=== PATIENT | female | born 1945 | race Caucasian/White ===

== ENCOUNTER → 2020-05-02 09:48 | Outpatient (BNVA) | payer MEDICARE, OTHER, SELFPAY | PROVIDERS: PCP Internal Medicine; Visit Provider Internal Medicine Cardiovascular Disease | DX: Z45.018 Encounter for adjustment and management of other part of cardiac pacemaker (principal); I47.1 Supraventricular tachycardia | CPT/HCPCS: 99212 ==

== ENCOUNTER → 2020-05-03 10:26 | Outpatient (BNVA) | payer MEDICARE, OTHER, SELFPAY | PROVIDERS: PCP Internal Medicine; Visit Provider Internal Medicine | DX: J44.9 Chronic obstructive pulmonary disease, unspecified (principal); Z23 Encounter for immunization | CPT/HCPCS: 90471; 90686; 99212 ==

== ENCOUNTER → 2020-10-24 10:17 | Outpatient (REF) | payer MEDICARE, OTHER, SELFPAY ==
--- NOTE | 2020-10-24 10:19 | CA_ITS ---
Transthoracic Echocardiogram Patient (Last, First, Middle): Valery Cano M Gender: Female Date of : 1945 Age: 75 Procedure Date: 10/24/2020 Procedure Type: Transthoracic Echocardiogram Location: OP Height: 167.64 cm Weight: 97.52 kg BSA: 2.06 m2 Heart Rate: bpm BP: 120 / 70 mmHg Installation Tech: FREIDA Mercado MD: Seferino Hampton MD Restaurant Kitchen Manager: Seferino Hampton MD Symptoms: I47.1 - Supraventricular tachycardia Study Quality: Fair ECG Rhythm: Ventriculary paced rhythm Conclusions: - 1. Normal LV systolic function with grade 1 diastolic dysfunction 2. Moderate mitral annular calcification with normal cardiac valvular Doppler 3. Normal RV systolic pressure 4. No pericardial effusion Findings Left Ventricle Normal left ventricular size, thickness, and systolic function. The visually estimated ejection fraction is between 60-65%. There is paradoxical septal motion consistent with a right ventricular pacemaker. Spectral Doppler is indicative of an impaired relaxation filling pattern. E/E prime ratio is <8, consistent with normal filling pressures. Evidence suggests grade I (mild) diastolic dysfunction. Right Ventricle Normal right ventricular cavity size and systolic function. There is a pacemaker wire seen in the right ventricle. Atria The left atrium is likely dilated. There is lipomatous hypertrophy of the interatrial septum. There is no evidence of interatrial shunt. The right atrium is normal in size. A pacemaker wire is identified in the right atrium. Aortic Valve Normal aortic valve structure and function. There is no aortic valve stenosis. There is no aortic valve regurgitation. Mitral Valve There is mild anterior and moderate posterior mitral leaflet thickening. There is moderate mitral annular calcification. There is trace mitral valve regurgitation. There is no mitral valve stenosis. Pulmonic Valve The pulmonic valve is likely normal. Tricuspid Valve Likely normal tricuspid valve structure and function. There is mild tricuspid valve regurgitation. The right ventricular systolic pressure is normal. The right ventricular systolic pressure is 32 mmHg. Normal right atrial pressure. There is no evidence of pulmonary hypertension. Great Vessels All visible segments of the aorta are normal in size. The pulmonary artery was not well visualized. Venous The inferior vena cava is normal in size and collapses greater than 50% with inspiration. Pericardium/Pleural There is no evidence of pericardial effusion. Prior Study Comparison No significant change compared to prior study dated: 06/03/2018. Measurements 2D Linear Measurements IVSd: 0.98 0.6-0.9/0.6-1.0 cm LVIDd: 4.54 3.9-5.3/4.2-5.9 cm LVIDd Index: 2.20 2.4-3.2/2.2-3.1 cm/m2 LVIDs: 2.77 2.0-3.6 cm LVPWd: 0.94 0.7-1.1 cm Ao Root: 3.30 2.1-3.5 cm LA Diam: 3.40 2.7-3.8/3.0-4.0 cm LAIDs Index: 1.65 1.5-2.3 cm/m2 LV Mass: 182.92 67-162/88-224 g LV Mass Index: 88.80 43-95/49-115 g/m2 LVOT Diam: 2.00 3.0+(-)1.3 cm 2D Systolic Function EF 4C: 62.20 >55% EF 2C: 66.50 >55% EF BiP: 65.60 >55% Mitral Valve MV Pk E: 0.54 MV PK A: 0.95 MV Decel Time: 353.00 E/A: 0.60 E'Lateral: 8.70 E'Medial: 5.44 E/E' Med: 9.90 E/E' Lat: 6.20 PHT: 103.00 MVA PHT: 2.14 Decel Bourbon: 1.53 Aortic Valve AoV Pk Porfirio: 1.51 AoV Mn Porfirio: 1.03 AoV VTI: 0.35 AoV Pk Grad: 9.00 Aov Mn Grad: 5.00 MARILYN Cont.VTI: 2.17 LVOT LVOT Pk Porfirio: 1.02 LVOT Mn Porfirio: 0.66 LVOT VTI: 0.24 LVOT Pk Grad: 4.00 LVOT Mn Grad: 2.00 LVOT Diam: 2.00 LVOT Area: 3.14 Diastolic Function MV Pk E: 0.54 MV Pk A: 0.95 E/A: 0.60 E'Medial: 5.44 E/E' Med: 9.90 E' Laterial: 8.70 E/E' Lat: 6.20 Tricuspid Valve TR Pk Porfirio: 2.71 TR Pk Grad: 29.00 RA Press: 3.00 RVSP: 32.00 Great Vessels Aorta Ao Root-2D: 3.30 2.0-3.7 cm Ao Asc: 3.00 2.1-3.4 cm Ao Arch: 2.40 Updated in Other Vendor System with Status of Final Seferino Hampton MD electronically signed on 10/25/2020 4:15:34 PM with status of Final
== END ==
LOC: HO.CARD 10:17
PROVIDERS: Visit Provider Internal Medicine Cardiovascular Disease
DX: I47.1 Supraventricular tachycardia (principal); Z95.0 Presence of cardiac pacemaker
CPT/HCPCS: 93306

== ENCOUNTER → 2020-11-01 10:42 | Outpatient (BNVA) | payer MEDICARE, OTHER, SELFPAY | PROVIDERS: PCP Internal Medicine; Visit Provider Internal Medicine | DX: J44.9 Chronic obstructive pulmonary disease, unspecified (principal) | CPT/HCPCS: 99212 ==

== ENCOUNTER → 2020-11-08 10:00 | Outpatient (BNVA) | payer MEDICARE, OTHER, SELFPAY | PROVIDERS: PCP Internal Medicine; Visit Provider Internal Medicine Cardiovascular Disease | DX: Z45.018 Encounter for adjustment and management of other part of cardiac pacemaker (principal); I50.9 Heart failure, unspecified; I47.1 Supraventricular tachycardia | CPT/HCPCS: 99212 ==

== ENCOUNTER → 2021-05-09 09:46 | Outpatient (BNVA) | payer MEDICARE, OTHER, SELFPAY | PROVIDERS: PCP Internal Medicine; Visit Provider Internal Medicine | DX: J44.9 Chronic obstructive pulmonary disease, unspecified (principal) | CPT/HCPCS: 99212 ==

== ENCOUNTER → 2021-07-18 10:48 | Outpatient (BNVA) | payer MEDICARE, OTHER, SELFPAY | PROVIDERS: PCP Internal Medicine; Referring Provider Internal Medicine; Visit Provider Internal Medicine Cardiovascular Disease | DX: I47.1 Supraventricular tachycardia (principal); Z45.018 Encounter for adjustment and management of other part of cardiac pacemaker | CPT/HCPCS: 99212 ==

== ENCOUNTER 2021-09-01 10:05 | Outpatient (REF) | payer MEDICARE, OTHER, SELFPAY ==
[2021-09-01 11:08] LABS: MANUAL DIFF FLAG NO
[2021-09-01 11:20] LABS: Basophils Percent Auto 0.4 % (0-2); Eosinophils Absolute Auto 0.2 X10*3/uL (0.0-0.4); Eosinophils Percent Auto 3.1 % (0-4); Hematocrit 41.6 % (37.0-47.0); Hemoglobin 13.4 g/dl (12.0-16.0); Imm Gran Abs Auto 0.07 X10*3/uL (0.00-0.03); Lymphocytes Absolute Auto 1.5 X10*3/uL (1.2-4.9); Mean Corpuscular HGB Conc 32.2 g/dl (31.0-35.0); Mean Corpuscular Hemoglobin 27.5 pg (27.0-33.0); Mean Corpuscular Volume 85.4 fL (80.0-98.0); Mean Platelet Volume 11.2 fL (9.4-12.3); Monocytes Absolute Auto 0.7 X10*3/uL (0.1-1.2); Monocytes Percent Auto 9.8 % (2-11); Neutrophils Absolute Auto 4.7 x10*3/uL (2.0-8.3); Neutrophils Percent Auto 64.7 % (45-73); Platelet Count 255 X10*3/uL (160-400); Red Blood Count 4.87 X10*6/uL (4.20-5.50); White Blood Count 7.3 X10*3/uL (4.8-10.8)
[2021-09-01 11:31] LABS: Estimated Average Glucose 154 mg/dL
[2021-09-01 11:42] LABS: Appearance Urine HAZY; Color Urine YELLOW; Glucose Urine UA NEG (NEG); Leukocyte Esterase Urine NEG (NEG); Nitrite Urine NEG (NEG); PH 5.5 (5.0-8.0); Specific Gravity - Urine >= 1.030 (1.005-1.025); Urine Blood NEG (NEG); Urine Ketones NEG (NEG); Urine Protein NEG (NEG-TRACE)
[2021-09-01 11:46] LABS: Alanine Aminotransferase 18 U/L (0-31); Albumin Level 3.8 g/dL (3.5-5.0); Alkaline Phosphatase 82 U/L (39-117); Anion Gap 12 (12-20); Aspartate Amino Transferase 18 U/L (5-31); Bilirubin Total 0.8 mg/dL (0.0-1.0); Blood Urea Nitrogen 16 mg/dL (9-16); Calcium 8.8 mg/dL (8.4-10.2); Carbon Dioxide 27 mmol/L (22-29); Chloride 106 mmol/L (96-108); Cholesterol 166 mg/dL; Estimated Glomerular Filt Rate > 60; Glucose Fasting 152 mg/dL (60-99); HDL Cholesterol 70 mg/dL; LDL Cholesterol Calculated 87 mg/dl; Potassium 4.2 mmol/L (3.3-5.1); Sodium 141 mmol/L (135-145); Total Protein 6.6 g/dL (6.5-8.0); Triglycerides 49 mg/dL
[2021-09-01 12:09] LABS: Free T4 (Free Thyroxine) 1.16 ng/dL (0.71-1.85); Thyroid Stimulating Hormone 0.09 uIU/mL (0.32-4.0)
[2021-09-01 12:13] LABS: Creatinine Urine 141.11 mg/dL; Microalbum/Creatinine Ratio Ur 14.8 ug/mg cr
== END 2021-09-01 10:06 | disposition home or self-care (01) ==
LOC: HO.HMGCLDS 10:05
PROVIDERS: PCP Internal Medicine; Visit Provider Internal Medicine
DX: J44.9 Chronic obstructive pulmonary disease, unspecified (principal); I10 Essential (primary) hypertension; E11.9 Type 2 diabetes mellitus without complications; E03.9 Hypothyroidism, unspecified; E78.00 Pure hypercholesterolemia, unspecified
CPT/HCPCS: 36415; 80053; 80061; 81003; 82043; 83036; 84439; 84443; 85025

== ENCOUNTER → 2021-11-02 09:41 | Outpatient (BNVA) | payer MEDICARE, OTHER, SELFPAY | PROVIDERS: PCP Internal Medicine; Visit Provider Internal Medicine | DX: J44.9 Chronic obstructive pulmonary disease, unspecified (principal); Z79.899 Other long term (current) drug therapy | CPT/HCPCS: 99212 ==

== ENCOUNTER → 2021-12-08 14:47 | Outpatient (BNVA) | payer MEDICARE, OTHER, SELFPAY | PROVIDERS: PCP Internal Medicine; Visit Provider Surgery | DX: L82.0 Inflamed seborrheic keratosis (principal) | CPT/HCPCS: 99202 ==

== ENCOUNTER → 2021-12-13 13:24 | Outpatient (BNVA) | payer MEDICARE, OTHER, SELFPAY | PROVIDERS: PCP Internal Medicine; Visit Provider Surgery | DX: L82.0 Inflamed seborrheic keratosis (principal); I47.1 Supraventricular tachycardia; Z95.0 Presence of cardiac pacemaker | CPT/HCPCS: 11401; 99212 ==

== ENCOUNTER 2022-01-11 10:16 | Outpatient (REF) | payer MEDICARE, OTHER, SELFPAY ==
[2022-01-11 14:04] LABS: Estimated Average Glucose 146 mg/dL; Hemoglobin A1c % 6.7 %
[2022-01-11 14:06] LABS: Anion Gap 14 (12-20); Blood Urea Nitrogen 13 mg/dL (9-16); Calcium 9.1 mg/dL (8.4-10.2); Carbon Dioxide 27 mmol/L (22-29); Chloride 103 mmol/L (96-108); Estimated Glomerular Filt Rate > 60; Glucose Random 171 mg/dL (60-115); Potassium 4.6 mmol/L (3.3-5.1); Sodium 139 mmol/L (135-145)
[2022-01-11 14:22] LABS: Free T4 (Free Thyroxine) 1.24 ng/dL (0.71-1.85); Thyroid Stimulating Hormone 0.07 uIU/mL (0.32-4.0)
[2022-01-11 14:44] LABS: Creatinine Urine 165.43 mg/dL; Microalbum/Creatinine Ratio Ur 22.3 ug/mg cr
== END 2022-01-11 10:17 | disposition home or self-care (01) ==
LOC: HO.10HDL 10:16
PROVIDERS: Visit Provider Internal Medicine
DX: E11.9 Type 2 diabetes mellitus without complications (principal); E03.9 Hypothyroidism, unspecified; I10 Essential (primary) hypertension
CPT/HCPCS: 36415; 80048; 82043; 83036; 84439; 84443

== ENCOUNTER → 2022-01-23 10:40 | Outpatient (BNVA) | payer MEDICARE, OTHER, SELFPAY | PROVIDERS: PCP Internal Medicine; Referring Provider Internal Medicine; Visit Provider Internal Medicine Cardiovascular Disease | DX: Z45.018 Encounter for adjustment and management of other part of cardiac pacemaker (principal); I47.1 Supraventricular tachycardia | CPT/HCPCS: 93005; 93280; 99212 ==

== ENCOUNTER 2022-02-22 09:16 | Outpatient (REF) | payer MEDICARE, OTHER, SELFPAY ==
[2022-02-22 11:54] LABS: Free T4 (Free Thyroxine) 1.18 ng/dL (0.71-1.85); Thyroid Stimulating Hormone 0.12 uIU/mL (0.32-4.0)
== END 2022-02-22 09:17 | disposition home or self-care (01) ==
LOC: HO.HMGCLDS 09:16
PROVIDERS: PCP Internal Medicine; Visit Provider Internal Medicine
DX: E03.9 Hypothyroidism, unspecified (principal)
CPT/HCPCS: 36415; 84439; 84443

== ENCOUNTER 2022-04-18 10:47 | Outpatient (REF) | payer MEDICARE, OTHER, SELFPAY ==
[2022-04-18 13:36] LABS: MANUAL DIFF FLAG NO
[2022-04-18 13:37] LABS: Basophils Absolute Auto 0.1 X10*3/uL (0.0-0.2); Basophils Percent Auto 0.5 % (0-2); Eosinophils Absolute Auto 0.2 X10*3/uL (0.0-0.4); Eosinophils Percent Auto 2.3 % (0-4); Hemoglobin 13.5 g/dl (12.0-16.0); Imm Gran Abs Auto 0.08 X10*3/uL (0.00-0.03); Imm Gran Pct Auto 0.9 % (0.0-0.4); Lymphocytes Absolute Auto 1.9 X10*3/uL (1.2-4.9); Lymphocytes Percent Auto 20.5 % (20-40); Mean Corpuscular HGB Conc 31.4 g/dl (31.0-35.0); Mean Platelet Volume 10.8 fL (9.4-12.3); Monocytes Absolute Auto 0.9 X10*3/uL (0.1-1.2); Monocytes Percent Auto 9.3 % (2-11); Neutrophils Absolute Auto 6.1 x10*3/uL (2.0-8.3); Neutrophils Percent Auto 66.5 % (45-73); Platelet Count 289 X10*3/uL (160-400); Red Cell Distribution Width 13.3 % (11.0-16.0); White Blood Count 9.1 X10*3/uL (4.8-10.8)
[2022-04-18 13:49] LABS: Estimated Average Glucose 148 mg/dL; Hemoglobin A1c % 6.8 %
[2022-04-18 14:12] LABS: Alanine Aminotransferase 17 U/L (0-31); Albumin Level 3.9 g/dL (3.5-5.0); Alkaline Phosphatase 88 U/L (39-117); Anion Gap 16 (12-20); Aspartate Amino Transferase 20 U/L (5-31); Bilirubin Total 0.7 mg/dL (0.0-1.0); Blood Urea Nitrogen 12 mg/dL (9-16); Calcium 9.1 mg/dL (8.4-10.2); Carbon Dioxide 28 mmol/L (22-29); Chloride 99 mmol/L (96-108); Estimated Glomerular Filt Rate > 60; Free T4 (Free Thyroxine) 1.21 ng/dL (0.71-1.85); Glucose Random 134 mg/dL (60-115); Potassium 4.5 mmol/L (3.3-5.1); Sodium 138 mmol/L (135-145); Thyroid Stimulating Hormone 0.06 uIU/mL (0.32-4.0); Total Protein 6.8 g/dL (6.5-8.0)
== END 2022-04-18 10:48 | disposition home or self-care (01) ==
LOC: HO.10HDL 10:47
PROVIDERS: Visit Provider Internal Medicine
DX: E11.9 Type 2 diabetes mellitus without complications (principal); E03.9 Hypothyroidism, unspecified; I10 Essential (primary) hypertension
CPT/HCPCS: 36415; 80053; 83036; 84439; 84443; 85025

== ENCOUNTER → 2022-06-06 11:04 | Outpatient (BNVA) | payer MEDICARE, OTHER, SELFPAY | PROVIDERS: PCP Internal Medicine; Visit Provider Internal Medicine | DX: J44.9 Chronic obstructive pulmonary disease, unspecified (principal); J30.9 Allergic rhinitis, unspecified; R05.9 Cough, unspecified; Z79.899 Other long term (current) drug therapy | CPT/HCPCS: 99212 ==

== ENCOUNTER → 2022-07-24 10:18 | Outpatient (BNVA) | payer MEDICARE, OTHER, SELFPAY | PROVIDERS: PCP Internal Medicine; Referring Provider Internal Medicine; Visit Provider Internal Medicine Cardiovascular Disease | DX: I47.1 Supraventricular tachycardia (principal); I05.9 Rheumatic mitral valve disease, unspecified; Z45.018 Encounter for adjustment and management of other part of cardiac pacemaker | CPT/HCPCS: 93280; 99212 ==

== ENCOUNTER 2022-08-15 10:44 | Outpatient (REF) | payer MEDICARE, OTHER, SELFPAY ==
[2022-08-15 14:00] LABS: Anion Gap 12 (12-20); Blood Urea Nitrogen 14 mg/dL (9-16); Calcium 9.2 mg/dL (8.4-10.2); Carbon Dioxide 29 mmol/L (22-29); Chloride 104 mmol/L (96-108); Estimated Glomerular Filt Rate > 60; Glucose Random 108 mg/dL (60-115); Potassium 4.7 mmol/L (3.3-5.1); Sodium 140 mmol/L (135-145)
[2022-08-15 14:06] LABS: Estimated Average Glucose 151 mg/dL; Hemoglobin A1c % 6.9 %
[2022-08-15 14:20] LABS: Free T4 (Free Thyroxine) 1.11 ng/dL (0.71-1.85); Thyroid Stimulating Hormone 0.08 uIU/mL (0.32-4.0)
[2022-08-15 14:29] LABS: Creatinine Urine 77.43 mg/dL; Microalbum/Creatinine Ratio Ur 12.9 ug/mg cr
== END 2022-08-15 10:45 | disposition home or self-care (01) ==
LOC: HO.10HDL 10:44
PROVIDERS: Visit Provider Internal Medicine
DX: E11.9 Type 2 diabetes mellitus without complications (principal); E03.9 Hypothyroidism, unspecified; I10 Essential (primary) hypertension
CPT/HCPCS: 36415; 80048; 82043; 83036; 84439; 84443

== ENCOUNTER 2022-12-11 10:46 | Outpatient (AMB) | payer MEDICARE, OTHER, SELFPAY ==
--- NOTE | 2022-12-11 10:47 | MHC.OFFVIS ---
Intake Vital Signs 12/11/22 10:48 Height 5 ft 7 in Weight 199 lb 8.293 oz BMI 31.2 BP 122/64 Blood Pressure Location Lt brachial Position Sitting Pulse 92 Pulse Source Pulse Oximeter Pulse Oximetry (%) 95 Oxygen Delivery Method Room Air Intake Visit Reasons: COPD follow-up Intake Note: Pt presents for a f/u and reports everything is going well. Lead Software Engineer Required: No Allergies No Known Allergies [No Known Allergies*] Allergy (Verified 12/11/22 11:31) Medication List - Last Reconciled 12/11/22 by Yadira Downey MD aspirin (Ecotrin Low Strength) 81 mg PO DAILY atorvastatin 10 mg PO BEDTIME diltiazem HCl 240 mg PO DAILY levothyroxine 50 mcg PO DAILY prednisolone acetate 1% 0 drps ophthalmic (eye) Symbicort 160-4.5 mcg/actuation (budesonide-formoterol) 2 puffs PO BID 90 days NS tolterodine ER 4 mg PO DAILY Do you need a note to return to daycare/school/sports/work: No HPI COPD follow-up HPI Details THIS 77 YEARS OLD VERY PLEASANT FEMALE COMES AFTER 6 MONTHS FOR HER ROUTINE FOLLOW-UP FOR COPD. HER BREATHING HAS REMAINED VERY STABLE, AND MOST OF THE TIME SHE IS USING SYMBICORT 2 PUFFS JUST IN THE MORNING. USES 2 PUFFS IN THE EVENING ONLY ON THE DAYS WHEN SHE FEELS SOMEWHAT MORE CONGESTED. SHE HAS MILD INTERMITTENT COUGH, HER WALKING IS SLOW DUE TO PROBLEM WITH THE KNEES, SO SHE HARDLY GETS SHORT OF BREATH EVEN ON WALKING. LUCKILY SHE HAS HAD NO RESPIRATORY INFECTION OR EXACERBATION . [facility] Medical History Allergic rhinitis Cardiac pacemaker in situ Complete heart block COPD (chronic obstructive pulmonary disease) Cough SVT (supraventricular tachycardia) Surgical History History of permanent cardiac pacemaker placement Hx of eye surgery Family History Father No problems noted. Mother CVD (cardiovascular disease) Pacemaker Social History Patient Tobacco Use Status: Former Tobacco user Review of Systems Const All systems reviewed & are unremarkable except as noted in HPI and below Eyes Reports no additional complaints ENT Reports nasal congestion (MILD) and Reports sore throat (MILD FEELING OF THROAT CONGESTION IN THE MORNING HOURS) Card Denies chest pain, Denies irregular heart rhythm and Denies leg edema GI Reports no additional complaints Reports no additional complaints Musc Reports no additional complaints Skin/Breast Reports system reviewed and no additional complaints, except as documented Neuro Reports no additional complaints Psych Reports no additional complaints Physical Exam Vital Signs: Last Vital Signs Pulse 92 12/11/22 10:48 BP 122/64 12/11/22 10:48 Pulse Ox 95 12/11/22 10:48 Oxygen Delivery Method Room Air 12/11/22 10:48 BMI result Body Mass Index 31.2 Const General: comfortable, no acute distress, alert and awake Orientation/consciousness: patient oriented x3 HEENT Head: Yes normal to inspection General nose exam: No nasal polyps present and No nasal discharge present Face and sinus: Yes sinuses nontender Mouth: oropharynx normal Throat: Yes posterior oropharynx normal and Yes other (Throat looks okay there is no sign of thrush) Eyes General: appearance normal, both eyes and all related structures Neck Neck: Yes normal visual inspection, Yes no lymphadenopathy, Yes trachea midline and Yes no JVD Thyroid: Thyroid normal Chest Chest palpation & inspection: normal inspection of the chest, normal palpation of entire chest wall and no tenderness Resp Other: Percussion note resonant, has good breath sounds on both sides with, slightly prolonged expiratory phase. No audible wheezes rhonchi or crepitations Cardio Palpation: normal PMI Rate: regular rate Rhythm: regular rhythm Heart sounds: no gallops and no murmurs GI Palpation (GI): Soft to palpation, nontender, No hepatosplenomegaly present and no masses Auscultation: normal bowel sounds Back/Spine/Pelvis Thoracic/Lumbar Spine: thoracic and lumbar spine normal to inspection Skin General skin exam: no rashes or lesions noted Neuro General: patient oriented x3 and no focal motor deficits Cranial nerves: Yes CN's II-XII intact bilaterally Extrem General: Yes normal to inspection, No no joint enlargement (BOTH KNEES ARE ENLARGED AND STIFF, SHE HAS HAD MINOR SURGERIES ON BOTH SIDE), Yes no clubbing, cyanosis or edema and Yes no calf tenderness Right upper extremity: edema (Mild stasis edema controlled with the elastic stockings) Psych Appearance: grossly normal and well kempt Speech and movement: Normal speech and movement present Assessment & Plan Assessment & Plan (1) Allergic rhinitis: Comment: She has mild allergic rhinitis. Remains fairly well controlled. [place]: FLONASE 2 SPRAY EACH NOSTRIL DAILY. MAY USE LORATADINE 10 MG ONCE A DAY P.R.N. FOR ACUTE ATTACKS OF SNEEZING AND NASAL CONGESTION. Code(s): J30.9 - Allergic rhinitis, unspecified (2) Cough: Comment: The cough is more due to allergic rhinitis and changes in the air quality. Continue to use Flonase 2 spray in each nostril daily. In winter months use the humidifier in the house. Drink plenty of fluids. Code(s): R05.9 - Cough, unspecified (3) COPD (chronic obstructive pulmonary disease): Comment: MILD TO MODERTAE DEGREE OF COPD. VERY STABLE , AND CONTROLLED TX : ADVISED TO USE SYMBICORT 160-4.5 ONLY ONE INH BID, OR 2 PUFFS IN AMs AND INCREASE TO 2 PUFFS B.I.D. IF SYMPTOMS GET ANY WORSE. USE PROAIR 2 PUFFS Q 6 HOURS ONLY P.R.N.( WHICH SHE HARDLY NEEDS ) Code(s): J44.9 - Chronic obstructive pulmonary disease, unspecified Coding Level of Care Code Est Pt Level 3 (94785) Diagnoses Allergic rhinitis J30.9 Cough R05.9 COPD (chronic obstructive pulmonary disease) J44.9
[2022-12-11 10:48] VITALS: BP 122/64; PULSE 92; O2SAT 95; BMI 31.2
== END 2022-12-11 11:05 | disposition home or self-care (01) ==
PROVIDERS: PCP Internal Medicine; Visit Provider Internal Medicine
DX: J30.9 Allergic rhinitis, unspecified (principal); R05.9 Cough, unspecified; J44.9 Chronic obstructive pulmonary disease, unspecified
CPT/HCPCS: 99213

== ENCOUNTER → 2022-12-11 10:46 | Outpatient (BNVA) | payer MEDICARE, OTHER, SELFPAY | PROVIDERS: PCP Internal Medicine; Visit Provider Internal Medicine | DX: J44.9 Chronic obstructive pulmonary disease, unspecified (principal); R05.9 Cough, unspecified; J30.9 Allergic rhinitis, unspecified; I44.2 Atrioventricular block, complete; I47.1 Supraventricular tachycardia; Z87.891 Personal history of nicotine dependence; Z95.0 Presence of cardiac pacemaker | CPT/HCPCS: 99212 ==

== ENCOUNTER → 2023-01-18 09:39 | Outpatient (REF) | payer MEDICARE, OTHER, SELFPAY ==
--- NOTE | 2023-01-18 09:40 | CA_ITS ---
Transthoracic Echocardiogram Patient (Last, First, Middle): Valery Cano M Gender: Female Date of : 1945 Age: 77 Procedure Date: 01/18/2023 Procedure Type: Transthoracic Echocardiogram Location: OP Height: 167.64 cm Weight: 90.72 kg BSA: 2.00 m2 Heart Rate: 43 bpm BP: 140 / 70 mmHg Lighter: MOISE Referring MD: Seferino Hampton MD Symptoms: I05.9 - Rheumatic mitral valve disease, unspecified Study Quality: Adequate ECG Rhythm: Bradycardia Conclusions: - Normal left ventricular size, thickness, systolic function, and wall motion. The visually estimated ejection fraction is between 55-60%. - Normal right ventricular cavity size and systolic function. There is a pacemaker wire seen in the right ventricle. Findings Left Ventricle Normal left ventricular size, thickness, systolic function, and wall motion. The visually estimated ejection fraction is between 55-60%. Abnormal diastolic function is noted. Spectral Doppler is indicative of an impaired relaxation filling pattern. E/E prime ratio is <8, consistent with normal filling pressures. Right Ventricle Normal right ventricular cavity size and systolic function. There is a pacemaker wire seen in the right ventricle. Atria The left atrium is normal in size. The right atrium is normal in size. Aortic Valve There is a normal trileaflet aortic valve. There is mild calcification of the aortic valve. There is no aortic valve stenosis. There is no aortic valve regurgitation. Mitral Valve The mitral valve appears normal. There is no mitral valve regurgitation. There is no mitral valve stenosis. Pulmonic Valve The pulmonic valve is likely normal. Tricuspid Valve Normal tricuspid valve structure. There is no tricuspid valve regurgitation. The right ventricular systolic pressure is 26 mmHg. Normal right atrial pressure. There is no evidence of pulmonary hypertension. Great Vessels There is mild dilatation of the sinuses of Valsalva measuring 3.70 cm and mild dilatation of the ascending aorta measuring 3.30 cm. Venous The inferior vena cava is normal in size and collapses greater than 50% with inspiration. Pericardium/Pleural There is no evidence of pericardial effusion. Prior Study Comparison No significant change compared to prior study dated: 10/24/2020. Measurements 2D Linear Measurements IVSd: 0.84 0.6-0.9/0.6-1.0 cm LVIDd: 5.19 3.9-5.3/4.2-5.9 cm LVIDd Index: 2.60 2.4-3.2/2.2-3.1 cm/m2 LVIDs: 3.25 2.0-3.6 cm LVPWd: 1.01 0.7-1.1 cm LA Diam: 3.60 2.7-3.8/3.0-4.0 cm LAIDs Index: 1.80 1.5-2.3 cm/m2 LV Mass: 218.10 67-162/88-224 g LV Mass Index: 109.05 43-95/49-115 g/m2 LVOT Diam: 2.20 3.0+(-)1.3 cm 2D Systolic Function EF 4C: 59.80 >55% EF 2C: 54.60 >55% EF BiP: 57.50 >55% Mitral Valve MV Pk E: 0.64 MV PK A: 0.86 MV Decel Time: 200.00 E/A: 0.70 E'Lateral: 9.68 E'Medial: 6.42 E/E' Med: 9.90 E/E' Lat: 6.60 PHT: 59.00 MVA PHT: 3.73 Decel Brooks: 3.19 Aortic Valve AoV Pk Porfirio: 1.45 AoV Mn Porfirio: 1.07 AoV VTI: 0.38 AoV Pk Grad: 8.00 Aov Mn Grad: 5.00 MARILYN Cont.VTI: 3.09 LVOT LVOT Pk Porfirio: 1.30 LVOT Mn Porfirio: 0.92 LVOT VTI: 0.31 LVOT Pk Grad: 7.00 LVOT Mn Grad: 4.00 LVOT Diam: 2.20 LVOT Area: 3.80 Diastolic Function MV Pk E: 0.64 MV Pk A: 0.86 E/A: 0.70 E'Medial: 6.42 E/E' Med: 9.90 E' Laterial: 9.68 E/E' Lat: 6.60 Right Ventricle TAPSE (mm): 21.20 TVS' Porfirio: 11.40 Tricuspid Valve TR Pk Porfirio: 2.39 TR Pk Grad: 23.00 RA Press: 3.00 RVSP: 26.00 Great Vessels Aorta Sinus of Valsalva: 3.70 2.0-3.5 cm Ao Asc: 3.30 2.1-3.4 cm Pulmonary Valve PV Pk Porfirio: 0.96 Peak PV Grad: 4.00 Updated in Other Vendor System with Status of Final Heath Goodman MD electronically signed on 01/21/2023 6:53:21 PM with status of Final
== END ==
LOC: HO.CARD 09:39
PROVIDERS: PCP Internal Medicine; Visit Provider Internal Medicine Cardiovascular Disease
DX: I05.9 Rheumatic mitral valve disease, unspecified (principal)
CPT/HCPCS: 93306

== ENCOUNTER → 2023-01-18 09:40 | Outpatient (BNV) | payer MEDICARE, OTHER, SELFPAY | PROVIDERS: PCP Internal Medicine; Visit Provider Internal Medicine Cardiovascular Disease | DX: I35.8 Other nonrheumatic aortic valve disorders (principal) | CPT/HCPCS: 93306 ==

== ENCOUNTER 2023-01-28 09:45 | Outpatient (AMB) | payer MEDICARE, OTHER, SELFPAY ==
--- NOTE | 2023-01-28 09:55 | MHC.OFFVIS ---
Intake Vital Signs 01/28/23 09:58 Height 5 ft 7 in Weight 200 lb 9.93 oz BMI 31.4 BP 120/82 Blood Pressure Location Lt brachial Position Sitting Pulse 74 Intake Visit Reasons: 6 mth s/p echo Intake Note: 6 month follow-up with ekg and medtronic check feeling good Funeral Car Driver Required: No Allergies No Known Allergies [No Known Allergies*] Allergy (Verified 12/11/22 11:31) Medication List - Last Reconciled 01/28/23 by Seferino Hampton MD aspirin (Ecotrin Low Strength) 81 mg PO DAILY atorvastatin 10 mg PO BEDTIME diltiazem HCl 240 mg PO DAILY levothyroxine 50 mcg PO DAILY prednisolone acetate 1% 0 drps ophthalmic (eye) Symbicort 160-4.5 mcg/actuation (budesonide-formoterol) 2 puffs PO BID 90 days NS tolterodine ER 4 mg PO DAILY HPI HPI Comments History of Present Illness Details Valery comes for follow-up. Says about a month ago she felt her heart slow down a lot a pacemaker was not working well. Reviewed the pacer telemetry consistent with nonsustained VT at that time. She did not lose consciousness. Continues to have exertional shortness of breath. Denies any orthopnea, PND, leg edema. Denies any exertional chest pain. Takes all her medications. No prolonged palpitations irregular heartbeat. [facility] Medical History Allergic rhinitis Cough COPD (chronic obstructive pulmonary disease) SVT (supraventricular tachycardia) Complete heart block Cardiac pacemaker in situ Surgical History History of permanent cardiac pacemaker placement Hx of eye surgery Family History Father No problems noted. Mother CVD (cardiovascular disease) Pacemaker Social History Patient Tobacco Use Status: Former Tobacco user Review of Systems Const Denies chills, Denies fatigue, Denies fever(s), Denies frequent falls, Denies weakness, Denies weight gain and Denies weight loss ENT Denies dizziness Card Denies chest pain, Denies leg edema, Denies lightheadedness, Denies palpitations, Denies dyspnea, Denies dyspnea on exertion, Denies orthopnea and Denies other (loss of consciousness) Resp Denies cough, Denies dyspnea and Denies dyspnea on exertion GI Denies hematochezia and Denies change in stool character Musc Denies abnormal gait, Denies muscle weakness, Denies numbness, Denies radiating pain into limb and Denies tingling Neuro Denies abnormal gait, Denies dizziness, Denies frequent falls, Denies numbness, Denies tingling and Denies weakness Endo Denies fatigue and Denies palpitations Physical Exam Vital Signs: Last Vital Signs Pulse 74 01/28/23 09:58 BP 120/82 01/28/23 09:58 BMI result Body Mass Index 31.4 Const General: cooperative, comfortable, no acute distress, alert and awake Nutritional Appearance: obese Orientation/consciousness: patient oriented x3 Limitations: no limitations Neck Neck: Yes trachea midline, Yes supple and Yes no JVD Resp Effort & Inspection: normal respiratory effort Auscultation: diminished lung sounds on the left in the lower lung lowery and bronchovesicular breath sounds Cardio Jugular venous distension: no JVD Palpation: normal PMI Rate: regular rate Rhythm: regular rhythm Heart sounds: S1 normal heart sound present and S2 normal heart sound present GI Inspection: Yes obesity Auscultation: normal bowel sounds Skin General skin exam: no rashes or lesions noted Neuro General: patient oriented x3 and no focal motor deficits Extrem General: Yes no clubbing, cyanosis or edema and Yes pedal edema Psych Appearance: grossly normal Office Procedures Cardiac Device Check Cardiac Device Check Details: Dual-chamber Medtronic pacemaker in place. Programmed in DDDR at 60 beats per minute. One episode of nonsustained VT noted on December 30. Patient ventricularly pacer dependent. Atrial pacing 50% of time. Atrial pacing thresholds adequate and reprogrammed to enhance battery life. Ventricular pacing thresholds are stable. Pacing lead impedance is stable. Battery life is at about 17 months [id number] Cardiac Device Check, pacemaker dual lead Procedure code (CPT) selection complete EKG Details: EKG shows dual AV paced rhythm at 74 beats per minute [id number], Complete Assessment & Plan Assessment & Plan (1) Non-sustained ventricular tachycardia: Code(s): I47.29 - Other ventricular tachycardia Plan: Patient noted to have 1 episode of nonsustained ventricular tachycardia that may correlate with her symptoms of lightheadedness/feeling the heart stopping. Etiology is unclear. Recent echocardiogram shows normal LV systolic function. Would suggest a vasodilating myocardial perfusion imaging to rule out myocardial ischemia. Further treatment based on the findings. May consider switching her to a beta-beth if she continues to have recurrent episodes of nonsustained VT. (2) Cardiac pacemaker in situ: Comment: Medtronic dual-chamber. Did not tolerate asynchronous ventricular pacing Code(s): Z95.0 - Presence of cardiac pacemaker Plan: Cardiac pacemaker in-situ, working well. Reprogrammed for adequate function. Patient pacer dependent ventricle. Will continue monitor remotely every 3 months. Follow up in the clinic in 6 months time. (3) SVT (supraventricular tachycardia): Code(s): I47.1 - Supraventricular tachycardia Plan: Prior history of SVT without any obvious clinical recurrence at this point time. Continue calcium channel beth therapy. Avoidance of stimulants was discussed. Vagal maneuvers were discussed. Will follow up in the clinic in 6 months time, sooner p.r.n.. Thank you for allowing me to partake in the care Orders: Orders CA lexiscan stress w saad Today I47.29 - Other ventricular tachycardia Coding Level of Care Code Est Pt Level 4 (65979) Diagnoses Non-sustained ventricular tachycardia I47.29 Cardiac pacemaker in situ Z95.0 SVT (supraventricular tachycardia) I47.1 CPT Codes Cardiac Device Check - Cardiac Device 2: [id number] Cardiac Device Check, pacemaker dual lead ([id number]) EKG - CPT: 74937-[id number], Complete ([id number])
[2023-01-28 09:58] VITALS: BP 120/82; PULSE 74; BMI 31.4
== END 2023-01-28 10:17 | disposition home or self-care (01) ==
PROVIDERS: PCP Internal Medicine; Referring Provider Internal Medicine; Visit Provider Internal Medicine Cardiovascular Disease
DX: I47.29 Other ventricular tachycardia (principal); Z95.0 Presence of cardiac pacemaker
CPT/HCPCS: 93280; 99214

== ENCOUNTER → 2023-01-28 09:45 | Outpatient (BNVA) | payer MEDICARE, OTHER, SELFPAY | PROVIDERS: PCP Internal Medicine; Referring Provider Internal Medicine; Visit Provider Internal Medicine Cardiovascular Disease | DX: I47.29 Other ventricular tachycardia (principal); I47.1 Supraventricular tachycardia; Z45.018 Encounter for adjustment and management of other part of cardiac pacemaker | CPT/HCPCS: 93005; 93280; 99212 ==

== ENCOUNTER → 2023-02-26 09:09 | Outpatient (REF) | payer MEDICARE, OTHER, SELFPAY ==
--- NOTE | ~2023-02-26 | NM_ITS ---
Lexiscan Myocardial perfusion study Indication: Abnormal EKG, shortness of breath, assess for coronary disease and ischemia Technique: The patient was brought in for a Lexiscan perfusion study on 02/26/2023 and was injected 0.4 mg of Lexiscan intravenously. Within a minute of this injection 30 mCi of sestamibi was given intravenously. Images were obtained using the SPECT gamma camera interlaced with the gating device. Images were obtained in supine position. Resting perfusion study was performed on 02/27/2023. Patient was administered 30 mCi of sestamibi intravenously at rest. Images were then obtained in supine position. Images were processed with the software and compared side to side in short axis, horizontal long axis and vertical long axis views. Total DLP 181mGy-cm. Findings: Raw acquisition reviewed. Arms by the patient's side. The stress perfusion study showed markedly reduced to absent tracer uptake in the distal part of inferior wall. There is some improvement with CT attenuation correction suggestive components of diaphragmatic attenuation artifact. The gated study shows normal LV systolic function with calculated LVEF of 59%. LV cavity is normal in size. The gated study shows normal wall thickening and contraction of segments. Resting study shows markedly diminished tracer uptake in most of the inferior wall, most prominent at the distal part. Gating at rest reveals normal wall motion with ejection fraction at 69%. The findings are consistent with fixed inferior perfusion defect but improving significantly with CT attenuation correction. No clear reversible defects. NM/NM saad perf SPECT rest & str Impression: 1. Myocardial perfusion imaging study shows probably normal myocardial perfusion. Fixed inferior defect but improves significantly with CT attenuation correction and hence could be all diaphragmatic attenuation artifact. Less likely prior inferior infarct. 2. Gated LVEF is 59% during stress and 69% during rest. 3. Transient ischemic dilatation not present. EKG component of the test reported separately.
== END ==
LOC: HO.CARD 09:09
PROVIDERS: Visit Provider Internal Medicine Cardiovascular Disease
DX: I47.29 Other ventricular tachycardia (principal)
CPT/HCPCS: 78452; 93017; A9500; J0280; J2785

== ENCOUNTER → 2023-02-26 09:12 | Outpatient (BNV) | payer MEDICARE, OTHER, SELFPAY | PROVIDERS: Visit Provider Nurse Practitioner | DX: R94.31 Abnormal electrocardiogram [ECG] [EKG] (principal); I47.29 Other ventricular tachycardia | CPT/HCPCS: 78452; 93016; 93018 ==

== ENCOUNTER → 2023-05-14 23:59 | Outpatient (BNV) | payer MEDICARE, OTHER, SELFPAY ==
--- NOTE | 2023-05-21 08:35 | MHC.OFFVIS ---
Intake Intake Visit Reasons: Remote Device Check- Medtronic Allergies No Known Allergies [No Known Allergies*] Allergy (Verified 12/11/22 11:31) PFSH Medical History Allergic rhinitis Cough COPD (chronic obstructive pulmonary disease) SVT (supraventricular tachycardia) Complete heart block Cardiac pacemaker in situ Surgical History History of permanent cardiac pacemaker placement Hx of eye surgery Family History Father No problems noted. Mother CVD (cardiovascular disease) Pacemaker Social History Patient Tobacco Use Status: Former Tobacco user Office Procedures Cardiac Device Check Cardiac Device Check Details: Remote pacemaker report generated 05/14/2023. Pacemaker function is adequate. Battery life is low at 4 months. Will follow [id number] Cardiac Device Interrogation, pacemaker Procedure code (CPT) selection complete Assessment & Plan Assessment & Plan (1) Cardiac pacemaker in situ: Comment: Medtronic dual-chamber. Did not tolerate asynchronous ventricular pacing Code(s): Z95.0 - Presence of cardiac pacemaker Plan: See above Coding Level of Care Code Procedure Only Diagnoses Cardiac pacemaker in situ Z95.0 CPT Codes Cardiac Device Check - Cardiac Device 12: [id number] Cardiac Device Interrogation, pacemaker ([id number])
== END ==
PROVIDERS: Visit Provider Internal Medicine Cardiovascular Disease
DX: I44.2 Atrioventricular block, complete (principal); Z95.0 Presence of cardiac pacemaker
CPT/HCPCS: 93294

== ENCOUNTER 2023-05-28 09:25 | Day surgery (SDC) | payer MEDICARE, OTHER, SELFPAY ==
[2023-05-24 13:37] VITALS: BMI 31.3
--- NOTE | 2023-05-27 10:42 | P.CONAN_ITS ---
Documented by User: Delma Carrera NP 05/27/23 10:46 HPI - Anesthesia Eval Consult details Narrative: 77yo F for Colonoscopy [place] [facility] [place] Last office visit 01/2023. Pacer in situ PMFSH Active Problems Active Problems: All Active Problems (Updated 05/24/23 @ 13:36 by Bernie Kendall RN) Non-sustained ventricular tachycardia (Acute) Inflamed seborrheic keratosis (Acute) Mitral annular calcification (Acute) Allergic rhinitis (Acute) Cough (Acute) SVT (supraventricular tachycardia) (Acute) Cardiac pacemaker in situ (Acute) COPD (chronic obstructive pulmonary disease) (Acute) Past Medical History Medical History Hypothyroidism Diabetes mellitus Degenerative joint disease Irritable bowel syndrome Diverticulosis Allergic rhinitis Cough COPD (chronic obstructive pulmonary disease) SVT (supraventricular tachycardia) Complete heart block Cardiac pacemaker in situ Family History Family History Father No problems noted. Mother CVD (cardiovascular disease) Pacemaker Surgical History Surgical History H/O colonoscopy History of appendectomy History of hysterectomy History of permanent cardiac pacemaker placement Hx of eye surgery Social History Social History Patient Tobacco Use Status: Former Tobacco user Use of substances other than those prescribed or required for medical reasons: No Advance Directives: No Advance Directives Information Provided: Yes Meds Allergies Allergy/AdvReac Type Severity Reaction Status Date / Time No Known Allergies Allergy Verified 12/11/22 11:31 [No Known Allergies*] Home Medications Medication Instructions Recorded Confirmed Last Taken Type atorvastatin 10 mg tablet 10 mg PO BEDTIME 05/02/20 05/24/23 Unknown History levothyroxine 50 mcg tablet 50 mcg PO DAILY 05/02/20 05/24/23 Unknown History tolterodine 4 mg capsule,extended 4 mg PO DAILY 11/08/20 05/24/23 Unknown History release 24 hr prednisolone acetate 1 % eye 1 drp ophthalmic (eye) DAILY 12/11/22 05/24/23 Unknown History drops,suspension Exam Height,Weight and Vital Signs: Height 5 ft 7 in Weight 90.718 kg Narrative Narrative: NM saad perf SPECT rest & str 02/2023 Impression: 1. Myocardial perfusion imaging study shows probably normal myocardial perfusion. Fixed inferior defect but improves significantly with CT attenuation correction and hence could be all diaphragmatic attenuation artifact. Less likely prior inferior infarct. 2. Gated LVEF is 59% during stress and 69% during rest. 3. Transient ischemic dilatation not present. EKG component of the test reported separately. Cardiac Device Check 01/2023 Details: Dual-chamber Medtronic pacemaker in place. Programmed in DDDR at 60 beats per minute. One episode of nonsustained VT noted on December 30. Patient ventricularly pacer dependent. Atrial pacing 50% of time. Atrial pacing thresholds adequate and reprogrammed to enhance battery life. Ventricular pacing thresholds are stable. Pacing lead impedance is stable. Battery life is at about 17 months EKG 01/2023 dual AV paced rhythm at 74 beats per minute Assessment and Plan Assessment Anesthesia Assessment: Chart Reviewed Documented by User: Billy Blue MD 05/28/23 10:24 [facility] Past Medical History Medical History Hypothyroidism Diabetes mellitus Degenerative joint disease Irritable bowel syndrome Diverticulosis Allergic rhinitis Cough COPD (chronic obstructive pulmonary disease) SVT (supraventricular tachycardia) Complete heart block Cardiac pacemaker in situ Family History Family History Father No problems noted. Mother CVD (cardiovascular disease) Pacemaker Family history of problems with anesthesia: No Surgical History Surgical History H/O colonoscopy History of appendectomy History of hysterectomy History of permanent cardiac pacemaker placement Hx of eye surgery History of Problems with Anesthesia: No Social History Social History Patient Tobacco Use Status: Former Tobacco user Use of substances other than those prescribed or required for medical reasons: No Advance Directives: No Advance Directives Information Provided: Yes Meds Allergies Allergy/AdvReac Type Severity Reaction Status Date / Time No Known Allergies Allergy Verified 12/11/22 11:31 [No Known Allergies*] Home Medications Medication Instructions Recorded Confirmed Last Taken Type atorvastatin 10 mg tablet 10 mg PO BEDTIME 05/02/20 05/24/23 Unknown History levothyroxine 50 mcg tablet 50 mcg PO DAILY 05/02/20 05/24/23 Unknown History tolterodine 4 mg capsule,extended 4 mg PO DAILY 11/08/20 05/24/23 Unknown History release 24 hr prednisolone acetate 1 % eye 1 drp ophthalmic (eye) DAILY 12/11/22 05/24/23 Unknown History drops,suspension Exam Airway Mallampati Class: III TM Dist: >3cm Neck ROM: Full Loose/Missing/Broken Teeth: No Heart: [id number] Lungs: cta b/l Assessment and Plan Assessment Anesthesia Assessment: Anesthesia Plan Discussed Final Anesthetic Review Family History of Problems with Anesthesia: No History of Problems with Anesthesia: No NPO: Yes ASA Class: III Final Preanesthetic Review: No Changes in Pt Med Stat, Meds/Allgs Chart Reviewed, Consent Obtained/Reviewed and Anes Risks/Benef Reviewed Patient Risk: Intermediate Procedure Risk: Intermediate Assessment/Block/Sedation in SS: Assess/Block/Sedation-SS Anesthetic Plan Anesthetic Plan: MAC: and Agree w/ Assess. and Plan Disposition: Standard PACU
[2023-05-28 10:02] VITALS: BP 140/87; PULSE 85; RESP 16; TEMP 37.3; O2SAT 97; BMI 30.9
--- NOTE | 2023-05-28 10:08 | MHC.SHP ---
Pre-Procedural Eval Section A Date of Service: 05/28/23 Section B Chief Complaint: Encounter for screening for malignant neoplasm of Details of Present Illness: see H&P no changes Relevant Family History (Specify if Yes): No Relevant Social History: None Present Medications: see Short Stay Collaborative assessment Medical History: No relevant PMH History of Previous Operations: No relevant previous surgery Allergies: Allergies Allergy/AdvReac Type Severity Reaction Status Date / Time No Known Allergies Allergy Verified 12/11/22 11:31 [No Known Allergies*] Review of Systems Sugical H&P ROS: Negative: Constitution, Cardiovascular, Respiratory, Neurological, Psychiatric, Hem-Onc, Allergic/Immunologic, Gastrointestinal, Genitourinary, Musculoskeletal, Integumentary, Endocrine and Eyes/Ears/Nose/Throat Exam Surgical H&P Exam: Normal: HEENT, Normal: Heart, Normal: Lungs, Normal: Extremities, Normal: Abdomen, Normal: Skin and Normal: Neurological Plan Diagnosis/Plan: Unchanged I have reviewed the history and physical and performed a pertinent physical examination on my patient. No changes have occurred unless specified. Time Spent With Patient Time: Total time managing care of this patient today ____ minutes.
[2023-05-28] MEDS: Lactated Ringers 1,000 ML 100 ML IVCONT (10:19)
[2023-05-28 11:01] VITALS: BP 129/55; PULSE 79; RESP 19; TEMP 36.5; O2SAT 100
[2023-05-28 11:16] VITALS: BP 149/58; PULSE 69; RESP 19; TEMP 36.5; O2SAT 98
--- NOTE | 2023-05-28 11:25 | OP_ITS ---
DATE OF SERVICE: 05/28/2023 SURGEON: Pelon rAroyo MD INDICATIONS: Colon cancer screening and family history of colon cancer PREOPERATIVE DIAGNOSIS: POSTOPERATIVE DIAGNOSIS: PROCEDURE PERFORMED: Colonoscopy to the terminal ileum. ESTIMATED BLOOD LOSS: COMPLICATIONS: ANESTHESIA: Monitored anesthesia care. ASSISTANTS: SPECIMENS: DESCRIPTION OF PROCEDURE: A history and physical was performed. The risks and benefits of the procedure were explained to the patient. Informed consent was obtained. The patient was placed in the left lateral decubitus position. A digital rectal exam was performed and was found to be normal. The Olympus pediatric video colonoscope was introduced into the rectum and advanced to the cecum. The cecum was identified by transillumination, palpation, and identification of ileocecal valve. Examination was performed. The scope was removed. She tolerated the procedure well and was taken to the recovery area in stable condition. FINDINGS: The terminal ileum was examined and appeared normal. The visualized colonic mucosa was normal. The quality of the prep was good. No polyps were identified. There was mild sigmoid diverticulosis. Retroflexed examination showed some small internal hemorrhoids. IMPRESSION: Normal colonoscopy. RECOMMENDATION: 1. Follow up as needed. 2. Repeat colonoscopy is recommended in 5 years for family history of colon cancer. This is optional based on her age. MD ADENIKE Benavidez/JOSEPHL / [phone]
== END 2023-05-28 12:19 | disposition home or self-care (01) ==
PROVIDERS: PCP Internal Medicine; Visit Provider Internal Medicine Gastroenterology
PROC: 0DJD8ZZ Inspection of Lower Intestinal Tract, Via Natural or Artificial Opening Endoscopic (ICD-10-PCS; CPT 45378; principal; 2023-05-28 10:50)
DX: Z12.11 Encounter for screening for malignant neoplasm of colon (principal); Z80.0 Family history of malignant neoplasm of digestive organs; K57.30 Diverticulosis of large intestine without perforation or abscess without bleeding; K64.8 Other hemorrhoids; K58.9 Irritable bowel syndrome, unspecified; I47.10 Supraventricular tachycardia, unspecified; Z95.0 Presence of cardiac pacemaker; J44.9 Chronic obstructive pulmonary disease, unspecified; E78.00 Pure hypercholesterolemia, unspecified; E03.9 Hypothyroidism, unspecified; E11.9 Type 2 diabetes mellitus without complications; Z79.82 Long term (current) use of aspirin; Z87.891 Personal history of nicotine dependence
CPT/HCPCS: G0105; J2704

== ENCOUNTER 2023-06-18 11:04 | Outpatient (AMB) | payer MEDICARE, OTHER, SELFPAY ==
[2023-06-18 11:06] VITALS: BP 110/52; PULSE 72; O2SAT 97
--- NOTE | 2023-06-18 11:06 | MHC.OFFVIS ---
Intake Vital Signs 06/18/23 11:06 Height 5 ft 7 in BP 110/52 L Blood Pressure Location Lt brachial Position Sitting Pulse 72 Pulse Source Pulse Oximeter Pulse Oximetry (%) 97 Oxygen Delivery Method Room Air Intake Visit Reasons: COPD follow-up Intake Note: pt is here for follow up and states she is feeling not bad with breathing but the stuffy nose/runny nose is an issue.PT NEEDS ALTERNATIVE FOR SYMBICORT. 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: No Allergies No Known Allergies [No Known Allergies*] Allergy (Verified 06/18/23 11:29) Medication List - Last Reconciled 06/18/23 by Yadira Downey MD aspirin (Ecotrin Low Strength) 81 mg PO DAILY atorvastatin 10 mg PO BEDTIME diltiazem HCl 240 mg PO DAILY levothyroxine 50 mcg PO DAILY prednisolone acetate 1% 1 drp ophthalmic (eye) DAILY Symbicort 160-4.5 mcg/actuation (budesonide-formoterol) 2 puffs PO BID 90 days NS tolterodine ER 4 mg PO DAILY Do you need a note to return to daycare/school/sports/work: No HPI COPD follow-up HPI Details 78 years old very pleasant female is here for follow-up after 6 months. She has remained very stable during the past 6 months, without any infection or acute exacerbation. She does get mild nasal congestion off and on, with mild cough but no wheezing. She is using Symbicort 2 puffs b.i.d. and ProAir only once in a while. Now she would need an alternative agent in place of Symbicort. But she still has 3 months supply. [facility] Medical History Hypothyroidism Diabetes mellitus Degenerative joint disease Irritable bowel syndrome Diverticulosis Allergic rhinitis Cough COPD (chronic obstructive pulmonary disease) SVT (supraventricular tachycardia) Complete heart block Cardiac pacemaker in situ Surgical History H/O colonoscopy History of appendectomy History of hysterectomy History of permanent cardiac pacemaker placement Hx of eye surgery Family History Father No problems noted. Mother CVD (cardiovascular disease) Pacemaker Social History Patient Tobacco Use Status: Former Tobacco user Review of Systems Const All systems reviewed & are unremarkable except as noted in HPI and below Eyes Reports no additional complaints ENT Reports nasal congestion (MILD) and Reports sore throat (MILD FEELING OF THROAT CONGESTION IN THE MORNING HOURS) Card Denies chest pain, Denies irregular heart rhythm and Denies leg edema GI Reports no additional complaints Reports no additional complaints Musc Reports no additional complaints Skin/Breast Reports system reviewed and no additional complaints, except as documented Neuro Reports no additional complaints Psych Reports no additional complaints Physical Exam Vital Signs: Last Vital Signs Pulse 72 06/18/23 11:06 BP 110/52 L 06/18/23 11:06 Pulse Ox 97 06/18/23 11:06 Oxygen Delivery Method Room Air 06/18/23 11:06 Const General: comfortable, no acute distress, alert and awake Orientation/consciousness: patient oriented x3 HEENT Head: Yes normal to inspection General nose exam: No nasal polyps present and No nasal discharge present Face and sinus: Yes sinuses nontender Mouth: oropharynx normal Throat: Yes posterior oropharynx normal and Yes other (Throat looks okay there is no sign of thrush) Eyes General: appearance normal, both eyes and all related structures Neck Neck: Yes normal visual inspection, Yes no lymphadenopathy, Yes trachea midline and Yes no JVD Thyroid: Thyroid normal Chest Chest palpation & inspection: normal inspection of the chest, normal palpation of entire chest wall and no tenderness Resp Other: Percussion note resonant, has good breath sounds on both sides with, slightly prolonged expiratory phase. No audible wheezes rhonchi or crepitations Cardio Palpation: normal PMI Rate: regular rate Rhythm: regular rhythm Heart sounds: no gallops and no murmurs GI Palpation (GI): Soft to palpation, nontender, No hepatosplenomegaly present and no masses Auscultation: normal bowel sounds Back/Spine/Pelvis Thoracic/Lumbar Spine: thoracic and lumbar spine normal to inspection Skin General skin exam: no rashes or lesions noted Neuro General: patient oriented x3 and no focal motor deficits Cranial nerves: Yes CN's II-XII intact bilaterally Extrem General: Yes normal to inspection, No no joint enlargement (BOTH KNEES ARE ENLARGED AND STIFF, SHE HAS HAD MINOR SURGERIES ON BOTH SIDE), Yes no clubbing, cyanosis or edema and Yes no calf tenderness Right upper extremity: edema (Mild stasis edema controlled with the elastic stockings) Psych Appearance: grossly normal and well kempt Speech and movement: Normal speech and movement present Assessment & Plan Assessment & Plan (1) COPD (chronic obstructive pulmonary disease): Comment: MILD TO MODERTAE DEGREE OF COPD. VERY STABLE , AND CONTROLLED TX : ADVISED TO USE SYMBICORT 160-4.5 ONLY ONE INH BID, OR 2 PUFFS IN AMs AND INCREASE TO 2 PUFFS B.I.D. IF SYMPTOMS GET ANY WORSE. USE PROAIR 2 PUFFS Q 6 HOURS ONLY P.R.N.( WHICH SHE HARDLY NEEDS ) Code(s): J44.9 - Chronic obstructive pulmonary disease, unspecified Plan: * When she finishes her current supply of Symbicort, We will change it to Breo 200-25 only 1 inhalation daily. She will let us know when she needs the change (2) Allergic rhinitis: Comment: She has mild allergic rhinitis. Remains fairly well controlled. Code(s): J30.9 - Allergic rhinitis, unspecified Plan: TX: FLONASE 2 SPRAY EACH NOSTRIL DAILY. MAY USE LORATADINE 10 MG ONCE A DAY P.R.N. FOR ACUTE ATTACKS OF SNEEZING AND NASAL CONGESTION. Coding Level of Care Code Est Pt Level 3 (77117) Diagnoses COPD (chronic obstructive pulmonary disease) J44.9 Allergic rhinitis J30.9
== END 2023-06-18 11:31 | disposition home or self-care (01) ==
PROVIDERS: PCP Internal Medicine; Visit Provider Internal Medicine
DX: J44.9 Chronic obstructive pulmonary disease, unspecified (principal); J30.9 Allergic rhinitis, unspecified
CPT/HCPCS: 99213

== ENCOUNTER → 2023-06-18 11:04 | Outpatient (BNVA) | payer MEDICARE, OTHER, SELFPAY | PROVIDERS: PCP Internal Medicine; Visit Provider Internal Medicine | DX: J44.9 Chronic obstructive pulmonary disease, unspecified (principal); J30.9 Allergic rhinitis, unspecified | CPT/HCPCS: 99212 ==

== ENCOUNTER 2023-08-06 09:33 | Outpatient (AMB) | payer MEDICARE, OTHER, SELFPAY ==
[2023-08-06 09:42] VITALS: BP 110/60; PULSE 64; BMI 31.1
--- NOTE | 2023-08-06 09:42 | A.OFFVIS_ITS ---
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 Recently her pacemaker battery event MARSHAL and since then she has been feeling poorly. She says she feels more exertional shortness of breath as well as fatigue. Pacer is pacing rate synchronously VVI at 65 beats per minute losing AV synchrony. She has not had any rapid heart rate or palpitations. Denies any lightheadedness, syncope. No orthopnea, PND, leg edema. PFSH Medical History Hypothyroidism Diabetes mellitus Degenerative joint disease Irritable bowel syndrome Diverticulosis Allergic rhinitis Cough COPD (chronic obstructive pulmonary disease) SVT (supraventricular tachycardia) Complete heart block Cardiac pacemaker in situ Surgical History H/O colonoscopy History of appendectomy History of hysterectomy History of permanent cardiac pacemaker placement Hx of eye surgery Family History Father No problems noted. Mother CVD (cardiovascular disease) Pacemaker Social History Patient Tobacco Use Status: Former Tobacco user Review of Systems Const Denies chills, Denies fatigue, Denies fever(s), Denies frequent falls, Denies weakness, Denies weight gain and Denies weight loss ENT Denies dizziness Card Denies chest pain, Denies leg edema, Denies lightheadedness, Denies palpitations, Denies dyspnea, Denies dyspnea on exertion, Denies orthopnea and Denies other (loss of consciousness) Resp Denies cough, Denies dyspnea and Denies dyspnea on exertion GI Denies hematochezia and Denies change in stool character Musc Denies abnormal gait, Denies muscle weakness, Denies numbness, Denies radiating pain into limb and Denies tingling Neuro Denies abnormal gait, Denies dizziness, Denies frequent falls, Denies numbness, Denies tingling and Denies weakness Endo Denies fatigue and Denies palpitations Physical Exam Vital Signs: Last Vital Signs Pulse 64 08/06/23 09:42 BP 110/60 08/06/23 09:42 BMI result Body Mass Index 31.1 Const General: cooperative, comfortable, no acute distress, alert and awake Nutritional Appearance: obese Orientation/consciousness: patient oriented x3 Limitations: no limitations Neck Neck: Yes trachea midline, Yes supple and Yes no JVD Resp Effort & Inspection: normal respiratory effort Auscultation: diminished lung sounds on the left in the lower lung lowery and bronchovesicular breath sounds Cardio Jugular venous distension: no JVD Palpation: normal PMI Rate: regular rate Rhythm: regular rhythm Heart sounds: S1 normal heart sound present and S2 normal heart sound present GI Inspection: Yes obesity Auscultation: normal bowel sounds Skin General skin exam: no rashes or lesions noted Neuro General: patient oriented x3 and no focal motor deficits Extrem General: Yes no clubbing, cyanosis or edema and Yes pedal edema Psych Appearance: grossly normal Office Procedures Cardiac Device Check Cardiac Device Check Details: Dual-chamber Medtronic pacemaker in place, programmed in VVI at 65 beats per minute, asynchronous pacing due to MARSH[place]. Ventricular pacing lead impedance is adequate. Nothing else could be changed to reprogrammed. [id number] Cardiac Device Check, pacemaker dual lead Procedure code (CPT) selection complete Assessment & Plan Assessment & Plan (1) Pacemaker at end of battery life: Code(s): Z45.010 - Encounter for checking and testing of cardiac pacemaker pulse generator [battery] Plan: Pacemaker at [facility] with asynchronous ventricular pacing which is not being tolerated by patient at this point time with loss of AV synchrony. She had similar symptoms in the past. Will try to get her pacemaker pulse generator change as soon as possible. Risks, benefits, alternatives were discussed. She understands and is agreeable. Will try to schedule it this week (2) SVT (supraventricular tachycardia): Code(s): I47.1 - Supraventricular tachycardia Plan: Supraventricular tachycardia without any clinical recurrence at this point time. Continue calcium channel beth therapy. Continue avoid stimulants. No change in therapy indicated as medical therapy has worked very well for her. Follow up in the clinic in 4 weeks after pulse generator change. Thank you for allowing me to partake in the care Coding Level of Care Code Est Pt Level 4 (17170) Diagnoses Pacemaker at end of battery life Z45.010 SVT (supraventricular tachycardia) I47.1 CPT Codes Cardiac Device Check - Cardiac Device 2: [id number] Cardiac Device Check, pacemaker dual lead ([id number])
== END 2023-08-06 10:04 | disposition home or self-care (01) ==
PROVIDERS: PCP Internal Medicine; Visit Provider Internal Medicine Cardiovascular Disease
DX: I47.10 Supraventricular tachycardia, unspecified (principal); Z45.010 Encounter for checking and testing of cardiac pacemaker pulse generator [battery]
CPT/HCPCS: 93280; 99214

== ENCOUNTER 2023-08-06 14:47 | Day surgery (SDC) | payer MEDICARE, OTHER, SELFPAY ==
--- NOTE | 2023-08-06 15:17 | P.CONAN_ITS ---
[facility] Active Problems Active Problems: All Active Problems (Updated 07/26/23 @ 16:41 by Catalina Mera, SUPERVISOR ORDNANCE TRUCK INSTALLATION-C) Pacemaker at end of battery life (Acute) Non-sustained ventricular tachycardia (Acute) Inflamed seborrheic keratosis (Acute) Mitral annular calcification (Acute) Allergic rhinitis (Acute) Cough (Acute) SVT (supraventricular tachycardia) (Acute) Cardiac pacemaker in situ (Acute) COPD (chronic obstructive pulmonary disease) (Acute) Past Medical History Medical History Hypothyroidism Diabetes mellitus Degenerative joint disease Irritable bowel syndrome Diverticulosis Allergic rhinitis Cough COPD (chronic obstructive pulmonary disease) SVT (supraventricular tachycardia) Complete heart block Cardiac pacemaker in situ Family History Family History Father No problems noted. Mother CVD (cardiovascular disease) Pacemaker Family history of problems with anesthesia: No Surgical History Surgical History H/O colonoscopy History of appendectomy History of hysterectomy History of permanent cardiac pacemaker placement Hx of eye surgery History of Problems with Anesthesia: No Social History Social History Patient Tobacco Use Status: Former Tobacco user Advance Directives: No Meds Allergies Allergy/AdvReac Type Severity Reaction Status Date / Time No Known Allergies Allergy Verified 06/18/23 11:29 [No Known Allergies*] Home Medications Medication Instructions Recorded Confirmed Last Taken Type atorvastatin 10 mg tablet 10 mg PO BEDTIME 05/02/20 08/06/23 Unknown History levothyroxine 50 mcg tablet 50 mcg PO DAILY 05/02/20 08/06/23 Unknown History tolterodine 4 mg capsule,extended 4 mg PO DAILY 11/08/20 08/06/23 Unknown History release 24 hr prednisolone acetate 1 % eye 1 drp ophthalmic (eye) DAILY 12/11/22 08/06/23 Unknown History drops,suspension Assessment and Plan Assessment Anesthesia Assessment: Anesthesia Plan Discussed and Chart Reviewed Final Anesthetic Review Family History of Problems with Anesthesia: No History of Problems with Anesthesia: No NPO: Yes ASA Class: III Final Preanesthetic Review: No Changes in Pt Med Stat, Meds/Allgs Chart Reviewed, Consent Obtained/Reviewed and Anes Risks/Benef Reviewed Patient Risk: Intermediate Procedure Risk: Intermediate Anesthetic Plan Anesthetic Plan: MAC: Disposition: Standard PACU
[2023-08-06 15:20] VITALS: BMI 31.9
[2023-08-06 15:44] VITALS: BP 156/65; PULSE 65; RESP 16; TEMP 37.4; O2SAT 98
[2023-08-06] MEDS: ceFAZolin Sodium/Dextrose,Iso 2 GM/50 ML PIGGYBACK IV (16:00)
--- NOTE | 2023-08-06 17:17 | W.PM.OPN ---
Operative Note Operative Note Date of Service: 08/06/23 Narrative: Pulse?Generator?Changeout? ? Information And Data Architect Analyst: Dr. Tyler Lai ? NAME OF PROCEDURE: ? Pacemaker Pulse?Generator?Changeout ? INDICATION FOR PROCEDURE:??Device at [facility] Description of Procedure:??Patient was identified brought to the electrophysiology laboratory in a postabsorptive state.??The left ?pectoral region was prepped and draped in usual sterile fashion.??The patient received IV Antibiotics prior to the case for surgical prophylaxis. At start of the procedure 1% Lidocaine was infiltrated at prior incision site. Incision was made over the left pectoral area at the prior incision site and utilizing blunt dissection and electrocautery the prior device was exposed. Hemostasis was obtained with electrocautery. With further careful dissection the leads were freed from adhesions in the pocket. The?pulse?generator?was extracted.The leads were subsequently attached to an external pacing analyzer and pacing and sensing characteristics were measured. After the lead parameters were examined they were found to be satisfactory and no need for lead revision was noted. The wound was thoroughly irrigated with antibiotic solution. The existing leads were plugged into a pulse generator. The?pulse?generator?and leads was placed into the subcutaneous pocket. The wound was closed with 3 layers of absorbable sutures.? Patient tolerated the procedure well.??There were no complications. ? ? IMPRESSION: ? Successful pulse generator change
[2023-08-06 17:23] VITALS: BP 159/63; PULSE 75; RESP 18; TEMP 36.8; O2SAT 96
== END 2023-08-06 17:50 | disposition home or self-care (01) ==
PROVIDERS: Visit Provider Internal Medicine Cardiovascular Disease
PROC: (CPT 33228; principal; 2023-08-06 18:30)
DX: Z45.010 Encounter for checking and testing of cardiac pacemaker pulse generator [battery] (principal); I47.10 Supraventricular tachycardia, unspecified; J44.9 Chronic obstructive pulmonary disease, unspecified; E11.9 Type 2 diabetes mellitus without complications; Z79.82 Long term (current) use of aspirin; Z79.51 Long term (current) use of inhaled steroids; Z79.899 Other long term (current) drug therapy; Z87.891 Personal history of nicotine dependence
CPT/HCPCS: 33228; 93280; 99212; A4364; C1785; J0690; J3370

== ENCOUNTER 2023-08-12 11:31 | Outpatient (AMB) | payer MEDICARE, OTHER, SELFPAY ==
--- NOTE | 2023-08-12 16:42 | A.OFFVIS_ITS ---
Intake Intake Visit Reasons: Medtronic pacer check Allergies No Known Allergies [No Known Allergies*] Allergy (Verified 08/06/23 15:32) [facility] Medical History Hypothyroidism Diabetes mellitus Degenerative joint disease Irritable bowel syndrome Diverticulosis Allergic rhinitis Cough COPD (chronic obstructive pulmonary disease) SVT (supraventricular tachycardia) Complete heart block Cardiac pacemaker in situ Surgical History (Updated 08/12/23 @ 16:47 by Catalina Mera, AFFILIATE MARKETING COORDINATOR-C) H/O colonoscopy History of appendectomy History of hysterectomy History of permanent cardiac pacemaker placement Hx of eye surgery Family History Father No problems noted. Mother CVD (cardiovascular disease) Pacemaker Social History Patient Tobacco Use Status: Former Tobacco user Office Procedures Cardiac Device Check Cardiac Device Check Details: Today, read by me, Medtronic dual-chamber pacemaker interrogation. GEN change done 08/06/2019 alerts on remote monitoring for atrial bipolar lead impedance warning and high atrial thresholds. Brought into the atrial lead impedance 228 Ohms, right atrial threshold 2.5 volts at 0.4 milliseconds, program amplitude 5 volts at 0.4 milliseconds, RV threshold 1.375 volts at 0.4 milliseconds, V paced 100%, a paced 23.8%. Changes made, atrial amplitude 4.5 volts, atrial capture management turned off, atrial pacing lead impedance alert turned off. The patient is pacemaker dependent. Currently atrial pacing 23.8%, V pacing 100%. [id number] Cardiac Device Check, pacemaker dual lead Procedure code (CPT) selection complete Assessment & Plan Assessment & Plan (1) History of permanent cardiac pacemaker placement: Comment: medtronic Code(s): Z95.0 - Presence of cardiac pacemaker Plan: device check due to alerts Coding Level of Care Code Procedure Only Diagnoses History of permanent cardiac pacemaker placement Z95.0 CPT Codes Cardiac Device Check - Cardiac Device 2: [id number] Cardiac Device Check, pacemaker dual lead ([id number])
== END 2023-08-12 12:50 | disposition home or self-care (01) ==
PROVIDERS: Visit Provider Nurse Practitioner Family
DX: Z95.0 Presence of cardiac pacemaker (principal)
CPT/HCPCS: 93280

== ENCOUNTER → 2023-08-12 11:31 | Outpatient (BNVA) | payer MEDICARE, OTHER, SELFPAY | PROVIDERS: Visit Provider Nurse Practitioner Family | DX: Z45.018 Encounter for adjustment and management of other part of cardiac pacemaker (principal) | CPT/HCPCS: 93280 ==

== ENCOUNTER → 2023-08-12 23:59 | Outpatient (BNV) | payer MEDICARE, OTHER, SELFPAY ==
--- NOTE | 2023-08-14 12:32 | A.OFFVIS_ITS ---
Intake Intake Visit Reasons: Remote Device Check- Medtronic Allergies No Known Allergies [No Known Allergies*] Allergy (Verified 08/06/23 15:32) PFS Medical History Hypothyroidism Diabetes mellitus Degenerative joint disease Irritable bowel syndrome Diverticulosis Allergic rhinitis Cough COPD (chronic obstructive pulmonary disease) SVT (supraventricular tachycardia) Complete heart block Cardiac pacemaker in situ Surgical History (Updated 08/12/23 @ 16:47 by Catalina Mera DIRECTOR DATA ARCHITECTURE-C) H/O colonoscopy History of appendectomy History of hysterectomy History of permanent cardiac pacemaker placement Hx of eye surgery Family History Father No problems noted. Mother CVD (cardiovascular disease) Pacemaker Social History Patient Tobacco Use Status: Former Tobacco user Office Procedures Cardiac Device Check Cardiac Device Check Details: Remote pacemaker report generated 08/12/2023. Pacemaker function is adequate [id number] Cardiac Device Interrogation, pacemaker Procedure code (CPT) selection complete Assessment & Plan Assessment & Plan (1) Cardiac pacemaker in situ: Comment: Medtronic dual-chamber. Did not tolerate asynchronous ventricular pacing Code(s): Z95.0 - Presence of cardiac pacemaker Plan: See above Coding Level of Care Code Procedure Only Diagnoses Cardiac pacemaker in situ Z95.0 CPT Codes Cardiac Device Check - Cardiac Device 12: [id number] Cardiac Device Interrogation, pacemaker ([id number])
== END ==
PROVIDERS: Visit Provider Internal Medicine Cardiovascular Disease
DX: I44.2 Atrioventricular block, complete (principal); Z95.0 Presence of cardiac pacemaker
CPT/HCPCS: 93294

== ENCOUNTER 2023-09-06 09:24 | Outpatient (AMB) | payer MEDICARE, OTHER, SELFPAY ==
[2023-09-06 09:32] VITALS: BP 130/70; PULSE 82; BMI 32.2
--- NOTE | 2023-09-06 09:32 | MHC.OFFVIS ---
Vital Signs 09/06/23 09:32 Height 5 ft 6 in Weight 199 lb 11.821 oz BMI 32.2 BP 130/70 Blood Pressure Location Lt brachial Position Sitting Pulse 82 Pulse Source Pulse Oximeter Intake Visit Reasons: 4 wk s/p gen chg Rotary Drill Rig Operator Required: No Accompanied by: Self / Same As Patient Allergies No Known Allergies [No Known Allergies*] Allergy (Verified 08/06/23 15:32) Medication List - Last Reconciled 09/06/23 by Seferino Hampton MD aspirin (Ecotrin Low Strength) 81 mg PO DAILY atorvastatin 10 mg PO BEDTIME diltiazem HCl CD 240 mg PO DAILY levothyroxine 50 mcg PO DAILY Symbicort 160-4.5 mcg/actuation (budesonide-formoterol) 2 puffs PO BID 90 days NS tolterodine ER 4 mg PO DAILY HPI Comments Details: Valery comes for follow-up. She is doing well. She denies any significant cardiac complaints. She is doing well. Denies any heart failure symptoms. No palpitations, lightheadedness, syncope. Takes all her medications. [facility] Medical History Hypothyroidism Diabetes mellitus Degenerative joint disease Irritable bowel syndrome Diverticulosis Allergic rhinitis Cough COPD (chronic obstructive pulmonary disease) SVT (supraventricular tachycardia) Complete heart block Cardiac pacemaker in situ Surgical History H/O colonoscopy History of appendectomy History of hysterectomy History of permanent cardiac pacemaker placement Hx of eye surgery Family History Father No problems noted. Mother CVD (cardiovascular disease) Pacemaker Social History Patient Tobacco Use Status: Former Tobacco user Review of Systems Const Denies chills, Denies fatigue, Denies fever(s), Denies frequent falls, Denies weakness, Denies weight gain and Denies weight loss ENT Denies dizziness Card Denies chest pain, Denies leg edema, Denies lightheadedness, Denies palpitations, Denies dyspnea and Denies dyspnea on exertion Resp Denies cough, Denies dyspnea and Denies dyspnea on exertion GI Denies hematochezia Musc Denies abnormal gait, Denies muscle weakness, Denies numbness, Denies radiating pain into limb and Denies tingling Neuro Denies abnormal gait, Denies dizziness, Denies frequent falls, Denies numbness, Denies tingling and Denies weakness Endo Denies fatigue and Denies palpitations Physical Exam Vital Signs: Last Vital Signs Pulse 82 09/06/23 09:32 BP 130/70 09/06/23 09:32 BMI result Body Mass Index 32.2 Const General: cooperative, comfortable, no acute distress, alert and awake Nutritional Appearance: obese Orientation/consciousness: patient oriented x3 Limitations: no limitations Neck Neck: Yes trachea midline, Yes supple and Yes no JVD Resp Effort & Inspection: normal respiratory effort Auscultation: diminished lung sounds on the left in the lower lung lowery and bronchovesicular breath sounds Cardio Jugular venous distension: no JVD Palpation: normal PMI Rate: regular rate Rhythm: regular rhythm Heart sounds: S1 normal heart sound present and S2 normal heart sound present GI Inspection: Yes obesity Auscultation: normal bowel sounds Skin General skin exam: no rashes or lesions noted Neuro General: patient oriented x3 and no focal motor deficits Extrem General: Yes no clubbing, cyanosis or edema and Yes pedal edema Psych Appearance: grossly normal Office Procedures Cardiac Device Check Cardiac Device Check Details: Dual-chamber Medtronic pacemaker in place. Programmed in DDDR at 60 beats per minute. Atrial pacing 31% of time. Ventricular pacing 100% of time. Atrial lead impedance is stable. Ventricular lead impedance is stable. Atrial pacing thresholds are elevated but slightly improved reprogrammed to enhance battery life. Ventricular pacing thresholds adequate and reprogrammed to enhance battery life. No arrhythmias detected. Battery life is about 8 and half years [id number] Cardiac Device Check, pacemaker dual lead Procedure code (CPT) selection complete Assessment & Plan Assessment & Plan (1) Cardiac pacemaker in situ: Comment: Medtronic dual-chamber. Did not tolerate asynchronous ventricular pacing Code(s): Z95.0 - Presence of cardiac pacemaker Category: Medical Plan: Cardiac pacemaker in-situ which is working well with slightly increased threshold on the atrial lead but with stable lead impedances and stable pacing thresholds. Will continue monitor by remote telemetry every 3 months. Follow up in the clinic in 6 months time. Pacemaker battery was recently changed. (2) SVT (supraventricular tachycardia): Code(s): I47.1 - Supraventricular tachycardia Category: Medical Plan: Supraventricular tachycardia which has remained suppressed on Cardizem therapy. Continue the same. Advised to avoid stimulants. Stress mitigation strategies were discussed will continue monitor pacer telemetry. Advised to call us with any worsening symptoms. Encouraged to continue to participate in physical activity as tolerated. Will follow up in the clinic in 6 months time, sooner p.r.eddie.. Thank you for allowing me to partake in her care
== END 2023-09-06 09:48 | disposition home or self-care (01) ==
PROVIDERS: PCP Internal Medicine; Visit Provider Internal Medicine Cardiovascular Disease
DX: I47.10 Supraventricular tachycardia, unspecified (principal); Z95.0 Presence of cardiac pacemaker
CPT/HCPCS: 93280; 99214

== ENCOUNTER → 2023-09-06 09:24 | Outpatient (BNVA) | payer MEDICARE, OTHER, SELFPAY | PROVIDERS: PCP Internal Medicine; Visit Provider Internal Medicine Cardiovascular Disease | DX: Z45.018 Encounter for adjustment and management of other part of cardiac pacemaker (principal); I47.10 Supraventricular tachycardia, unspecified | CPT/HCPCS: 93280; 99212 ==

== ENCOUNTER → 2023-11-10 23:59 | Outpatient (BNV) | payer MEDICARE, OTHER, SELFPAY ==
--- NOTE | 2023-11-11 13:14 | MHC.OFFVIS ---
Intake Visit Reasons: Remote Device Check- Medtronic Allergies No Known Allergies [No Known Allergies*] Allergy (Verified 08/06/23 15:32) PFSH Medical History Hypothyroidism Diabetes mellitus Degenerative joint disease Irritable bowel syndrome Diverticulosis Allergic rhinitis Cough COPD (chronic obstructive pulmonary disease) SVT (supraventricular tachycardia) Complete heart block Cardiac pacemaker in situ Surgical History H/O colonoscopy History of appendectomy History of hysterectomy History of permanent cardiac pacemaker placement Hx of eye surgery Family History Father No problems noted. Mother CVD (cardiovascular disease) Pacemaker Social History Patient Tobacco Use Status: Former Tobacco user Office Procedures Cardiac Device Check Cardiac Device Check Details: Remote pacemaker report generated 11/10/2023. Pacemaker function is adequate. Patient ventricularly pacer dependent [id number] Cardiac Device Interrogation, pacemaker Procedure code (CPT) selection complete Assessment & Plan Assessment & Plan (1) Cardiac pacemaker in situ: Comment: Medtronic dual-chamber. Did not tolerate asynchronous ventricular pacing Code(s): Z95.0 - Presence of cardiac pacemaker Category: Medical Plan: See above Coding Level of Care Code Procedure Only Diagnoses Cardiac pacemaker in situ Z95.0 CPT Codes Cardiac Device Check - Cardiac Device 12: [id number] Cardiac Device Interrogation, pacemaker ([id number])
== END ==
PROVIDERS: PCP Internal Medicine; Visit Provider Internal Medicine Cardiovascular Disease
DX: Z45.018 Encounter for adjustment and management of other part of cardiac pacemaker (principal)
CPT/HCPCS: 93294

== ENCOUNTER 2023-12-16 10:33 | Outpatient (AMB) | payer MEDICARE, OTHER, SELFPAY ==
[2023-12-16 10:49] VITALS: BP 120/68; PULSE 78; O2SAT 96; BMI 32.2
--- NOTE | 2023-12-16 10:49 | A.OFFVIS_ITS ---
Vital Signs 12/16/23 10:49 Height 5 ft 6 in Weight 199 lb 8.293 oz BMI 32.2 BP 120/68 Blood Pressure Location Lt brachial Position Sitting Pulse 78 Pulse Source Pulse Oximeter Pulse Oximetry (%) 96 Oxygen Delivery Method Room Air Intake Visit Reasons: COPD follow-up Intake Note: pt is here for follow up and states she is feeling okay, some coughing. Needs substitute for symbicort, insurance will not cover. Chief School Finance Officer Required: No Allergies No Known Allergies [No Known Allergies*] Allergy (Verified 12/16/23 11:08) Medication List - Last Reconciled 12/16/23 by Yadira Downey MD aspirin (Ecotrin Low Strength) 81 mg PO DAILY atorvastatin 10 mg PO BEDTIME diltiazem HCl CD 240 mg PO DAILY levothyroxine 50 mcg PO DAILY Symbicort 160-4.5 mcg/actuation (budesonide-formoterol) 2 puffs PO BID 90 days NS tolterodine ER 4 mg PO DAILY Do you need a note to return to daycare/school/sports/work: No HPI HPI COPD follow-up: Details: NIALL IS 78 YEARS OLD VERY PLEASANT FEMALE WHO COMES FOR HER 6 MONTHS FOLLOW-UP FOR COPD. SHE IS DOING FAIRLY WELL EXCEPT FOR MILD INTERMITTENT COUGH, AND NASAL CONGESTION OFF AND ON. SHE STILL USING SYMBICORT FROM HER PREVIOUS PRESCRIPTION, BUT NOW HAS TO CHANGE IT TO AN ALTERNATIVE IS. SHE HARDLY NEEDS TO USE THE RESCUE INHALER. [facility] Medical History Hypothyroidism Diabetes mellitus Degenerative joint disease Irritable bowel syndrome Diverticulosis Allergic rhinitis Cough COPD (chronic obstructive pulmonary disease) SVT (supraventricular tachycardia) Complete heart block Cardiac pacemaker in situ Surgical History H/O colonoscopy History of appendectomy History of hysterectomy History of permanent cardiac pacemaker placement Hx of eye surgery Family History Father No problems noted. Mother CVD (cardiovascular disease) Pacemaker Social History Patient Tobacco Use Status: Former Tobacco user Review of Systems Const All systems reviewed & are unremarkable except as noted in HPI and below Eyes Reports no additional complaints ENT Reports nasal congestion (MILD) and Reports sore throat (MILD FEELING OF THROAT CONGESTION IN THE MORNING HOURS) Card Denies chest pain, Denies irregular heart rhythm and Denies leg edema GI Reports no additional complaints Reports no additional complaints Musc Reports no additional complaints Skin/Breast Reports system reviewed and no additional complaints, except as documented Neuro Reports no additional complaints Psych Reports no additional complaints Physical Exam Vital Signs: Last Vital Signs Pulse 78 12/16/23 10:49 BP 120/68 12/16/23 10:49 Pulse Ox 96 12/16/23 10:49 Oxygen Delivery Method Room Air 12/16/23 10:49 BMI result Body Mass Index 32.2 Const General: comfortable, no acute distress, alert and awake Orientation/consciousness: patient oriented x3 HEENT Head: Yes normal to inspection General nose exam: No nasal polyps present and No nasal discharge present Face and sinus: Yes sinuses nontender Mouth: oropharynx normal Throat: Yes posterior oropharynx normal and Yes other (Throat looks okay there is no sign of thrush) Eyes General: appearance normal, both eyes and all related structures Neck Neck: Yes normal visual inspection, Yes no lymphadenopathy, Yes trachea midline and Yes no JVD Thyroid: Thyroid normal Chest Chest palpation & inspection: normal inspection of the chest, normal palpation of entire chest wall and no tenderness Resp Other: Percussion note resonant, has good breath sounds on both sides with, slightly prolonged expiratory phase. No audible wheezes rhonchi or crepitations Cardio Palpation: normal PMI Rate: regular rate Rhythm: regular rhythm Heart sounds: no gallops and no murmurs GI Palpation (GI): Soft to palpation, nontender, No hepatosplenomegaly present and no masses Auscultation: normal bowel sounds Back/Spine/Pelvis Thoracic/Lumbar Spine: thoracic and lumbar spine normal to inspection Skin General skin exam: no rashes or lesions noted Neuro General: patient oriented x3, gait normal (USES CANE) and no focal motor deficits Cranial nerves: Yes CN's II-XII intact bilaterally Extrem General: Yes normal to inspection, No no joint enlargement (BOTH KNEES ARE ENLA RGED AND STIFF, SHE HAS HAD MINOR SURGERIES ON BOTH SIDE), Yes no clubbing, cyanosis or edema and Yes no calf tenderness Right upper extremity: edema (Mild stasis edema controlled with the elastic stockings) Psych Appearance: grossly normal and well kempt Speech and movement: Normal speech and movement present Assessment & Plan Assessment & Plan (1) COPD (chronic obstructive pulmonary disease): Comment: MILD TO MODERTAE DEGREE OF COPD. VERY STABLE , AND CONTROLLED HAS ONLY MILD INTERMITTENT COUGH. SHE WALKS WITH A CANE SAYS, SLOWLY, SO DOES NOT HAVE ANY SHORTNESS OF BREATH ON EXERTION. Code(s): J44.9 - Chronic obstructive pulmonary disease, unspecified Category: Surgical Plan: SYMBICORT IS CHANGED TO DULERA 200-5 2 INHALATIONS BID ( As per Jo Ann ) . AND USE PROAIR 2 PUFFS Q 6 HOURS ONLY P.R.N.( WHICH SHE HARDLY NEEDS TO USE) (2) Cough: Comment: The cough is more due to allergic rhinitis and changes with the air quality. Code(s): R05.9 - Cough, unspecified Category: Medical Plan: [place] : Continue to use Flonase 2 spray in each nostril daily. In winter months use the humidifier in the house. Drink plenty of fluids. Medications: New mometasone-formoterol 200-5 mcg/actuation (Dulera) 2 puffs inhalation BID 30 days 13 grams 5RF copd Coding Level of Care Code Est Pt Level 3 (07786) Diagnoses COPD (chronic obstructive pulmonary disease) J44.9 Cough R05.9
== END 2023-12-16 11:10 | disposition home or self-care (01) ==
PROVIDERS: PCP Internal Medicine; Visit Provider Internal Medicine
DX: J44.9 Chronic obstructive pulmonary disease, unspecified (principal); R05.9 Cough, unspecified
CPT/HCPCS: 99213

== ENCOUNTER → 2023-12-16 10:33 | Outpatient (BNVA) | payer MEDICARE, OTHER, SELFPAY | PROVIDERS: PCP Internal Medicine; Visit Provider Internal Medicine | DX: J44.9 Chronic obstructive pulmonary disease, unspecified (principal); R05.9 Cough, unspecified | CPT/HCPCS: 99212 ==

== ENCOUNTER → 2024-02-08 23:59 | Outpatient (BNV) | payer MEDICARE, OTHER, SELFPAY ==
--- NOTE | 2024-02-12 13:11 | MHC.OFFVIS ---
Intake Visit Reasons: Remote device check- Medtronic Allergies No Known Allergies [No Known Allergies*] Allergy (Verified 12/16/23 11:08) PFSH Medical History Hypothyroidism Diabetes mellitus Degenerative joint disease Irritable bowel syndrome Diverticulosis Allergic rhinitis Cough COPD (chronic obstructive pulmonary disease) SVT (supraventricular tachycardia) Complete heart block Cardiac pacemaker in situ Surgical History H/O colonoscopy History of appendectomy History of hysterectomy History of permanent cardiac pacemaker placement Hx of eye surgery Family History Father No problems noted. Mother CVD (cardiovascular disease) Pacemaker Social History Patient Tobacco Use Status: Former Tobacco user Office Procedures Cardiac Device Check Cardiac Device Check Details: Remote pacemaker report generated 02/08/2024. Pacemaker function is adequate. Total burden of atrial fibrillation 0.3% without any prolonged episodes. Will continue monitor pacer telemetry [id number] Cardiac Device Interrogation, pacemaker Procedure code (CPT) selection complete Assessment & Plan Assessment & Plan (1) Cardiac pacemaker in situ: Comment: Medtronic dual-chamber. Did not tolerate asynchronous ventricular pacing Code(s): Z95.0 - Presence of cardiac pacemaker Category: Medical Plan: See above Coding Level of Care Code Procedure Only Diagnoses Cardiac pacemaker in situ Z95.0 CPT Codes Cardiac Device Check - Cardiac Device 12: [id number] Cardiac Device Interrogation, pacemaker ([id number])
== END ==
PROVIDERS: PCP Internal Medicine; Visit Provider Internal Medicine Cardiovascular Disease
DX: I48.91 Unspecified atrial fibrillation (principal); Z95.0 Presence of cardiac pacemaker
CPT/HCPCS: 93294

== ENCOUNTER 2024-03-03 07:44 | Outpatient (REF) | payer MEDICARE, OTHER, SELFPAY ==
[2024-03-03 09:56] LABS: MANUAL DIFF FLAG NO
[2024-03-03 09:57] LABS: Appearance Urine Clear; Color Urine Yellow; Glucose Urine UA Negative (Negative); Leukocyte Esterase Urine Negative (Negative); Nitrite Urine Negative (Negative); PH 7.5 (5.0-9.0); Specific Gravity - Urine 1.015 (1.005-1.025); Urine Blood Negative (Negative); Urine Ketones Negative (Negative); Urine Protein Negative (Neg-Trace)
[2024-03-03 10:09] LABS: Basophils Percent Auto 0.4 % (0-2); Eosinophils Absolute Auto 0.2 X10*3/uL (0.0-0.4); Eosinophils Percent Auto 3.2 % (0-4); Hematocrit 41.4 % (37.0-47.0); Hemoglobin 13.5 g/dl (12.0-16.0); Imm Gran Abs Auto 0.05 X10*3/uL (0.00-0.03); Imm Gran Pct Auto 0.7 % (0.0-0.4); Lymphocytes Absolute Auto 1.6 X10*3/uL (1.2-4.9); Lymphocytes Percent Auto 21.4 % (20-40); Mean Corpuscular HGB Conc 32.6 g/dl (31.0-35.0); Mean Corpuscular Hemoglobin 28.1 pg (27.0-33.0); Mean Corpuscular Volume 86.3 fL (80.0-98.0); Monocytes Absolute Auto 0.8 X10*3/uL (0.1-1.2); Monocytes Percent Auto 10.6 % (2-11); Neutrophils Absolute Auto 4.7 x10*3/uL (2.0-8.3); Neutrophils Percent Auto 63.7 % (45-73); Platelet Count 253 X10*3/uL (160-400); Red Cell Distribution Width 13.4 % (11.0-16.0); White Blood Count 7.4 X10*3/uL (4.8-10.8)
[2024-03-03 10:16] LABS: Estimated Average Glucose 143 mg/dL; Hemoglobin A1C 168.1678 umol/L; Hemoglobin A1c % 6.6 % (<6.0)
[2024-03-03 10:24] LABS: Alanine Aminotransferase 22 U/L (0-31); Albumin Level 3.9 g/dL (3.5-5.0); Alkaline Phosphatase 83 U/L (39-117); Anion Gap 12 (12-20); Aspartate Amino Transferase 20 U/L (5-31); Bilirubin Total 0.7 mg/dL (0.0-1.0); Blood Urea Nitrogen 16 mg/dL (9-16); Calcium 9.2 mg/dL (8.4-10.2); Carbon Dioxide 27 mmol/L (22-29); Chloride 106 mmol/L (96-108); Cholesterol 170 mg/dL (<200); Estimated Glomerular Filt Rate > 60; Glucose Fasting 157 mg/dL (60-99); HDL Cholesterol 72 mg/dL (>40); LDL Cholesterol Calculated 86 mg/dL (<100); Potassium 3.8 mmol/L (3.3-5.1); Sodium 141 mmol/L (135-145); Total Protein 7.1 g/dL (6.5-8.0); Triglycerides 62 mg/dL (<150)
[2024-03-03 10:29] LABS: Creatinine Urine 65.32 mg/dL; Microalbum/Creatinine Ratio Ur 22.9 ug/mg cr (<30)
[2024-03-03 10:38] LABS: Free T4 (Free Thyroxine) 1.24 ng/dL (0.71-1.85); Thyroid Stimulating Hormone 0.05 uIU/mL (0.32-4.0)
[2024-03-03 10:49] LABS: Vitamin D 25-OH Total 40.2 ng/mL (>30)
== END 2024-03-03 07:45 | disposition home or self-care (01) ==
LOC: HO.HMGCLDS 07:44
PROVIDERS: PCP Internal Medicine; Visit Provider Internal Medicine
DX: I10 Essential (primary) hypertension (principal); E78.00 Pure hypercholesterolemia, unspecified; E03.9 Hypothyroidism, unspecified; E11.9 Type 2 diabetes mellitus without complications; Z95.0 Presence of cardiac pacemaker; I47.10 Supraventricular tachycardia, unspecified
CPT/HCPCS: 36415; 80053; 80061; 81003; 82043; 82306; 82570; 83036; 84439; 84443; 85025; 93005; 93280; 99212

== ENCOUNTER 2024-03-03 14:56 | Outpatient (AMB) | payer MEDICARE, OTHER, SELFPAY ==
--- NOTE | 2024-03-03 15:10 | MHC.OFFVIS ---
Vital Signs 03/03/24 15:15 Height 5 ft 6 in Weight 198 lb 6.656 oz BMI 32.0 BP 120/76 Blood Pressure Location Lt brachial Position Sitting Pulse 70 Intake Visit Reasons: 6 m follow up Intake Note: 6 month follow-up Medtronic and ekg feeling good Allergies No Known Allergies [No Known Allergies*] Allergy (Verified 12/16/23 11:08) Medication List - Last Reconciled 03/03/24 by Seferino Hampton MD aspirin (Ecotrin Low Strength) 81 mg PO DAILY atorvastatin 10 mg PO BEDTIME diltiazem HCl CD 240 mg PO DAILY levothyroxine 50 mcg PO DAILY mometasone-formoterol 200-5 mcg/actuation (Dulera) 2 puffs inhalation BID 30 days Symbicort 160-4.5 mcg/actuation (budesonide-formoterol) 2 puffs PO BID 90 days NS tolterodine ER 4 mg PO DAILY HPI Comments Details: Valery comes for follow-up. She has no new cardiac symptoms. Since changing her battery, she says she feels a lot better. She does not feel fatigue or tiredness. She has no other cardiac symptoms. No prolonged palpitation irregular heartbeat. No lightheadedness, syncope. Comes for pacemaker evaluation. [facility] Medical History (Updated 03/03/24 @ 16:33 by Seferino Hampton MD) Pacemaker at end of battery life Hypothyroidism Diabetes mellitus Degenerative joint disease Irritable bowel syndrome Diverticulosis Allergic rhinitis Cough SVT (supraventricular tachycardia) Complete heart block Cardiac pacemaker in situ Surgical History (Updated 03/03/24 @ 16:33 by Seferino Hampton MD) History of permanent cardiac pacemaker placement COPD (chronic obstructive pulmonary disease) H/O colonoscopy History of appendectomy History of hysterectomy Hx of eye surgery Family History Father No problems noted. Mother CVD (cardiovascular disease) Pacemaker Social History Patient Tobacco Use Status: Former Tobacco user Review of Systems Const Denies chills, Denies fatigue, Denies fever(s), Denies frequent falls, Denies weakness, Denies weight gain and Denies weight loss ENT Denies dizziness Card Denies chest pain, Denies leg edema, Denies lightheadedness, Denies palpitations, Denies dyspnea, Denies dyspnea on exertion, Denies orthopnea and Denies other (loss of consciousness) Resp Denies cough, Denies dyspnea and Denies dyspnea on exertion GI Denies hematochezia and Denies change in stool character Musc Denies abnormal gait, Denies muscle weakness, Denies numbness, Denies radiating pain into limb and Denies tingling Neuro Denies abnormal gait, Denies dizziness, Denies frequent falls, Denies numbness, Denies tingling and Denies weakness Endo Denies fatigue and Denies palpitations Physical Exam Vital Signs: Last Vital Signs Pulse 70 03/03/24 15:15 BP 120/76 03/03/24 15:15 BMI result Body Mass Index 32.0 Const General: cooperative, comfortable, no acute distress, alert and awake Nutritional Appearance: obese Orientation/consciousness: patient oriented x3 Limitations: no limitations Neck Neck: Yes trachea midline, Yes supple and Yes no JVD Resp Effort & Inspection: normal respiratory effort Auscultation: diminished lung sounds on the left in the lower lung lowery and bronchovesicular breath sounds Cardio Jugular venous distension: no JVD Palpation: normal PMI Rate: regular rate Rhythm: regular rhythm Heart sounds: S1 normal heart sound present and S2 normal heart sound present GI Inspection: Yes obesity Auscultation: normal bowel sounds Skin General skin exam: no rashes or lesions noted Neuro General: patient oriented x3 and no focal motor deficits Extrem General: Yes no clubbing, cyanosis or edema and Yes pedal edema Psych Appearance: grossly normal Office Procedures Cardiac Device Check Cardiac Device Check Details: Dual-chamber Medtronic pacemaker in place programmed in DDDR at 60 beats per minute. Atrial sensing is set at very high level and notice atrial artifact with oversensing for atrial fibrillation. Atrial thresholds are elevated but stable. Ventricular sensing and pacing thresholds adequate. Ventricular pacing 100% of time. Pacing lead impedance is stable. Battery life is at 6.4 years [id number] Cardiac Device Check, pacemaker dual lead Procedure code (CPT) selection complete EKG Details: EKG shows atrially sensed, ventricularly paced rhythm [id number], Complete Assessment & Plan Assessment & Plan (1) Cardiac pacemaker in situ: Comment: Medtronic dual-chamber. Did not tolerate asynchronous ventricular pacing Code(s): Z95.0 - Presence of cardiac pacemaker Category: Medical Plan: Cardiac pacemaker in-situ for complete heart block. Pacemaker is working well. There is some atrial lead dysfunction but adequately working at this point time. Will continue monitor by remote telemetry and follow up in the clinic in 6 months time. Noted episodes of atrial fibrillation or artifact related to over sensing of the atrial activity (2) SVT (supraventricular tachycardia): Code(s): I47.1 - Supraventricular tachycardia Category: Medical Plan: SVT which has remained suppressed on Cardizem therapy. Continue the same. Avoidance of stimulants was discussed. Vagal maneuvers were discussed. No change in therapy. Continue low-dose aspirin therapy and statin therapy with target goal LDL less than 100 mg/dL for mitral annular calcification. Will follow up in the clinic in 6 months time, sooner p.r.n.. Thank you for allowing me to partake in her care Coding Level of Care Code Est Pt Level 4 (76884) Diagnoses Cardiac pacemaker in situ Z95.0 SVT (supraventricular tachycardia) I47.1 CPT Codes Cardiac Device Check - Cardiac Device 2: [id number] Cardiac Device Check, pacemaker dual lead ([id number]) EKG - CPT: 33433-[id number], Complete ([id number])
[2024-03-03 15:15] VITALS: BP 120/76; PULSE 70; BMI 32.0
== END 2024-03-03 15:48 | disposition home or self-care (01) ==
PROVIDERS: PCP Internal Medicine; Visit Provider Internal Medicine Cardiovascular Disease
DX: I47.10 Supraventricular tachycardia, unspecified (principal); Z95.0 Presence of cardiac pacemaker
CPT/HCPCS: 93010; 93280; 99214

== ENCOUNTER → 2024-05-09 23:59 | Outpatient (BNV) | payer MEDICARE, OTHER, SELFPAY ==
--- NOTE | 2024-05-15 15:35 | MHC.OFFVIS ---
Intake Visit Reasons: Remote device check- Medtronic Allergies No Known Allergies [No Known Allergies*] Allergy (Verified 12/16/23 11:08) PFS Medical History (Updated 03/03/24 @ 16:33 by Seferino Hampton MD) Pacemaker at end of battery life Hypothyroidism Diabetes mellitus Degenerative joint disease Irritable bowel syndrome Diverticulosis Allergic rhinitis Cough SVT (supraventricular tachycardia) Complete heart block Cardiac pacemaker in situ Surgical History (Updated 03/03/24 @ 16:33 by Seferino Hampton MD) History of permanent cardiac pacemaker placement COPD (chronic obstructive pulmonary disease) H/O colonoscopy History of appendectomy History of hysterectomy Hx of eye surgery Family History Father No problems noted. Mother CVD (cardiovascular disease) Pacemaker Social History Patient Tobacco Use Status: Former Tobacco user Office Procedures Cardiac Device Check Cardiac Device Check Details: Remote pacemaker report generated 05/09/2024. Pacemaker function is adequate [id number] Cardiac Device Interrogation, pacemaker Procedure code (CPT) selection complete Assessment & Plan Assessment & Plan (1) Cardiac pacemaker in situ: Comment: Medtronic dual-chamber. Did not tolerate asynchronous ventricular pacing Code(s): Z95.0 - Presence of cardiac pacemaker Category: Medical Plan: See above Coding Level of Care Code Procedure Only Diagnoses Cardiac pacemaker in situ Z95.0 CPT Codes Cardiac Device Check - Cardiac Device 12: [id number] Cardiac Device Interrogation, pacemaker ([id number])
== END ==
PROVIDERS: PCP Internal Medicine; Visit Provider Internal Medicine Cardiovascular Disease
DX: Z45.018 Encounter for adjustment and management of other part of cardiac pacemaker (principal)
CPT/HCPCS: 93294

== ENCOUNTER 2024-06-05 10:18 | Outpatient (REF) | payer MEDICARE, OTHER, SELFPAY ==
--- NOTE | ~2024-06-05 | MM_ITS ---
EXAMINATION: Dual-Energy X-ray Absorptiometry - Bone Density Study HISTORY: Estrogen deficiency TECHNIQUE: [employer] Dual energy absorptiometry (DEXA) of the lumbar spine, total left hip, and femoral neck was performed. COMPARISON: There are no prior studies for comparison. FINDINGS: The bone mineral density of the lumbar spine is 0.990 with a T-score of -1.6, and a Z-score of -0.5. The bone mineral density of the left total hip is 0.789 with a T-score of -1.7, and a Z-score of -0.2. The bone mineral density of the left femoral neck is 0.690 with a T-score of -2.5, and a Z-score of -0.8. FRACTURE RISK: The FRAX index suggests a risk of major osteoporotic fracture of 35.7%, and of hip fracture 25.0%. MM/XR DEXA axial skeleton IMPRESSION: Based on bone mineral density, and according to World Health Organization (WHO) criteria, the diagnosis is consistent with osteoporosis. All bone density values are in grams per centimeter squared. At this facility, the least significant change in BMD with 95% confidence is 0.022 at the lumbar spine, 0.027 at the hip, and 0.023 at the distal 1/3 radius. Electronically signed by: Shaji Rothman MD 06/05/2024 02:41 PM [facility]
--- NOTE | ~2024-06-05 | MM_ITS ---
EXAMINATION: MM SCREENING DIGITAL BREAST TOMOSYNTHESIS, BILATERAL CLINICAL INFORMATION: Screening. Asymptomatic. COMPARISON: Mammography: Comparison is made with available priors TECHNIQUE: Digital breast mammography with tomosynthesis is performed in both the craniocaudal and mediolateral oblique views along with computer-aided detection (CAD). FINDINGS: The breasts are heterogeneously dense, which may obscure small masses (ACR BI-RADS breast composition Category c). Left marker clip. There are no significant masses, abnormal calcifications, or other abnormalities. MM/MM tomosynthesis screening BI IMPRESSION: No mammographic evidence of malignancy. ASSESSMENT: BI-RADS BI-RADS 2 - Benign Findings RECOMMENDATION: Routine annual mammography screening. 1 year F/U This examination should not preclude the clinical evaluation of a suspicious palpable abnormality. This patient's information was entered into a reminder system with a target due date for their next mammogram. Electronically signed by: Hailee Rowe DO 06/14/2024 02:01 PM [facility]
== END 2024-06-05 10:19 | disposition home or self-care (01) ==
LOC: HO.MAMMO 10:18
PROVIDERS: PCP Internal Medicine; Visit Provider Internal Medicine
DX: Z12.31 Encounter for screening mammogram for malignant neoplasm of breast (principal); Z13.820 Encounter for screening for osteoporosis; Z78.0 Asymptomatic menopausal state
CPT/HCPCS: 77063; 77067; 77080

== ENCOUNTER 2024-06-15 10:11 | Outpatient (AMB) | payer MEDICARE, OTHER, SELFPAY ==
[2024-06-15 10:28] VITALS: BP 130/58; PULSE 79; O2SAT 96; BMI 31.6
--- NOTE | 2024-06-15 10:28 | MHC.OFFVIS ---
Vital Signs 06/15/24 10:28 Height 5 ft 6 in Weight 196 lb BMI 31.6 BP 130/58 L Blood Pressure Location Lt brachial Position Sitting Pulse 79 Pulse Source Pulse Oximeter Pulse Oximetry (%) 96 Oxygen Delivery Method Room Air Intake Visit Reasons: COPD follow-up Intake Note: pt is here for follow up and states she is feeling good but having a lot of coughing with post nasal drip Street Cleaner Required: No Allergies No Known Allergies [No Known Allergies*] Allergy (Verified 06/15/24 17:02) Medication List - Last Reconciled 06/15/24 by Yadira Downey MD aspirin (Ecotrin Low Strength) 81 mg PO DAILY atorvastatin 10 mg PO BEDTIME diltiazem HCl CD 240 mg PO DAILY levothyroxine 50 mcg PO DAILY mometasone-formoterol 200-5 mcg/actuation (Dulera) 2 puffs inhalation BID 30 days tolterodine ER 4 mg PO DAILY Do you need a note to return to daycare/school/sports/work: No HPI HPI COPD follow-up: Details: This 79 years old very pleasant female comes for 6 months follow-up. She has bronchial asthma/ COPD , which remains well controlled with the use of Dulera 200-5 2 puffs b.i.d. she does not need to use any rescue inhaler She has had no recent acute exacerbation, Also being treated for obstructive sleep apnea with CPAP, and she uses regularly. She is using fullface mask and was wondering if she can use a nasal mask. However according to her she is a mouth breather , and whenever he he says her taking a nap during the day she is breathing through the mouth. She denies any daytime sleepiness . [facility] Medical History Pacemaker at end of battery life Hypothyroidism Diabetes mellitus Degenerative joint disease Irritable bowel syndrome Diverticulosis Allergic rhinitis Cough SVT (supraventricular tachycardia) Complete heart block Cardiac pacemaker in situ Surgical History (Updated 06/15/24 @ 17:10 by Yadira Downey MD) History of permanent cardiac pacemaker placement COPD (chronic obstructive pulmonary disease) H/O colonoscopy History of appendectomy History of hysterectomy Hx of eye surgery Family History Father No problems noted. Mother CVD (cardiovascular disease) Pacemaker Social History Patient Tobacco Use Status: Former Tobacco user Review of Systems Const All systems reviewed & are unremarkable except as noted in HPI and below Eyes Reports no additional complaints ENT Reports nasal congestion (MILD) and Reports sore throat (MILD FEELING OF THROAT CONGESTION IN THE MORNING HOURS) Card Denies chest pain, Denies irregular heart rhythm and Denies leg edema GI Reports no additional complaints Reports no additional complaints Musc Reports no additional complaints Skin/Breast Reports system reviewed and no additional complaints, except as documented Neuro Reports no additional complaints Psych Reports no additional complaints Physical Exam Vital Signs: Last Vital Signs Pulse 79 06/15/24 10:28 BP 130/58 L 06/15/24 10:28 Pulse Ox 96 06/15/24 10:28 Oxygen Delivery Method Room Air 06/15/24 10:28 BMI result Body Mass Index 31.6 Const General: comfortable, no acute distress, alert and awake Orientation/consciousness: patient oriented x3 HEENT Head: Yes normal to inspection General nose exam: No nasal polyps present and No nasal discharge present Face and sinus: Yes sinuses nontender Mouth: oropharynx normal Throat: Yes posterior oropharynx normal and Yes other (Throat looks okay there is no sign of thrush) Eyes General: appearance normal, both eyes and all related structures Neck Neck: Yes normal visual inspection, Yes no lymphadenopathy, Yes trachea midline and Yes no JVD Thyroid: Thyroid normal Chest Chest palpation & inspection: normal inspection of the chest, normal palpation of entire chest wall and no tenderness Resp Other: Percussion note resonant, has good breath sounds on both sides with, slightly prolonged expiratory phase. No audible wheezes rhonchi or crepitations Cardio Palpation: normal PMI Rate: regular rate Rhythm: regular rhythm Heart sounds: no gallops and no murmurs GI Palpation (GI): Soft to palpation, nontender, No hepatosplenomegaly present and no masses Auscultation: normal bowel sounds Back/Spine/Pelvis Thoracic/Lumbar Spine: thoracic and lumbar spine normal to inspection Skin General skin exam: no rashes or lesions noted Neuro General: patient oriented x3, gait normal (USES CANE) and no focal motor deficits Cranial nerves: Yes CN's II-XII intact bilaterally Extrem General: Yes normal to inspection, No no joint enlargement (BOTH KNEES ARE ENLARGED AND STIFF, SHE HAS HAD MINOR SURGERIES ON BOTH SIDE), Yes no clubbing, cyanosis or edema and Yes no calf tenderness Right upper extremity: edema (Mild stasis edema controlled with the elastic stockings) Psych Appearance: grossly normal and well kempt Speech and movement: Normal speech and movement present Assessment & Plan Assessment & Plan (1) COPD (chronic obstructive pulmonary disease): Comment: MILD TO MODERTAE DEGREE OF COPD. VERY STABLE , AND CONTROLLED HAS ONLY MILD INTERMITTENT COUGH. SHE WALKS WITH A CANE SAYS, SLOWLY, SO DOES NOT HAVE ANY SHORTNESS OF BREATH ON EXERTION. Code(s): J44.9 - Chronic obstructive pulmonary disease, unspecified Category: Surgical Plan: Continue using Dulera 200-5 2 puffs b.i.d. (2) Allergic rhinitis: Comment: She has mild allergic rhinitis. Remains fairly well controlled. Code(s): J30.9 - Allergic rhinitis, unspecified Category: Medical Plan: May use OTC Claritin 10 mg once a day And also Flonase -50 1 spray in each nostril b.i.d. p.r.n. Medications: Refilled mometasone-formoterol 200-5 mcg/actuation (Dulera) 2 puffs inhalation BID 30 days 13 grams 5RF copd Coding Level of Care Code Est Pt Level 3 (59771) Diagnoses COPD (chronic obstructive pulmonary disease) J44.9 Allergic rhinitis J30.9
--- OUTSIDE RECORDS SUMMARY | 2024-06-15 14:47 | XMS_ITS | Patient Health Record ---
Author Organization [facility] Address [address] [place] [id number] Care Team Providers Care Software Engineer Web Applications Name Role Phone Noé Sigala MD Primary Care Provider Pelon Bustos Jr Unavailable ALLERGIES No Known Allergies REASON FOR REFERRAL No Information MEDICATIONS Medication SIG (Take, Route, Frequency, Duration) Notes Start Date End Date Status Atorvastatin Calcium Active Aspirin 81 MG 1 tablet Orally Once a day for 30 day(s) Active Levothyroxine Sodium Active Levbid 0.375 MG 1 tablet Orally ever y 12 hrs for 30 Active Anusol-HC 25 MG 1 suppository Rectal Twice a day for 14 day(s) 04/19/2016 Active Colyte with Flavor Packs 240 GM As directed Orally Over the specified time. for 1 day(s) 04/19/2016 Active dilTIAZem HCl ER Coated Beads Active MiraLax (colon prep) 17 GM/SCOOP mixed with Gatorade or Crystal Light Orally begin at 5:00 p.m. the day before the procedure for 1 day 04/15/2023 Active IMMUNIZATIONS Vaccine Route Administration Date Status Comme nts Influenza Unknown 04/15/2023 Refused SOCIAL HISTORY Sex Assigned At : Social History Observation Description Sex Assigned At Unknown PROBLEMS Problem Type ICD Code Onset Dates Problem Status W/U Status Risk SNOMED Code Notes Problem Rectal bleeding (K62.5) Active confirmed 30489845 Problem RUQ pain (R10.11) Active confirmed 653417581 Problem Colon cancer screening (Z12.11) Active confirmed 189024769 Problem FH: colon cancer (Z80.0) Active confirmed 530254168 Problem Long-term use of aspirin therapy (Z79.82) Active confirmed 663337586 PLAN OF TREATMENT Future Test Test Name Order Date COLONOSCOPY 04/19/2016 COLONOSCOPY 04/15/2023 Insurance Providers Payer Name Payer Address Payer Phone Subscriber Number Group Number Insured Name Patient Relationship to Insured Coverage Start Date Coverage End Date MEDICARE OF [place] [address] [place] [address] [id number] NIALL BURKETT Self - patient is the insured [facility] [employer] [address] [place] [address] [id number] NIALL BURKETT Self - patient is the insured MEDICAL (GENERAL) HISTORY Medical History History ICD Code Colonoscopy 10/03, diverticulosis, five-y ear followup optional based on age Irritable bowel syndrome SVT, pacemaker placement Degenerative joint disease involving kne es, hands, multiple knee surgery Diabetes Mellitus Hypothyroidism elevated cholesterol COPD Surgical History Surgery Date(Month/Year) Hysterectomy Appendectomy Pacemaker generator change 10/2015
--- OUTSIDE RECORDS SUMMARY | 2024-06-15 14:47 | XMS_ITS ---
Author Organization [facility] Address [address] [place] [address] Care Team Providers Care Senior Communications Engineer Name Role Phone Noé Sigala MD Primary Care Provider UnavailPelon Juárez Jr REASON FOR VISIT TOOK FISH OIL UNTIL SATURDAY Encounters Encounter Location Date Provider Diagnosis [facility] [address] [place] [address] 05/27/2023 Pelon Arroyo Jr PLAN OF TREATMENT No Information
--- OUTSIDE RECORDS SUMMARY | 2024-06-15 14:47 | XMS_ITS ---
Author Organization [facility] Address [address] [place] [address] Care Team Providers Care Door Tender Name Role Phone Noé Sigala MD Primary Care Provider Shahzad Melvin Unavailable [phone] Allergies Allergen (clinical drug ingredient) Drug/Non Drug Allergy documented on EMR Reaction Allergy Type Onset Date Status Adhesive Unknown Allergy Active REASON FOR VISIT At Risk Footcare, Painful Nail(s) aggrevated by shoes and causing difficulty standing/walking., Open sore - Toe, Foot pain Medications Medication SIG (Take, Route, Frequency, Duration) Notes Start Date End Date Status Levothyroxine Sodium 50 MCG 1 tablet in the morning on an empty stomach Orally Once a day for 30 day(s) Active Symbicort 160-4.5 MCG/ACT 1 puff as need ed Inhalation every 4 hrs Active dilTIAZem HCl ER 240 MG 1 tablet Orally Once a day for 30 day(s) Active Atorvastatin Calcium 10 MG 1 tablet Oral ly Once a day for 30 day(s) Active Aspirin Adult Low Dose 81 MG 1 tablet Or ally Once a day for 30 day(s) Active Tolterodine Tartrate ER 4 MG 1 capsule O rally Once a day for 30 day(s) Active Social History Tobacco Use: Social History Observation Description Date Details (start date - stop date) Former Smoker NA - NA Tobacco Use/Smoking Question Answer Notes Are you a: former smoker Additional Findings: Tobacco Non-User Current no n-smoker Alcohol Screen Question Answer Notes Did you have a drink containing alcohol in the p ast year? No Points 0 Interpretation Negative Tobacco use other than smoking: Question Answer Notes Are you an other tobacco user? No Vital Signs Height 5 ft 6 in in 01/28/2024 Weight 190 lbs 01/28/2024 BMI 30.66 kg/m2 01/28/2024 Procedures Procedure Date Ordered Date Performed Result Body Sit e 34972-KRAACBR NAIL, 6 OR MORE 01/28/2024 N/A 97679- Debride <25 sq cm 01/28/2024 N/A 65209-TSUF SKIN LESIONS, 2 TO 4 01/28/2024 N/A Encounters Encounter Location Date Provider Diagnosis [facility] [place] [address] [place] [address] 01/28/2024 Shahzad Rosado Atherosclerosis of zuni artery of both lower extremities, with unspecified presence of clinical manifestation I70.203 ; Tinea unguium B35.1 ; Pain in right toe(s) M79.674 ; Pain in left toe(s) M79.675 ; Skin ulcer of toe of right foot, limited to breakdown of skin L97.511 ; Pain in right ankle and joints of right foot M25.571 ; Bursitis of intermetatarsal bursa of right foot M77.51 and Metatarsalgia, right foot M77.41 Assessments Encounter Date Diagnosis (ICD Code) Assessment Notes Treatment Notes Treatment Clinical Notes Section Notes 01/28/2024 Atherosclerosis of zuni artery of both lower extremities, with unspecified presence of clinical manifestation (ICD-10 - I70.203) 01/28/2024 Tinea unguium (ICD-10 - B35.1) 01/28/2024 Pain in right toe(s) (ICD-10 - M79.674) 01/28/2024 Pain in left toe(s) (ICD-10 - M79.675) 01/28/2024 Skin ulcer of toe of right foot, limited to breakdown of skin (ICD-10 - L97.511) Patient Educated with: WOUND CARE INSTRUCTIONS. pdf (WOUND CARE INSTRUCTIONS. pdf) 01/28/2024 Pain in right ankle and joints of right foot (ICD-10 - M25.571) 01/28/2024 Bursitis of intermetatarsal bursa of right foot (ICD-10 - M77.51) 01/28/2024 Metatarsalgia, right foot (ICD-10 - M77.41) 01/28/2024 Other Plan Of Treatment Treatment Notes Assessment Notes Skin ulcer of toe of right f oot, limited to breakdown of skin Patient Educated with: WOUND CARE INSTRUCTIONS.pdf (WOUND CARE INSTRUCTIONS.pdf) Pending Test Test Name Order Date 14389-EXZKSWU NAIL, 6 OR MORE 01/28/2024 27656- Debride <25 sq cm 01/28/2024 48197-GCRY SKIN LESIONS, 2 TO 4 01/28/20 24 Next Appt Details Follow Up: prn, Reason: Provider Name:Shahzad Rosado , 07/24/2024 09:30:00 AM, [address] [place] [address], [phone], Procedure Notes * Category Sub-Category Detail Notes Debride Nail 6-10 Nail debridement Performance o f this nail treatment by a nonprofessional would put this patients foot and overall health at risk. Therefore, nail debridement was performed extensively to reduce/remove overall nail length, girth, thickness, subungual debris, and necrotic tissue, by manual and/or electrical means through the use of a nail nipper and/or dremel-type hob grinder, to a more viable healthy nail plate or bed tissue 6-10. Silver nitrate used for any petechial bleeding as necessary. Definitive antifungal treatment options have been reviewed and discussed with the patient. The patient chooses, no pharmaceutical tx - 9[address]54 Debride skin< 25 sq cm Open wound Physician of record performed open wound selective debridement of first 25 sq cm or less, of devitilized necrotic/nonviable soft tissue, fibrin, and exudate extending from the epidermis through the dermis, utilizing sharp dissection with sterile 15 blade, and/or tissue nippers. Sterile antibiotic dressing applied, ANESTHESIA- was accomplished TOPICALLY with Lidocaine Hydrochloride Jelly 2 percent. Hemostasis was achieved through direct pressure. Post debridement measurements: 4mm x 3mm x 2mm. Character of the wound post debridement is stable (50863) Keratoma Treatment Parring or Cutting o f Benign Hyperkeratotic Lesion(s) (-56) 2-4 Lesions - The Benign hyperkeratotic lesions, as described above were pared, and/or cut utilizing a sterile 15 blade, tissue nippers, and/or dremel - 43586 , Q8 Progress Notes * Valery BURKETT MDOB: 5 (78 yo F)Acc No.[id number]:01/28/2024 Progress Note Patient:?Valery Burkett Provider:?Shahzad Rosado DPM :1945???Age:78 Y???Sex:Female D ate:01/28/2024 Address:[address] [place], [place] [id number] Pcp:Noé Sigala MD Subjective: * Chief Complaints: * ???At Risk FootcarePainful N ail(s) aggrevated by shoes and causing difficulty standing/walking.Open sore - ToeFoot pain * HPI: ???At Risk footcare:?Pt States Last PCP Visit:?Date?12/30/2023 ???Skin problems:?Treatments:?Local care consisting of daily distilled water wound cleanse, topical antibiotic as recommended, application of sterile dressing, offloading/pressure reduction via rest, shoe modification, insert modification, accommodative padding, assisted ambulation via cane, and surgical debridement.?Foot Pain:?Location:?Bottom, Outside, Forefoot, RIGHT.?Duration:?several days.?Course:?worse.?Treatments:?rest/alter normal daily activity.? * ROS:?General/Constitutional:?Nausea?denies.?Vomiting?denies.?Hunger Thirst?denies.?Loss appetite?denies.?Chills?denies.?Fatigue?denies.?Fever?denies.?Night Sweats?denies.?Unexplained weight loss?denies.?Unexplained weight gain?denies.?HEENTM:?Dentures?denies.?Dizziness?denies.?Glasses/contacts?denies.?Retinopathy?de nies.?Blurred/double vision?denies.?TMJ?denies.?Discharge/drainage?denies.?Implants?denies.?Sore throat?denies.?Dental implants?denies.?Hard of hearing ?admits.?Difficulty chewing/swallowing/speaking?denies.?Nose bleeds?denies.?Sore mouth?denies.?Respiratory:?On Oxygen?denies.?Pneumonia/pleurisy?denies.?Bronchitis?denies.?Emphysema?denies.?C oughing?admits.?Cough blood?denies.?Shortness of breath?denies.?Wheezing?denies.?Cardiovascular:?Pacemaker?admits.?MVP?denies.?WPW?denies.?CHF?denies.?Heart attack?denies.?Septal defect?denies.?Rapid beat?denies.?Chest pain ?denies.?Atrial Fib.?denies.?Murmur/Palpitations?denies.?Gastrointestinal:?Hemorrhoids?denies.?Stomach/Abdominal pain?denies.?Dark blood stool?denies.?Irritable bowel ?denies.?Constipation?denies.?Diarrhea?denies.?Hematology:?Swelling?denies.?Clots?denies.?Varicose Veins?admits.?Bruising?admits.?Bleeding problem?denies.?Genitourinary:?Blood urine?denies.?Frequent/Painfu/urination/bladder control?admits.?Kidney stones?denies.?Infection (UTI)?denies.?Nephropathy?denies.?sex trans dis (STD)?denies.?Prostate?denies.?Musculoskeletal:?Hammertoes?admits.?Bunions?denies.?Back Pain?denies.?Muscle Cramps/ Resting?admits.?Muscle cramps / walking?denies.?Generalized aches and pains?admits.?Weakness?denies.?Integ.:?Horta?denies.?Scars?denies.?Corns/calluses?admits.?Ingrown nails?admits.?Painful nails?admits.?Open Sores?denies.?Rashes?denies.?Neurologic:?Difficulty sleeping?denies.?Brain disorder?denies.?Numbness?denies.?Balance trouble?admits.?Confusion?denies.?Fainting/blackouts?denies.?Tingling?denies.?Tr emors?denies.? * Medical History:? * Surgical History:?cardiac pa cemeker 08/27/2023asal cell removal 06/21/2023 * Hospitalization/Major Diagno stic Procedure:?Denies Past Hospitalization * Family History:?Mother: dece ased, diagnosed with Other specified conditions influencing health status.?Father: , diagnosed with Other malignant neoplasm of unspecified site.? * Social History:?Tobacco Use:?Tobacco Use/Smoking?Are you a:?former smoker ?Additional Findings: Tobacco Non-User?Current non-smoker ?Tobacco use other than smoking?Are you an other tobacco user??No ???Drugs/Alcohol:?Drugs?Have you used drugs other than those for medical reasons in the past 12 months??No ?Alcohol Screen?Did you have a drink containing alcohol in the past year??No ?Points?0 ?Interpretation?Negative ???Miscellaneous:?Caffeine: yes, 1-2 cups per day. ?Children: yes, 3. ?no Exercise. ?Marital status: . ?Occupation: Retired. * Medications:?TakingAspirin A dult Low Dose 81 MG Tablet Delayed Release 1 tablet Orally Once a dayTolterodine Tartrate ER 4 MG Capsule Extended Release 24 Hour 1 capsule Orally Once a dayLevothyroxine Sodium 50 MCG Tablet 1 tablet in the morning on an empty stomach Orally Once a daydilTIAZem HCl ER 240 MG Tablet Extended Release 24 Hour 1 tablet Orally Once a daySymbicort 160-4.5 MCG/ACT Aerosol 1 puff as needed Inhalation every 4 hrsAtorvastatin Calcium 10 MG Tablet 1 tablet Orally Once a dayMedication List reviewed and reconciled with the patientTaking Aspirin Adult Low Dose 81 MG Tablet Delayed Release 1 tablet Orally Once a dayTaking Tolterodine Tartrate ER 4 MG Capsule Extended Release 24 Hour 1 capsule Orally Once a dayTaking Levothyroxine Sodium 50 MCG Tablet 1 tablet in the morning on an empty stomach Orally Once a dayTaking dilTIAZem HCl ER 240 MG Tablet Extended Release 24 Hour 1 tablet Orally Once a dayTaking Symbicort 160-4.5 MCG/ACT Aerosol 1 puff as needed Inhalation every 4 hrsTaking Atorvastatin Calcium 10 MG Tablet 1 tablet Orally Once a dayMedication List reviewed and reconciled with the patient * Allergies:?Adhesiveyes[Aller gies Verified] Objective: * Vitals:?Ht: 5 ft 6 in, Wt:19 0, BMI:30.66, Shoe size:10 Med. * Examination: ???Vascular: ?DP PULSES:?05/23, B/L.?PT PULSES:? 0, B/L.?CAPILLARY FILL TIME:? delayed, all digits, B/L.?SKIN TEMPERTURE GRADIENT OF THE LOWER EXTERMITIES:? decreased, cool to cool, proximal to distal, B/L.?HAIR GROWTH/TEXTURE/ELASTICITY/TURGOR:? decreased, B/L.?PIGMENTATION:?rubrous, B/L.?EDEMA:?1 , non-pitting , without aching pain , Leg(s) , Ankle(s) , B/L.?CLAUDICATION:?denies, B/L.?REST PAIN:?denies, B/L.?Nails: ?NAILS are:? Elongated, overgrown, dystrophic, lytic, greater than 3mm thick, discolored and friable with crumbly malodorous subungual debris, with pain on palpation, 1-5 B/L.?Dermatologic: ?SKIN FINDINGS:?Skin exam reveals Keratotic lesion(s) located at , SUB MTH (s) , 5 , Right , Heel(s) , B/L.?ULCER:? LOCATION,?Plantar, T7, SIZE, NOW, 4mm X 3mm X 2mm, BASE, granular, RIM, hyperkeratotic, UNDERMINING, absent, TRACKING, Full thickness breakdown of skin, DRAINAGE, serosanguineous, mild, NECROTIC TISSUE, loosely-adherent, yellow slough, MALODOR, absent, CALOR, absent, ERYTHEMA, absent, PAIN ON PALPATION, present.?Orthopedic: ?TAILOR'S BUNION:?Enlarged, painful, prominent, inflamed 5th Metatarsal Base , RIGHT.? Assessment: * Assessment: 1.?Tinea unguium - B35.1?2.? Atherosclerosis of zuni artery of both lower extremities, with unspecified presence of clinical manifestation - I70.203?3.?Pain in right toe(s) - M79.674?4.?Pain in left toe(s) - M79.675?5.?Skin ulcer of toe of right foot, limited to breakdown of skin - L97.511, Response to treatment - Improvement?6.?Pain in right ankle and joints of right foot - M25.571?7.?Bursitis of intermetatarsal bursa of right foot - M77.51?8.?Metatarsalgia, right foot - M77.41? Plan: * Treatment: 2.?Atherosclerosis of zuni artery of both lower extremities, with unspecified presence of clinical manifestation?Procedure: 80756-TSSE SKIN LESIONS, 2 TO 4 3.?Skin ulcer of toe of righ t foot, limited to breakdown of skin?Procedure: 26606- Debride <25 sq cm Notes: Patient Educated with: WOUND CARE INSTRUCTIONS.pdf (WOUND CARE INSTRUCTIONS.pdf)?? * Procedures:?Debride Nail 6-10:?Nail debridement?Performance of this nail treatment by a nonprofessional would put this patients foot and overall health at risk. Therefore, nail debridement was performed extensively to reduce/remove overall nail length, girth, thickness, subungual debris, and necrotic tissue, by manual and/or electrical means through the use of a nail nipper and/or dremel-type hob grinder, to a more viable healthy nail plate or bed tissue 6-10. Silver nitrate used for any petechial bleeding as necessary. Definitive antifungal treatment options have been reviewed and discussed with the patient. The patient chooses, no pharmaceutical tx - 43293.?Debride skin< 25 sq cm:?Open wound?Physician of record performed open wound selective debridement of first 25 sq cm or less, of devitilized necrotic/nonviable soft tissue, fibrin, and exudate extending from the epidermis through the dermis, utilizing sharp dissection with sterile 15 blade, and/or tissue nippers. Sterile antibiotic dressing applied, ANESTHESIA- was accomplished TOPICALLY with Lidocaine Hydrochloride Jelly 2 percent. Hemostasis was achieved through direct pressure. Post debridement measurements: 4mm x 3mm x 2mm. Character of the wound post debridement is stable (59041).?Keratoma Treatment:?Parring or Cutting of Benign Hyperkeratotic Lesion(s)?(-56) 2-4 Lesions - The Benign hyperkeratotic lesions, as described above were pared, and/or cut utilizing a sterile 15 blade, tissue nippers, and/or dremel - 27572 , Q8.? * Procedure Codes:?35996 DEBRI DE NAIL, 6 OR MORE, Modifiers: XS 00351 ACTIVE WOUND CARE/20 CM OR <, Modifiers: XS 55415 TRIM SKIN LESIONS, 2 TO 4, Modifiers: XS , Q8 * Preventive Medicine:? ??Counseling:?Discussion:?-13: Office or other outpatient visit for the evaluation and management of an established patient, which required a medically appropriate history and/or examination and LOW level of DECISION MAKING for: 1 STABLE ACUTE UNCOMPLICATED PROBLEM, 2 OR MORE MINOR PROBLEMS, OR 1 STABLE CHRONIC PROBLEM, THAT POSE(S) A LOW RISK FOR MORBIDITY/MORTALITY. The visit on the day of the encounter encompassed interpreting the data and educating the patient as to the nature of their condition, treatment options available according to their individual PMH, meds, allergies, and overall health/living conditions, as well as any potential risks or complications that may occur from a failure to adhere to, and participate in, the recommended course of therapy. The discussion included a complete verbal, and/or written explanation of the examination results, any x-rays taken, the proposed diagnosis, and outline of the treatment plan. A schedule for future care needs was also explained. The patient verbalized an understanding of the instructions at this time and agreed to be an active participant in their treatment. If the patient should think of any questions or concerns after the visit, I have encouraged the patient to call the office.?Metatarsalgea:?I explained to the patient the possible etiologies of their Metatarsalgea Foot pain, including foot type/shoegear/activity level/exercise routine and the risks/benefits of all the different treatment options for pain including: No treatment at all, Rest, Ice, NSAIDs(only if well tolerated after meals), New/supportive Shoegear, Strappings and Tapings, Foot/Ankle AFO Bracing, Stretching exercises, Deep Tissue Massage, Arch support/shoe inserts, Custom orthoses, Topical analgesics including Aspercream/Voltaren gel, Physical Therapy, Cortisone injection therapy, EPAT/ESWT. Advantages and disadvantages of each option were discussed and the patients questions re: shoegear, custom vs prefabricated inserts, activity level, PO vs Topical medications (and their respective potential complications/drug interactions/side effects), and consistency in home treatment regimens for optimal success were answered to their verbally confirmed satisfaction.?Orthotics:?I explained to the patient the benefits of OT use. I explained that orthoses are medically necessary to decrease the foot pain through proper mechanical control, support of their foot, decrease pain under the painful metatarsal by supplementing the soft tissue, cushion the forefoot by supplementing the soft tissue.?P.R.I.C.E.:?The patient was counseled on the use of P.R.I.C.E. and NSAIDS (if well tolerated) to aid in the recovery from their painful condition.?Podiatric Surgery Counseling:?Due to patients age and medical history I do not recommend moving forward with surgery.?Ulcer:?The patient is to cont to apply ( Neosporin, Polysporin, or Triple, ) Antibiotic to the wound and cover with a DSD as directed. The patient was instructed to change dressings according to orders, or PRN saturation, leaks. The patient was instructed to monitor and report any signs or symptoms of infection or any untoward reactions. Precautions Taken: Offloading/Pressure reduction via rest/ limited activity to essential to daily life only, cane/ crutches/ walker/ knee scooter/ wheel chair, shoe modification, accommodative padding, sharp debridement, and take/apply medication as directed. THE GOALS of wound debridement to remove devitilized tissue, decrease risk for infection, promote wound healing and prevent further complication were discussed/reviewed. Debridement frequency as indicated.? * Follow Up:?prn * Images: * Sign off status: Completed true * Provider:?Shahzad Rosado DPM Date:?2023 Generated for Luis arrieta/Rachel/Shonda on:?2024 02:47 PM EST History and Physical Notes * HPI (History of Present Illness) Category Sub-Category Detail Notes Category Not es Skin problems Treatments: Local care consi sting of daily distilled water wound cleanse, topical antibiotic as recommended, application of sterile dressing, offloading/pressure reduction via rest, shoe modification, insert modification, accommodative padding, assisted ambulation via cane, and surgical debridement At Risk footcare Pt States Last PCP Visit: Date: 12/30/2023 Foot Pain Location: Bottom, Outside, Forefoot, RIGHT Duration: several days Course: worse Treatments: rest/alter normal da aki activity Examination Category Sub-Category Detail Notes Category Not es Dermatologic SKIN FINDINGS: Skin exam reveal s Keratotic lesion(s) located at , SUB MTH (s) , 5 , Right , Heel(s) , B/L ULCER: LOCATION, Plantar, T 7, SIZE, NOW, 4mm X 3mm X 2mm, BASE, granular, RIM, hyperkeratotic, UNDERMINING, absent, TRACKING, Full thickness breakdown of skin, DRAINAGE, serosanguineous, mild, NECROTIC TISSUE, loosely-adherent, yellow slough, MALODOR, absent, CALOR, absent, ERYTHEMA, absent, PAIN ON PALPATION, present Orthopedic TAILOR'S BUNION: Enlarged, painf ul, prominent, inflamed 5th Metatarsal Base , RIGHT Vascular DP PULSES (B): 1/4, B/L PT PULSES (B): 0/4, B/L CAPILLARY FILL TIME: delayed, all digits , B/L TEMPERTURE GRADIENT (C): decreased, cool to cool, proximal to distal, B/L TROPHIC CONDITION-TEXTURE/ELASTICITY/TURGOR/HAIR GROWTH (B): decreased, B/L EDEMA (C): 1/4 , non-pitting , without aching pain , Leg(s) , Ankle(s) , B/L CLAUDICATION (C): denies, B/L REST PAIN: denies, B/L PIGMENTATION: rubrous, B/L Nails NAILS are: Elongated, overg rown, dystrophic, lytic, greater than 3mm thick, discolored and friable with crumbly malodorous subungual debris, with pain on palpation, 1-5 B/L
--- OUTSIDE RECORDS SUMMARY | 2024-06-15 14:47 | XMS_ITS ---
Author Organization [facility] Address [address] [facility] [place] [address] Care Team Providers Care Supervisor Reinforced Steel Placing Name Role Phone Noé Sigala MD Primary Care Provider Shahzad Melvin Unavailable [phone] Allergies Allergen (clinical drug ingredient) Drug/Non Drug Allergy documented on EMR Reaction Allergy Type Onset Date Status Adhesive Unknown Allergy Active REASON FOR VISIT At Risk Footcare, Painful Nail(s) aggrevated by shoes and causing difficulty standing/walking., Open sore - Toe Medications Medication SIG (Take, Route, Frequency, Duration) Notes Start Date End Date Status dilTIAZem HCl ER 240 MG 1 tablet Orally Once a day for 30 day(s) Active Symbicort 160-4.5 MCG/ACT 1 puff as need ed Inhalation every 4 hrs Active Levothyroxine Sodium 50 MCG 1 tablet in [...] Signs Height 5 ft 6 in in 04/28/2024 Weight 190 lbs 04/28/2024 BMI 30.66 kg/m2 04/28/2024 Blood pressure systolic 120 mm Hg 04/28/20 Blood pressure diastolic 80 mm Hg 024 Procedures Procedure Date Ordered Date Performed Result Body Sit e 73711-OHAFZOK NAIL, 6 OR MORE 04/28/2024 N/A 58057-KMQW SKIN LESIONS, 2 TO 4 04/28/2024 N/A Encounters Encounter Location Date Provider Diagnosis [facility] [place] [address] [place] [address] 04/28/2024 Shahzadveda DalalAlonzo Atherosclerosis of [place] artery of both lower extremities, with unspecified presence of clinical manifestation I70.203 ; Tinea unguium B35.1 ; Pain in right toe(s) M79.674 ; Pain in left toe(s) M79.675 and Skin ulcer of toe of right foot, limited to breakdown of skin L97.511 Assessments Encounter Date Diagnosis (ICD Code) Assessment Notes Treatment Notes Treatment Clinical Notes Section Notes 04/28/2024 Atherosclerosis of [place] artery of both lower extremities, with unspecified presence of clinical manifestation (ICD-10 - I70.203) 04/28/2024 Tinea unguium (ICD-10 - B35.1) 04/28/2024 Pain in right toe(s) (ICD-10 - M79.674) 04/28/2024 Pain in left toe(s) (ICD-10 - M79.675) 04/28/2024 Skin ulcer of toe of right foot, limited to breakdown of skin (ICD-10 - L97.511) 04/28/2024 Other Plan Of Treatment Pending Test Test Name Order Date 05061-EWPTXFR NAIL, 6 OR MORE 04/28/2024 36272-BWNK SKIN LESIONS, 2 TO 4 04/28/20 24 Next Appt Details Follow Up: prn, Reason: Provider Name:Shahzad Rosado , 07/24/2024 09:30:00 AM, [address] [place], [address], Procedure Notes * Category Sub-Category Detail Notes Debride Nail 6-10 Nail debridement Due to the cl inical pathology outlined in the exam findings, performance of this nail treatment is medically necessary as its management by an unskilled/untrained nonprofessional would put this patients foot and overall health at risk. Therefore, debridement to affected nail(s), as described in exam, was performed extensively to reduce/remove overall nail length, girth, thickness, subungual debris, and necrotic tissue, by manual and/or electrical means through the use of a nail nipper and/or dremel-type crystal flat grinder, to a more viable healthy nail plate or bed tissue 6-10 nails in total. Silver nitrate was used for any petechial bleeding as necessary. Definitive antifungal treatment options, both pharmaceutical and surgical, have been reviewed and discussed with the patient. The patient solely prefers the use of intermittent/as needed professional debridement services for their nail condition and understands the need for additional periodic treatments to maintain effectiveness in symptomatic relief - 35449 Keratoma Treatment Parring or Cutting o f Benign Hyperkeratotic Lesion(s) (-56) 2-4 Lesions - Due to the at risk nature of the patients medical condition as documented in the exam findings, performance of this keratoderma treatment is medically necessary as its management by an unskilled/untrained nonprofessional would put this patients foot and overall health at risk. Therefore, the benign hyperkeratotic lesions, ( 4) in total, locations as stated and described in the exam, were pared, and/or cut utilizing a sterile 15 blade, tissue nippers, and/or power dremel instrumentation - 36850, Q8 Progress Notes * Valery BURKETT MDOB: 5 (78 yo F)Acc No.[id number]:04/28/2024 Progress Note Patient:?Valery BURKETT Provider:?Shahzad Rosado DPM :1945???Age:78 Y???Sex:Female D ate:04/28/2024 Address:[address] [place], [place] [id number] Pcp:Noé Sigala MD Subjective: * Chief Complaints: * ???At Risk FootcarePainful N ail(s) aggrevated by shoes and causing difficulty standing/walking.Open sore - Toe * HPI: ???At Risk footcare:?Pt States Last PCP Visit:?Date?12/30/2023 ???Skin problems:?Treatments:?Local care consisting of daily distilled water wound cleanse, topical antibiotic as recommended, application of sterile dressing, offloading/pressure reduction via rest, shoe modification, insert modification, accommodative padding, assisted ambulation via cane, and surgical debridement.? * ROS:?General/Constitutional:?Nausea?denies.?Vomiting?denies.?Hunger Thirst?denies.?Loss appetite?denies.?Chills?denies.?Fatigue?denies.?Fever?denies.?Night Sweats?denies.?Unexplained weight loss?denies.?Unexplained [...] 1-2 cups per day. ?Children: yes, 3. ?Exercise: no. ?Marital status: . ?Occupation: Retired. * Medications:?TakingAspirin A dult Low Dose 81 MG Tablet Delayed Release 1 tablet Orally Once a day Tolterodine Tartrate ER 4 MG Capsule Extended Release 24 Hour 1 capsule Orally Once a day Levothyroxine Sodium 50 MCG Tablet 1 tablet in the morning on an empty stomach Orally Once a day dilTIAZem HCl ER 240 MG Tablet Extended Release 24 Hour 1 tablet Orally Once a day Symbicort 160-4.5 MCG/ACT Aerosol 1 puff as needed Inhalation every 4 hrs Atorvastatin Calcium 10 MG Tablet 1 tablet Orally Once a day Medication List reviewed and reconciled with the patientTaking Aspirin Adult Low Dose 81 MG Tablet Delayed Release 1 tablet Orally Once a day Taking Tolterodine Tartrate ER 4 MG Capsule Extended Release 24 Hour 1 capsule Orally Once a day Taking Levothyroxine Sodium 50 MCG Tablet 1 tablet in the morning on an empty stomach Orally Once a day Taking dilTIAZem HCl ER 240 MG Tablet Extended Release 24 Hour 1 tablet Orally Once a day Taking Symbicort 160-4.5 MCG/ACT Aerosol 1 puff as needed Inhalation every 4 hrs Taking Atorvastatin Calcium 10 MG Tablet 1 tablet Orally Once a day Medication List reviewed and reconciled with the patient * Allergies:?Adhesiveyes[Aller gies Verified] Objective: * Vitals:?Ht: 5 ft 6 in, Wt:19 0, BMI: 30.66, Shoe size:10 Med, BP:120/80mm Hg, Ht- cm: 167.64 cm, Wt-k.18 kg. * Examination: ???Vascular: ?DP PULSES(B):?1/4, B/L.?PT PULSES(B):? 0/4, B/L.?CAPILLARY FILL TIME:? delayed, all digits, B/L.?TROPHIC CONDITION-TEXTURE/ELASTICITY/TURGOR/HAIR GROWTH(B):?decreased, fragile, thin, shiny skin, with sparse to absent hair growth, B/L.?TEMPERTURE GRADIENT(C):? decreased, cool to cool, proximal to distal, B/L.?PIGMENTATION:?rubrous, B/L.?EDEMA(C):?1/4 , non-pitting , without aching pain , Leg(s) , Ankle(s) , B/L.?CLAUDICATION(C):?denies, B/L.?REST PAIN:?denies, B/L.?Nails: ?NAILS are:? Elongated, overgrown, dystrophic, lytic, greater than 3mm thick, discolored and friable with crumbly malodorous subungual debris, with pain on palpation, 1-5 B/L.?Dermatologic: ?SKIN FINDINGS:?Skin exam reveals Keratotic lesion(s) located at , Plantar, T7, SUB MTH (s) , 5 , Right , Plantar, Heel(s) , B/L.?ULCER:?NOW shows complete re-epithelialization, Plantar, T7.? Assessment: * Assessment: 1.?Tinea unguium - B35.1???2 .?Atherosclerosis of [place] artery of both lower extremities, with unspecified presence of clinical manifestation - I70.203 (Primary)???3.?Pain in right toe(s) - M79.674???4.?Pain in left toe(s) - M79.675 ??5.?Skin ulcer of toe of right foot, limited to breakdown of skin - L97.511???Specify :Response to treatment - Improvement??? Plan: * Treatment: 2.?Tinea unguium?Procedure: 98447-KRPFTQE NAIL, 6 OR MORE * Procedures:?Debride Nail 6-10:?Nail debridement?Due to the clinical pathology outlined in the exam findings, performance of this nail treatment is medically necessary as its management by an unskilled/untrained nonprofessional would put this patients foot and overall health at risk. Therefore, debridement to affected nail(s), as described in exam, was performed extensively to reduce/remove overall nail length, girth, thickness, subungual debris, and necrotic tissue, by manual and/or electrical means through the use of a nail nipper and/or dremel-type crystal flat grinder, to a more viable healthy nail plate or bed tissue 6-10 nails in total. Silver nitrate was used for any petechial bleeding as necessary. Definitive antifungal treatment options, both pharmaceutical and surgical, have been reviewed and discussed with the patient. The patient solely prefers the use of intermittent/as needed professional debridement services for their nail condition and understands the need for additional periodic treatments to maintain effectiveness in symptomatic relief - 23021.?Keratoma Treatment:?Parring or Cutting of Benign Hyperkeratotic Lesion(s)?(-56) 2-4 Lesions - Due to the at risk nature of the patients medical condition as documented in the exam findings, performance of this keratoderma treatment is medically necessary as its management by an unskilled/untrained nonprofessional would put this patients foot and overall health at risk. Therefore, the benign hyperkeratotic lesions, ( 4) in total, locations as stated and described in the exam, were pared, and/or cut utilizing a sterile 15 blade, tissue nippers, and/or power dremel instrumentation - 12912, Q8.? * Procedure Codes:?37416 DEBRI DE NAIL, 6 OR MORE, Modifiers: XS 74091 TRIM SKIN LESIONS, 2 TO 4, Modifiers: [...] have encouraged the patient to call the office.?Ulcer:?PREVENTIVE STRATEGIES were reviewed with the patient to avoid recurrent ulceration. A set of verbal and written instructions regarding proper daily diabetic footcare techniques was discussed and dispensed. The patient is to pay close attention to skin hydration by maintaining proper moisturization through correct water consumption and consistent application of skin lotions/creams/ointments. They are also to perform regular visual and tactile foot inspections for any interruption in skin integrity including cracks, open lesions, and immediately report to the office any sign of infection such as redness/malodor/drainage/swelling. We discussed and recommended practices and procedures regarding regular shoe and insert evaluations for the presence of foreign bodies as well as for any irregular shoe or insert wear. We reinforced the importance for the patient to adhere to wearing their orthopedic shoes and pressure accommodative innersoles whenever walking. We stressed the significant value for the patient to remain consistent concerning their medically prescribed diet, participate in regular nonweight-bearing exercise (seated weights, exercise bike, or swimming), and keep their scheduled at risk foot care podiatric appointments. We also reviewed the possible role for additional Rx foot/leg bracing or surgical intervention when/if medically warranted.? ??Screening/Special Tests:?Fall Risk?Screening:?No falls in the past year Despite related balance issues/unsteady gate ?FALLS: Screening for Future Fall Risk?Have you had any falls with injury in the past year??No Despite related balance issues/unsteady gate * Follow Up:?prn * Images: * Sign [...] Pt States Last PCP Visit: Date: 12/30/2023 Examination Category Sub-Category Detail Notes Category Not es Dermatologic SKIN FINDINGS: Skin exam reveal s Keratotic lesion(s) located at , Plantar, T7, SUB MTH (s) , 5 , Right , Plantar, Heel(s) , B/L ULCER: NOW shows complete r e-epithelialization, Plantar, T7 Vascular DP PULSES (B): 1/4, B/L PT PULSES (B): 0/4, B/L CAPILLARY FILL TIME: delayed, all digits , B/L TEMPERTURE GRADIENT (C): decreased, cool to cool, proximal to distal, B/L TROPHIC CONDITION-TEXTURE/ELASTICITY/TURGOR/HAIR GROWTH (B): decreased, fragile, thin, shiny skin, wi th sparse to absent hair growth, B/L EDEMA (C): 1/4 , non-pitting , without aching pain , Leg(s) , Ankle(s) , B/L CLAUDICATION (C): denies, B/L REST PAIN: denies, B/L PIGMENTATION: rubrous, B/L Nails NAILS are: Elongated, overg rown, dystrophic, lytic, greater than 3mm thick, discolored and friable with crumbly malodorous subungual debris, with pain on palpation, 1-5 B/L
--- OUTSIDE RECORDS SUMMARY | 2024-06-15 14:47 | XMS_ITS ---
Author Organization [facility] Address [address] [place] [address] Care Team Providers Care Relationship Executive Name Role Phone Noé Sigala MD Primary Care Provider Shahzad Melvin Unavailable [phone] REASON FOR VISIT BUY 1 Toe Comb/ 1/ 4pk Metatarsal pads U shaped Encounters Encounter Location Date Provider Diagnosis [facility] [address] [place] [address] 01/28/2024 Shahzad Rosado Plan Of Treatment Next Appt Details Provider Name:Shahzad Rosado , 07/24/2024 09:30:00 AM, [address] [place], [address], Progress Notes * Valery BURKETT MDOB: (78 yo F)Acc No.[id number]:01/28/2024 Patient:?Valery Burkett :1945???Age:78 Y???Sex:Female Address:[address] [place] [address] * true * Date:? Generated for Printi ng/Faxing/eTransmitting on:?2024 02:47 PM EST
--- OUTSIDE RECORDS SUMMARY | 2024-06-15 14:47 | XMS_ITS | Clinical Summary ---
Author Organization [facility] Address [address] [place] [address] Care Team Providers Care Automotive Project Engineer Name Role Phone Unavailable Primary Care Provider Unavailabl e Social History Tobacco Use Types Packs/Day Years Used Date Smoking Tobacco: Never Assessed Comments Unknown Sex and Gender Information Value Date Recorded Sex Assigned at Not on file Legal Sex Female 3:35 AM EDT Gender Identity Not on file Sexual Orientation Not on file Plan of Treatment Health Maintenance Due Date Last Done Comments DTaP/Tdap/Td (1 - Tdap) 1962 Pneumococcal 50+ years (1 of 1 - PCV) 1994 Zoster (Shingrix) (1 of 2) 1994 Bone Density 2009 RSV (1 - 1-dose 75+ series) 2019 COVID-19 Vaccine ( - 2023-2 5 season) 2024 Influenza (#1) 2024 HPV Vaccine Aged Out No longer eligi ble based on patient's age to complete this topic Hep A Aged Out No longer eligi ble based on patient's age to complete this topic Hep B Aged Out No longer eligi ble based on patient's age to complete this topic Hib Aged Out No longer eligi ble based on patient's age to complete this topic Mammogram/Breast Imaging Discontinued Meningococcal ACWY Aged Out No longer eligible based on patient's age to complete this topic Pap Smear Discontinued Zoster (Zostavax) Discontinued
--- OUTSIDE RECORDS SUMMARY | 2024-06-15 14:47 | XMS_ITS ---
Author Organization [facility] Address [address] [place] [address] Care Team Providers Care Sewing Machine Operator Paper Bags Name Role Phone Noé Sigala MD Primary Care Provider UnavailPelon Juárez Jr Unavailable [phone] REASON FOR VISIT screening,fam hx colon ca Encounters Encounter Location Date Provider Diagnosis [facility] [address] [place] [id number] 05/28/2023 Pelon Arroyo Jr Encounter for screening colonoscopy Z12.11 and Family history of colon cancer Z80.0 ASSESSMENTS Encounter Date Diagnosis Assessment Notes Treatment Notes Treatment Clinical Notes 05/28/2023 Encounter for screening colonoscopy (ICD-10 - Z12.11) 05/28/2023 Family history of colon cancer (ICD-10 - Z80.0) PLAN OF TREATMENT No Information
--- OUTSIDE RECORDS SUMMARY | 2024-06-15 14:48 | XMS_ITS | Patient Health Record ---
Author Organization [facility] Address [address] [facility] [place] [address] Care Team Providers Care Slot Editor Name Role Phone Noé Sigala MD Primary Care Provider Unavaila Shahzad Aguilar Unavailable [phone] Feli Harrell Unavailable [phone] Allergies Allergen (clinical drug ingredient) Drug/Non Drug Allergy documented on EMR Reaction Allergy Type Onset Date Status Adhesive Unknown Allergy Active Reason For Referral No Information Medications Medication SIG (Take, Route, Frequency, Duration) [...] Are you an other tobacco user? No Problems Problem Type SNOMED Code ICD Code Onset Dates Problem Status W/U Status Risk Notes Problem Atherosclerosis of [place] artery of both lower extremities, with unspecified presence of clinical manifestation (I70.203) Active confirmed Problem Ulcer of toe of right foot (disorder ) (86744301 021499361 ) Skin ulcer of toe of right foot, limited to breakdown of skin (L97.511) Active confirmed Nonapplicable Vital Signs Blood pressure diastolic 80 mm Hg 04/28/2024 Height 5 ft 6 in in 04/28/2024 Blood pressure systolic 120 mm Hg 04/28/2024 Weight 190 lbs 04/28/2024 BMI 30.66 kg/m2 04/28/2024 Procedures Procedure Date Ordered Date Performed Result Body Sit e 89599-KTFSOMO NAIL, 6 OR MORE 11/19/2023 N/A 89716- Debride <25 sq cm 11/19/2023 N/A 17529-YDGI SKIN LESIONS, 2 TO 4 11/19/2023 N/A 68869-QAZDPHS NAIL, 6 OR MORE 01/28/2024 N/A 86931- Debride <25 sq cm 01/28/2024 N/A 93919-HREG SKIN LESIONS, 2 TO 4 01/28/2024 N/A 56490-GPJJIPZ NAIL, 6 OR MORE 04/28/2024 N/A 85612-BFNZ SKIN LESIONS, 2 TO 4 04/28/2024 N/A Encounters Encounter Location Date Provider Diagnosis [facility] [address] [place] [address] 11/19/2023 Shahzad Rosado Atherosclerosis of n ative artery of both lower extremities, with unspecified presence of clinical manifestation I70.203 ; Tinea unguium B35.1 ; Pain in right toe(s) M79.674 ; Pain in left toe(s) M79.675 ; Skin ulcer of toe of right foot, limited to breakdown of skin L97.511 ; Other hammer toe(s) (acquired), right foot M20.41 ; Arthritis of joint of lesser toe, right M19.071 ; Other hammer toe(s) (acquired), left foot M20.42 ; Arthritis of joint of lesser toe, left M19.072 and Subluxation of metatarsophalangeal joint of toe, initial encounter S93.149A [facility] [address] 01/28/2024 Shahzad Rosado Atherosclerosis of n ative artery of both lower extremities, with unspecified [...] foot M77.51 and Metatarsalgia, right foot M77.[address] [address] 04/28/2024 Shahzad Rosado Atherosclerosis of n ative artery of both lower extremities, with unspecified presence of clinical manifestation I70.203 ; Tinea unguium B35.1 ; Pain in right toe(s) M79.674 ; Pain in left toe(s) M79.675 and Skin ulcer of toe of right foot, limited to breakdown of skin L97.[address] [address] 10/07/2023 Feli Harrell [address] [address] 01/28/2024 Shahzad Rosado Assessments Encounter Date Diagnosis (ICD Code) Assessment Notes Treatment Notes Treatment Clinical Notes Section Notes 11/19/2023 Tinea unguium (ICD-1 0 - B35.1) 11/19/2023 Atherosclerosis of [place] artery of both lower extremities, with unspecified presence of clinical manifestation (ICD-10 - I70.203) 01/28/2024 Tinea unguium (ICD-1 0 - B35.1) 01/28/2024 Atherosclerosis of [place] artery of both lower extremities, with unspecified presence of clinical manifestation (ICD-10 - I70.203) 04/28/2024 Tinea unguium (ICD-1 0 - B35.1) 04/28/2024 Atherosclerosis of [place] artery of both lower extremities, with unspecified presence of clinical manifestation (ICD-10 - I70.203) 04/28/2024 Pain in right toe(s) (ICD-10 - M79.674) 01/28/2024 Pain in right toe(s) (ICD-10 - M79.674) 11/19/2023 Pain in right toe(s) (ICD-10 - M79.674) 11/19/2023 Pain in left toe(s) (ICD-10 - M79.675) 01/28/2024 Pain in left toe(s) (ICD-10 - M79.675) 04/28/2024 Pain in left toe(s) (ICD-10 - M79.675) 04/28/2024 Skin ulcer of toe of right foot, limited to breakdown of skin (ICD-10 - L97.511) 01/28/2024 Skin ulcer of toe of right foot, limited to breakdown of skin (ICD-10 - L97.511) Patient Educated with: WOUND CARE INSTRUCTIONS .pdf (WOUND CARE INSTRUCTIONS .pdf) 11/19/2023 Skin ulcer of toe of right foot, limited to breakdown of skin (ICD-10 - L97.511) Nonapplicable Patient Educated with: WOUND CARE INSTRUCTIONS .pdf (WOUND CARE INSTRUCTIONS .pdf) 11/19/2023 Other hammer toe(s) (acquired), right foot (ICD-10 - M20.41) 01/28/2024 Pain in right ankle and joints of right foot (ICD-10 - M25.571) 01/28/2024 Bursitis of intermetatarsal bursa of right foot (ICD-10 - M77.51) 11/19/2023 Arthritis of joint o f lesser toe, right (ICD-10 - M19.071) 01/28/2024 Metatarsalgia, right foot (ICD-10 - M77.41) 11/19/2023 Other hammer toe(s) (acquired), left foot (ICD-10 - M20.42) 11/19/2023 Arthritis of joint o f lesser toe, left (ICD-10 - M19.072) 11/19/2023 Subluxation of metatarsophalangeal joint of toe, initial encounter (ICD-10 - S93.149A) 11/19/2023 Other 01/28/2024 Other 04/28/2024 Other Plan Of Treatment Pending Test Test Name Order Date 01600-MWYICET NAIL, 6 OR MORE 11/19/2023 90489-LKHOKNU NAIL, 6 OR MORE 01/28/2024 32144-TENMMEW NAIL, 6 OR MORE 04/28/2024 43018- Debride <25 sq cm 01/28/2024 49764- Debride <25 sq cm 11/19/2023 09284-FKTZ SKIN LESIONS, 2 TO 4 11/19/19 71724-QNBI SKIN LESIONS, 2 TO 4 01/28/20 38514-MOHE SKIN LESIONS, 2 TO 4 04/28/20 Next Appt Details Provider Name:Shahzad Samina Rosado , 07/24/2024 09:30:00 AM, [address] [place], [address], Insurance Providers Payer Name Payer Address Payer Phone Subscriber Number Group Number Insured Name Patient Relationship to Insured Coverage Start Date Coverage End Date Medicare National Govt [facility] [address] [place] [address] [id number] Valery Cano Self - patient is the insured [employer] ([facility]) [address] [place] [address] [id number] Valery Cano Self - patient is the insured Medical (General) History Medical History History ICD Code Back,Hip,and Knee pain Broken bones Cataracts Fibromyalgia Headaches/Migraines Heart disease thyroid Measles Mumps Chicken pox Pacemaker CAD ( Coronary Artery Disease) Surgical History Surgery Date(Month/Year) cardiac pacemeker 08/27/2023 basal cell removal 06/21/2023
--- OUTSIDE RECORDS SUMMARY | 2024-06-15 14:48 | XMS_ITS ---
Author Organization [facility] Address [address] [place] [address] Care Team Providers Care Hardware Installer Name Role Phone Noé Sigala MD Primary Care Provider Pelon Bustos Jr Unavailable [phone] ALLERGIES No Known Allergies REASON FOR VISIT Patient presents today for a screening colonoscopy MEDICATIONS Medication SIG (Take, Route, Frequency, Duration) Notes Start Date End Date Status Levbid 0.375 MG 1 tablet Orally ever [...] the procedure for 1 day 04/15/2023 Active Atorvastatin Calcium Active Aspirin 81 MG 1 tablet Orally Once a day for 30 day(s) Active Levothyroxine Sodium Active IMMUNIZATIONS Vaccine Route Administration Date Status Comme nts Influenza Unknown 04/15/2023 Refused PROBLEMS Problem Type ICD Code Onset Dates Problem Status W/U Status Risk SNOMED Code Notes Problem Colon cancer screening (Z12.11) Active confirmed 829936003 Problem FH: colon cancer (Z80.0) Active confirmed 541640371 Problem Long-term use of aspirin therapy (Z79.82) Active confirmed [id number] VITAL SIGNS BMI 31.32 kg/m2 04/15/2023 Blood pressure systolic 000 mm Hg 04/15/20 23 Blood pressure diastolic 00 mm Hg 023 Height 67 in 04/15/2023 Temperature 96.6 degrees Fahrenheit 04/15/20 23 Weight 200 lbs 04/15/2023 Encounters Encounter Location Date Provider Diagnosis [facility] [address] [place] [address] 04/15/2023 Pelon Arroyo Jr Colon cancer screening Z12.11 ; Long-term use of aspirin therapy Z79.82 and FH: colon cancer Z80.0 ASSESSMENTS Encounter Date Diagnosis Assessment Notes Treatment Notes Treatment Clinical Notes 04/15/2023 Colon cancer screening (ICD-10 - Z12.11) 04/15/2023 Long-term use of aspirin therapy (ICD-10 - Z79.82) Colonoscopy material was printed 04/15/2023 FH: colon cancer (ICD-10 - Z80.0) PLAN OF TREATMENT Medication Medication Name Sig Start Date Stop Date Notes MiraLax (colon prep) 17 GM/SCOOP mixed with Gatorade or Crystal Light Orally begin at 5:00 p.m. the day before the procedure for 1 day 04/15/2023 Treatment Notes Assessment Notes Long-term use of aspirin therapy Colonos copy material was printed Future Test Test Name Order Date COLONOSCOPY 04/15/2023 Next Appt Details Follow Up: 1 Year, Reason: Progress Notes * Examination Category Sub-Category Detail Notes General Examination GENERAL APPEARANCE: in no ac jorge distress HEAD: normocephalic EYES: sclera non-icteric NECK/THYROID: no lymphadenopathy HEART: S1, S2 normal, no mu rmurs CHEST: normal shape and exp ansion LUNGS: clear to auscultatio n bilaterally ABDOMEN: soft, nontender, non distended, bowel sounds present, no organomegaly SKIN: anicteric EXTREMITIES: no clubbing, cyanosi s, or edema PSYCH: cognitive function i ntact ORAL CAVITY: mucosa moist
== END 2024-06-15 11:05 | disposition home or self-care (01) ==
PROVIDERS: PCP Internal Medicine; Visit Provider Internal Medicine
DX: J44.9 Chronic obstructive pulmonary disease, unspecified (principal); J30.9 Allergic rhinitis, unspecified
CPT/HCPCS: 99213

== ENCOUNTER → 2024-06-15 10:11 | Outpatient (BNVA) | payer MEDICARE, OTHER, SELFPAY | PROVIDERS: PCP Internal Medicine; Visit Provider Internal Medicine | DX: J44.9 Chronic obstructive pulmonary disease, unspecified (principal); J30.9 Allergic rhinitis, unspecified; G47.33 Obstructive sleep apnea (adult) (pediatric); Z99.89 Dependence on other enabling machines and devices | CPT/HCPCS: 99212 ==

== ENCOUNTER → 2024-08-08 23:59 | Outpatient (BNV) | payer MEDICARE, OTHER, SELFPAY ==
--- NOTE | 2024-08-15 13:33 | A.OFFVIS_ITS ---
Intake Visit Reasons: Remote device check- Medtronic Allergies No Known Allergies [No Known Allergies*] Allergy (Verified 06/15/24 17:02) [facility] Medical History (Updated 06/15/24 @ 17:09 by Yadira Downey MD) Pacemaker at end of battery life Hypothyroidism Diabetes mellitus Degenerative joint disease Irritable bowel syndrome Diverticulosis Allergic rhinitis Cough SVT (supraventricular tachycardia) Complete heart block Cardiac pacemaker in situ Surgical History (Updated 06/15/24 @ 17:10 by Yadira Downey MD) History of permanent cardiac pacemaker placement COPD (chronic obstructive pulmonary disease) H/O colonoscopy History of appendectomy History of hysterectomy Hx of eye surgery Family History Father No problems noted. Mother CVD (cardiovascular disease) Pacemaker Social History Patient Tobacco Use Status: Former Tobacco user Office Procedures Cardiac Device Check Cardiac Device Check Details: Remote pacemaker report generated 08/08/2024. Pacemaker function is adequate. Noted episodes of atrial fibrillation most suggestive of over sensing 82399-Xartqs Cardiac Device Interrogation, pacemaker Procedure code (CPT) selection complete Assessment & Plan Assessment & Plan (1) Cardiac pacemaker in situ: Comment: Medtronic dual-chamber. Did not tolerate asynchronous ventricular pacing Code(s): Z95.0 - Presence of cardiac pacemaker Category: Medical Plan: See above Coding Level of Care Code Procedure Only Diagnoses Cardiac pacemaker in situ Z95.0 CPT Codes Cardiac Device Check - Cardiac Device 12: [id number]-[id number] Cardiac Device Interrogation, pacemaker ([id number])
== END ==
PROVIDERS: PCP Internal Medicine; Visit Provider Internal Medicine Cardiovascular Disease
DX: I48.91 Unspecified atrial fibrillation (principal); Z95.0 Presence of cardiac pacemaker
CPT/HCPCS: 93294

== ENCOUNTER 2024-08-28 10:14 | Outpatient (AMB) | payer MEDICARE, OTHER, SELFPAY ==
[2024-08-28 10:17] VITALS: BP 122/70; PULSE 75; TEMP 36.3; O2SAT 96; BMI 31.3
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
--- OUTSIDE RECORDS SUMMARY | 2024-08-28 11:01 | XMS_ITS ---
Author Organization [facility] Address [address] [place] [address] Care Team Providers Care Science Faculty Member Name Role Phone Noé Sigala MD Primary Care Provider Pelon Bustos Jr REASON FOR VISIT screening,fam hx colon ca Encounters Encounter Location Date Provider Diagnosis [facility] [address] [place] [phone] 05/28/2023 Pelon Arroyo Jr Encounter for screening colonoscopy Z12.11 and Family history of colon cancer Z80.0 Assessments Encounter Date Diagnosis (ICD Code) Assessment Notes Treatment Notes Treatment Clinical Notes Section Notes 05/28/2023 Encounter for screening colonoscopy (ICD-10 - Z12.11) 05/28/2023 Family history of colon cancer (ICD-10 - Z80.0) Plan Of Treatment No Information Progress Notes * NIALL BURKETT MDOB: 5 (79 yo F)Acc No.[id number]:05/28/2023 COLON WITH MAC Patient:?NIALL BURKETT Provider:?Pelon Arroyo MD :1945???Age:77 Y???Sex:Female D ate:05/28/2023 Address:[address] [place], [place] [id number] Pcp:Noé Sigala MD Subjective: * Chief Complaints: * ???1. Screening,fam hx colon ca. * Medical History:? Objective: * Vitals:? Assessment: * Assessment: 1.?Encounter for screening c olonoscopy - Z12.11 (Primary)???2.?Family history of colon cancer - Z80.0??? Plan: * Treatment: * Procedure Codes:?G0105 COLOR EC CANCR SCR; COLNSCPY HI RISK, 0529F INTRVL 3+YRS PTS CLNSCP DOCD, 0528F RCMND FLW-UP 10 YRS DOCD, Modifiers: 1P * * The named appointment provid er may or may not be the originator of this progress note, and it is not deemed complete until electronically signed by the appointment provider. Sign off status: Pending * Provider:?Pelon Arroyo MD Date:?0 05/28/2023 Generated for Luis arrieta/Rachel/Shonda on:?08/28/2024 11:01 AM EDT
--- OUTSIDE RECORDS SUMMARY | 2024-08-28 11:01 | XMS_ITS | Patient Health Record ---
Author Organization [facility] Address [address] [facility] [facility] [place] [address] Care Team Providers Care Outreach Professional Name Role Phone Noé Sigala MD Primary Care Provider Unavaila Shahzad Aguilar Unavailable [phone] Feli Harrell Unavailable [phone] Allergies Allergen (clinical drug ingredient) Drug/Non Drug Allergy documented on EMR Reaction Allergy Type Onset Date Status Adhesive Unknown Allergy Active Reason For Referral No Information Medications Medication SIG (Take, Route, Frequency, Duration) Notes Start Date End Date Status Aspirin Adult Low Dose 81 MG 1 tablet Orally Once a day for 30 day(s) Active Dulera Active Ammonium Lactate 12 % 1 application Externally to affected areas of dry skin to feet except for between the toes Twice a day for 30 days Active Atorvastatin Calcium 10 MG 1 tablet Orally Once a day for 30 day(s) Active Symbicort 160-4.5 MCG/ACT 1 puff as need ed Inhalation every 4 hrs Not-Takin g dilTIAZem HCl ER 240 MG 1 tablet Orally Once a day for 30 day(s) Active Levothyroxine Sodium 50 MCG 1 tablet in the morning on an empty stomach Orally Once a day for 30 day(s) Active Tolterodine Tartrate ER 4 MG 1 capsule Orally Once a day for 30 day(s) Active Social History Tobacco Use: Social History Observation Description Date Details (start date - stop date) Never Smoker NA - NA Alcohol Screen Question Answer Notes Did you have a drink containing alcohol in the p ast year? No Points 0 Interpretation Negative Tobacco use other than smoking: Question Answer Notes Are you an other tobacco user? No Tobacco Control (Standard) Question Answer Notes Tobacco use: Nonsmoker Problems Problem Type SNOMED Code ICD Code Onset Dates Problem Status W/U Status Risk Notes Problem Atherosclerosis of [place] artery of both lower extremities, with unspecified presence of clinical manifestation (I70.203) Active confirmed Q7(A), Q8(2B), Q9(1B,2C) Vital Signs Blood pressure diastolic 80 mm Hg 07/24/2024 Height 5 ft 6 in in 07/24/2024 Blood pressure systolic 120 mm Hg 07/24/2024 Weight 190 lbs 07/24/2024 BMI 30.66 kg/m2 07/24/2024 Procedures Procedure Date Ordered Date Performed Result Body Sit e 39555-TYRSLYM NAIL, 6 OR MORE 11/19/2023 N/A 05831- Debride <25 sq cm 11/19/2023 N/A 81152-OYJY SKIN LESIONS, 2 TO 4 11/19/2023 N/A 21725-WNTMJRC NAIL, 6 OR MORE 01/28/2024 N/A 91334- Debride <25 sq cm 01/28/2024 N/A 18525-GRWN SKIN LESIONS, 2 TO 4 01/28/2024 N/A 70693-PUJMUEK NAIL, 6 OR MORE 04/28/2024 N/A 93961-YLRR SKIN LESIONS, 2 TO 4 04/28/2024 N/A 31513-TZOCSZD NAIL, 6 OR MORE 07/24/2024 N/A 56715-ZLQY SKIN LESIONS, 2 TO 4 07/24/2024 N/A Encounters Encounter Location Date Provider Diagnosis [facility] [address] [place] [address] 11/19/2023 Shahzad Rosado Atherosclerosis of n ative [...] metatarsophalangeal joint of toe, initial encounter S93.149A [address] [address] 01/28/2024 Shahzad Rosado Atherosclerosis of n ative [...] foot M77.51 and Metatarsalgia, right foot M77.[address] [address] 04/28/2024 Shahzad Rosado Atherosclerosis of n ative artery of both lower extremities, with unspecified presence of clinical manifestation I70.203 ; Tinea unguium B35.1 ; Pain in right toe(s) M79.674 ; Pain in left toe(s) M79.675 and Skin ulcer of toe of right foot, limited to breakdown of skin L97.[address] [address] 07/24/2024 Shahzad Rosado Atherosclerosis of n ative artery of both lower extremities, with unspecified presence of clinical manifestation I70.203 ; Tinea unguium B35.1 ; Pain in right toe(s) M79.674 ; Pain in left toe(s) M79.675 and Xerosis of skin L85.[address] [address] 10/07/2023 Feli Harrell [address] [address] 01/28/2024 Shahzad Rosado [address] [address] 07/24/2024 Shahzad Rosado Assessments Encounter Date Diagnosis (ICD Code) Assessment Notes Treatment Notes Treatment Clinical Notes Section Notes 11/19/2023 Tinea unguium (ICD-1 0 - B35.1) 11/19/2023 Atherosclerosis of [place] artery of both lower extremities, with unspecified presence of clinical manifestation (ICD-10 - I70.203) 01/28/2024 Tinea unguium (ICD-1 0 - B35.1) 01/28/2024 Atherosclerosis of [place] artery of both lower extremities, with unspecified presence of clinical manifestation (ICD-10 - I70.203) 04/28/2024 Tinea unguium (ICD-1 0 - B35.1) 04/28/2024 Atherosclerosis of [place] artery of both lower extremities, with unspecified presence of clinical manifestation (ICD-10 - I70.203) 07/24/2024 Tinea unguium (ICD-1 0 - B35.1) 07/24/2024 Atherosclerosis of [place] artery of both lower extremities, with unspecified presence of clinical manifestation (ICD-10 - I70.203) Q7(A), Q8(2B), Q9(1B,2C) 04/28/2024 Pain in right toe(s) (ICD-10 - M79.674) 07/24/2024 Pain in right toe(s) (ICD-10 - M79.674) 01/28/2024 Pain in right toe(s) (ICD-10 - M79.674) 11/19/2023 Pain in right toe(s) (ICD-10 - M79.674) 11/19/2023 Pain in left toe(s) (ICD-10 - M79.675) 01/28/2024 Pain in left toe(s) (ICD-10 - M79.675) 07/24/2024 Pain in left toe(s) (ICD-10 - M79.675) [...] joints of right foot (ICD-10 - M25.571) 07/24/2024 Xerosis of skin (ICD-10 - L85.3) 01/28/2024 Bursitis of intermetatarsal bursa of right [...] Treatment Pending Test Test Name Order Date 49800-HFMZRRE NAIL, 6 OR MORE 11/19/2023 11533-IIEPAXZ NAIL, 6 OR MORE 01/28/2024 95778-AESCUOP NAIL, 6 OR MORE 04/28/2024 71450-STESUSH NAIL, 6 OR MORE 07/24/2024 73631- Debride <25 sq cm 01/28/2024 67843- Debride <25 sq cm 11/19/2023 02561-POUB SKIN LESIONS, 2 TO 4 11/19/19 24 68442-MKTE SKIN LESIONS, 2 TO 4 01/28/20 24 49810-KBHI SKIN LESIONS, 2 TO 4 07/25/19 25 50666-VEGC SKIN LESIONS, 2 TO 4 04/28/20 24 Next Appt Details Provider Name:Shahzad Rosado , 10/23/2024 11:00:00 AM, [address] [facility], [place], [address], Insurance Providers Payer Name Payer Address Payer Phone Subscriber Number Group Number Insured Name Patient Relationship to Insured Coverage Start Date Coverage End Date Medicare National Govt Svcs Inc [address] [place] [address] [id number] Valery Cano Self - patient is the insured [employer] ([employer]) [address] [place] [address] [id number] Valery Cano Self - patient is the insured Medical (General) History Medical History History ICD Code Back,Hip,and Knee pain Broken bones Cataracts Fibromyalgia Headaches/Migraines Heart disease thyroid Measles Mumps Chicken pox Pacemaker CAD ( Coronary Artery Disease) Surgical History Surgery Date(Month/Year) cardiac pacemeker 08/27/2023 basal cell removal 06/21/2023
--- OUTSIDE RECORDS SUMMARY | 2024-08-28 11:01 | XMS_ITS ---
Author Organization [facility] Address [address] [place] [address] Care Team Providers Care Stranding Machine Operator Helper Name Role Phone Noé Sigala MD Primary Care Provider Shahzad Melvin [phone] REASON FOR VISIT BUY 5 Toe Mayer Encounters Encounter Location Date Provider Diagnosis [address] [address] 07/24/2024 Shahzad Rosado Plan Of Treatment Next Appt Details Provider Name:Shahzad Rosado , 10/23/2024 11:00:00 AM, [address] [place], [address], Progress Notes * Valery BURKETT MDOB: (79 yo F)Acc No.[id number]:07/24/2024 Patient:?Valery BURKETT :1945???Age:79 Y???Sex:Female Address:[address] [place] [address] * true * Date:? Generated for Printi ng/Faxing/eTransmitting on:?08/28/2024 11:00 AM EDT
--- OUTSIDE RECORDS SUMMARY | 2024-08-28 11:01 | XMS_ITS | Patient Health Record ---
Author Organization [facility] Address [address] [place] [address] Care Team Providers Care Bench Hand Name Role Phone Noé Sigala MD Primary Care Provider Pelon Bustos Jr Unavailable [phone] Allergies No Known Allergies Reason For Referral No Information Medications Medication [...] the procedure for 1 day 04/15/2023 Active Immunizations Vaccine Route Administration Date Status Comme nts Influenza Unknown 04/15/2023 Refused Problems Problem Type SNOMED Code ICD Code Onset Dates Problem Status W/U Status Risk Notes Problem 765908409 Colon cancer screening (Z12.11) Active confirmed Problem 98677271 Rectal bleeding (K62.5) Active confirmed Problem 729185283 Long-term use of aspirin therapy (Z79.82) Active confirmed Problem 207855091 RUQ pain (R10.11) Active confirmed Problem 826340792 FH: colon cancer (Z80.0) Active confirmed Plan Of Treatment Future Test Test Name Order Date COLONOSCOPY 04/19/2016 COLONOSCOPY 04/15/2023 Insurance Providers Payer Name Payer Address Payer Phone Subscriber Number Group Number Insured Name Patient Relationship to Insured Coverage Start Date Coverage End Date MEDICARE OF [place] [address] [place] [address] [id number] NIALL BURKETT Self - patient is the insured [facility] [address] [place] [address] [id number] NIALL BURKETT Self - patient is the insured Medical (General) History Medical History History ICD Code Colonoscopy 10/03, diverticulosis, five-y ear followup optional based on age Irritable bowel syndrome SVT, pacemaker placement Degenerative joint disease involving kne es, hands, multiple knee surgery Diabetes Mellitus Hypothyroidism elevated cholesterol COPD Surgical History Surgery Date(Month/Year) Hysterectomy Appendectomy Pacemaker generator change 10/2015
--- OUTSIDE RECORDS SUMMARY | 2024-08-28 11:01 | XMS_ITS ---
Author Organization [facility] Address [address] [place] [address] Care Team Providers Care Rod Bending Machine Operator Name Role Phone Noé Sigala MD Primary Care Provider Pelon Bustos Jr REASON FOR VISIT TOOK FISH OIL UNTIL SATURDAY Encounters Encounter Location Date Provider Diagnosis [facility] [address] [place] [address] 05/27/2023 Pelon Arroyo Jr Plan Of Treatment No Information Progress Notes * NIALL BURKETT MDOB: 5 (77 yo F)Acc No.[id number]:05/27/2023 Patient:?NIALL BURKETT :1945???Age:77 Y???Sex:Female Address:[address] [place] [address] * true * Date:? Generated for Elaynei meenakshi/Rachel/eTransmitting on:?08/28/2024 11:00 AM EDT
--- OUTSIDE RECORDS SUMMARY | 2024-08-28 11:01 | XMS_ITS | Data Portability ---
Author Organization [place] [facility] Address [address] [address] Care Team Providers Care Consulting It Architect Name Role Phone INOCENCIA SALINAS Primary Care Provider Assessment No assessment recorded. Plan of Treatment Reminders Order Date Submit Date Provider Last Modified By Organization Details Last Modified Time Details Appointments BONILLA Fitting Follow Up (60) 2024 11:00A M OLAMIDE HYLTON Not available Not available Not available Lab None recorded . Referral None recorded . Procedures None recorded . Surgeries None recorded . Imaging None recorded . Medication Orders None recorded . Patient TargetsNo targets recorded. Patient InstructionsNo instructions recorded. Reason for Referral None Reported. Problems Name Problem SNOMED Code Status Onset Date Resolution Date Notes Provider Name and Address Organization Details Recorded Time Sensorin eural hearing loss in left ear 03559472222 109 Active 2016 Sensorin eural hearing loss, unilater al, left ear, with restrict ed hearing on the contrala teral side; Note: Date Diagnose d: 7 10:10 AM (H90.A22 ) Not Available [facility] 4 02:20:40 Otalgia of right ear 3642570464 Active 2018 Otalgia, right ear; Note: Date Diagnose d: 9 11:10 AM (H92.01) Not Available [facility] 4 02:20:55 Otorrhea of right ear 68260175778 89739 Completed 201612/20/2023 Otorrhea , right ear; Note: Date Diagnose d: 01/25/2017 12:25 PM (H92.11) Not Available [facility] 4 02:21:04 Bilatera l disorder of Eustachi an tubes 88879903469 73033 Active 2016 Other specifie d disorder s of Eustachi an tube, bilatera l; Note: Date Diagnose d: 10/24/2016 3:35 PM (H69.83) Not Available [facility] 4 02:21:33 Asymmetr ical sensorin eural hearing loss 119068086 Active 2014 Sensorin eural hearing loss asymmetr ic; Note: Date Diagnose d: 5 3:54 PM (389.16) Not Available [facility] 4 02:21:22 Cough 75352197 Active 2016 Cough; Note: Date Diagnose d: 04/16/20 17 8:53 AM (R05) Not Available [facility] 4 02:21:01 Pain of right temporom andibula r joint 64825463836 563974 Active 2018 Arthralg ia of right temporom andibula r joint; Note: Date Diagnose d: 9 11:10 AM (M26.621 ) [facility] 02:21:11 Disorder of right Eustachi an tube 52163833653 21655 Active 2017 Other specifie d disorder s of Eustachi an tube, right ear; Note: Date Diagnose d: 8 3:54 PM (H69.81) Not Available [facility] 4 02:21:07 Impacted cerumen of bilatera l ears 01900739258 55188 Active 2017 Impacted cerumen, bilatera l; Note: Date Diagnose d: 8 3:54 PM (H61.23) Not Available [facility] 4 02:21:10 Mixed conducti ve and sensorin eural hearing loss of right ear 03610287906 105 Active 2016 Mixed conducti ve and sensorin eural hearing loss, unilater al, right ear with restrict ed hearing on the contrala teral side; Note: Date Diagnose d: 10/24/2016 3:35 PM (H90.A31 ) Not Available [facility] 4 02:20:54 Sensorin eural hearing loss of bilatera l ears 134063697 Active 2014 Sensorin eural hearing loss, bilatera l; Note: Date Diagnose d: 01/25/2015 10:47 AM (H90.3) Not Available [facility] 4 02:21:07 Benign paroxysm al position al vertigo 776885581 Active 2014 Benign paroxysm al position al vertigo; Note: Date Diagnose d: 5 3:54 PM (386.11) Not Available [facility] 4 02:20:42 Chronic serous otitis media 45575451 Active 2016 Serous otitis media Chronic; Note: Date Diagnose d: 7 12:22 PM (381.10) Not Available [facility] 4 02:20:51 Nasal congesti on 24571255 Active 2016 Nasal congesti on; Note: Date Diagnose d: 04/16/20 17 8:50 AM (R09.81) Not Available [facility] 4 02:21:32 Acute serous otitis media of right ear 74063670181 52511 Active 2016 Acute serous otitis media, right ear; Note: Date Diagnose d: 7 10:11 AM (H65.01) Not Available [facility] 4 02:21:21 Chronic serous otitis media of right ear 826387618 Active 2018 Chronic serous otitis media, right ear; Note: Date Diagnose d: 9 11:07 AM (H65.21) Chroni c serous otitis media, right ear; Note: Changed from H65.22 to H65.21 (01/02/20 17 2:18 PM) , Date Diagnose d: 7 12:27 PM (H65.22) ; Start Date : 01/02/20 17 Not Available [facility] 4 02:20:48 Adhesive middle ear disease 1690539 Active 2018 Adhesive right middle ear disease; Note: Date Diagnose d: 9 9:16 AM (H74.11) Not Available [facility] 4 02:21:34 Allergic rhinitis 71099261 Active 2016 Allergic rhinitis : Due to other allergen ; Note: Date Diagnose d: 7 9:26 AM (477.8) Not Available [facility] 4 02:20:48 Chronic serous otitis media of left ear 720041574 Active 2016 Chronic serous otitis media, left ear; Note: Changed from H65.02 to H65.22 ( 017 8:45 AM) , Date Diagnose d: 7 10:44 AM (H65.02) Not Available [facility] 4 02:21:33 Problem Notes None recorded. Medical Equipment None Reported. Medications Name Sig Start Date Stop Date Status Note LastModified by Organization Details LastModified Time Augmentin 875 mg-125 mg tablet 2016 active Medicati on ID: [id number] D uration Value: 10 Prescri bed By Name: LUCILLE Pierce nd Name: Augmenti n Send Method: E-Prescr ibed Sub s Allowed: subs OK Speci al Instruct ion: 1 po bid for 10 days Med icationG enericNa me: Augmenti n Not Available Not Available Not Available atorvasta tin 20 mg tablet 02/03 completed Medicati on ID: 46765 Du ration Value: 90 Reason: () Brand Name: atorvast atin Sen d Method: E-Prescr ibed Sub s Allowed: subs OK Medic ationGen ericName : atorvast atin Not Available Not Available Not Available atorvasta tin 10 mg tablet 2019 active Medicati on ID: [id number] D uration Value: 90 Brand Name: atorvast atin Sen d Method: E-Prescr ibed Sub s Allowed: subs OK Speci al Instruct ion: TAKE 1 TABLET BY MOUTH EVERY DAY AT NIGHT Me dication GenericN jorge: atorvast atin Not Available Not Available Not Available sotalol 80 mg tablet 11/01 completed Medicati on ID: 83642 Du ration Value: 90 Reason: () Brand Name: sotalol Send Method: E-Prescr ibed Sub s Allowed: subs OK Speci al Instruct ion: TAKE 1 TABLET BY MOUTH TWICE A DAY Medi cationGe nericNam e: sotalol Not Available Not Available Not Available diltiazem CD 240 mg capsule,e xtended release 24 hr 2016 active Medicati on ID: [id number] D uration Value: 90 Brand Name: diltiaze m HCl Send Method: E-Prescr ibed Sub s Allowed: subs OK Speci al Instruct ion: TAKE ONE CAPSULE BY MOUTH EVERY DAY Medi cationGe nericNam e: diltiaze m HCl Not Available Not Available Not Available prednison e 20 mg tablet 2 tablet by mouth 2016 active Medicati on ID: [id number] D uration Value: 5 Prescri bed By Name: LUCILLE Pierce nd Name: predniso ne Send Method: E-Prescr ibed Sub s Allowed: subs OK Medic ationGen ericName : predniso ne Not Available Not Available Not Available Ciloxan 0.3 % eye drops active Medicati on ID: [id number] P rescribe d By Name: LUCILLE Pierce nd Name: Ciloxan Send Method: E-Prescr ibed Sub s Allowed: subs OK Speci al Instruct ion: Instill 4 drops twice a day into affected ear for 10 days Med icationG enericNa me: Ciloxan Not Available Not Available Not Available levothyro xine 50 mcg tablet 2014 [place] ID: [id number] Du ration Value: 90 Brand Name: levothyr oxine Se nd Method: E-Prescr ibed Sub s Allowed: subs OK Speci al Instruct ion: TAKE 1 TABLET BY MOUTH EVERY DAY Medi cationGe nericNam e: levothyr oxine Not Available Not Available Not Available Aspir-81 mg tablet,de layed release 12/30 completed Medicati on ID: 82170 Re ason: () Brand Name: Aspir-81 Send Method: E-Prescr ibed Sub s Allowed: subs OK Medic ationGen ericName : Aspir-81 Not Available Not Available Not Available fluticaso ne propionat e 50 mcg/actua tion nasal spray,corrie pension 2 puff into both nostrils 2016 active Medicati on ID: 438779 D uration Value: 30 Prescri bed By Name: LUCILLE Pierce nd Name: fluticas one Send Method: E-Prescr ibed Sub s Allowed: subs OK Medic ationGen ericName : fluticas one Not Available Not Available Not Available Ciprodex 0.3 %-0.1 % ear drops,corrie pension 4 drop 2016 active Medicati on ID: 912327 D uration Value: 14 Prescri bed By Name: LUCILLE Pierce nd Name: Ciprodex Send Method: E-Prescr ibed Sub s Allowed: subs OK Medic ationGen ericName : Ciprodex Not Available Not Available Not Available Symbicort 80 mcg-4.5 mcg/actua tion HFA aerosol inhaler 2018 active Medicati on ID: [id number] D uration Value: 90 Brand Name: Symbicor t Send Method: E-Prescr ibed Sub s Allowed: subs OK Speci al Instruct ion: INHALE 2 PUFFS TWICE A DAY Medi cationGe nericNam e: Symbicor t Not Available Not Available Not Available Vitals None Recorded Social History None recorded. Functional Status None recorded. Mental Status None recorded. Family History Nothing Reported. Medical History No medical history recorded. Gynecological HistoryNo gynecological history recorded. Obstetrics History GPAL:G 0 P 0 0 0 0 Past Encounters Encounter ID Performer Location Encounter Start Date Encounter Closed Date Diagnosis/Indication Diagnosis SNOMED-CT Code Diagnosis ICD10 Code Diagnosis Note [id number] OLAMIDE RIOS [facility] of [address] [address] 08/12/2024 09:55:35 08/17/2024 13:21:36 Sensorineural hearing loss of bilateral ears 214685370 H90.3 Health Concerns Section Related Observation LastModified by Organization Detai ls LastModified Time None Recorded Concern Status LastModified by Organization Details LastModified Time None Recorded Advance Directives Directive None Recorded Payers Encounter Date Sequence Insurance Name Policy Number Policy Babb Covered Member ID Babb Member ID Guarantor Name 08/12/2024 1 MEDICARE B-[place]: [facility] [employer] Valery Cano [id number] Valery Cano 08/12/2024 2 [facility] IN[employer]MN[facility] (MEDICARE SUPPLEMENT) [id number] Valery Cano [id number] Valery Cano Notes Date Note Type Note Provider Name and Address Organization Details Recorded Time 08/12/2024 text/html Came in yesterda y for a BONILLA check. Her right aid has not been working for about a month. Cleaned checked both aids. The right aid actually had 2 cerushields in the public safety police- once they were removed, the aid was working. Replaced the one on the left as well (there was actually a cerushield stuck inside the dome). I have not seen Valery in a while so I recommended that she come back in a month so we can see how she has been doing since the BONILLA repair and I will update her audio and make adjs as needed.I also let her know about the new [employer] benefit. JUSTICE PEREZ, [address],[place] [address], [place], [address], [facility] - [facility] 08/12/2024 09:59:29 OBGyn Episode No OBEpisode recorded.
--- OUTSIDE RECORDS SUMMARY | 2024-08-28 11:01 | XMS_ITS ---
Author Organization [facility] Address [address] [place] [address] Care Team Providers Care Financial Legal Assistant Name Role Phone Noé Sigala MD Primary Care Provider Pelon Bustos Jr Unavailable [phone] Allergies No Known Allergies REASON FOR VISIT Patient presents today for a screening colonoscopy Medications Medication SIG (Take, Route, Frequency, Duration) [...] for 30 day(s) Active Levothyroxine Sodium Active Immunizations Vaccine Route Administration Date Status Comme nts Influenza Unknown 04/15/2023 Refused Problems Problem Type SNOMED Code ICD Code Onset Dates Problem Status W/U Status Risk Notes Problem 553409471 Colon cancer screening (Z12.11) Active confirmed Problem 484414059 FH: colon cancer (Z80.0) Active confirmed Problem 014242734 Long-term use of aspirin therapy (Z79.82) Active confirmed Vital Signs Temperature 96.6 degrees Fahrenheit 04/15/20 23 Blood pressure systolic 000 mm Hg 04/15/20 23 Blood pressure diastolic 00 mm Hg 023 Height 67 in 04/15/2023 Weight 200 lbs 04/15/2023 BMI 31.32 kg/m2 04/15/2023 Encounters Encounter Location Date Provider Diagnosis [facility] [address] [place] [address] 04/15/2023 Pelon Arroyo Jr Colon cancer screening Z12.11 ; Long-term use of aspirin therapy Z79.82 and FH: colon cancer Z80.0 Assessments Encounter Date Diagnosis (ICD Code) Assessment Notes Treatment Notes Treatment Clinical Notes Section Notes 04/15/2023 Colon cancer screening (ICD-10 - Z12.11) We discussed colonoscopy today. We discussed risks and benefits of the procedure today. She understands these and agrees to proceed. She is advised to stop using aspirin one week before the procedure to decrease the risk of bleeding. 04/15/2023 Long-term use of aspirin therapy (ICD-10 - Z79.82) Colonoscopy material was printed We discussed colonoscopy today. We discussed risks and benefits of the procedure today. She understands these and agrees to proceed. She is advised to stop using aspirin one week before the procedure to decrease the risk of bleeding. 04/15/2023 FH: colon cancer (ICD-10 - Z80.0) We discussed colonoscopy today. We discussed risks and benefits of the procedure today. She understands these and agrees to proceed. She is advised to stop using aspirin one week before the procedure to decrease the risk of bleeding. Plan Of Treatment Medication Medication Name Sig Start Date Stop [...] Up: 1 Year, Reason: Progress Notes * NIALL BURKETT MDOB: 5 (77 yo F)Acc No.[id number]:04/15/2023 Progress Notes Patient:?NIALL BURKETT Provider:?Pelon Arroyo MD :1945???Age:77 Y???Sex:Female D ate:04/15/2023 Address:[address] [place] [address], [place] [facility] Pcp:Noé Sigala MD Subjective: * Chief Complaints: * ???1. Patient presents today for a screening colonoscopy. * HPI: ???New symptom(s):? Niall is a pleasant 77-year-old man seen today in consultation. She has a family history colon cancer. She has no complaints of rectal bleeding, diarrhea, or shortness of breath. She has no dysphagia, hematemesis, or melena. Weight and appetite have been stable. Previous colonoscopy 10/03 showed diverticulosis. We reviewed this today. * ROS:?General/Constitutional:?Change in appetite?denies.?Fatigue?denies.?ENT:?Patient denies?difficulty swallowing.?Respiratory:?Patient denies?shortness of breath.?Cardiovascular:?Patient denies?chest pain.?Gastrointestinal:?Comments?See HPI for details.?Genitourinary:?Difficulty urinating?denies.?Incontinence?denies.?Musculoskeletal:?Patient denies?muscle aches.?Skin:?Patient denies?pruritis.?Neurologic:?Patient denies?low back pain.?Psychiatric:?Patient denies?mental or physical abuse.? * Medical History:?Colonoscopy 10/03, diverticulosis, five-year followup optional based on age, Irritable bowel syndrome, SVT, pacemaker placement, Degenerative joint disease involving knees, hands, multiple knee surgery , Diabetes Mellitus, Hypothyroidism, Elevated cholesterol, COPD. * Surgical History:?Hysterecto my , Appendectomy , Pacemaker generator change 10/2015. * Family History:?Father: dece ased, diagnosed with Colon cancer.?Mother: .?Paternal Grand Mother: , diagnosed with Colon cancer.? Father, colon cancer, early 60's. * Social History:?Tobacco Use:?Tobacco Use/Smoking?Patient is a: nonsmoker.?Drugs/Alcohol:?Alcohol Screen?Points: 0, Interpretation: Negative.?Miscellaneous:?Marital status: one year. Occupation: works. * Medications:?Taking Aspirin 81 MG Tablet Chewable 1 tablet Orally Once a day, Taking Atorvastatin Calcium , Taking Levothyroxine Sodium , Taking dilTIAZem HCl ER Coated Beads , Taking Colyte with Flavor Packs 240 GM Solution Reconstituted As directed Orally Over the specified time., Taking Anusol-HC 25 MG Suppository 1 suppository Rectal Twice a day, Taking Levbid 0.375 MG Tablet Extended Release 12 Hour 1 tablet Orally every 12 hrs, Medication List reviewed and reconciled with the patient * Allergies:?N.K.D.A. Objective: * Vitals:?Wt: 200 lbs, Ht: 67 in, BMI:31.32 Index, BP: 000/00 mm Hg, Temp: 96.6. * Examination: ???General Examination: ?GENERAL APPEARANCE:?in no acute distress.?HEAD:?normocephalic.?EYES:?sclera non-icteric.?ORAL CAVITY:?mucosa moist.?NECK/THYROID:?no lymphadenopathy.?SKIN:?anicteric.?HEART:?S1, S2 normal, no murmurs.?LUNGS:?clear to auscultation bilaterally.?CHEST:?normal shape and expansion.?ABDOMEN:?soft, nontender, nondistended, bowel sounds present, no organomegaly .?EXTREMITIES:?no clubbing, cyanosis, or edema.?PSYCH:?cognitive function intact.? Assessment: * Assessment: 1.?Long-term use of aspirin therapy - Z79.82 (Primary)?2.?Colon cancer screening - Z12.11?3.?FH: colon cancer - Z80.0? We discussed colonoscopy tonate lin. We discussed risks and benefits of the procedure today. She understands these and agrees to proceed. She is advised to stop using aspirin one week before the procedure to decrease the risk of bleeding. Plan: * Treatment: 2.?Colon cancer screening? Start MiraLax (colon prep) Powder, 17 GM/SCOOP, mixed with Gatorade or Crystal Light, Orally, begin at 5:00 p.m. the day before the procedure, 1 day, 8.3 Ounce, Refills 0.?Procedure: COLONOSCOPY (Ordered for 04/15/2023) * Immunizations:? Influenza (Not administered - Refused: Patient decision) * Procedure Codes:?G9903 Pt sc rn tbco id as non user, G9745 DOC RSN FOR NOT SCREEN/REC F/U HBP * Preventive Medicine:? ??Counseling:?Care goal follow-up plan:?Above Normal BMI Follow-up?Giving encouragement to exercise,?BMI management provided?Yes,?BMI management provided?Yes.? ??Urinary Incontinence:?Urinary Incontinence?Assessment:?Present,?Plan of care documented:?Yes,?Type of plan of care:?Lifestyle interventions.? * Follow Up:?1 Year * * Sign off status: Completed true * Provider:?Pelon Arroyo MD Date:?2022 Generated for Luis arrieta/Rachel/eTyolandasmitting on:?08/28/2024 11:01 AM EDT History and Physical Notes * HPI (History of Present Illness) Category Sub-Category Detail Notes Category Not es New symptom(s) Niall is a pl easant 77-year-old man seen today in consultation. She has a family history colon cancer. She has no complaints of rectal bleeding, diarrhea, or shortness of breath. She has no dysphagia, hematemesis, or melena. Weight and appetite have been stable. Previous colonoscopy 10/03 showed diverticulosis. We reviewed this today. Examination Category Sub-Category Detail Notes Category Not es General Examination GENERAL APPEARANCE: in no acute di stress HEAD: normocephalic EYES: sclera non-icteric NECK/THYROID: no lymphadenopathy HEART: S1, S2 normal, no mu rmurs CHEST: normal shape and exp ansion LUNGS: clear to auscultatio n bilaterally ABDOMEN: soft, nontender, non distended, bowel sounds present, no organomegaly SKIN: anicteric EXTREMITIES: no clubbing, cyanosi s, or edema PSYCH: cognitive function i ntact ORAL CAVITY: mucosa moist
--- OUTSIDE RECORDS SUMMARY | 2024-08-28 11:01 | XMS_ITS | Clinical Summary ---
Author Organization [facility] Address [address] [place] [address] Care Team Providers Care Crew Leader Gluing Name Role Phone Unavailable Primary Care Provider [...]
--- OUTSIDE RECORDS SUMMARY | 2024-08-28 11:01 | XMS_ITS ---
Author Organization [facility] Address [address] [facility] [place] [address] Care Team Providers Care Brand Attendant Name Role Phone Noé Sigala MD Primary Care Provider Shahzad Melvin Unavailable [phone] Allergies Allergen (clinical drug ingredient) Drug/Non Drug [...] Ordered Date Performed Result Body Sit e 90431-YUBTPMX NAIL, 6 OR MORE 04/28/2024 N/A 63752-UHOY SKIN LESIONS, 2 TO 4 04/28/2024 N/A Encounters Encounter Location Date Provider Diagnosis [facility] [place] [address] [place] [address] 04/28/2024 Shahzadveda DalalAlonzo Atherosclerosis of united [place] artery of both lower extremities, with unspecified presence of clinical manifestation I70.203 ; Tinea unguium B35.1 ; Pain in right toe(s) M79.674 ; Pain in left toe(s) M79.675 and Skin ulcer of toe of right foot, limited to breakdown of skin L97.511 Assessments Encounter Date Diagnosis (ICD Code) Assessment Notes Treatment Notes Treatment Clinical Notes Section Notes 04/28/2024 Atherosclerosis of [place] artery of both lower extremities, with unspecified presence of clinical manifestation (ICD-10 - I70.203) 04/28/2024 Tinea unguium (ICD-10 - B35.1) 04/28/2024 Pain in right toe(s) (ICD-10 - M79.674) 04/28/2024 Pain in left toe(s) (ICD-10 - M79.675) 04/28/2024 Skin ulcer of toe of right foot, limited to breakdown of skin (ICD-10 - L97.511) 04/28/2024 Other Plan Of Treatment Pending Test Test Name Order Date 97822-MZVYTTY NAIL, 6 OR MORE 04/28/2024 47320-RIEB SKIN LESIONS, 2 TO 4 04/28/20 24 Next Appt Details Follow Up: prn, Reason: Provider Name:Shahzad Rosado , 10/23/2024 11:00:00 AM, [address] [place], [address], Procedure Notes * Category Sub-Category Detail Notes [...] use of a nail nipper and/or dremel-type rubber grinder, to a more viable healthy nail [...] to maintain effectiveness in symptomatic relief - 25733 Keratoma Treatment Parring or Cutting o f [...] tissue nippers, and/or power dremel instrumentation - 32309, Q8 Progress Notes * Valery BURKETT MDOB: 5 (78 yo F)Acc No.[id number]:04/28/2024 Progress Note Patient:?Valery BURKETT Provider:?Shahzad Rosado DPM :1945???Age:78 Y???Sex:Female D ate:04/28/2024 Address:[address] [place], [place] [id number] Pcp:Noé Sigala MD Subjective: * Chief Complaints: [...] Assessment: 1.?Tinea unguium - B35.1???2 .?Atherosclerosis of [place] artery of both lower extremities, with unspecified presence of clinical manifestation - I70.203 (Primary)???3.?Pain in right toe(s) - M79.674???4.?Pain in left toe(s) - M79.675 ??5.?Skin ulcer of toe of right foot, limited to breakdown of skin - L97.511???Specify :Response to treatment - Improvement??? Plan: * Treatment: 2.?Tinea unguium?Procedure: 68230-EWSWLMY NAIL, 6 OR MORE * Procedures:?Debride Nail [...] use of a nail nipper and/or dremel-type rubber grinder, to a more viable healthy nail [...] to maintain effectiveness in symptomatic relief - 04379.?Keratoma Treatment:?Parring or Cutting of Benign Hyperkeratotic Lesion(s)?(-56) [...] tissue nippers, and/or power dremel instrumentation - 00584, Q8.? * Procedure Codes:?35153 DEBRI DE NAIL, 6 OR MORE, Modifiers: XS 16946 TRIM SKIN LESIONS, 2 TO 4, Modifiers: [...] Rosado DPM Date:?2023 Generated for Luis arrieta/Rachel/Shonda on:?08/28/2024 11:01 AM EDT History and Physical [...]
--- OUTSIDE RECORDS SUMMARY | 2024-08-28 11:02 | XMS_ITS ---
Author Organization [facility] Address [address] [facility] [address] Care Team Providers Care Bulk Tank Driver Name Role Phone Noé Sigala MD Primary Care Provider Shahzad Melvin Unavailable [phone] Allergies Allergen (clinical drug ingredient) Drug/Non Drug Allergy documented on EMR Reaction Allergy Type Onset Date Status Adhesive Unknown Allergy Active REASON FOR VISIT At Risk Footcare, Painful Nail(s) aggravated by shoes and causing difficulty standing/walking., Skin problem(s) Medications Medication SIG (Take, Route, Frequency, Duration) Notes Start Date End Date Status Ammonium Lactate 12 % 1 application Externally to affected areas of dry skin to feet except for between the toes Twice a day for 30 days Active Atorvastatin Calcium 10 MG 1 tablet Orally Once a day for 30 day(s) Active Symbicort 160-4.5 MCG/ACT 1 puff as need ed Inhalation every 4 hrs Not-Giuseppe g dilTIAZem HCl ER 240 MG 1 tablet Orally Once a day for 30 day(s) Active Levothyroxine Sodium 50 MCG 1 tablet in the morning on an empty stomach Orally Once a day for 30 day(s) Active Aspirin Adult Low Dose 81 MG 1 tablet Orally Once a day for 30 day(s) Active Dulera Active Tolterodine Tartrate ER 4 MG 1 capsule Orally Once a day for 30 day(s) Active Social History Tobacco Use: Social History Observation Description Date Details (start date - stop date) Never Smoker NA - NA Tobacco use other than smoking: Question Answer Notes Are you an other tobacco user? No Tobacco Control (Standard) Question Answer Notes Tobacco use: Nonsmoker Vital Signs Height 5 ft 6 in in 07/24/2024 Weight 190 lbs 07/24/2024 BMI 30.66 kg/m2 07/24/2024 Blood pressure systolic 120 mm Hg 07/25/19 Blood pressure diastolic 80 mm Hg 025 Procedures Procedure Date Ordered Date Performed Result Body Sit e 56571-BPMYNDF NAIL, 6 OR MORE 07/24/2024 N/A 41036-TLNX SKIN LESIONS, 2 TO 4 07/24/2024 N/A Encounters Encounter Location Date Provider Diagnosis [facility] [place] [address] [place] [address] 07/24/2024 Shahzad Rosado Atherosclerosis of que[place] artery of both lower extremities, with unspecified presence of clinical manifestation I70.203 ; Tinea unguium B35.1 ; Pain in right toe(s) M79.674 ; Pain in left toe(s) M79.675 and Xerosis of skin L85.3 Assessments Encounter Date Diagnosis (ICD Code) Assessment Notes Treatment Notes Treatment Clinical Notes Section Notes 07/24/2024 Atherosclerosis of quechan artery of both lower extremities, with unspecified presence of clinical manifestation (ICD-10 - I70.203) Q7(A), Q8(2B), Q9(1B,2C) 07/24/2024 Tinea unguium (ICD-10 - B35.1) 07/24/2024 Pain in right toe(s) (ICD-10 - M79.674) 07/24/2024 Pain in left toe(s) (ICD-10 - M79.675) 07/24/2024 Xerosis of skin (ICD-10 - L85.3) Plan Of Treatment Medication Medication Name Sig Start Date Stop Date Notes Ammonium Lactate 12 % 1 application Exte rnally to affected areas of dry skin to feet except for between the toes Twice a day for 30 days Pending Test Test Name Order Date 27337-ZPVATZY NAIL, 6 OR MORE 07/24/2024 87766-ZCHB SKIN LESIONS, 2 TO 4 07/25/19 25 Next Appt Details Follow Up: prn, Reason: Provider Name:Shahzad Rosado , 10/23/2024 11:00:00 AM, [address] [place] [address], [id number], Procedure Notes * Category Sub-Category Detail Notes Debride Nail 6-10 Nail debridement Due to the cl inical pathology outlined in the exam findings, performance of this nail treatment is medically necessary as its management by an unskilled/untrained nonprofessional would put this patients foot and overall health at risk. Therefore, debridement to affected nail(s), as described in exam ( TA, T1, T2, T3, T4, T5, T6, T7, T8, T9 ), was performed exclusively by the physician of record to reduce/remove overall nail length, girth, thickness, subungual debris, and necrotic tissue, by manual and/or electrical means through the use of a nail nipper and/or dremel-type sapphire stylus grinder, to a more viable healthy nail [...] to maintain effectiveness in symptomatic relief - 20792 Keratoma Treatment Parring or Cutting o f Benign Hyperkeratotic Lesion(s) (-56) 2-4 Lesions - Due to the at risk nature of the patients medical condition as documented in the exam findings, performance of this keratoderma treatment is medically necessary as its management by an unskilled/untrained nonprofessional would put this patients foot and overall health at risk. Therefore, the benign hyperkeratotic lesions, ( 4 ) in total, locations as stated and described in the exam ( Plantar, T7, SUB MTH (s) , 5 , Right , Plantar, Heel(s) , B/L ), were pared, and/or cut utilizing a sterile 15 blade, tissue nippers, and/or power dremel instrumentation by the physician of record - 44949, Q8 Progress Notes * Valery BURKETT MDOB: 5 (79 yo F)Acc No.[id number]:07/24/2024 Progress Note Patient:?Valery BURKETT Provider:?Shahzad Rosado DPM :1945???Age:79 Y???Sex:Female D ate:07/24/2024 Address:[address] [place] [address], [place] [address] [facility] Pcp:Noé Sigala MD Subjective: * Chief Complaints: * ???At Risk FootcarePainful N ail(s) aggravated by shoes and causing difficulty standing/walking.Skin problem(s) * HPI: ???At Risk footcare:?Pt States Last PCP Visit:?Date?05/07/2024 ???Skin problems:?Nature:?dryness , scaling.?Location:?B/L .?Duration:?several days.?Course:?worse.? * ROS:?General/Constitutional:?Nausea?denies.?Vomiting?denies.?Hunger Thirst?denies.?Loss appetite?denies.?Chills?denies.?Fatigue?denies.?Fever?denies.?Night Sweats?denies.?Unexplained weight loss?denies.?Unexplained [...] Medical History:? * Surgical History:?cardiac pa cemeker 04/09/2024basal cell removal 06/21/2023 * Hospitalization/Major Diagno stic Procedure:?Denies Past Hospitalization * Family History:?Mother: dece ased, diagnosed with Other specified conditions influencing health status.?Father: , diagnosed with Other malignant neoplasm of unspecified site.? * Social History:?Tobacco Use:?Tobacco use other than smoking?Are you an other tobacco user??No ?Tobacco Control (Standard)?Tobacco use:?Nonsmoker ???Miscellaneous:?Caffeine: yes, 1-2 cups per day. ?Children: yes, 3. ?Exercise: no. ?Marital status: . 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 * Medications:?TakingDulera As pirin Adult Low Dose 81 MG Tablet Delayed [...] Hour 1 tablet Orally Once a day Atorvastatin Calcium 10 MG Tablet 1 tablet Orally Once a day Taking Dulera Taking Aspirin Adult Low Dose 81 MG Tablet [...] 1 tablet Orally Once a day Taking Atorvastatin Calcium 10 MG Tablet 1 tablet Orally Once a day Not-Taking/PRNSymbicort 160-4.5 MCG/ACT Aerosol 1 puff as needed Inhalation every 4 hrs Medication List reviewed and reconciled with the patientNot-Taking/PRN Symbicort 160-4.5 MCG/ACT Aerosol 1 puff as needed Inhalation every 4 hrs Medication List reviewed and reconciled with the patient * Allergies:?Adhesiveyes[Aller gies Verified] Objective: * Vitals:?Ht: 5 ft 6 in, Wt: 1 90, BMI: 30.66, Shoe size: 10 med, BP: 120/80 mm Hg, Ht-cm: 167.64 cm, Wt-k.18 kg. * Examination: ???Vascular: ?DP PULSES (B):?1/4, B/L.?PT PULSES (B):? 0/4, B/L.?CAPILLARY FILL TIME:? delayed, all digits, B/L.?TROPHIC CONDITION-TEXTURE/ELASTICITY/TURGOR/HAIR GROWTH (B):?decreased, fragile, thin, shiny skin, with sparse to absent hair growth, B/L.?TEMPERTURE GRADIENT (C):? decreased, cool to cool, proximal to distal, B/L.?PIGMENTATION:?rubrous, B/L.?EDEMA (C):?1/4 , non-pitting , without aching pain , Leg(s) , Ankle(s) , B/L.?CLAUDICATION (C):?denies, B/L.?REST PAIN:?denies, B/L.?Nails: ?NAILS are:? Elongated, overgrown, dystrophic, lytic, greater than 3mm thick, discolored and friable with crumbly malodorous subungual debris, with pain on palpation, TA, T1, T2, T3, T4, T5, T6, T7, T8, T9.?Dermatologic: ?SKIN FINDINGS:?Skin exam reveals Keratotic lesion(s) located at , Plantar, T7, SUB MTH (s) , 5 , Right , Plantar, Heel(s) , B/L , Skin shows sign(s) of, dryness, scaling, in a stocking fashion, no fissure(s) present, B/L.? Assessment: * Assessment: 1.?Tinea unguium - B35.1???2 .?Atherosclerosis of quechan artery of both lower extremities, with unspecified presence of clinical manifestation - I70.203 (Primary)???Specify :Q8???Notes :Q7(A), Q8(2B), Q9(1B,2C)???3.?Pain in right toe(s) - M79.674???4.?Pain in left toe(s) - M79.675???5.?Xerosis of skin - L85.3???Specify :Acute problem, Uncomplicated (3),Rx Management (4)??? Plan: * Treatment: 2.?Tinea unguium?Procedure: 20478-WUDIVQE NAIL, 6 OR MORE 3.?Xerosis of skin? Start Ammonium Lactate Cream, 12 %, 1 application, Externally to affected areas of dry skin to feet except for between the toes, Twice a day, 30 days, 280, Refills 3.?? * Procedures:?Debride Nail 6-10:?Nail debridement?Due to the clinical pathology outlined in the exam findings, performance of this nail treatment is medically necessary as its management by an unskilled/untrained nonprofessional would put this patients foot and overall health at risk. Therefore, debridement to affected nail(s), as described in exam (?TA, T1, T2, T3, T4, T5, T6, T7, T8, T9?), was performed exclusively by the physician of record to reduce/remove overall nail length, girth, thickness, subungual debris, and necrotic tissue, by manual and/or electrical means through the use of a nail nipper and/or dremel-type sapphire stylus grinder, to a more viable healthy nail plate or bed tissue 6- 10 nails in total. Silver nitrate was used for any petechial bleeding as necessary. Definitive antifungal treatment options, both pharmaceutical and surgical, have been reviewed and discussed with the patient. The patient solely prefers the use of intermittent/as needed professional debridement services for their nail condition and understands the need for additional periodic treatments to maintain effectiveness in symptomatic relief - 66663.?Keratoma Treatment:?Parring or Cutting of Benign Hyperkeratotic Lesion(s)?(-56) 2-4 Lesions - Due to the at risk nature of the patients medical condition as documented in the exam findings, performance of this keratoderma treatment is medically necessary as its management by an unskilled/untrained nonprofessional would put this patients foot and overall health at risk. Therefore, the benign hyperkeratotic lesions, ( 4 ) in total, locations as stated and described in the exam (?Plantar,?T7,?SUB MTH (s)?,?5?,?Right?,?Plantar,?Heel(s)?,?B/L?), were pared, and/or cut utilizing a sterile 15 blade, tissue nippers, and/or power dremel instrumentation by the physician of record - 59089, Q8.? * Procedure Codes:?78025 DEBRI DE NAIL, 6 OR MORE, Modifiers: XS 21610 TRIM SKIN LESIONS, 2 TO 4, Modifiers: [...] have encouraged the patient to call the office.?Xerosis:?The patient was counseled on the diagnosis, potential etiologies, and treatment options for their skin condition. We discussed the risks and benefits of each option from performing no treatment, to utilizing OTC topical skin creams/ointments, to utilizing prescription topical creams/ointments, to utilizing customized compounded topical medications and use of nocturnal occlusion with any/all previously detailed therapies. We discussed the advantages and disadvantages of each possible treatment and importance for adherence to all the recommended therapies for optimum success and avoid potential complications such as open sore/infection/possible hospitalization. We discussed the potential effectiveness of each topical preparation as well as each ones possible side effects and/or patient medication interactions. Patient questions re: use, dosage, successful outcomes, and application consistency were reviewed and the patient verbalized that all answers were clearly understood. The patient has decided to apply Rx skin creams to their feet save the interspaces while paying special attention to the heels. Such was sent to their pharmacy at the time of visit.? ??Screening/Special Tests:?Fall Risk?Screening:?No falls in the past year ?FALLS: Screening for Future Fall Risk?Have you had any falls with injury in the past year??No * Follow Up:?prn * Images: * Sign off status: Completed true * Provider:?Shahzad Rosado DPM Date:?2024 Generated for Luis arrieta/Rachel/Shonda on:?08/28/2024 11:01 AM EDT History and Physical Notes * HPI (History of Present Illness) Category Sub-Category Detail Notes Category Not es Skin problems Nature: dryness , scaling Location: B/L Duration: several days Course: worse At Risk footcare Pt States Last PCP Visit: Date: 4 Examination Category Sub-Category Detail Notes Category Not es Dermatologic SKIN FINDINGS: Skin exam reveal s Keratotic lesion(s) located at , Plantar, T7, SUB MTH (s) , 5 , Right , Plantar, Heel(s) , B/L , Skin shows sign(s) of, dryness, scaling, in a stocking fashion, no fissure(s) present, B/L Vascular DP PULSES (B): 1/4, B/L PT [...] malodorous subungual debris, with pain on palpation, TA, T1, T2, T3, T4, T5, T6, T7, T8, T9
== END 2024-08-28 11:18 | disposition home or self-care (01) ==
LOC: HO.HMCHD 10:14
PROVIDERS: PCP Internal Medicine; Visit Provider Internal Medicine
DX: E11.9 Type 2 diabetes mellitus without complications (principal); I47.29 Other ventricular tachycardia; Z95.0 Presence of cardiac pacemaker; J44.9 Chronic obstructive pulmonary disease, unspecified

== ENCOUNTER → 2024-08-28 10:14 | Outpatient (BNVA) | payer MEDICARE, OTHER, SELFPAY | PROVIDERS: PCP Internal Medicine; Visit Provider Internal Medicine | DX: Z13.89 Encounter for screening for other disorder (principal) | CPT/HCPCS: 96127; 99202 ==

== ENCOUNTER 2024-08-28 11:24 | Outpatient (REF) | payer MEDICARE, OTHER, SELFPAY ==
--- OUTSIDE RECORDS SUMMARY | 2024-08-28 12:25 | XMS_ITS | Clinical Summary ---
Author Organization [facility] Address [address] [place] [address] Care Team Providers Care Glassine Machine Tender Name Role Phone Unavailable Primary Care Provider [...]
[2024-08-28 13:08] LABS: MANUAL DIFF FLAG NO
[2024-08-28 13:23] LABS: Basophils Absolute Auto 0.1 X10*3/uL (0.0-0.2); Basophils Percent Auto 0.6 % (0-2); Eosinophils Absolute Auto 0.2 X10*3/uL (0.0-0.4); Eosinophils Percent Auto 1.6 % (0-4); Hematocrit 42.9 % (37.0-47.0); Hemoglobin 13.8 g/dl (12.0-16.0); Imm Gran Pct Auto 0.9 % (0.0-0.4); Lymphocytes Absolute Auto 2.3 X10*3/uL (1.2-4.9); Lymphocytes Percent Auto 21.4 % (20-40); Mean Corpuscular HGB Conc 32.2 g/dl (31.0-35.0); Mean Corpuscular Hemoglobin 27.1 pg (27.0-33.0); Mean Corpuscular Volume 84.3 fL (80.0-98.0); Mean Platelet Volume 10.7 fL (9.4-12.3); Monocytes Percent Auto 9.4 % (2-11); Neutrophils Percent Auto 66.1 % (45-73); Platelet Count 306 X10*3/uL (160-400); Red Blood Count 5.09 X10*6/uL (4.20-5.50); Red Cell Distribution Width 13.4 % (11.0-16.0); White Blood Count 10.6 X10*3/uL (4.8-10.8)
[2024-08-28 13:37] LABS: Alanine Aminotransferase 20 U/L (0-31); Alkaline Phosphatase 97 U/L (39-117); Anion Gap 13 (12-20); Aspartate Amino Transferase 21 U/L (5-31); Bilirubin Total 0.5 mg/dL (0.0-1.0); Blood Urea Nitrogen 19 mg/dL (9-16); Calcium 9.4 mg/dL (8.4-10.2); Carbon Dioxide 27 mmol/L (22-29); Chloride 104 mmol/L (96-108); Cholesterol 176 mg/dL (<200); Estimated Glomerular Filt Rate > 60; Glucose Random 136 mg/dL (60-115); HDL Cholesterol 76 mg/dL (>40); LDL Cholesterol Calculated 84 mg/dL (<100); Potassium 4.3 mmol/L (3.3-5.1); Sodium 140 mmol/L (135-145); Total Protein 7.4 g/dL (6.5-8.0); Triglycerides 82 mg/dL (<150)
[2024-08-28 13:51] LABS: TSH reflex Free T4 0.02 uIU/mL (0.32-4.0)
[2024-08-28 13:52] LABS: Estimated Average Glucose 154 mg/dL; Hemoglobin A1C 192.0597 umol/L
[2024-08-28 14:23] LABS: Free T4 (Free Thyroxine) 1.27 ng/dL (0.71-1.85)
== END 2024-08-28 11:25 | disposition home or self-care (01) ==
LOC: HO.10HDL 11:24
PROVIDERS: Visit Provider Internal Medicine
DX: E11.9 Type 2 diabetes mellitus without complications (principal); J44.9 Chronic obstructive pulmonary disease, unspecified; Z95.0 Presence of cardiac pacemaker; I47.20 Ventricular tachycardia, unspecified
CPT/HCPCS: 36415; 80053; 80061; 83036; 84439; 84443; 85025; 96127; 99202

== ENCOUNTER 2024-09-08 09:40 | Outpatient (AMB) | payer MEDICARE, OTHER, SELFPAY ==
--- NOTE | 2024-09-08 09:57 | A.OFFVIS_ITS ---
Vital Signs 09/08/24 09:59 Height 5 ft 6 in Weight 194 lb 14.218 oz BMI 31.5 BP 110/60 Blood Pressure Location Lt brachial Position Sitting Pulse 71 Pulse Source Monitor Intake Visit Reasons: 6 mth /fup w/ pacer ck Intake Note: 6 mth f/up/pacer check Business Data Analyst Required: No Accompanied by: Self / Same As Patient Allergies No Known Allergies [No Known Allergies*] Allergy (Verified 08/28/24 10:17) Medication List - Last Reconciled 09/08/24 by Seferino Hampton MD aspirin (Ecotrin Low Strength) 81 mg PO DAILY atorvastatin 10 mg PO BEDTIME diltiazem HCl CD 240 mg PO DAILY levothyroxine 50 mcg PO DAILY mometasone-formoterol 200-5 mcg/actuation (Dulera) 2 puffs inhalation BID 30 days tolterodine ER 4 mg PO DAILY HPI Comments Details: Valery comes for follow-up. No cardiac symptoms. Got able to exercise much because of the left knee pain. Does not want any surgery denies any prolonged palpitation irregular heartbeat. Denies any lightheadedness, syncope. Takes all her medications. [facility] Medical History Pacemaker at end of battery life Hypothyroidism Diabetes mellitus Degenerative joint disease Irritable bowel syndrome Diverticulosis Allergic rhinitis Cough SVT (supraventricular tachycardia) Complete heart block Cardiac pacemaker in situ Surgical History History of permanent cardiac pacemaker placement COPD (chronic obstructive pulmonary disease) H/O colonoscopy History of appendectomy History of hysterectomy Hx of eye surgery Family History Father No problems noted. Mother CVD (cardiovascular disease) Pacemaker Social History Housing: House Patient Tobacco Use Status: Former Tobacco user e-Cigarette/Vaping Use: Former Use service: No Current occupational status: retired Cognitive needs: No Hearing needs: No Vision needs: Yes (reading glasses) Review of Systems Const Denies chills, Denies fatigue, Denies fever(s), Denies frequent falls, Denies weakness, Denies weight gain and Denies weight loss ENT Denies dizziness Card Denies chest pain, Denies leg edema, Denies lightheadedness, Denies palpitations, Denies dyspnea, Denies dyspnea on exertion, Denies orthopnea and Denies other (loss of consciousness) Resp Denies cough, Denies dyspnea and Denies dyspnea on exertion GI Denies hematochezia and Denies change in stool character Musc Denies abnormal gait, Denies muscle weakness, Denies numbness, Denies radiating pain into limb and Denies tingling Neuro Denies abnormal gait, Denies dizziness, Denies frequent falls, Denies numbness, Denies tingling and Denies weakness Endo Denies fatigue and Denies palpitations Physical Exam Vital Signs: Last Vital Signs Pulse 71 09/08/24 09:59 BP 110/60 09/08/24 09:59 BMI result Body Mass Index 31.5 Const General: cooperative, comfortable, no acute distress, alert and awake Nutritional Appearance: obese Orientation/consciousness: patient oriented x3 Limitations: no limitations Neck Neck: Yes trachea midline, Yes supple and Yes no JVD Resp Effort & Inspection: normal respiratory effort Auscultation: diminished lung sounds on the left in the lower lung lowery and bronchovesicular breath sounds Cardio Jugular venous distension: no JVD Palpation: normal PMI Rate: regular rate Rhythm: regular rhythm Heart sounds: S1 normal heart sound present and S2 normal heart sound present GI Inspection: Yes obesity Auscultation: normal bowel sounds Skin General skin exam: no rashes or lesions noted Neuro General: patient oriented x3 and no focal motor deficits Extrem General: Yes no clubbing, cyanosis or edema and Yes pedal edema Psych Appearance: grossly normal Office Procedures Cardiac Device Check Cardiac Device Check Details: Dual-chamber Medtronic pacemaker in place. Programmed in DDDR at 60 beats per minute. Atrial pacing 38% of time. Ventricularly pacer dependent. Episodes of atrial fibrillation suggested although they appear to be over sensing. Atrial sensitivity is low and can not be programmed any lower. Ventricular sensing could not be checked. Atrial ventricular pacing lead impedance is adequate. Atrial pacing thresholds elevated and reprogrammed to provide adequate safety w ith enhancing battery life. Ventricular pacing thresholds are adequate. Battery life is at about 7 and half years 77819-RY Cardiac Device Check, pacemaker dual lead Procedure code (CPT) selection complete Assessment & Plan Assessment & Plan (1) Cardiac pacemaker in situ: Comment: Medtronic dual-chamber. Did not tolerate asynchronous ventricular pacing Code(s): Z95.0 - Presence of cardiac pacemaker Category: Medical Plan: Cardiac pacemaker in-situ due to complete heart block. Pacemaker is working well. Reprogrammed for adequate functioning. Will follow remotely. Does have atrial sensitivity issue which gives false alarms about atrial fibrillation. (2) SVT (supraventricular tachycardia): Code(s): I47.1 - Supraventricular tachycardia Category: Medical Plan: SVT remained suppressed on Cardizem therapy. Continue the same. Avoidance of stimulants was discussed. No change in therapy. Will follow up in the clinic in 6 months time after an echocardiogram. Thank you for allowing me to partake in his care Coding Level of Care Code Est Pt Level 4 (95992) Complex EM visit Add On G2211 Diagnoses Cardiac pacemaker in situ Z95.0 SVT (supraventricular tachycardia) I47.1 CPT Codes Cardiac Device Check - Cardiac Device 2: 38390-PK Cardiac Device Check, pacem anna dual lead ([id number])
[2024-09-08 09:59] VITALS: BP 110/60; PULSE 71; BMI 31.5
--- OUTSIDE RECORDS SUMMARY | 2024-09-08 10:44 | XMS_ITS ---
Author Organization [facility] Address [address] [place] [address] Care Team Providers Care Soaker Soda Worker Name Role Phone Noé Sigala MD Primary Care Provider Shahzad Melvin [phone] REASON FOR VISIT BUY 5 Toe Mayer Encounters Encounter Location Date Provider Diagnosis [address] [address] 07/24/2024 Shahzad Rosado Plan Of Treatment Next Appt Details Provider Name:Shahzad Rosado , 10/23/2024 11:00:00 AM, [address] [place] [address], [phone], Progress Notes * Valery BURKETT MDOB: (79 yo F)Acc No.[id number]:07/24/2024 Patient:?Valery BURKETT :1945???Age:79 Y???Sex:Female Address:[address] [place] [address] * true * Date:? Generated for Printi ng/Faxing/eTransmitting on:?09/08/2024 10:44 AM EDT
--- OUTSIDE RECORDS SUMMARY | 2024-09-08 10:45 | XMS_ITS | Clinical Summary ---
Author Organization [facility] Address [address] [place] [address] Care Team Providers Care Account Resolution Expert Name Role Phone Unavailable Primary Care Provider [...]
--- OUTSIDE RECORDS SUMMARY | 2024-09-08 10:45 | XMS_ITS | Patient Health Record ---
Author Organization [facility] Address [address] [place] [address] Care Team Providers Care Burn Out Scarfing Operator Name Role Phone Noé Sigala MD Primary Care Provider Pelon Bustos Jr Unavailable Allergies No Known Allergies Reason For Referral [...] Problem Status W/U Status Risk Notes Problem 448921090 Colon cancer screening (Z12.11) Active confirmed Problem 28642783 Rectal bleeding (K62.5) Active confirmed Problem 369524571 Long-term use of aspirin therapy (Z79.82) Active confirmed Problem 234029297 RUQ pain (R10.11) Active confirmed Problem 434229551 FH: colon cancer (Z80.0) Active confirmed Plan Of Treatment Future Test Test Name Order Date COLONOSCOPY 04/19/2016 COLONOSCOPY 04/15/2023 Insurance Providers Payer Name Payer Address Payer Phone Subscriber Number Group Number Insured Name Patient Relationship to Insured Coverage Start Date Coverage End Date MEDICARE OF [place] [address] [place] [address] [id number] NIALL BURKETT Self - patient is the insured [facility] INDEMNITY [address] [place] [address] [id number] NIALL BURKETT Self - patient is the [...]
--- OUTSIDE RECORDS SUMMARY | 2024-09-08 10:45 | XMS_ITS | Data Portability ---
Author Organization [place] [facility] Address [address] [address] Care Team Providers Care Insurance Service Representative Name Role Phone INOCENCIA SALINAS Primary Care [...] Sensorin eural hearing loss in left ear [id number] 109 Active 2016 Sensorin eural hearing loss, unilater al, left ear, with restrict ed hearing on the contrala teral side; Note: Date Diagnose d: 7 10:10 AM (H90.A22 ) Not Available [facility] 4 02:20:40 Otalgia of right ear 0073498257 Active 2018 Otalgia, right ear; Note: Date Diagnose d: 9 11:10 AM (H92.01) Not Available [facility] 4 02:20:55 Otorrhea of right ear 90857610869 27610 Completed 201612/20/2023 Otorrhea , right ear; Note: Date Diagnose d: 01/25/2017 12:25 PM (H92.11) Not Available [facility] 4 02:21:04 Bilatera l disorder of Eustachi an tubes 59945039631 22150 Active 2016 Other specifie d disorder s of Eustachi an tube, bilatera l; Note: Date Diagnose d: 10/24/2016 3:35 PM (H69.83) Not Available [facility] 4 02:21:33 Asymmetr ical sensorin eural hearing loss 498848936 Active 2014 Sensorin eural hearing loss asymmetr ic; Note: Date Diagnose d: 5 3:54 PM (389.16) Not Available [facility] 4 02:21:22 Cough 22955662 Active 2016 Cough; Note: Date Diagnose d: 04/16/20 17 8:53 AM (R05) Not Available [facility] 4 02:21:01 Pain of right temporom andibula r joint 90826358836 512511 Active 2018 Arthralg ia of right temporom andibula r joint; Note: Date Diagnose d: 9 11:10 AM (M26.621 ) Not Available [facility] 4 02:21:11 Disorder of right Eustachi an tube 66051966414 48943 Active 2017 Other specifie d disorder s of Eustachi an tube, right ear; Note: Date Diagnose d: 8 3:54 PM (H69.81) Not Available [facility] 4 02:21:07 Impacted cerumen of bilatera l ears 26525868067 85620 Active 2017 Impacted cerumen, bilatera l; Note: Date Diagnose d: 8 3:54 PM (H61.23) Not Available [facility] 4 02:21:10 Mixed conducti ve and sensorin eural hearing loss of right ear 24768360447 105 Active 2016 Mixed conducti ve and sensorin eural hearing loss, unilater al, right ear with restrict ed hearing on the contrala teral side; Note: Date Diagnose d: 10/24/2016 3:35 PM (H90.A31 ) Not Available [facility] 4 02:20:54 Sensorin eural hearing loss of bilatera l ears 744405909 Active 2014 Sensorin eural hearing loss, bilatera l; Note: Date Diagnose d: 01/25/2015 10:47 AM (H90.3) Not Available [facility] 4 02:21:07 Benign paroxysm al position al vertigo 511344364 Active 2014 Benign paroxysm al position al vertigo; Note: Date Diagnose d: 5 3:54 PM (386.11) Not Available [facility] 4 02:20:42 Chronic serous otitis media 04215691 Active 2016 Serous otitis media Chronic; Note: Date Diagnose d: 7 12:22 PM (381.10) Not Available [facility] 4 02:20:51 Nasal congesti on 91073239 Active 2016 Nasal congesti on; Note: Date Diagnose d: 04/16/20 17 8:50 AM (R09.81) Not Available [facility] 4 02:21:32 Acute serous otitis media of right ear 71611608004 99402 Active 2016 Acute serous otitis media, right ear; Note: Date Diagnose d: 7 10:11 AM (H65.01) Not Available [facility] 4 02:21:21 Chronic serous otitis media of right ear 849735108 Active 2018 Chronic serous otitis media, right ear; Note: Date Diagnose d: 9 11:07 AM (H65.21) Chroni c serous otitis media, right ear; Note: Changed from H65.22 to H65.21 (01/02/20 17 2:18 PM) , Date Diagnose d: 7 12:27 PM (H65.22) ; Start Date : 01/02/20 17 Not Available [facility] 4 02:20:48 Adhesive middle ear disease 0610052 Active 2018 Adhesive right middle ear disease; Note: Date Diagnose d: 9 9:16 AM (H74.11) Not Available [facility] 4 02:21:34 Allergic rhinitis 36009379 Active 2016 Allergic rhinitis : Due to other allergen ; Note: Date Diagnose d: 7 9:26 AM (477.8) Not Available [facility] 4 02:20:48 Chronic serous otitis media of left ear 218151519 Active 2016 Chronic serous otitis media, left ear; Note: Changed from H65.02 to H65.22 ( 017 8:45 AM) , Date Diagnose d: 7 10:44 AM (H65.02) Not Available [facility] 4 02:21:33 Problem Notes None recorded. Medical Equipment None Reported. Medications Name Sig Start Date Stop Date Status Note LastModified by Organization Details LastModified Time Augmentin 875 mg-125 mg tablet 2016 active Medicati on ID: [id number] D uration Value: 10 Prescri bed By Name: LUCILLE Pierce nd Name: Augmenti n Send Method: E-Prescr ibed Sub s Allowed: subs OK Speci al Instruct ion: 1 po bid for 10 days Med icationG enericNa me: Augmenti n Not Available Not Available Not Available atorvasta tin 20 mg tablet 02/03 completed Medicati on ID: 75277 Du ration Value: 90 Reason: () Brand Name: atorvast atin Sen d Method: E-Prescr ibed Sub s Allowed: subs OK Medic ationGen ericName : atorvast atin Not Available Not Available Not Available atorvasta tin 10 mg tablet 2019 active Medicati on ID: 624027 D uration Value: 90 Brand Name: atorvast atin Sen d Method: E-Prescr ibed Sub s Allowed: subs OK Speci al Instruct ion: TAKE 1 TABLET BY MOUTH EVERY DAY AT NIGHT Me dication GenericN jorge: atorvast atin Not Available Not Available Not Available sotalol 80 mg tablet 11/01 completed Medicati on ID: 10249 Du ration Value: 90 Reason: () Brand Name: sotalol Send Method: E-Prescr ibed Sub s Allowed: subs OK Speci al Instruct ion: TAKE 1 TABLET BY MOUTH TWICE A DAY Medi cationGe nericNam e: sotalol Not Available Not Available Not Available diltiazem CD 240 mg capsule,e xtended release 24 hr 2016 active Medicati on ID: 191322 D uration Value: 90 Brand Name: diltiaze m HCl Send Method: E-Prescr ibed Sub s Allowed: subs OK Speci al Instruct ion: TAKE ONE CAPSULE BY MOUTH EVERY DAY Medi cationGe nericNam e: diltiaze m HCl Not Available Not Available Not Available prednison e 20 mg tablet 2 tablet by mouth 2016 active Medicati on ID: 133033 D uration Value: 5 Prescri bed By Name: LUCILLE Pierce nd Name: predniso ne Send Method: E-Prescr ibed Sub s Allowed: subs OK Medic ationGen ericName : predniso ne Not Available Not Available Not Available Ciloxan 0.3 % eye drops active Medicati on ID: 307436 P rescribe d By Name: LUCILLE Pierce nd Name: Ciloxan Send Method: E-Prescr ibed Sub s Allowed: subs OK Speci al Instruct ion: Instill 4 drops twice a day into affected ear for 10 days Med icationG enericNa me: Ciloxan Not Available Not Available Not Available levothyro xine 50 mcg tablet 2014 active Medicati on ID: 68385 Du ration Value: 90 Brand Name: levothyr oxine Se nd Method: E-Prescr ibed Sub s Allowed: subs OK Speci al Instruct ion: TAKE 1 TABLET BY MOUTH EVERY DAY Medi cationGe nericNam e: levothyr oxine Not Available Not Available Not Available Aspir-81 mg tablet,de layed release 12/30 completed Medicati on ID: 89563 Re ason: () Brand Name: Aspir-81 Send Method: E-Prescr ibed Sub s Allowed: subs OK Medic ationGen ericName : Aspir-81 Not Available Not Available Not Available fluticaso ne propionat e 50 mcg/actua tion nasal spray,corrie pension 2 puff into both nostrils 2016 active Medicati on ID: 864487 D uration Value: 30 Prescri bed By Name: LUCILLE Pierce nd Name: fluticas one Send Method: E-Prescr ibed Sub s Allowed: subs OK Medic ationGen ericName : fluticas one Not Available Not Available Not Available Ciprodex 0.3 %-0.1 % ear drops,corrie pension 4 drop 2016 active Medicati on ID: 407950 D uration Value: 14 Prescri bed By Name: LUCILLE Pierce nd Name: Ciprodex Send Method: E-Prescr ibed Sub s Allowed: subs OK Medic ationGen ericName : Ciprodex Not Available Not Available Not Available Symbicort 80 mcg-4.5 mcg/actua tion HFA aerosol inhaler 2018 active Medicati on ID: 958107 D uration Value: 90 Brand Name: Symbicor [...] SNOMED-CT Code Diagnosis ICD10 Code Diagnosis Note [id number] OLAMIDE RIOS [facility] of [address] [address] 08/12/2024 09:55:35 08/17/2024 13:21:36 Sensorineural hearing loss of bilateral ears 071686182 H90.3 Health Concerns Section Related Observation LastModified by Organization Detai ls LastModified Time None Recorded Concern Status LastModified by Organization Details LastModified Time None Recorded Advance Directives Directive None Recorded Payers Encounter Date Sequence Insurance Name Policy Number Policy Babb Covered Member ID Babb Member ID Guarantor Name 08/12/2024 1 MEDICARE B-[place]: [facility] [employer] Valery Cano [id number] Valery Cano 08/12/2024 2 [facility] INDEMNITY PLAN (MEDICARE SUPPLEMENT) [id number] Valery Cano [id number] Valery Cnao Notes Date Note Type Note Provider Name and Address Organization Details Recorded Time 08/12/2024 text/html Came in yesterda y for a BONILLA check. Her right aid has not been working for about a month. Cleaned checked both aids. 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 JUSTICE PEREZ, [address],[place] [address], [place], [address], [facility] - [facility] 08/12/2024 09:59:29 OBGyn Episode No OBEpisode recorded.
--- OUTSIDE RECORDS SUMMARY | 2024-09-08 10:45 | XMS_ITS ---
Author Organization [facility] Address [address] [place] [address] Care Team Providers Care Sports Writer Name Role Phone Noé Sigala MD Primary Care Provider Pelon Bustos Jr REASON FOR VISIT screening,fam hx colon ca Encounters Encounter Location Date Provider Diagnosis [facility] [place] [address] [place] [phone] 05/28/2023 Pelon Arroyo Jr Encounter for screening colonoscopy Z12.11 and Family history of colon cancer Z80.0 Assessments Encounter Date Diagnosis (ICD Code) Assessment Notes Treatment Notes Treatment Clinical Notes Section Notes 05/28/2023 Encounter for screening colonoscopy (ICD-10 - Z12.11) 05/28/2023 Family history of colon cancer (ICD-10 - Z80.0) Plan Of Treatment No Information Progress Notes * NIALL BURKETT MDOB: 5 (79 yo F)Acc No.[id number]:05/28/2023 COLON WITH MAC Patient:?NIALL BURKETT Provider:?Pelon Arroyo MD :1945???Age:77 Y???Sex:Female D ate:05/28/2023 Address:[address] [place], [place] [id number] Pcp:Noé Sigala MD Subjective: * Chief Complaints: [...] MD Date:?0 05/28/2023 Generated for Luis arrieta/Rachel/Shonda on:?09/08/2024 10:45 AM EDT
--- OUTSIDE RECORDS SUMMARY | 2024-09-08 10:45 | XMS_ITS ---
Author Organization [facility] Address [address] [place] [address] Care Team Providers Care Brake Rider Name Role Phone Noé Sigala MD Primary Care Provider Shahzad Melvin Unavailable [phone] Allergies Allergen (clinical drug ingredient) Drug/Non Drug [...] Ordered Date Performed Result Body Sit e 50853-SYPLTWQ NAIL, 6 OR MORE 04/28/2024 N/A 26679-UQRO SKIN LESIONS, 2 TO 4 04/28/2024 N/A Encounters Encounter Location Date Provider Diagnosis [facility] [address] [place] [address] 04/28/2024 Shahzadveda DalalAlonzo Atherosclerosis of nikolai artery of both lower extremities, with unspecified presence of clinical manifestation I70.203 ; Tinea unguium B35.1 ; Pain in right toe(s) M79.674 ; Pain in left toe(s) M79.675 and Skin ulcer of toe of right foot, limited to breakdown of skin L97.511 Assessments Encounter Date Diagnosis (ICD Code) Assessment Notes Treatment Notes Treatment Clinical Notes Section Notes 04/28/2024 Atherosclerosis of nikolai artery of both lower extremities, with unspecified presence of clinical manifestation (ICD-10 - I70.203) 04/28/2024 Tinea unguium (ICD-10 - B35.1) 04/28/2024 Pain in right toe(s) (ICD-10 - M79.674) 04/28/2024 Pain in left toe(s) (ICD-10 - M79.675) 04/28/2024 Skin ulcer of toe of right foot, limited to breakdown of skin (ICD-10 - L97.511) 04/28/2024 Other Plan Of Treatment Pending Test Test Name Order Date 72124-DOTTKCG NAIL, 6 OR MORE 04/28/2024 99375-UBVE SKIN LESIONS, 2 TO 4 04/28/20 24 Next Appt Details Follow Up: prn, Reason: Provider Name:Shahzad Rosado , 10/23/2024 11:00:00 AM, [address] [place], [address], Procedure Notes * Category Sub-Category Detail Notes [...] use of a nail nipper and/or dremel-type grinder operator external tool, to a more viable healthy nail plate [...] to maintain effectiveness in symptomatic relief - 64790 Keratoma Treatment Parring or Cutting o f [...] tissue nippers, and/or power dremel instrumentation - 20200, Q8 Progress Notes * Valery BURKETT MDOB: 5 (78 yo F)Acc No.[id number]:04/28/2024 Progress Note Patient:?Valery BURKETT Provider:?Shahzad Rosado DPM :1945???Age:78 Y???Sex:Female D ate:04/28/2024 Address:[address] [place], [place] [id number] Pcp:Noé Sigala MD Subjective: * Chief Complaints: [...] Assessment: 1.?Tinea unguium - B35.1???2 .?Atherosclerosis of nikolai artery of both lower extremities, with unspecified presence of clinical manifestation - I70.203 (Primary)???3.?Pain in right toe(s) - M79.674???4.?Pain in left toe(s) - M79.675 ??5.?Skin ulcer of toe of right foot, limited to breakdown of skin - L97.511???Specify :Response to treatment - Improvement??? Plan: * Treatment: 2.?Tinea unguium?Procedure: 75006-RRSTSQF NAIL, 6 OR MORE * Procedures:?Debride Nail [...] use of a nail nipper and/or dremel-type grinder operator external tool, to a more viable healthy nail plate [...] to maintain effectiveness in symptomatic relief - 66343.?Keratoma Treatment:?Parring or Cutting of Benign Hyperkeratotic Lesion(s)?(-56) [...] tissue nippers, and/or power dremel instrumentation - 10277, Q8.? * Procedure Codes:?02760 DEBRI DE NAIL, 6 OR MORE, Modifiers: XS 17791 TRIM SKIN LESIONS, 2 TO 4, Modifiers: [...] Rosado DPM Date:?2023 Generated for Luis arrieta/Rachel/Shonda on:?09/08/2024 10:45 AM EDT History and Physical Notes * [...]
--- OUTSIDE RECORDS SUMMARY | 2024-09-08 10:45 | XMS_ITS ---
Author Organization [facility] Address [address] [place] [address] Care Team Providers Care Animal Biologist Name Role Phone Noé Sigala MD Primary Care Provider Pelon Bustos Jr REASON FOR VISIT TOOK FISH OIL UNTIL SATURDAY Encounters Encounter Location Date Provider Diagnosis [facility] [address] [place] [address] 05/27/2023 Pelon Arroyo Jr Plan Of Treatment No Information Progress Notes * NIALL BURKETT MDOB: 5 (77 yo F)Acc No.[id number]:05/27/2023 Patient:?NIALL BURKETT :1945???Age:77 Y???Sex:Female Address:[address] [place] [address] * true * Date:? Generated for Printi meenakshi/Rachel/eTransmitting on:?09/08/2024 10:44 AM EDT
--- OUTSIDE RECORDS SUMMARY | 2024-09-08 10:46 | XMS_ITS ---
Author Organization [facility] Address [address] [place] [address] Care Team Providers Care Emotionally Impaired Teacher Name Role Phone Noé Sigala MD Primary Care Provider Shahzad Melvin Unavailable [phone] Allergies Allergen (clinical drug ingredient) Drug/Non Drug [...] Ordered Date Performed Result Body Sit e 91115-MMPJGER NAIL, 6 OR MORE 07/24/2024 N/A 15444-DRBG SKIN LESIONS, 2 TO 4 07/24/2024 N/A Encounters Encounter Location Date Provider Diagnosis [facility] [place] [address] [place] [address] 07/24/2024 Shahzad Rosado Atherosclerosis of [place] artery of both lower extremities, with unspecified presence of clinical manifestation I70.203 ; Tinea unguium B35.1 ; Pain in right toe(s) M79.674 ; Pain in left toe(s) M79.675 and Xerosis of skin L85.3 Assessments Encounter Date Diagnosis (ICD Code) Assessment Notes Treatment Notes Treatment Clinical Notes Section Notes 07/24/2024 Atherosclerosis of [place] artery of both lower extremities, with unspecified [...] days Pending Test Test Name Order Date 14610-COLMFLJ NAIL, 6 OR MORE 07/24/2024 15975-JGAU SKIN LESIONS, 2 TO 4 07/25/19 25 Next Appt Details Follow Up: prn, Reason: Provider Name:Shahzad Rosado , 10/23/2024 11:00:00 AM, [address] [place] [address], [phone], Procedure Notes * Category Sub-Category Detail Notes [...] use of a nail nipper and/or dremel-type broach grinder, to a more viable healthy nail [...] to maintain effectiveness in symptomatic relief - 55141 Keratoma Treatment Parring or Cutting o f [...] instrumentation by the physician of record - 83225, Q8 Progress Notes * Valery BURKETT MDOB: 5 (79 yo F)Acc No.[id number]:07/24/2024 Progress Note Patient:?Valery BURKETT Provider:?Shahzad Rosado DPM :1945???Age:79 Y???Sex:Female D ate:07/24/2024 Address:[address] [place] [address], [place] [facility] [id number] Pcp:Noé Sigala MD Subjective: * Chief Complaints: [...] Assessment: 1.?Tinea unguium - B35.1???2 .?Atherosclerosis of [place] artery of both lower extremities, with unspecified presence of clinical manifestation - I70.203 (Primary)???Specify :Q8???Notes :Q7(A), Q8(2B), Q9(1B,2C)???3.?Pain in right toe(s) - M79.674???4.?Pain in left toe(s) - M79.675???5.?Xerosis of skin - L85.3???Specify :Acute problem, Uncomplicated (3),Rx Management (4)??? Plan: * Treatment: 2.?Tinea unguium?Procedure: 73548-OONVBNM NAIL, 6 OR MORE 3.?Xerosis of skin? [...] use of a nail nipper and/or dremel-type broach grinder, to a more viable healthy nail [...] to maintain effectiveness in symptomatic relief - 14998.?Keratoma Treatment:?Parring or Cutting of Benign Hyperkeratotic Lesion(s)?(-56) [...] instrumentation by the physician of record - 82762, Q8.? * Procedure Codes:?60444 DEBRI DE NAIL, 6 OR MORE, Modifiers: XS 26632 TRIM SKIN LESIONS, 2 TO 4, Modifiers: [...] Rosado DPM Date:?2024 Generated for Luis arrieta/Rachel/Shonda on:?09/08/2024 10:45 AM [...]
--- OUTSIDE RECORDS SUMMARY | 2024-09-08 10:46 | XMS_ITS ---
Author Organization [facility] Address [address] [address] Care Team Providers Care Issuing Operator Name Role Phone Noé Sigala MD Primary Care Provider Pelno Bustos Jr Unavailable Allergies No Known Allergies REASON FOR VISIT [...] Problem Status W/U Status Risk Notes Problem 529068734 Colon cancer screening (Z12.11) Active confirmed Problem 253310784 FH: colon cancer (Z80.0) Active confirmed Problem 336278761 Long-term use of aspirin therapy (Z79.82) Active confirmed Vital Signs Temperature 96.6 degrees Fahrenheit 04/15/20 23 Blood pressure systolic 000 mm Hg 04/15/20 23 Blood pressure diastolic 00 mm Hg 023 Height 67 in 04/15/2023 Weight 200 lbs 04/15/2023 BMI 31.32 kg/m2 04/15/2023 Encounters Encounter Location Date Provider Diagnosis [facility] [address] [place] [address] 04/15/2023 Pelon Arroyo Jr Colon cancer screening [...] NIALL BURKETT MDOB: 5 (77 yo F)Acc No.[id number]:04/15/2023 Progress Notes Patient:?NIALL BURKETT Provider:?Pelon Arroyo MD :1945???Age:77 Y???Sex:Female D ate:04/15/2023 Address:[address] [place] [address], [facility] Pcp:Noé Sigala MD Subjective: * Chief Complaints: [...] status: Completed true * Provider:?Pelon Arroyo MD Date:?1 2022 Generated for Luis arrieta/Rachel/eTransmitting on:?09/08/2024 10:45 AM EDT History and Physical [...]
--- OUTSIDE RECORDS SUMMARY | 2024-09-08 10:46 | XMS_ITS | Patient Health Record ---
Author Organization [facility] Address [address] [facility] [place] [address] Care Team Providers Care Electrician Machine Shop Name Role Phone Noé Sigala MD Primary Care Provider Unavaila Shahzad Aguilar Unavailable [phone] Feli Harrell Unavailable [phone] Allergies Allergen (clinical drug ingredient) Drug/Non Drug [...] Problem Status W/U Status Risk Notes Problem Bilateral atherosclerosis of arteries of lower limbs (disorder) (15764646318432509 ) Atherosclerosis of solomon artery of both lower extremities, with unspecified presence of clinical manifestation (I70.203) Active confirmed Q7(A), Q8(2B), Q9(1B,2 C) Vital Signs Blood pressure diastolic 80 mm Hg 07/24/2024 Height 5 ft 6 in in 07/24/2024 Blood pressure systolic 120 mm Hg 07/24/2024 Weight 190 lbs 07/24/2024 BMI 30.66 kg/m2 07/24/2024 Procedures Procedure Date Ordered Date Performed Result Body Sit e 13452-JMGQRQL NAIL, 6 OR MORE 11/19/2023 N/A 37295- Debride <25 sq cm 11/19/2023 N/A 87572-FBSZ SKIN LESIONS, 2 TO 4 11/19/2023 N/A 18138-QCWHCUF NAIL, 6 OR MORE 01/28/2024 N/A 54233- Debride <25 sq cm 01/28/2024 N/A 18986-OZEP SKIN LESIONS, 2 TO 4 01/28/2024 N/A 12011-FWUZCQM NAIL, 6 OR MORE 04/28/2024 N/A 10223-FGZF SKIN LESIONS, 2 TO 4 04/28/2024 N/A 63530-PNSUHUV NAIL, 6 OR MORE 07/24/2024 N/A 81107-OFAU SKIN LESIONS, 2 TO 4 07/24/2024 N/A Encounters Encounter Location Date Provider Diagnosis [facility] [place] [address] [place] [address] 11/19/2023 Shahzad Rosado Atherosclerosis of n ative [...] metatarsophalangeal joint of toe, initial encounter S93.149A [address] [address] 01/28/2024 Shahzad Rosado Atherosclerosis of n ative [...] foot M77.51 and Metatarsalgia, right foot M77.[address] [address] 04/28/2024 Shahzad Rosado Atherosclerosis of n ative artery of both lower extremities, with unspecified presence of clinical manifestation I70.203 ; Tinea unguium B35.1 ; Pain in right toe(s) M79.674 ; Pain in left toe(s) M79.675 and Skin ulcer of toe of right foot, limited to breakdown of skin L97.[address] [address] 07/24/2024 Shahzad Rosado Atherosclerosis of n ative artery of both lower extremities, with unspecified presence of clinical manifestation I70.203 ; Tinea unguium B35.1 ; Pain in right toe(s) M79.674 ; Pain in left toe(s) M79.675 and Xerosis of skin L85.[address] [address] 10/07/2023 Feli Harrell [address] [address] 01/28/2024 Shahzad Rosado [address] [address] 07/24/2024 Shahzad Rosado Assessments Encounter Date Diagnosis (ICD Code) Assessment Notes Treatment Notes Treatment Clinical Notes Section Notes 11/19/2023 Tinea unguium (ICD-1 0 - B35.1) 11/19/2023 Atherosclerosis of solomon artery of both lower extremities, with unspecified presence of clinical manifestation (ICD-10 - I70.203) 01/28/2024 Tinea unguium (ICD-1 0 - B35.1) 01/28/2024 Atherosclerosis of solomon artery of both lower extremities, with unspecified presence of clinical manifestation (ICD-10 - I70.203) 04/28/2024 Tinea unguium (ICD-1 0 - B35.1) 04/28/2024 Atherosclerosis of solomon artery of both lower extremities, with unspecified presence of clinical manifestation (ICD-10 - I70.203) 07/24/2024 Tinea unguium (ICD-1 0 - B35.1) 07/24/2024 Atherosclerosis of solomon artery of both lower extremities, with unspecified [...] Treatment Pending Test Test Name Order Date 86269-PSIIMJU NAIL, 6 OR MORE 11/19/2023 61095-OAMXVFW NAIL, 6 OR MORE 01/28/2024 85139-EZQLATP NAIL, 6 OR MORE 04/28/2024 70391-YHOLANK NAIL, 6 OR MORE 07/24/2024 42266- Debride <25 sq cm 01/28/2024 62528- Debride <25 sq cm 11/19/2023 89502-LYOR SKIN LESIONS, 2 TO 4 11/19/19 24 08233-UBTM SKIN LESIONS, 2 TO 4 01/28/20 24 81712-KFYQ SKIN LESIONS, 2 TO 4 07/25/19 25 03455-MOZN SKIN LESIONS, 2 TO 4 04/28/20 24 Next Appt Details Provider Name:Shahzad Rosado , 10/23/2024 11:00:00 AM, [address] [place], [address], Insurance Providers Payer Name Payer Address Payer Phone Subscriber Number Group Number Insured Name Patient Relationship to Insured Coverage Start Date Coverage End Date Medicare National Govt Sv[employer] [address] [place] [address] [id number] Valery Cano Self - patient is the insured [employer] [address] [place] [address] [id number] Valery Cano Self - patient is the insured Medical (General) History Medical History History ICD Code Back,Hip,and Knee pain Broken bones Cataracts Fibromyalgia Headaches/Migraines Heart disease thyroid Measles Mumps Chicken pox Pacemaker CAD ( Coronary Artery Disease) Surgical History Surgery Date(Month/Year) cardiac pacemeker 08/27/2023 basal cell removal 06/21/2023
== END 2024-09-08 10:13 | disposition home or self-care (01) ==
PROVIDERS: PCP Internal Medicine; Visit Provider Internal Medicine Cardiovascular Disease
DX: I47.10 Supraventricular tachycardia, unspecified (principal); Z95.0 Presence of cardiac pacemaker
CPT/HCPCS: 93280; 99214; G2211

== ENCOUNTER → 2024-09-08 09:40 | Outpatient (BNVA) | payer MEDICARE, OTHER, SELFPAY | PROVIDERS: PCP Internal Medicine; Visit Provider Internal Medicine Cardiovascular Disease | DX: I47.10 Supraventricular tachycardia, unspecified (principal); Z45.018 Encounter for adjustment and management of other part of cardiac pacemaker | CPT/HCPCS: 93280; 99212 ==

== ENCOUNTER → 2024-09-17 10:18 | Outpatient (BNVA) | payer MEDICARE, OTHER, SELFPAY | PROVIDERS: PCP Internal Medicine | DX: Z13.89 Encounter for screening for other disorder (principal) ==

== ENCOUNTER 2024-09-17 11:24 | Outpatient (REF) | payer MEDICARE, OTHER, SELFPAY ==
[2024-09-17 14:11] LABS: Appearance Urine Clear; Color Urine Yellow; Glucose Urine UA Negative (Negative); Leukocyte Esterase Urine Trace (Negative); Nitrite Urine Negative (Negative); PH 6.5 (5.0-9.0); UMIC TRIGGER UACC YES; Urine Blood Negative (Negative); Urine Ketones Negative (Negative); Urine Protein Negative (Neg-Trace)
[2024-09-17 14:16] LABS: Bacteria Urine None Seen (None Seen); Hyaline Casts Urine 0-2 /LPF (0-2); RBC Urine 0-2 /HPF (0-2); Squamous Epithelial Cell Urine 0-2 /HPF (0-2); WBC Urine 0-5 /HPF (0-5)
== END 2024-09-17 11:25 | disposition home or self-care (01) ==
LOC: HO.10HDLNP 11:24
PROVIDERS: Visit Provider Internal Medicine
DX: R10.9 Unspecified abdominal pain (principal); R31.9 Hematuria, unspecified
CPT/HCPCS: 81001; 81003

== ENCOUNTER 2024-09-24 09:23 | Outpatient (REF) | payer MEDICARE, OTHER, SELFPAY ==
--- NOTE | ~2024-09-24 | US_ITS ---
EXAMINATION: US RETROPERITONEAL LIMITED (RENAL ONLY) CLINICAL INFORMATION: Hematuria, unspecified.. COMPARISON: 01/27/2020. TECHNIQUE: Real-time imaging of the kidneys. FINDINGS: RIGHT KIDNEY: 10.9 x 4.5 x 6.5 cm (SAG x AP x TRV). The kidney is normal in size, contour, and echogenicity. Renal cortical thickness is normal. No focal parenchymal lesions. No hydronephrosis. Nonobstructing lower pole calculus measuring 4 mm. LEFT KIDNEY: 11.1 x 5.1 x 5.4 cm (SAG x AP x TRV). The kidney is normal in size, contour, and echogenicity. Renal cortical thickness is normal. No focal suspicious parenchymal lesions. There are several small parapelvic cysts, mimicking caliectasis. There are several nonobstructing calculi present, with 2 in the midpole, larger measuring up to 1.3 cm, smaller measuring 1.0 cm. There is one in the upper pole measuring 7 mm. There is one in the lower pole measuring 4 mm. US/US renal BI IMPRESSION: 1. Bilateral nonobstructing nephrolithiasis of the left greater than right kidneys as discussed. Largest calculus in the left kidney measures up to 1.3 cm. 2. Parapelvic cysts within the left kidney, mimicking caliectasis. Electronically signed by: Elías Montiel MD 09/24/2024 10:17 AM EDT
--- OUTSIDE RECORDS SUMMARY | 2024-09-24 10:01 | XMS_ITS ---
Author Organization [facility] Address [address] [place] [address] Care Team Providers Care Child Support Case Officer Name Role Phone Noé Sigala MD Primary Care Provider Pelon Bustos Jr REASON FOR VISIT TOOK FISH OIL UNTIL SATURDAY Encounters Encounter Location Date Provider Diagnosis [facility] [address] [place] [address] 05/27/2023 Pelon Arroyo Jr Plan Of Treatment No Information Progress Notes * NIALL BURKETT MDOB: 5 (77 yo F)Acc No.[id number]:05/27/2023 Patient:?NIALL BURKETT :1945???Age:77 Y???Sex:Female Address:[address] [place] [address] * true * Date:? Generated for Elaynei meenakshi/Rachel/eTransmitting on:?09/24/2024 10:01 AM EDT
--- OUTSIDE RECORDS SUMMARY | 2024-09-24 10:01 | XMS_ITS | Data Portability ---
Author Organization [place] - [facility] Address [address] [address] Care Team Providers Care Telescope Operator Name Role Phone INOCENCIA SALINAS Primary Care Provider [phone] Assessment No assessment recorded. Plan of Treatment Reminders Order Date Submit Date Provider Last Modified By Organization Details Last Modified Time Details Appointments None record ed. Lab None record ed. Referral None record ed. Procedures None record ed. Surgeries None record ed. Imaging None record ed. Medication Orders None record ed. Patient TargetsNo targets recorded. Patient InstructionsNo instructions recorded. Reason for Referral None Reported. Results Created Date Observation Date Name Description Value Unit Range Abnormal Flag Note LastModifiedBy Organization Detail LastModifiedTime 09/10/19 25 audio gram No observ ation record ed. BARCODE Not Available 2024 13:16:31 Result Notes None recorded. Problems Name Problem SNOMED Code Status Onset Date Resolution Date Notes Provider Name and Address Organization Details Recorded Time Sensorin eural hearing loss in left ear 41857526814 109 Active 2016 Sensorin eural hearing loss, unilater al, left ear, with restrict ed hearing on the contrala teral side; Note: Date Diagnose d: 7 10:10 AM (H90.A22 ) Not Available [facility] 4 02:20:40 Otalgia of right ear 1615421185 Active 2018 Otalgia, right ear; Note: Date Diagnose d: 9 11:10 AM (H92.01) Not Available [facility] 4 02:20:55 Otorrhea of right ear 59323420140 79614 Completed 201612/20/2023 Otorrhea , right ear; Note: Date Diagnose d: 01/25/2017 12:25 PM (H92.11) Not Available [facility] 4 02:21:04 Bilatera l disorder of Eustachi an tubes 86463649904 12389 Active 2016 Other specifie d disorder s of Eustachi an tube, bilatera l; Note: Date Diagnose d: 10/24/2016 3:35 PM (H69.83) Not Available [facility] 4 02:21:33 Asymmetr ical sensorin eural hearing loss 853243360 Active 2014 Sensorin eural hearing loss asymmetr ic; Note: Date Diagnose d: 5 3:54 PM (389.16) Not Available [facility] 4 02:21:22 Cough 50988071 Active 2016 Cough; Note: Date Diagnose d: 04/16/20 17 8:53 AM (R05) Not Available [facility] 4 02:21:01 Pain of right temporom andibula r joint 61950393885 375114 Active 2018 Arthralg ia of right temporom andibula r joint; Note: Date Diagnose d: 9 11:10 AM (M26.621 ) Not Available [facility] 4 02:21:11 Disorder of right Eustachi an tube 25258842523 32582 Active 2017 Other specifie d disorder s of Eustachi an tube, right ear; Note: Date Diagnose d: 8 3:54 PM (H69.81) Not Available [facility] 4 02:21:07 Impacted cerumen of bilatera l ears 87372215848 98882 Active 2017 Impacted cerumen, bilatera l; Note: Date Diagnose d: 8 3:54 PM (H61.23) Not Available [facility] 4 02:21:10 Mixed conducti ve and sensorin eural hearing loss of right ear 52499776770 105 Active 2016 Mixed conducti ve and sensorin eural hearing loss, unilater al, right ear with restrict ed hearing on the contrala teral side; Note: Date Diagnose d: 10/24/2016 3:35 PM (H90.A31 ) Not Available [facility] 4 02:20:54 Sensorin eural hearing loss of bilatera l ears 705750205 Active 2014 Sensorin eural hearing loss, bilatera l; Note: Date Diagnose d: 01/25/2015 10:47 AM (H90.3) Not Available [facility] 4 02:21:07 Benign paroxysm al position al vertigo 064945912 Active 2014 Benign paroxysm al position al vertigo; Note: Date Diagnose d: 5 3:54 PM (386.11) Not Available [facility] 4 02:20:42 Chronic serous otitis media 54867520 Active 2016 Serous otitis media Chronic; Note: Date Diagnose d: 7 12:22 PM (381.10) Not Available [facility] 4 02:20:51 Nasal congesti on 44895913 Active 2016 Nasal congesti on; Note: Date Diagnose d: 04/16/20 17 8:50 AM (R09.81) Not Available [facility] 4 02:21:32 Acute serous otitis media of right ear 39621451744 20889 Active 2016 Acute serous otitis media, right ear; Note: Date Diagnose d: 7 10:11 AM (H65.01) Not Available [facility] 4 02:21:21 Chronic serous otitis media of right ear 713820834 Active 2018 Chronic serous otitis media, right ear; Note: Date Diagnose d: 9 11:07 AM (H65.21) Chroni c serous otitis media, right ear; Note: Changed from H65.22 to H65.21 (01/02/20 17 2:18 PM) , Date Diagnose d: 7 12:27 PM (H65.22) ; Start Date : 01/02/20 17 Not Available [facility] 4 02:20:48 Adhesive middle ear disease 6193246 Active 2018 Adhesive right middle ear disease; Note: Date Diagnose d: 9 9:16 AM (H74.11) Not Available [facility] 4 02:21:34 Allergic rhinitis 14971534 Active 2016 Allergic rhinitis : Due to other allergen ; Note: Date Diagnose d: 7 9:26 AM (477.8) Not Available [facility] 4 02:20:48 Chronic serous otitis media of left ear 269134631 Active 2016 Chronic serous otitis media, left ear; Note: Changed from H65.02 to H65.22 ( 017 8:45 AM) , Date Diagnose d: 7 10:44 AM (H65.02) Not Available [facility] 4 02:21:33 Problem Notes None recorded. Procedures Surgical History Date Name Laterality Status Provider Name and Address Organization Details Recorded Time 09/09/2024 Air & Speech Audio with Tymps - 21234, 37928 & 01341 completed JUSTICE PEREZ, [address], [address], [facility] - [facility] 09/09/2024 12:53:18 Imaging Results Imaging Date Name Status LastModified by Organiz ation Details LastModified Time 09/09/2024 audiogram completed BARCODE Information no t available 09/09/2024 13:16:31 Procedure Notes None recorded. Medical Equipment None Reported. Medications Name Sig Start Date Stop Date Status Note LastModified by Organization Details LastModified Time amoxicill in 500 mg capsule TAKE 1 CAPSULE( S) BY MOUTH FOUR TIMES A DAY active Not Available Not Available No t Available Augmentin 875 mg-125 mg tablet 2016 active Medicati on ID: [id number] D uration Value: 10 Prescri bed By Name: LUCILLE Pierce nd Name: Glenroy morgan Send Method: E-Prescr ibed Sub s Allowed: subs OK Speci al Instruct ion: 1 po bid for 10 days Med icationG enericNa me: Augmenti n Not Available Not Available Not Available atorvasta tin 20 mg tablet 02/03 completed Medicati on ID: 80996 Du ration Value: 90 Reason: () Brand Name: atorvast atin Sen d Method: E-Prescr ibed Sub s Allowed: subs OK Medic ationGen ericName : atorvast atin Not Available Not Available Not Available atorvasta tin 10 mg tablet TAKE 1 TABLET BY MOUTH EVERY NIGHT. active Not Available Not Available No t Available tolterodi ne ER 4 mg capsule,e xtended release 24 hr TAKE 1 CAPSULE BY MOUTH EVERY DAY active Not Available Not Available No t Available sotalol 80 mg tablet 11/01 completed Medicati on ID: 52441 Du ration Value: 90 Reason: () Brand Name: sotalol Send Method: E-Prescr ibed Sub s Allowed: subs OK Speci al Instruct ion: TAKE 1 TABLET BY MOUTH TWICE A DAY Medi cationGe nericNam e: sotalol Not Available Not Available Not Available diltiazem CD 240 mg capsule,e xtended release 24 hr TAKE 1 CAPSULE BY MOUTH EVERY DAY active Not Available Not Available No t Available prednison e 20 mg tablet 2 tablet by mouth 2016 active Medicati on ID: 196648 D uration Value: 5 Prescri bed By Name: LUCILLE Pierce nd Name: predniso ne Send Method: E-Prescr ibed Sub s Allowed: subs OK Medic ationGen ericName : predniso ne Not Available Not Available Not Available Ciloxan 0.3 % eye drops active Medicati on ID: 459282 P rescribe d By Name: LUCILLE Pierce nd Name: Ciloxan Send Method: E-Prescr ibed Sub s Allowed: subs OK Darrell al Instruct ion: Instill 4 drops twice a day into affected ear for 10 days Med icationG enericNa me: Ciloxan Not Available Not Available Not Available levothyro xine 50 mcg tablet TAKE 1 TABLET BY MOUTH EVERY DAY active Not Available Not Available No t Available ammonium lactate 12 % topical cream APPLY TOPICALL Y TO AFFECTED AREAS OF DRY SKIN,AND TWICE DAILY IN BETWEEN TOES FOR 30 DAYS active Not Available Not Available No t Available Aspir-81 mg tablet,de layed release 12/30 completed Medicati on ID: 01388 Re ason: () Brand Name: Aspir-81 Send Method: E-Prescr ibed Sub s Allowed: subs OK Medic ationGen ericName : Aspir-81 Not Available Not Available Not Available fluticaso ne propionat e 50 mcg/actua tion nasal spray,corrie pension 2 puff into both nostrils 2016 active Medicati on ID: [id number] D uration Value: 30 Prescri bed By Name: LUCILLE Pierce nd Name: fluticas one Send Method: E-Prescr ibed Sub s Allowed: subs OK Medic ationGen ericName : fluticas one Not Available Not Available Not Available Ciprodex 0.3 %-0.1 % ear drops,corrie pension 4 drop 2016 active Medicati on ID: 196626 D uration Value: 14 Prescri bed By Name: LUCILLE Pierce nd Name: Ciprodex Send Method: E-Prescr ibed Sub s Allowed: subs OK Medic ationGen ericName : Ciprodex Not Available Not Available Not Available Symbicort 80 mcg-4.5 mcg/actua tion HFA aerosol inhaler 2018 active Medicati on ID: [id number] D uration Value: 90 Brand Name: Symbicor t Send Method: E-Prescr ibed Sub s Allowed: subs OK Speci al Instruct ion: INHALE 2 PUFFS TWICE A DAY Medi cationGe nericNam e: Symbicor t Not Available Not Available Not Available Dulera 200 mcg-5 mcg/actua tion HFA aerosol inhaler INHALE 2 PUFFS TWICE A DAY FOR COPD 30 DAYS active Not Available Not Available No t Available Vitals None Recorded Social History None recorded. Functional Status None recorded. Mental Status None recorded. Family History Nothing Reported. Medical History No medical history recorded. Gynecological HistoryNo gynecological history recorded. Obstetrics History GPAL:G 0 P 0 0 0 0 Past Encounters Encounter ID Performer Location Encounter Start Date Encounter Closed Date Diagnosis/Indication Diagnosis SNOMED-CT Code Diagnosis ICD10 Code Diagnosis Note [id number] OLAMIDE RIOS [facility] of [address] [address] 08/12/2024 09:55:35 08/17/2024 13:21:36 Sensorineural hearing loss of bilateral ears 862502085 H90.3 [id number] OLAMIDE RIOS [place] [address] [facility], [address] [place] [address] 09/09/2024 11:11:45 09/09/2024 12:47:34 Sensorineural hearing loss of bilateral ears 685575573 H90.3 Right Ear:Normal hearing through 250 Hz sloping to a severe SNHL with excellent speech discrimina tion. Left Ear:Normal hearing through 1K Hz sloping to a severe SNHL with excellent speech discrimina tion. Health Concerns Section Related Observation LastModified by Organization Detai ls LastModified Time None Recorded Concern Status LastModified by Organization Details LastModified Time None Recorded Advance Directives Directive None Recorded Payers Insurance Date Sequence Insurance Name Policy Number Policy Babb Covered Member ID Babb Member ID Guarantor Name 09/09/2024 1 [place]: [employer] Valery Rodas Jerome [id number] Valery Clark Cano 09/18/2024 2 [facility] INDEMNITY PLAN (MEDICARE SUPPLEMENT) [id number] Valery Rodas Jerome [id number] Valery Rodas Jerome Notes Date Note Type Note Provider Name and Address Organization Details Recorded Time 08/12/2024 text/html Came in yesterda y for a BONILLA check. Her right aid has not been working for about a month. Cleaned checked both aids. The right aid actually had 2 cerushields in the cloth classer- once they were removed, the aid was [...] her know about the new [employer] benefit. OLAMIDE RIOS [address] [facility] [address], [place], [address], [facility] - [facility] 08/12/2024 09:59:29 09/09/2024 text/html Has been doing pretty well since out last visit. Turned up aids slightly per pt request.Also increased noise block. Audio is stable AU. Encouraged her to use the VC as needed.She will call if she needs additional adjs. JUSTICE PEREZ, [facility] [address] [facility],[place] [address], [place], [address], [facility] - [facility] 09/09/2024 12:55:43 OBGyn Episode No OBEpisode recorded.
--- OUTSIDE RECORDS SUMMARY | 2024-09-24 10:01 | XMS_ITS | Patient Health Record ---
Author Organization [facility] Address [address] [place] [address] Care Team Providers Care Spinning Machine Tender Name Role Phone Noé Sigala MD [...] Problem Status W/U Status Risk Notes Problem 462512250 Colon cancer screening (Z12.11) Active confirmed Problem 35624646 Rectal bleeding (K62.5) Active confirmed Problem 007800783 Long-term use of aspirin therapy (Z79.82) Active confirmed Problem 452074250 RUQ pain (R10.11) Active confirmed Problem 813968871 FH: colon cancer (Z80.0) Active confirmed Plan Of Treatment Future Test Test Name Order Date COLONOSCOPY 04/19/2016 COLONOSCOPY 04/15/2023 Insurance Providers Payer Name Payer Address Payer Phone Subscriber Number Group Number Insured Name Patient Relationship to Insured Coverage Start Date Coverage End Date MEDICARE OF [place] [address] [place] [address] [id number] NIALL BURKETT Self - patient is the insured [facility] [employer] [address] [place] [address] [id number] NIALL BURKETT Self - patient is the [...]
--- OUTSIDE RECORDS SUMMARY | 2024-09-24 10:01 | XMS_ITS ---
Author Organization [facility] Address [address] [place] [address] Care Team Providers Care Statement Clerks Supervisor Name Role Phone Noé Sigala MD Primary Care Provider Pelon Bustos Jr REASON FOR VISIT screening,fam hx colon ca Encounters Encounter Location Date Provider Diagnosis [facility] Outpatient [address] [place] [phone] 05/28/2023 Pelon Arroyo Jr Encounter for screening colonoscopy Z12.11 and Family history of colon cancer Z80.0 Assessments Encounter Date Diagnosis (ICD Code) Assessment Notes Treatment Notes Treatment Clinical Notes Section Notes 05/28/2023 Encounter for screening colonoscopy (ICD-10 - Z12.11) 05/28/2023 Family history of colon cancer (ICD-10 - Z80.0) Plan Of Treatment No Information Progress Notes * NIALL BURKETT MDOB: 5 (79 yo F)Acc No.[id number]:05/28/2023 COLON WITH MAC Patient:?NIALL BURKETT Provider:?Pelon Arroyo MD :1945???Age:77 Y???Sex:Female D ate:05/28/2023 Address:[address] [place], [place] [phone] Pcp:Noé Sigala MD Subjective: * Chief Complaints: [...] MD Date:?0 05/28/2023 Generated for Luis arrieta/Rachel/Shonda on:?09/24/2024 10:01 AM EDT
--- OUTSIDE RECORDS SUMMARY | 2024-09-24 10:01 | XMS_ITS | Clinical Summary ---
Author Organization [facility] Address [address] [place] [address] Care Team Providers Care Renal Dialysis Technician Name Role Phone Unavailable Primary Care Provider [...] ( - 2023-2 5 season) 2024 Influenza (Season Ended) 2025 HPV Vaccine Aged Out No longer eligi [...]
--- OUTSIDE RECORDS SUMMARY | 2024-09-24 10:02 | XMS_ITS ---
Author Organization [facility] Address [address] [place] [address] Care Team Providers Care Goring Cutter Name Role Phone Noé Sigaal MD Primary Care Provider Pelon Bustos Jr Unavailable [phone] Allergies No Known Allergies REASON FOR VISIT [...] Problem Status W/U Status Risk Notes Problem 444796096 Colon cancer screening (Z12.11) Active confirmed Problem 706666707 FH: colon cancer (Z80.0) Active confirmed Problem 574233258 Long-term use of aspirin therapy (Z79.82) Active confirmed Vital Signs Temperature 96.6 degrees Fahrenheit 04/15/20 23 Blood pressure systolic 000 mm Hg 04/15/20 23 Blood pressure diastolic 00 mm Hg 023 Height 67 in 04/15/2023 Weight 200 lbs 04/15/2023 BMI 31.32 kg/m2 04/15/2023 Encounters Encounter Location Date Provider Diagnosis [facility] [address] [place] [address] 04/15/2023 Pelon Arroyo Jr Colon cancer screening [...] NIALL BURKETT MDOB: 5 (77 yo F)Acc No.[id number]:04/15/2023 Progress Notes Patient:?NIALL BURKETT Provider:?Pelon Arroyo MD :1945???Age:77 Y???Sex:Female D ate:04/15/2023 Address:[address] [place] [address], [facility] Pcp:Noé Sigala MD Subjective: * Chief Complaints: [...] Provider:?Pelon Arroyo MD Date:?2022 Generated for Luis arrieta/Rachel/eTransmitting on:?09/24/2024 10:01 AM EDT History and Physical Notes * [...]
== END 2024-09-24 09:24 | disposition home or self-care (01) ==
LOC: HO.HMGCX 09:23
PROVIDERS: PCP Internal Medicine; Visit Provider Internal Medicine
DX: R10.9 Unspecified abdominal pain (principal); R31.9 Hematuria, unspecified
CPT/HCPCS: 76775

== ENCOUNTER → 2024-09-24 09:28 | Outpatient (BNV) | payer MEDICARE, OTHER, SELFPAY | PROVIDERS: PCP Internal Medicine; Visit Provider Radiology Diagnostic Radiology | DX: N20.0 Calculus of kidney (principal) | CPT/HCPCS: 76775 ==

== ENCOUNTER → 2024-10-15 09:58 | Outpatient (BNVA) | payer MEDICARE, OTHER, SELFPAY | PROVIDERS: PCP Internal Medicine ==

== ENCOUNTER → 2024-11-07 23:59 | Outpatient (BNV) | payer MEDICARE, OTHER, SELFPAY ==
--- NOTE | 2024-11-24 14:41 | MHC.OFFVIS ---
Intake Visit Reasons: Remote device check- Medtronic Allergies No Known Allergies (No Known Allergies*) Allergy (Verified 11/17/24 14:43) PFSH Medical History Pacemaker at end of battery life Hypothyroidism Diabetes mellitus Degenerative joint disease Irritable bowel syndrome Diverticulosis Allergic rhinitis Cough SVT (supraventricular tachycardia) Complete heart block Cardiac pacemaker in situ Surgical History History of permanent cardiac pacemaker placement COPD (chronic obstructive pulmonary disease) H/O colonoscopy History of appendectomy History of hysterectomy Hx of eye surgery Family History Father No problems noted. Mother CVD (cardiovascular disease) Pacemaker Social History Housing: House Patient Tobacco Use Status: Former Tobacco user e-Cigarette/Vaping Use: Former Use service: No Current occupational status: retired Cognitive needs: No Hearing needs: No Vision needs: Yes (reading glasses) Office Procedures Cardiac Device Check Cardiac Device Check Details: Remote pacemaker report generated 11/07/2024. Pacemaker function is adequate. Reported episodes of atrial fibrillation noted are not confirmed by EGM. 90866-Kegqba Cardiac Device Interrogation, pacemaker Procedure code (CPT) selection complete Assessment & Plan Assessment & Plan (1) Cardiac pacemaker in situ: Comment: Medtronic dual-chamber. Did not tolerate asynchronous ventricular pacing Code(s): Z95.0 - Presence of cardiac pacemaker Category: Medical Plan: See above Coding Level of Care Code Procedure Only Diagnoses Cardiac pacemaker in situ Z95.0 CPT Codes Cardiac Device Check - Cardiac Device 12: 98168-Dnbqtw Cardiac Device Interrogation, pacemaker ([id number])
== END ==
PROVIDERS: PCP Internal Medicine; Visit Provider Internal Medicine Cardiovascular Disease
DX: Z45.018 Encounter for adjustment and management of other part of cardiac pacemaker (principal)
CPT/HCPCS: 93294

== ENCOUNTER 2024-11-17 13:46 | Outpatient (AMB) | payer MEDICARE, OTHER, SELFPAY ==
--- NOTE | 2024-11-17 13:48 | A.OFFVIS_ITS ---
Intake Visit Reasons: Kidney stones Intake Note: New Patient presents for initial visit for kidney stones Urology Medications: none Blood Thinner: aspirin Senior Escrow Officer Required: No Accompanied by: Self / Same As Patient Allergies No Known Allergies (No Known Allergies*) Allergy (Verified 11/17/24 14:43) Medication List - Last Reconciled 11/17/24 by DILLON Ramírez-ADENIKE aspirin (Ecotrin Low Strength) 81 mg PO DAILY atorvastatin 10 mg PO BEDTIME diltiazem HCl CD 240 mg PO DAILY inhalational spacing device (Aerochamber Mechanical Vent) As directed levothyroxine 50 mcg PO DAILY mirabegron ER (Myrbetriq) 25 mg PO DAILY 30 days mometasone-formoterol 200-5 mcg/actuation (Dulera) 2 puffs inhalation BID 30 days pyridoxine (vitamin B6) 100 mg PO DAILY 90 days HPI Comments Details: Valery is a very pleasant 79-year-old female patient of Dr. Sarah Bunn. She has a past medical history of nephrolithiasis, overactive bladder, hypothyroidism, diabetes, degenerative joint disease, irritable bowel syndrome, diverticulosis, allergic rhinitis, complete heart block status post dual-chamber pacemaker placement, and SVT. She presents to the office today as a new patient for her longstanding history of nephrolithiasis and overactive bladder. In discussion with the patient today she reports having followed up with her PCP approximately 3 months ago for ongoing flank pain and hematuria she had been experiencing at which time a renal ultrasound was ordered and performed and recommendations were made for urology referral. Renal ultrasound 10/11 noted bilateral nonobstructing nephrolithiasis left side greater than right. Right kidney with 4 mm nonobstructing calculi. Left kidney with several nonobstructing calculi present largest measuring 1.3 cm and 1.0 cm. No hydronephrosis noted bilaterally. There are peripelvic cyst within the left kidney. She discusses her longstanding history of nephrolithiasis and previously following up with Dr. Salgado as well as [facility] Dr. Greenberg. She denies ever having any surgical intervention for nephrolithiasis and has undergone surveillance monitoring. She also reports a longstanding history of overactive bladder and has been on tolterodine since 2021. She does not feel this is as helpful as it had been when she previously started. She reports noting episodes of urinary urgency and frequency as well as mixed urinary incontinence. We did discussed at length nephrolithiasis, overactive bladder, and mixed urinary incontinence. We discussed further interventions and risks and benefits of these interventions. We did discussed increase in stone burden. She denies dysuria, foul smelling urine, changes to urinary stream, flank pain, fever, and or chills. She reports episode of hematuria she had been experiencing has since subsided and believes she passed 2 small stones since follow-up with her PCP. In office urinalysis results reviewed with the patient today negative leukocytes negative nitrates negative microscopic hematuria. All questions were answered. She otherwise offers no other issues or concerns at this time. [facility] Medical History Pacemaker at end of battery life Hypothyroidism Diabetes mellitus Degenerative joint disease Irritable bowel syndrome Diverticulosis Allergic rhinitis Cough SVT (supraventricular tachycardia) Complete heart block Cardiac pacemaker in situ Surgical History History of permanent cardiac pacemaker placement COPD (chronic obstructive pulmonary disease) H/O colonoscopy History of appendectomy History of hysterectomy Hx of eye surgery Family History Father No problems noted. Mother CVD (cardiovascular disease) Pacemaker Social History Housing: House Patient Tobacco Use Status: Former Tobacco user e-Cigarette/Vaping Use: Former Use service: No Current occupational status: retired Cognitive needs: No Hearing needs: No Vision needs: Yes (reading glasses) Review of Systems Const All systems reviewed & are unremarkable except as noted in HPI and below Physical Exam Const General: cooperative, healthy appearing, comfortable, no acute distress, well developed, alert and awake Orientation/consciousness: patient oriented x3 Limitations: ambulation with cane HEENT Head: Yes normal to inspection, Yes normocephalic and Yes atraumatic Ears: hearing grossly normal bilaterally Eyes General: appearance normal, both eyes and all related structures Neck Neck: Yes normal visual inspection and Yes trachea midline Chest Chest palpation & inspection: normal inspection of the chest Resp Effort & Inspection: normal respiratory effort and able to speak in complete sentences Cardio Rate: regular rate GI Inspection: Yes normal to inspection General: Yes no CVA tenderness Back/Spine/Pelvis Back: no CVA tenderness Skin General skin exam: no rashes or lesions noted Neuro General: patient oriented x3 Extrem General: Yes normal to inspection Psych Appearance: grossly normal and well kempt Mental Status: mental status grossly normal Speech and movement: Normal speech and movement present and Clear speech present Affect: normal affect Attitude: cooperative Thought process: Normal thought process present Thought content: Normal thought content present Insight: Fair insight present (Psych) Judgement: Fair judgement present (Psych) Results AMB Urinalysis, Automated UA Leukoctes 0 Daisy/uL Last Edit by Pascual Dey [facility] on 11/17/24 14:08 UA Nitrite Last Edit by Pascual Dey [facility] on 11/17/24 14:08 UA Urobilinogen 0.2 mg/dL Last Edit by Pascual Dey [facility] on 11/17/24 14:0 8 UA Protein 15 mg/dL Last Edit by Pascual Dey [facility] on 11/17/24 14:08 UA pH 6.0 Last Edit by Pascual Dey [facility] on 11/17/24 14:08 UA Blood 0 Lloyd/uL Last Edit by Pascual Dey [facility] on 11/17/24 14:08 UA Specific [place] 1.020 Last Edit by Pascual Dey [facility] on 11/17/24 14: 08 UA Ketone Last Edit by Pascual Dey [facility] on 11/17/24 14:08 UA Bilirubin 0 mg/dL Last Edit by Pascual Dey [facility] on 11/17/24 14:08 UA Glucose 0 mg/dL Last Edit by Pascual Dey [facility] on 11/17/24 14:08 Results Reviewed Results Reviewed: Laboratory Last Values Urine pH (Auto) 6.0 11/17/24 13:58 Specific [place] (Auto) 1.020 11/17/24 13:58 Urine Protein (Auto) 15 mg/dL 11/17/24 13:58 Glucose (UA)(Auto) 0 mg/dL 11/17/24 13:58 Urine Blood (Auto) 0 Lloyd/uL 11/17/24 13:58 Urine Bilirubin (Auto) 0 mg/dL 11/17/24 13:58 Urine Urobilinogen (Auto) 0.2 mg/dL 11/17/24 13:58 Leukocyte Esterase (Auto) 0 Daisy/uL 11/17/24 13:58 Date of Service: 09/24/24 Procedure(s): US renal BI FINDINGS: RIGHT KIDNEY: 10.9 x 4.5 x 6.5 cm (SAG x AP x TRV). The kidney is normal in size, contour, and echogenicity. Renal cortical thickness is normal. No focal parenchymal lesions. No hydronephrosis. Nonobstructing lower pole calculus measuring 4 mm. LEFT KIDNEY: 11.1 x 5.1 x 5.4 cm (SAG x AP x TRV). The kidney is normal in size, contour, and echogenicity. Renal cortical thickness is normal. No focal suspicious parenchymal lesions. There are several small parapelvic cysts, mimicking caliectasis. There are several nonobstructing calculi present, with 2 in the midpole, larger measuring up to 1.3 cm, smaller measuring 1.0 cm. There is one in the upper pole measuring 7 mm. There is one in the lower pole measuring 4 mm. IMPRESSION: 1. Bilateral nonobstructing nephrolithiasis of the left greater than right kidneys as discussed. Largest calculus in the left kidney measures up to 1.3 cm. 2. Parapelvic cysts within the left kidney, mimicking caliectasis. Assessment & Plan Assessment & Plan (1) Nephrolithiasis: Code(s): N20.0 - Calculus of kidney Category: Medical (2) Overactive bladder: Code(s): N32.81 - Overactive bladder Category: Medical (3) Urinary incontinence, mixed: Code(s): N39.46 - Mixed incontinence Category: Medical Plan In office urinalysis results reviewed with the patient today; as noted above. Recent renal imaging results with the patient today; as noted above. We discussed further intervention to include CT KUB for further assessment evaluation for potential surgical intervention however patient declines at this time as she does not feel this is necessary. Stop tolterodine. Start Myrbetriq as discussed and prescribed. We discussed the importance of adequate hydration relation to nephrolithiasis as well as overall health and well-being. We discussed adding 1 oz of lemon juice to water daily. Start vitamin B6 as discussed and prescribed. We did discuss increase in stone burden. All questions were answered. We also discussed cystoscopy as well as in office urodynamics; she will think about this. Follow-up in 1-3 months with [facility]; or sooner with any issues, concerns, and or questions. Orders: Orders AMB Urinalysis Automated Today Z13.9 - Encounter for screening, unspecified CT kidney stone 4 Months N20.0 - Calculus of kidney Medications: New mirabegron ER (Myrbetriq) 25 mg PO DAILY 30 tabs 3RF 30 days N30.10 - Interstitial cystitis (chronic) without hematuria, N32.81 - Overactive bladder, R35.1 - Nocturia, R39.15 - Urgency of urination pyridoxine (vitamin B6) 100 mg PO DAILY 90 tabs 1RF 90 days Patient Instructions: The patient had an opportunity to ask questions regarding the treatment plan. All questions were answered. Physical exam, labs, and imaging were discussed and reviewed in detail. As well as risks, benefits, and discussion of treatment choices. No major barriers to understanding were identified. The patient expressed understanding and agreement with the above treatment plan. The patient was made aware they should contact our office by phone for worsening of their current condition, the appearance of new symptoms, or with any questions or concerns. Compliance is encouraged with any medications and follow up testing that is ordered. It is a privilege to be allowed the opportunity to participate in? your urological care.? Again, if you have any questions or concerns If you have any questions or concerns please do not hesitate to contact me. The office is [phone]. This note is constructed using voice recognition software. While every effort has been made to ensure accuracy brush or broom cutter errors may have been included. Yours sincerely, KENROY Ramírez Coding Level of Care Code New Pt Level 4 (46469) Diagnoses Nephrolithiasis N20.0 Overactive bladder N32.81 Urinary incontinence, mixed N39.46
--- OUTSIDE RECORDS SUMMARY | 2024-11-17 14:56 | XMS_ITS | Patient Health Record ---
Author Organization [facility] Address [address] [place] [address] Care Team Providers Care Lead Ios Developer Name Role Phone Noé Sigala MD Primary Care Provider Pelon Bustos Jr Unavailable [phone] Allergies No Known Allergies Reason For Referral [...] Problem Status W/U Status Risk Notes Problem 315332926 Colon cancer screening (Z12.11) Active confirmed Problem 55286744 Rectal bleeding (K62.5) Active confirmed Problem 265665653 Long-term use of aspirin therapy (Z79.82) Active confirmed Problem 841415505 RUQ pain (R10.11) Active confirmed Problem 075644500 FH: colon cancer (Z80.0) Active confirmed Plan Of Treatment Future Test Test Name Order Date COLONOSCOPY 04/19/2016 COLONOSCOPY 04/15/2023 Insurance Providers Payer Name Payer Address Payer Phone Subscriber Number Group Number Insured Name Patient Relationship to Insured Coverage Start Date Coverage End Date MEDICARE OF [place] [address] [place] [address] [id number] NIALL BURKETT Self - patient is the insured [facility] INDEMNITY [address] [place] [address] [id number] NIALL BURKETT Self - patient is the [...]
--- OUTSIDE RECORDS SUMMARY | 2024-11-17 14:56 | XMS_ITS | Clinical Summary ---
Author Organization [facility] Address [address] [place] [address] Care Team Providers Care Plate Glass Grinder Name Role Phone Unavailable Primary Care Provider [...] - 2023-2 5 season) 2024 Influenza (#1) 2025 HPV Vaccine Aged Out No longer [...]
--- OUTSIDE RECORDS SUMMARY | 2024-11-17 14:56 | XMS_ITS | Data Portability ---
Author Organization [place] [facility], [facility] Address [address] [place] [id number] Care Team Providers Care Ornamental Metal Erector Apprentice Name Role Phone INOCENCIA SALINAS Primary Care [...] Sensorin eural hearing loss in left ear [id number] 109 Active 2016 Sensorin eural hearing loss, unilater al, left ear, with restrict ed hearing on the contrala teral side; Note: Date Diagnose d: 7 10:10 AM (H90.A22 ) Not Available [facility] 4 02:20:40 Otalgia of right ear 2930493171 Active 2018 Otalgia, right ear; Note: Date Diagnose d: 9 11:10 AM (H92.01) Not Available [facility] 4 02:20:55 Otorrhea of right ear [id number] 71705 Completed 201612/20/2023 Otorrhea , right ear; Note: Date Diagnose d: 01/25/2017 12:25 PM (H92.11) Not Available [facility] 4 02:21:04 Bilatera l disorder of Eustachi an tubes 87204528171 41575 Active 2016 Other specifie d disorder s of Eustachi an tube, bilatera l; Note: Date Diagnose d: 10/24/2016 3:35 PM (H69.83) Not Available [facility] 4 02:21:33 Asymmetr ical sensorin eural hearing loss 730876347 Active 2014 Sensorin eural hearing loss asymmetr ic; Note: Date Diagnose d: 5 3:54 PM (389.16) Not Available [facility] 4 02:21:22 Cough 12286351 Active 2016 Cough; Note: Date Diagnose d: 04/16/20 17 8:53 AM (R05) Not Available [facility] 4 02:21:01 Pain of right temporom andibula r joint 54409999438 780817 Active 2018 Arthralg ia of right temporom andibula r joint; Note: Date Diagnose d: 9 11:10 AM (M26.621 ) Not Available [facility] 4 02:21:11 Disorder of right Eustachi an tube 32401211757 60484 Active 2017 Other specifie d disorder s of Eustachi an tube, right ear; Note: Date Diagnose d: 8 3:54 PM (H69.81) Not Available [facility] 4 02:21:07 Impacted cerumen of bilatera l ears 35700197473 83558 Active 2017 Impacted cerumen, bilatera l; Note: Date Diagnose d: 8 3:54 PM (H61.23) Not Available [facility] 4 02:21:10 Mixed conducti ve and sensorin eural hearing loss of right ear 88977193391 105 Active 2016 Mixed conducti ve and sensorin eural hearing loss, unilater al, right ear with restrict ed hearing on the contrala teral side; Note: Date Diagnose d: 10/24/2016 3:35 PM (H90.A31 ) Not Available [facility] 4 02:20:54 Sensorin eural hearing loss of bilatera l ears 589628996 Active 2014 Sensorin eural hearing loss, bilatera l; Note: Date Diagnose d: 01/25/2015 10:47 AM (H90.3) Not Available [facility] 4 02:21:07 Benign paroxysm al position al vertigo 531276979 Active 2014 Benign paroxysm al position al vertigo; Note: Date Diagnose d: 5 3:54 PM (386.11) Not Available [facility] 4 02:20:42 Chronic serous otitis media 80507630 Active 2016 Serous otitis media Chronic; Note: Date Diagnose d: 7 12:22 PM (381.10) Not Available [facility] 4 02:20:51 Nasal congesti on 68792724 Active 2016 Nasal congesti on; Note: Date Diagnose d: 04/16/20 17 8:50 AM (R09.81) Not Available [facility] 4 02:21:32 Acute serous otitis media of right ear 47293720046 67680 Active 2016 Acute serous otitis media, right ear; Note: Date Diagnose d: 7 10:11 AM (H65.01) Not Available [facility] 4 02:21:21 Chronic serous otitis media of right ear 333616866 Active 2018 Chronic serous otitis media, right ear; Note: Date Diagnose d: 9 11:07 AM (H65.21) Chroni c serous otitis media, right ear; Note: Changed from H65.22 to H65.21 (01/02/20 17 2:18 PM) , Date Diagnose d: 7 12:27 PM (H65.22) ; Start Date : 01/02/20 17 Not Available [facility] 4 02:20:48 Adhesive middle ear disease 3681796 Active 2018 Adhesive right middle ear disease; Note: Date Diagnose d: 9 9:16 AM (H74.11) Not Available [facility] 4 02:21:34 Allergic rhinitis 07160074 Active 2016 Allergic rhinitis : Due to other allergen ; Note: Date Diagnose d: 7 9:26 AM (477.8) Not Available [facility] 4 02:20:48 Chronic serous otitis media of left ear 214842731 Active 2016 Chronic serous otitis media, left ear; Note: Changed from H65.02 to H65.22 ( 017 8:45 AM) , Date Diagnose d: 7 10:44 AM (H65.02) Not Available [facility] 4 02:21:33 Problem Notes None recorded. Procedures Surgical History Date Name Laterality Status Provider Name and Address Organization Details Recorded Time 09/09/2024 Air & Speech Audio with Tymps - 96909, 35220 & 21153 completed JUSTICE PEREZ, [address], [phone], [facility] 09/09/2024 12:53:18 Imaging Results None recorded. Procedure Notes None recorded. Medical Equipment None Reported. Medications Name Sig Start Date Stop Date Status Note LastModified by Organization Details LastModified Time amoxicill in 500 mg capsule TAKE 1 CAPSULE( S) BY MOUTH FOUR TIMES A DAY active Not Available Not Available No t Available Augmentin 875 mg-125 mg tablet 2016 active Medicati on ID: [id number] D uration Value: 10 Prescri bed By Name: LUCILLE Pierce nd Name: Augmenti n Send Method: E-Prescr ibed Sub s Allowed: subs OK Speci al Instruct ion: 1 po bid for 10 days Med icationG enericNa me: Augmenti n Not Available Not Available Not Available atorvasta tin 20 mg tablet 02/03 completed Medicati on ID: [id number] Du ration Value: 90 Reason: () Brand [...] mg tablet 11/01 completed Medicati on ID: 73489 Du ration Value: 90 Reason: () Brand [...] by mouth 2016 active Medicati on ID: [id number] D uration Value: 5 Prescri bed By Name: LUCILLE Pierce nd Name: predniso ne Send Method: E-Prescr ibed Sub s Allowed: subs OK Medic ationGen ericName : predniso ne Not Available Not Available Not Available Ciloxan 0.3 % eye drops active Medicati on ID: [id number] P rescribe d By Name: LUCILLE Pierce [...] layed release 12/30 completed Medicati on ID: [id number] Re ason: () Brand Name: Aspir-81 Send Method: E-Prescr ibed Sub s Allowed: subs OK Medic ationGen ericName : Aspir-81 Not Available Not Available Not Available fluticaso ne propionat e 50 mcg/actua tion nasal spray,corrie pension 2 puff into both nostrils 2016 active Medicati on ID: [id number] D uration Value: 30 Prescri bed By Name: LUCILLE Pierce nd Name: fluticas one Send Method: E-Prescr ibed Sub s Allowed: subs OK Medic ationGen ericName : fluticas one Not Available Not Available Not Available Ciprodex 0.3 %-0.1 % ear drops,corrie pension 4 drop 2016 active Medicati on ID: [id number] D uration Value: 14 Prescri bed By Name: LUCILLE Pierce nd Name: Ciprodex Send Method: E-Prescr ibed Sub s Allowed: subs OK Medic ationGen ericName : Ciprodex Not Available Not Available Not Available Symbicort 80 mcg-4.5 mcg/actua tion HFA aerosol inhaler 2018 active Medicati on ID: [id number] D uration Value: 90 Brand Name: Symbicor [...] SNOMED-CT Code Diagnosis ICD10 Code Diagnosis Note [id number] OLAMIDE RIOS [facility] [address] [place] [address] 08/12/2024 09:55:35 08/17/2024 13:21:36 Sensorineural hearing loss of bilateral ears 755394779 H90.3 [id number] OLAMIDE RIOS [place] [address] [place] [address] [phone] 09/09/2024 11:11:45 09/09/2024 12:47:34 Sensorineural hearing loss of bilateral ears 303933374 H90.3 Right Ear:Normal hearing through 250 Hz [...] ID Guarantor Name 09/09/2024 1 MEDICARE B-[place]: [facility] [employer] Valery Cano [id number] 2 Valery Rodas Jerome 09/18/2024 2 [facility] INDEMNITY PLAN (MEDICARE SUPPLEMENT) [id number] Valery Rodas Jerome [id number] Valery Rodas Jerome Notes Date Note Type Note Provider Name and Address Organization Details Recorded Time 08/12/2024 text/html Came in yesterda y for a BONILLA check. Her right aid has not been working for about a month. Cleaned checked both aids. The right aid actually had 2 cerushields in the breaker tender- once they were removed, the aid was [...] about the new [employer] benefit. JUSTICE PEREZ, AUD [address] [facility],[place] [address], [place], [address], [facility] 08/12/2024 09:59:29 09/09/2024 text/html Has been doing pretty well since out last visit. Turned up aids slightly per pt request.Also increased noise block. Audio is stable AU. Encouraged her to use the VC as needed.She will call if she needs additional adjs. JUSTICE PEREZ, AUD [address] [facility] [address], [place], [address], [facility] 09/09/2024 12:55:43 OBGyn Episode No OBEpisode recorded.
--- OUTSIDE RECORDS SUMMARY | 2024-11-17 14:56 | XMS_ITS | Patient Health Record ---
Author Organization [facility] Address [address] [facility] [place] [address] Care Team Providers Care Block Mason Name Role Phone Pari Amaya Primary Care Provider Shahzad Fuller Unavailable [phone] Allergies Allergen (clinical drug ingredient) Drug/Non Drug Allergy documented on EMR Reaction Allergy Type Onset Date Status Adhesive Unknown Allergy Active Results Component Value Reference Range Notes HEMOGLOBIN A1C (GLYCOHEMOGLO BIN) Reviewed date:10/23/2024 11:09:11 AM Interpretation: Performing Lab: Notes/Report: HEMOGLOBIN A1C % (HH) 7.0 Reason For Referral No Information Medications Medication SIG (Take, Route, Frequency, Duration) Notes Start Date End Date Status Aspirin Adult Low Dose 81 MG 1 tablet Orally Once a day; Duration: 30 day(s) Active Levothyroxine Sodium 50 MCG 1 tablet in the morning on an empty stomach Orally Once a day; Duration: 30 day(s) Active Tolterodine Tartrate ER 4 MG 1 capsule Orally Once a day; Duration: 30 day(s) Active Atorvastatin Calcium 10 MG 1 tablet Orally Once a day; Duration: 30 day(s) Active dilTIAZem HCl ER 240 MG 1 tablet Orally Once a day; Duration: 30 day(s) Active Symbicort 160-4.5 MCG/ACT 1 puff as need ed Inhalation every 4 hrs Not-Giuseppe g Ammonium Lactate 12 % 1 application Externally to affected areas of dry skin to feet except for between the toes Twice a day; Duration: 30 days Active Dulera Active Immunizations Vaccine Route Administration Date Status Comme nts Influenza Unknown 02/18/2024 Administered Influenza Unknown 02/18/2024 Administered Social History Tobacco Use: Social History Observation Description Date Details (start date - stop date) Never Smoker NA - NA Tobacco use other than smoking: Question Answer Notes Are you an other tobacco user? No Tobacco Control (Standard) Question Answer Notes Tobacco use: Nonsmoker AUDIT-C (Standard) Question Answer Notes Did you have a drink containing alcohol in the p ast year? No Points 0 Interpretation Negative Problems Problem Type SNOMED Code ICD Code Onset Dates Problem Status W/U Status Risk Notes Problem Type 2 diabetes mellitus with diabetic peripheral angiopathy without gangrene (E11.51) Active confirmed Q7(A), Q8(2B), Q9(1B,2C) Vital Signs Blood pressure diastolic 654 mm Hg 10/23/2024 Height 5 ft 6 in in 10/23/2024 Blood pressure systolic 128 mm Hg 10/23/2024 Weight 192 lbs 10/23/2024 BMI 30.99 kg/m2 10/23/2024 Procedures Procedure Date Ordered Date Performed Result Body Sit e 03192-TRJEXYC NAIL, 6 OR MORE 11/19/2023 N/A 08812- Debride <25 sq cm 11/19/2023 N/A 79849-KHOO SKIN LESIONS, 2 TO 4 11/19/2023 N/A 29488-XFQPDCM NAIL, 6 OR MORE 01/28/2024 N/A 29143- Debride <25 sq cm 01/28/2024 N/A 89973-NDIU SKIN LESIONS, 2 TO 4 01/28/2024 N/A 42804-QEAHYBT NAIL, 6 OR MORE 04/28/2024 N/A 70570-JOIB SKIN LESIONS, 2 TO 4 04/28/2024 N/A 51463-OZCXHIK NAIL, 6 OR MORE 07/24/2024 N/A 55927-BWDN SKIN LESIONS, 2 TO 4 07/24/2024 N/A 85703-NZEXPJQ NAIL, 6 OR MORE 10/23/2024 N/A 71625-KJFS SKIN LESIONS, 2 TO 4 10/23/2024 N/A Encounters Encounter Location Date Provider Diagnosis [facility] [address] [place] [address] 11/19/2023 Shahzad Rosado Atherosclerosis of n ative [...] metatarsophalangeal joint of toe, initial encounter S93.149A [address] [address] 01/28/2024 Shahzad Rosado Atherosclerosis of n ative [...] foot M77.51 and Metatarsalgia, right foot M77.[address] [address] 04/28/2024 Shahzad Rosado Atherosclerosis of n ative artery of both lower extremities, with unspecified presence of clinical manifestation I70.203 ; Tinea unguium B35.1 ; Pain in right toe(s) M79.674 ; Pain in left toe(s) M79.675 and Skin ulcer of toe of right foot, limited to breakdown of skin L97.[address] [address] 07/24/2024 Shahzad Rosado Atherosclerosis of n ative artery of both lower extremities, with unspecified presence of clinical manifestation I70.203 ; Tinea unguium B35.1 ; Pain in right toe(s) M79.674 ; Pain in left toe(s) M79.675 and Xerosis of skin L85.[address] [address] 10/23/2024 Shahzad Rosado Type 2 diabetes gurpreet itus with diabetic peripheral angiopathy without gangrene E11.51 ; Tinea unguium B35.1 ; Pain in right toe(s) M79.674 ; Pain in left toe(s) M79.675 and Xerosis of skin L85.[address] [address] 01/28/2024 Shahzad Rosado [address] [address] 07/24/2024 Shahzad Rosado Assessments Encounter Date Diagnosis (ICD Code) Assessment Notes Treatment Notes Treatment Clinical Notes Section Notes 11/19/2023 Tinea unguium (ICD-1 0 - B35.1) 11/19/2023 Atherosclerosis of [place] artery of both lower extremities, with unspecified presence of clinical manifestation (ICD-10 - I70.203) 01/28/2024 Tinea unguium (ICD-1 0 - B35.1) 01/28/2024 Atherosclerosis of [place] artery of both lower extremities, with unspecified presence of clinical manifestation (ICD-10 - I70.203) 04/28/2024 Tinea unguium (ICD-1 0 - B35.1) 04/28/2024 Atherosclerosis of [place] artery of both lower extremities, with unspecified presence of clinical manifestation (ICD-10 - I70.203) 07/24/2024 Tinea unguium (ICD-1 0 - B35.1) 07/24/2024 Atherosclerosis of [place] artery of both lower extremities, with unspecified presence of clinical manifestation (ICD-10 - I70.203) Q7(A), Q8(2B), Q9(1B,2C) 10/23/2024 Type 2 diabetes mellitus with diabetic peripheral angiopathy without gangrene (ICD-10 - E11.51) Q7(A), Q8(2B), Q9(1B,2C) 10/23/2024 Tinea unguium (ICD-1 0 - B35.1) 10/23/2024 Pain in right toe(s) (ICD-10 - M79.674) 04/28/2024 Pain in right toe(s) (ICD-10 - [...] Pain in left toe(s) (ICD-10 - M79.675) 10/23/2024 Pain in left toe(s) (ICD-10 - M79.675) 10/23/2024 Xerosis of skin (ICD-10 - L85.3) 04/28/2024 Skin ulcer of toe of right [...] Treatment Pending Test Test Name Order Date 88659-QTSBFJA NAIL, 6 OR MORE 11/19/2023 86101-TZOWUJA NAIL, 6 OR MORE 01/28/2024 10102-TDEREZF NAIL, 6 OR MORE 04/28/2024 56158-WPVAPES NAIL, 6 OR MORE 07/24/2024 49112-BTQYANM NAIL, 6 OR MORE 10/23/2024 50120- Debride <25 sq cm 01/28/2024 63599- Debride <25 sq cm 11/19/2023 59605-PVTO SKIN LESIONS, 2 TO 4 11/19/19 24 66909-HFRL SKIN LESIONS, 2 TO 4 01/28/20 24 47436-CHLE SKIN LESIONS, 2 TO 4 07/25/19 25 20988-OFMX SKIN LESIONS, 2 TO 4 04/28/20 24 09909-PFVM SKIN LESIONS, 2 TO 4 10/24/19 25 Next Appt Details Provider Name:Shahzad Samina Rosado , 01/26/2025 03:15:00 PM, [address] [place], [address], Insurance Providers Payer Name Payer Address Payer Phone Subscriber Number Group Number Insured Name Patient Relationship to Insured Coverage Start Date Coverage End Date Medicare National Govt [facility] [address] [facility] [place] [address] [id number] Valery Cano Self - patient is the insured [facility] [address] [place] [id number] [phone] [id number] Vicente Canoa Self - patient is the insured Medical (General) History Medical History History ICD Code Back,Hip,and Knee pain Broken bones Cataracts Fibromyalgia Headaches/Migraines Heart disease thyroid Measles Mumps Chicken pox Pacemaker CAD ( Coronary Artery Disease) Diabetes mellitus Surgical History Surgery Date(Month/Year) cardiac pacemeker 08/27/2023 basal cell removal 06/21/2023
== END 2024-11-17 14:43 | disposition home or self-care (01) ==
LOC: HO.HUSH 13:47
PROVIDERS: PCP Internal Medicine; Visit Provider Nurse Practitioner Family
DX: N20.0 Calculus of kidney (principal); N32.81 Overactive bladder; N39.46 Mixed incontinence; Z13.9 Encounter for screening, unspecified
CPT/HCPCS: 99204

== ENCOUNTER → 2024-11-17 13:46 | Outpatient (BNVA) | payer MEDICARE, OTHER, SELFPAY | PROVIDERS: PCP Internal Medicine; Visit Provider Nurse Practitioner Family | DX: N20.0 Calculus of kidney (principal); N32.81 Overactive bladder; N39.46 Mixed incontinence; R35.1 Nocturia; Z79.82 Long term (current) use of aspirin; Z13.9 Encounter for screening, unspecified | CPT/HCPCS: 81003; 99202 ==

== ENCOUNTER 2024-12-15 09:43 | Outpatient (AMB) | payer MEDICARE, OTHER, SELFPAY ==
--- NOTE | 2024-12-15 09:59 | MHC.OFFVIS ---
Vital Signs 12/15/24 10:03 Height 5 ft 6 in Weight 187 lb BMI 30.2 BP 110/52 L Blood Pressure Location Lt brachial Position Sitting Pulse 65 Pulse Source Pulse Oximeter Pulse Oximetry (%) 96 Oxygen Delivery Method Room Air Intake Visit Reasons: COPD follow-up Intake Note: pt is here for follow up and states she is feeling okay but coughing a lot with sometimes some tightness in chest, mostly when she gets upset. Airplane Navigator Required: No Allergies No Known Allergies (No Known Allergies*) Allergy (Verified 12/15/24 10:32) Medication List - Last Reconciled 12/15/24 by Yadira Downey MD aspirin (Ecotrin Low Strength) 81 mg PO DAILY atorvastatin 10 mg PO BEDTIME diltiazem HCl CD 240 mg PO DAILY inhalational spacing device (Aerochamber Mechanical Vent) As directed levothyroxine 50 mcg PO DAILY mirabegron ER (Myrbetriq) 25 mg PO DAILY 30 days mometasone-formoterol 200-5 mcg/actuation (Dulera) 2 puffs inhalation BID 30 days pyridoxine (vitamin B6) 100 mg PO DAILY 90 days Do you need a note to return to daycare/school/sports/work: No HPI HPI COPD follow-up: Details: Valery is 79 years old very pleasant female who is here for 6 months follow-up. She is a case of chronic obstructive pulmonary disease, which has been controlled with Dulera 200-5 2 puffs b.i.d.. She hardly needs to use the rescue inhaler. Currently having chest congestion with cough and inability to raise phlegm for about 1 week to 10 days. Does not have fever or chills, the mucus is somewhat yellowish when she expectorates. She had reduced he Dulera to only 1 puff twice a day. She also does not have rescue inhaler on hand. [facility] Medical History (Updated 12/15/24 @ 10:40 by Yadira Downey MD) Acute bronchitis Pacemaker at end of battery life Hypothyroidism Diabetes mellitus Degenerative joint disease Irritable bowel syndrome Diverticulosis Allergic rhinitis Cough SVT (supraventricular tachycardia) Complete heart block Cardiac pacemaker in situ Surgical History (Updated 12/15/24 @ 10:39 by Yadira Downey MD) History of permanent cardiac pacemaker placement COPD (chronic obstructive pulmonary disease) H/O colonoscopy History of appendectomy History of hysterectomy Hx of eye surgery Family History Father No problems noted. Mother CVD (cardiovascular disease) Pacemaker Social History Housing: House Patient Tobacco Use Status: Former Tobacco user e-Cigarette/Vaping Use: Former Use service: No Current occupational status: retired Cognitive needs: No Hearing needs: No Vision needs: Yes (reading glasses) Review of Systems Const All systems reviewed & are unremarkable except as noted in HPI and below Eyes Reports no additional complaints ENT Reports nasal congestion (MILD) and Reports sore throat (MILD FEELING OF THROAT CONGESTION IN THE MORNING HOURS) Card Denies chest pain, Denies irregular heart rhythm and Denies leg edema GI Reports no additional complaints Reports no additional complaints Musc Reports no additional complaints Skin/Breast Reports system reviewed and no additional complaints, except as documented Neuro Reports no additional complaints Psych Reports no additional complaints Physical Exam Vital Signs: Last Vital Signs Pulse 65 12/15/24 10:03 BP 110/52 L 12/15/24 10:03 Pulse Ox 96 12/15/24 10:03 Oxygen Delivery Method Room Air 12/15/24 10:03 BMI result Body Mass Index 31.3 Const General: comfortable, no acute distress, alert and awake Orientation/consciousness: patient oriented x3 HEENT Head: Yes normal to inspection General nose exam: No nasal polyps present and No nasal discharge present Face and sinus: Yes sinuses nontender Mouth: oropharynx normal Throat: Yes posterior oropharynx normal and Yes other (Throat looks okay there is no sign of thrush) Eyes General: appearance normal, both eyes and all related structures Neck Neck: Yes normal visual inspection, Yes no lymphadenopathy, Yes trachea midline and Yes no JVD Thyroid: Thyroid normal Chest Chest palpation & inspection: normal inspection of the chest, normal palpation of entire chest wall and no tenderness Resp Other: Percussion note resonant, has good breath sounds on both sides with, slightly prolonged expiratory phase. Has congested cough on taking deep breaths, with a few rhonchi in the upper chest. Cardio Palpation: normal PMI Rate: regular rate Rhythm: regular rhythm Heart sounds: no gallops and no murmurs GI Palpation (GI): Soft to palpation, nontender, No hepatosplenomegaly present and no masses Auscultation: normal bowel sounds Back/Spine/Pelvis Thoracic/Lumbar Spine: thoracic and lumbar spine normal to inspection Skin General skin exam: no rashes or lesions noted Neuro General: patient oriented x3, gait normal (USES CANE) and no focal motor deficits Cranial nerves: Yes CN's II-XII intact bilaterally Extrem General: Yes normal to inspection, No no joint enlargement (BOTH KNEES ARE ENLARGED AND STIFF, SHE HAS HAD MINOR SURGERIES ON BOTH SIDE), Yes no clubbing, cyanosis or edema and Yes no calf tenderness Right upper extremity: edema (Mild stasis edema controlled with the elastic stockings) Psych Appearance: grossly normal and well kempt Speech and movement: Normal speech and movement present Assessment & Plan Assessment & Plan (1) COPD (chronic obstructive pulmonary disease): Comment: MILD TO MODERTAE DEGREE OF COPD. VERY STABLE , AND CONTROLLED HAS INCREASED COUGH WITH CONGESTED FEELING IN THE UPPER CHEST , SINCE LAST WEEK I THINK SHE HAS TRACHEOBRONCHITIS ON TOP OF HER CHRONIC OBSTRUCTIVE PULMONARY DISEASE. SHE WALKS WITH A CANE ANDSLOWLY, SO DOES NOT HAVE ANY SHORTNESS OF BREATH ON EXERTION. Code(s): J44.9 - Chronic obstructive pulmonary disease, unspecified Category: Surgical Qualifiers: COPD type: unspecified COPD Qualified Code(s): J44.9 - Chronic obstructive pulmonary disease, unspecified Plan: CONTINUE DULERA 200-5 INCREASED TO 2 PUFFS B.I.D. WHILE HAVING ACUTE SYMPTOMS OF COUGH AND CONGESTION, AND WHEN BACK TO BASELINE CAN CUT TO 1 PUFF B.I.D.. USE ALBUTEROL HFA 2 PUFFS Q 6 HOURS P.R.N. IF THERE IS INCREASED WHEEZING. SHE DOES HAVE AEROCHAMBER AT HOME AND SHOULD USE THE INHALERS WITH THE HELP OF AEROCHAMBER. (2) Acute bronchitis: Comment: CURRENTLY SHE HAS CHEST CONGESTION WITH CONGESTED COUGH, AND YELLOWISH PHLEGM, SUGGESTING ACUTE TRACHEOBRONCHITIS. Code(s): J20.9 - Acute bronchitis, unspecified Category: Medical Plan: I AM TREATING WITH COURSE OF Z-MERE. ALSO ADVISED TO USE STEAM INHALATIONS 2 TO 3 TIMES A DAY. (3) Allergic rhinitis: Comment: She has mild allergic rhinitis. Remains fairly well controlled. Code(s): J30.9 - Allergic rhinitis, unspecified Category: Medical Plan: NO ACTIVE TREATMENT NEEDED FOR THIS Medications: New azithromycin For 250 mg dose pack: take 500 mg today (day 1), then 250 mg for 4 days (days 2-5) PO 6 tabs 0RF albuterol sulfate 90 mcg/actuation (Ventolin HFA) 2 puffs inhalation Q4-6H PRN 8.5 grams 2RF shortness of breath or wheezing 30 days Coding Level of Care Code Est Pt Level 3 (05123) Diagnoses Chronic obstructive pulmonary disease, unspecified COPD type J44.9 COPD type: unspecified COPD Acute bronchitis J20.9 Allergic rhinitis J30.9
[2024-12-15 10:03] VITALS: BP 110/52; PULSE 65; O2SAT 96; BMI 30.2
--- OUTSIDE RECORDS SUMMARY | 2024-12-15 10:18 | XMS_ITS | Patient Health Record ---
Author Organization [facility] Address [address] [place] [address] Care Team Providers Care Content Engineer Name Role Phone Zakiya (RETIRED) Noé BARRERA Primary Care Provide r Pelon Almazan Jr Unavailable [phone] Allergies No Known Allergies Reason For Referral [...] Problem Status W/U Status Risk Notes Problem 618742282 Colon cancer screening (Z12.11) Active confirmed Problem 73461953 Rectal bleeding (K62.5) Active confirmed Problem 346137493 Long-term use of aspirin therapy (Z79.82) Active confirmed Problem 114902815 RUQ pain (R10.11) Active confirmed Problem 068345339 FH: colon cancer (Z80.0) Active confirmed Plan Of Treatment Future Test Test Name Order Date COLONOSCOPY 04/19/2016 COLONOSCOPY 04/15/2023 Insurance Providers Payer Name Payer Address Payer Phone Subscriber Number Group Number Insured Name Patient Relationship to Insured Coverage Start Date Coverage End Date MEDICARE OF [place] [address] [place] [address] [id number] NIALL BURKETT Self - patient is the insured [facility] [address] [place] [address] [id number] NIALL BURKETT Self - patient is the [...]
--- OUTSIDE RECORDS SUMMARY | 2024-12-15 10:18 | XMS_ITS | Clinical Summary ---
Author Organization [facility] Address [address] [place] [address] Care Team Providers Care Recreation Specialist Name Role Phone Unavailable Primary Care Provider [...] season) 2024 Influenza (#1) 2025 HPV Vaccine (No Doses Required) Completed Hep A Aged Out No longer eligi [...]
--- OUTSIDE RECORDS SUMMARY | 2024-12-15 10:18 | XMS_ITS | Encounter Summary ---
Author Organization [facility] Address [address] [place] [phone] Phone Care Team Providers Care Healthcare Risk Control Consultant Name Role Phone Candis Coronel MD Unavailable Noé Sigala MD Unavailable Benito Cope MD Unavailable [phone] Vera Serrano MD Unavailable [phone] Noé Sigala MD Primary Care Provider Encounter Details Date Type Department Care Team (Late st Contact Info) Description 11/03/2018 Ancillary Orders Virtual Department [address] [place] [address] Noé Sigala MD [address] [place] [address] [place] [address] Post-menopausal Social History Tobacco Use Types Packs/Day Years Used Date Smoking Tobacco: Never Smokeless Tobacco: Never Alcohol Use Standard Drinks/Week Comments No 0 (1 standard drink = 0.6 oz pur e alcohol) Comments Unknown Sex and Gender Information Value Date Recorded Sex Assigned at Female 05/27/2017 9:38 AM EST Legal Sex Female 10:09 PM EDT Gender Identity Female 05/27/2017 9:38 AM EST Sexual Orientation Straight 05/27/2017 9: 38 AM EST 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 POS - [id number] Narrative 01/07/2019 11:29 AM EDT This is a 73-year-old postmenopausal white female who is not on estrogen replacement therapy and does not take calcium supplements. She denies a family history of osteoporosis or a perceived height loss. Evaluation of the lumbar spine and hips was performed and felt to be technically adequate. Total bone mineral density in the L1-L4 vertebral bodies was calculated at 0.937 gm/cm2 with a T-score of -1.0 and Z-score of 1.4, falling within the WHO classification of normal. Total bone mineral density in the right hip was calculated at 0.875 gm/cm2 with a T-score of -0.5 and Z-score of 1.2 falling within the WHO classification of normal. Total bone mineral density in the left hip was calculated at 0.846 gm/cm2 with a T-score of -0.8 and Z-score of 1.0 falling within the WHO classification of normal. Procedure Note Sherif Lynn MD - 01/07/2019 This is a 73-year-old postmenopausal white female who is not on estrogenreplacement therapy and does not take calcium supplements. She denies afamily history of osteoporosis or a perceived height loss. Evaluation of the lumbar spine and hips was performed and felt to betechnically adequate. Total bone mineral density in the L1-L4 vertebral bodies was calculated at0.937 gm/cm2 with a T-score of -1.0 and Z-score of 1.4, falling within theWHO classification of normal. Total bone mineral density in the right hip was calculated at 0.875 gm/ai1pvao a T-score of -0.5 and Z-score of 1.2 falling within the WHOclassification of normal. Total bone mineral density in the left hip wascalculated at 0.846 gm/cm2 with a T-score of -0.8 and Z-score of 1.0falling within the WHO classification of normal. IMPRESSION: Normal bone mineral density. POS - [id number] Noé Sigala MD IMG BD BONE DENSITY DEX A Final Result documented in this encounter Visit Diagnoses Diagnosis Post-menopausal Asymptomatic postmenopausal status (age-related) (natural) Post-menopausal Asymptomatic postmenopausal status (age-related) (natural) documented in this encounter Care Teams Healthcare Risk Control Consultant Relationship Specialty Start Date End Date Noé Sigala MD [address] [place] [address] [place] [address] PCP - General Internal Medicine 03/29/17 Candis Coronel MD [address] [place] [address] Historical LMR Provider 03/06/17 2 Noé Sigala MD [address] [place] [address] [place] [address] Historical LMR Provider 03/06/17 Benito Cope MD [address] [place] [id number] Historical LMR Provider 03/06/17 2 Vera Serrano MD [address] [place] [id number] [email or web address] Historical LMR Provider 03/06/17 05/27/21 documented as of this encounter Additional Source Comments The information contained in this document represents components of the legal health record. It is not the complete legal health record.[facility]
--- OUTSIDE RECORDS SUMMARY | 2024-12-15 10:18 | XMS_ITS | Patient Health Record ---
Author Organization [facility] Address [address] [facility] [place] [address] Care Team Providers Care Representative Phlebotomy Services Name Role Phone Pari Amaya Primary Care Provider Shahzad Fuller Unavailable [phone] Allergies Allergen (clinical drug ingredient) Drug/Non Drug [...] Ordered Date Performed Result Body Sit e 92057-LTLAYSK NAIL, 6 OR MORE 01/28/2024 N/A 65097- Debride <25 sq cm 01/28/2024 N/A 02613-AXJA SKIN LESIONS, 2 TO 4 01/28/2024 N/A 28879-MKBAXWE NAIL, 6 OR MORE 04/28/2024 N/A 16726-BWJK SKIN LESIONS, 2 TO 4 04/28/2024 N/A 35661-ADZYJTP NAIL, 6 OR MORE 07/24/2024 N/A 86714-VXCQ SKIN LESIONS, 2 TO 4 07/24/2024 N/A 66508-JWJVIHI NAIL, 6 OR MORE 10/23/2024 N/A 20335-JXVN SKIN LESIONS, 2 TO 4 10/23/2024 N/A Encounters Encounter Location Date Provider Diagnosis [facility] [place] [address] [place] [address] 01/28/2024 Shahzad Rosado Atherosclerosis of [place] artery of both lower extremities, with [...] foot M77.51 and Metatarsalgia, right foot M77.[address] [address] 04/28/2024 Shahzad Rosado Atherosclerosis of [place] artery of both lower extremities, with unspecified presence of clinical manifestation I70.203 ; Tinea unguium B35.1 ; Pain in right toe(s) M79.674 ; Pain in left toe(s) M79.675 and Skin ulcer of toe of right foot, limited to breakdown of skin L97.[address] [address] 07/24/2024 Shahzad Rosado Atherosclerosis of [place] artery of both lower extremities, with unspecified presence of clinical manifestation I70.203 ; Tinea unguium B35.1 ; Pain in right toe(s) M79.674 ; Pain in left toe(s) M79.675 and Xerosis of skin L85.[address] [address] 10/23/2024 Shahzad Rosado Type 2 diabetes mellitus with diabetic peripheral angiopathy without gangrene E11.51 ; Tinea unguium B35.1 ; Pain in right toe(s) M79.674 ; Pain in left toe(s) M79.675 and Xerosis of skin L85.[address] [address] 01/28/2024 Shahzad Rosado [address] [address] 07/24/2024 Shahzad Rosado Assessments Encounter Date Diagnosis (ICD Code) Assessment Notes Treatment Notes Treatment Clinical Notes Section Notes 01/28/2024 Tinea unguium (ICD-10 - B35.1) 01/28/2024 Atherosclerosis of [place] artery of both lower extremities, with unspecified presence of clinical manifestation (ICD-10 - I70.203) 04/28/2024 Tinea unguium (ICD-10 - B35.1) 04/28/2024 Atherosclerosis of [place] artery of both lower extremities, with unspecified presence of clinical manifestation (ICD-10 - I70.203) 07/24/2024 Tinea unguium (ICD-10 - B35.1) 07/24/2024 Atherosclerosis of [place] artery of both lower extremities, with unspecified presence of clinical manifestation (ICD-10 - I70.203) Q7(A), Q8(2B), Q9(1B,2C) 10/23/2024 Type 2 diabetes mellitus with diabetic peripheral angiopathy without gangrene (ICD-10 - E11.51) Q7(A), Q8(2B), Q9(1B,2C) 10/23/2024 Tinea unguium (ICD-10 - B35.1) 10/23/2024 Pain in right toe(s) [...] right foot (ICD-10 - M77.41) 01/28/2024 Other 04/28/2024 Other Plan Of Treatment Pending Test Test Name Order Date 20202-SIBZRQD NAIL, 6 OR MORE 11/19/2023 58527-MJHCBCW NAIL, 6 OR MORE 01/28/2024 00791-YITDQGJ NAIL, 6 OR MORE 04/28/2024 77056-DGFQBMS NAIL, 6 OR MORE 07/24/2024 66117-IYOELQB NAIL, 6 OR MORE 10/23/2024 27970- Debride <25 sq cm 01/28/2024 51888- Debride <25 sq cm 11/19/2023 08115-TTZR SKIN LESIONS, 2 TO 4 11/19/19 24 09251-GFYB SKIN LESIONS, 2 TO 4 01/28/20 24 11662-RJPT SKIN LESIONS, 2 TO 4 07/25/19 25 40893-QJAS SKIN LESIONS, 2 TO 4 04/28/20 24 84919-GTOT SKIN LESIONS, 2 TO 4 10/24/19 25 Next Appt Details Provider Name:Shahzad Rosado , 01/26/2025 03:15:00 PM, [address] [place], [address], Insurance Providers Payer Name Payer Address Payer Phone Subscriber Number Group Number Insured Name Patient Relationship to Insured Coverage Start Date Coverage End Date Medicare National [employer] [address] [facility] [place] [address] [id number] Valery Cano Self - patient is the insured [facility] [address] [place], [place] [address] [phone] [id number] Valery Cano Self - patient is the insured Medical (General) History Medical History History ICD Code Back,Hip,and Knee pain Broken bones Cataracts Fibromyalgia Headaches/Migraines Heart disease thyroid Measles Mumps Chicken pox Pacemaker CAD ( Coronary Artery Disease) Diabetes mellitus Surgical History Surgery Date(Month/Year) cardiac pacemeker 08/27/2023 basal cell removal 06/21/2023
--- OUTSIDE RECORDS SUMMARY | 2024-12-15 10:18 | XMS_ITS | Data Portability ---
Author Organization [place] [facility], [facility]ergy Address [address] [place] [address] Care Team Providers Care Aircraft Maintenance Director Name Role Phone INOCENCIA SALINAS Primary Care [...] Name and Address Organization Details Recorded Time Asymmetr ical sensorin eural hearing loss 871709310 Active 2014 Sensorin eural hearing loss asymmetr ic; Note: Date Diagnose d: 5 3:54 PM (389.16) Not Available [facility] 4 02:21:22 Benign paroxysm al position al vertigo 388920986 Active 2014 Benign paroxysm al position al vertigo; Note: Date Diagnose d: 5 3:54 PM (386.11) Not Available [facility] 4 02:20:42 Sensorin eural hearing loss of bilatera l ears 067012458 Active 2014 Sensorin eural hearing loss, bilatera l; Note: Date Diagnose d: 01/25/2015 10:47 AM (H90.3) Not Available [facility] 4 02:21:07 Bilatera l disorder of [place] an tubes 44311575801 52864 Active 2016 Other specifie d disorder s of [place] an tube, bilatera l; Note: Date Diagnose d: 10/24/2016 3:35 PM (H69.83) Not Available [facility] 4 02:21:33 Mixed conducti ve and sensorin eural hearing loss of right ear 06979516227 105 Active 2016 Mixed conducti ve and sensorin eural hearing loss, unilater al, right ear with restrict ed hearing on the contrala teral side; Note: Date Diagnose d: 10/24/2016 3:35 PM (H90.A31 ) Not Available [facility] 4 02:20:54 Sensorin eural hearing loss in left ear 25493523456 109 Active 2016 Sensorin eural hearing loss, unilater al, left ear, with restrict ed hearing on the contrala teral side; Note: Date Diagnose d: 7 10:10 AM (H90.A22 ) Not Available [facility] 4 02:20:40 Acute serous otitis media of right ear 27372182643 43459 Active 2016 Acute serous otitis media, right ear; Note: Date Diagnose d: 7 10:11 AM (H65.01) Not Available [facility] 4 02:21:21 Chronic serous otitis media 73346799 Active 2016 Serous otitis media Chronic; Note: Date Diagnose d: 7 12:22 PM (381.10) Not Available [facility] 4 02:20:51 Otorrhea of right ear 36420785392 42001 Completed 201612/20/2023 Otorrhea , right ear; Note: Date Diagnose d: 01/25/2017 12:25 PM (H92.11) Not Available [facility] 4 02:21:04 Chronic serous otitis media of left ear 557167989 Active 2016 Chronic serous otitis media, left ear; Note: Changed from H65.02 to H65.22 ( 017 8:45 AM) , Date Diagnose d: 7 10:44 AM (H65.02) Not Available [facility] 4 02:21:33 Allergic rhinitis 51831252 Active 2016 Allergic rhinitis : Due to other allergen ; Note: Date Diagnose d: 7 9:26 AM (477.8) Not Available [facility] 4 02:20:48 Cough 75443624 Active 2016 Cough; Note: Date Diagnose d: 04/16/20 17 8:53 AM (R05) Not Available [facility] 4 02:21:01 Nasal congesti on 26888149 Active 2016 Nasal congesti on; Note: Date Diagnose d: 04/16/20 17 8:50 AM (R09.81) Not Available [facility] 4 02:21:32 Disorder of right [place] tube 99812186679 81903 Active 2017 Other specifie d disorder s of [place] an tube, right ear; Note: Date Diagnose d: 8 3:54 PM (H69.81) Not Available [facility] 4 02:21:07 Impacted cerumen of bilatera l ears 38954843349 20317 Active 2017 Impacted cerumen, bilatera l; Note: Date Diagnose d: 8 3:54 PM (H61.23) Not Available [facility] 4 02:21:10 Otalgia of right ear 2112473060 Active 2018 Otalgia, right ear; Note: Date Diagnose d: 9 11:10 AM (H92.01) Not Available [facility] 4 02:20:55 Pain of right temporom andibula r joint 11521050549 678909 Active 2018 Arthralg ia of right temporom andibula r joint; Note: Date Diagnose d: 9 11:10 AM (M26.621 ) Not Available [facility] 4 02:21:11 Chronic serous otitis media of right ear 969030944 Active 2018 Chronic serous otitis media, right ear; Note: Date Diagnose d: 9 11:07 AM (H65.21) Chroni c serous otitis media, right ear; Note: Changed from H65.22 to H65.21 (01/02/20 17 2:18 PM) , Date Diagnose d: 7 12:27 PM (H65.22) ; Start Date : 01/02/20 17 Not Available [facility] 4 02:20:48 Adhesive middle ear disease 0661757 Active 2018 Adhesive right middle ear disease; Note: Date Diagnose d: 9 9:16 AM (H74.11) Not Available [facility] 4 02:21:34 Problem Notes None recorded. Procedures Surgical History Date Name Laterality Status Provider Name and Address Organization Details Recorded Time 09/09/2024 Air & Speech Audio with Tymps - 18626, 51264 & 35478 completed JUSTICE PEREZ, [address], [address], [facility] 09/09/2024 12:53:18 Imaging Results None recorded. Procedure Notes None recorded. Medical Equipment None Reported. Medications Name Sig Start Date Stop Date Status Note LastModified by Organization Details LastModified Time amoxicill in 500 mg capsule TAKE 1 CAPSULE( S) BY MOUTH FOUR TIMES A DAY active Not Available Not Available No t Available Augmentin 875 mg-125 mg tablet 2016 active Medicati on ID: 931938 D uration Value: 10 Prescri bed By Name: LUCILLE Pierce nd Name: Augmenti n Send Method: E-Prescr ibed Sub s Allowed: subs OK Speci al Instruct ion: 1 po bid for 10 days Med icationG enericNa me: Augmenti n Not Available Not Available Not Available atorvasta tin 20 mg tablet 02/03 completed Medicati on ID: 45058 Du ration Value: 90 Reason: () Brand [...] mg tablet 11/01 completed Medicati on ID: 29643 Du ration Value: 90 Reason: () Brand [...] by mouth 2016 active Medicati on ID: 475273 D uration Value: 5 Prescri bed By Name: LUCILLE Pierce nd Name: predniso ne Send Method: E-Prescr ibed Sub s Allowed: subs OK Medic ationGen ericName : predniso ne Not Available Not Available Not Available Ciloxan 0.3 % eye drops active Medicati on ID: [id number] P rescribe d By Name: LUCILLE Pierce [...] layed release 12/30 completed Medicati on ID: 75914 Re ason: () Brand Name: Aspir-81 Send Method: E-Prescr ibed Sub s Allowed: subs OK Medic ationGen ericName : Aspir-81 Not Available Not Available Not Available fluticaso ne propionat e 50 mcg/actua tion nasal spray,corrie pension 2 puff into both nostrils 2016 active Medicati on ID: 057258 D uration Value: 30 Prescri bed By Name: LUCILLE Pierce nd Name: fluticas one Send Method: E-Prescr ibed Sub s Allowed: subs OK Medic ationGen ericName : fluticas one Not Available Not Available Not Available Ciprodex 0.3 %-0.1 % ear drops,corrie pension 4 drop 2016 active Medicati on ID: [id number] D uration Value: 14 Prescri bed By Name: LUCILLE Pierce nd Name: Ciprodex Send Method: E-Prescr ibed Sub s Allowed: subs OK Medic ationGen ericName : Ciprodex Not Available Not Available Not Available Symbicort 80 mcg-4.5 mcg/actua tion HFA aerosol inhaler 2018 active Medicati on ID: 090290 D uration Value: 90 Brand Name: Symbicor [...] SNOMED-CT Code Diagnosis ICD10 Code Diagnosis Note [id number] [facility]IDE [facility] [address] [place] [address] 08/12/2024 09:55:35 08/17/2024 13:21:36 Sensorineural hearing loss of bilateral ears 946975716 H90.3 [id number] OLAMIDE RIOS [facility] [address] [place] [address] [address] 09/09/2024 11:11:45 09/09/2024 12:47:34 Sensorineural hearing loss of bilateral ears 333966525 H90.3 Right Ear:Normal hearing through 250 Hz [...] ID Guarantor Name 09/09/2024 1 MEDICARE B-[place]: [employer] Valery Cano [id number] 2 Valery Cano 09/18/2024 2 [facility] INDEMNITY [facility] (MEDICARE SUPPLEMENT) [id number] Valery Cano [id number] Vaelry Cano OBGyn Episode No OBEpisode recorded.
== END 2024-12-15 10:35 | disposition home or self-care (01) ==
LOC: HO.HPS 09:44
PROVIDERS: PCP Internal Medicine; Visit Provider Internal Medicine
DX: J44.9 Chronic obstructive pulmonary disease, unspecified (principal); J20.9 Acute bronchitis, unspecified; J30.9 Allergic rhinitis, unspecified
CPT/HCPCS: 99213

== ENCOUNTER → 2024-12-15 09:43 | Outpatient (BNVA) | payer MEDICARE, OTHER, SELFPAY | PROVIDERS: PCP Internal Medicine; Visit Provider Internal Medicine | DX: J44.9 Chronic obstructive pulmonary disease, unspecified (principal); J20.9 Acute bronchitis, unspecified; J30.9 Allergic rhinitis, unspecified | CPT/HCPCS: 99212 ==

== ENCOUNTER 2024-12-23 09:42 | Outpatient (AMB) | payer MEDICARE, OTHER, SELFPAY ==
--- NOTE | 2024-12-23 09:49 | A.OFFVIS_ITS ---
Intake Visit Reasons: 1m follow up Intake Note: Patient is present for 1M/F/U Urology Medication:VITAMIN B6,MIRABEGRON Antibiotic Allergy:NONE Blood Thinner:ASPIRIN TODAY'S PVR: 44ML'S Mail Distribution Clerk Required: No Allergies No Known Allergies (No Known Allergies*) Allergy (Verified 12/23/24 10:35) Medication List - Last Reconciled 12/23/24 by DILLON Ramírez-ADENIKE albuterol sulfate 90 mcg/actuation (Ventolin HFA) 2 puffs inhalation Q4-6H PRN 30 days aspirin (Ecotrin Low Strength) 81 mg PO DAILY atorvastatin 10 mg PO BEDTIME diltiazem HCl CD 240 mg PO DAILY inhalational spacing device (Aerochamber Mechanical Vent) As directed levothyroxine 50 mcg PO DAILY mirabegron ER (Myrbetriq) 25 mg PO DAILY 90 days mometasone-formoterol 200-5 mcg/actuation (Dulera) 2 puffs inhalation BID 30 days pyridoxine (vitamin B6) 100 mg PO DAILY 90 days HPI Comments Details: Valery is a very pleasant 79-year-old female patient of Dr. Sarah Bunn. She has a past medical history of nephrolithiasis, overactive bladder, hypothyroidism, diabetes, degenerative joint disease, irritable bowel syndrome, diverticulosis, allergic rhinitis, complete heart block status post dual-chamber pacemaker placement, and SVT. She presents to the office today for follow-up of her nephrolithiasis and overactive bladder. In discussion with the patient today she reports feeling Myrbetriq 25 mg daily has been helpful in lower urinary tract symptoms she had been experiencing. She does feel it has been more helpful than previous tolterodine she had been taking. She currently denies any bothersome urinary issues. In office urinalysis results reviewed with the patient today. PVR 44 mL. She is requesting refill on Myrbetriq. Previous workup has included a renal ultrasound 10/11 noted bilateral nonobstructing nephrolithiasis left side greater than right. Right kidney with 4 mm nonobstructing calculi. Left kidney with several nonobstructing calculi present largest measuring 1.3 cm and 1.0 cm. No hydronephrosis noted bilaterally. There are peripelvic cyst within the left kidney. She discusses her longstanding history of nephrolithiasis and previously following up with Dr. Salgado as well as [facility] Dr. Greenberg. We did discussed nephrolithiasis, overactive bladder, and mixed urinary incontinence. We discuss ed further interventions and risks and benefits of these interventions. We did discussed increase in stone burden. She denies dysuria, foul smelling urine, changes to urinary stream, flank pain, fever, and or chills. All questions were answered. She otherwise offers no other issues or concerns at this time. [facility] Medical History Acute bronchitis Pacemaker at end of battery life Hypothyroidism Diabetes mellitus Degenerative joint disease Irritable bowel syndrome Diverticulosis Allergic rhinitis Cough SVT (supraventricular tachycardia) Complete heart block Cardiac pacemaker in situ Surgical History (Updated 12/15/24 @ 10:39 by Yadira Downey MD) History of permanent cardiac pacemaker placement COPD (chronic obstructive pulmonary disease) H/O colonoscopy History of appendectomy History of hysterectomy Hx of eye surgery Family History Father No problems noted. Mother CVD (cardiovascular disease) Pacemaker Social History Housing: House Patient Tobacco Use Status: Former Tobacco user e-Cigarette/Vaping Use: Former Use service: No Current occupational status: retired Cognitive needs: No Hearing needs: No Vision needs: Yes (reading glasses) Review of Systems Const All systems reviewed & are unremarkable except as noted in HPI and below Physical Exam Const General: cooperative, healthy appearing, comfortable, no acute distress, well developed, alert and awake Orientation/consciousness: patient oriented x3 Limitations: ambulation with cane HEENT Head: Yes normal to inspection, Yes normocephalic and Yes atraumatic Ears: hearing grossly normal bilaterally Eyes General: appearance normal, both eyes and all related structures Neck Neck: Yes normal visual inspection and Yes trachea midline Chest Chest palpation & inspection: normal inspection of the chest Resp Effort & Inspection: normal respiratory effort and able to speak in complete sentences Cardio Rate: regular rate GI Inspection: Yes normal to inspection General: Yes no CVA tenderness Back/Spine/Pelvis Back: no CVA tenderness Skin General skin exam: no rashes or lesions noted Neuro General: patient oriented x3 Extrem General: Yes normal to inspection Psych Appearance: grossly normal and well kempt Mental Status: mental status grossly normal Speech and movement: Normal speech and movement present and Clear speech present Affect: normal affect Attitude: cooperative Thought process: Normal thought process present Thought content: Normal thought content present Insight: Fair insight present (Psych) Judgement: Fair judgement present (Psych) Office Procedures Post Void Residual Post Residual Void Post Void Residual (PVR): 44 17163-Ffxk Void Residual by ultrasound Results AMB Urinalysis, Automated UA Leukoctes 0 Daisy/uL Last Edit by Мария Connolly [facility] on 12/23/24 10:05 UA Nitrite Negative Last Edit by Мария Connolly [facility] on 12/23/24 10:05 UA Urobilinogen 0.2 mg/dL Last Edit by Мраия Connolly [facility] on 12/23/24 10:0 5 UA Protein 15 mg/dL Last Edit by Мария Connolly [facility] on 12/23/24 10:05 UA pH 6.0 Last Edit by Мария Connolly [facility] on 12/23/24 10:05 UA Blood 0 Lloyd/uL Last Edit by Мария Connolly [facility] on 12/23/24 10:05 UA Specific [place] 1.015 Last Edit by Мария Connolly [facility] on 12/23/24 10: 05 UA Ketone Negative Last Edit by Мария Connolly [facility] on 12/23/24 10:05 UA Bilirubin 0 mg/dL Last Edit by Мария Connolly [facility] on 12/23/24 10:05 UA Glucose 0 mg/dL Last Edit by Мария Connolly [facility] on 12/23/24 10:05 Assessment & Plan Assessment & Plan (1) Nephrolithiasis: Code(s): N20.0 - Calculus of kidney Category: Medical (2) Overactive bladder: Code(s): N32.81 - Overactive bladder Category: Medical (3) Urinary incontinence, mixed: Code(s): N39.46 - Mixed incontinence Category: Medical Plan In office urinalysis results reviewed with the patient today; as noted above. PVR 44 mL. Will continue with Myrbetriq; refill provided. We discussed potential causes and further treatment options of mixed urinary incontinence as well as nephrolithiasis All questions were answered. Will obtain CT KUB as planned. She currently denies any bothersome urinary issues or concerns. She reports be happy with current voiding parameters. We did discussed pelvic floor therapy to assist with urinary dribbling We discussed the importance of adequate hydration relation to nephrolithiasis as well as overall health and well-being. Continue vitamin B6. Continue adding 1 oz of lemon juice to water daily. Follow-up in 3 months with imaging and PVR; or sooner with any issues, concerns, and or questions. Orders: Orders AMB Urinalysis Automated Today Z13.9 - Encounter for screening, unspecified Medications: Changed From mirabegron ER (Myrbetriq) 25 mg PO DAILY 30 tabs 3RF 30 days N30.10 - Interstitial cystitis (chronic) without hematuria, N32.81 - Overactive bladder, R35.1 - Nocturia, R39.15 - Urgency of urination To mirabegron ER (Myrbetriq) 25 mg PO DAILY 90 tabs 3RF 90 days N30.10 - Interstitial cystitis (chronic) without hematuria, N32.81 - Overactive bladder, R35.1 - Nocturia, R39.15 - Urgency of urination Patient Instructions: The patient had an opportunity to ask questions regarding the treatment plan. All questions were answered. Physical exam, labs, and imaging were discussed and reviewed in detail. As well as risks, benefits, and discussion of treatment choices. No major barriers to understanding were identified. The patient expressed understanding and agreement with the above treatment plan. The patient was made aware they should contact our office by phone for worsening of their current condition, the appearance of new symptoms, or with any questions or concerns. Compliance is encouraged with any medications and follow up testing that is ordered. It is a privilege to be allowed the opportunity to participate in? your urological care.? Again, if you have any questions or concerns If you have any questions or concerns please do not hesitate to contact me. The office is [phone]. This note is constructed using voice recognition software. While every effort has been made to ensure accuracy check out clerk errors may have been included. Yours sincerely, KENROY Ramírez Coding Level of Care Code Est Pt Level 3 (64089) Complex EM visit Add On G2211 Diagnoses Nephrolithiasis N20.0 Overactive bladder N32.81 Urinary incontinence, mixed N39.46 CPT Codes Post Residual Void - PVR CPT Code: 81303-Giis Void Residual by ultrasound ([id number])
--- OUTSIDE RECORDS SUMMARY | 2024-12-23 10:06 | XMS_ITS | Patient Health Record ---
Author Organization [facility] Address [address] [place] [address] Care Team Providers Care Car Seat Upholsterer Name Role Phone Zakiya (RETIRED) Noé BARRERA Primary Care Provide r Pelon Almazan Jr Unavailable Allergies No Known Allergies Reason [...] Problem Status W/U Status Risk Notes Problem 086765381 Colon cancer screening (Z12.11) Active confirmed Problem 17647863 Rectal bleeding (K62.5) Active confirmed Problem 254277247 Long-term use of aspirin therapy (Z79.82) Active confirmed Problem 072320016 RUQ pain (R10.11) Active confirmed Problem 038864088 FH: colon cancer (Z80.0) Active confirmed Plan Of Treatment Future Test Test Name Order Date COLONOSCOPY 04/19/2016 COLONOSCOPY 04/15/2023 Insurance Providers Payer Name Payer Address Payer Phone Subscriber Number Group Number Insured Name Patient Relationship to Insured Coverage Start Date Coverage End Date MEDICARE OF [place] [address] [place] [address] [id number] NIALL BURKETT Self - patient is the insured [facility] INDEMNITY [address] [place] [address] [id number] NIALL BURKETT Self - patient is the [...]
--- OUTSIDE RECORDS SUMMARY | 2024-12-23 10:06 | XMS_ITS | Clinical Summary ---
Author Organization [facility] Address [address] [place] [address] Care Team Providers Care Investment Associate Name Role Phone Unavailable Primary Care Provider [...]
--- OUTSIDE RECORDS SUMMARY | 2024-12-23 10:06 | XMS_ITS | Patient Health Record ---
Author Organization [facility] Address [address] [place] [address] Care Team Providers Care Client Program Manager Name Role Phone Pari Amaya Primary Care Provider Shahzad Fuller Unavailable [phone] Allergies Allergen (clinical drug ingredient) Drug/Non Drug [...] Ordered Date Performed Result Body Sit e 05698-DPRGKLV NAIL, 6 OR MORE 01/28/2024 N/A 61166- Debride <25 sq cm 01/28/2024 N/A 70675-RKXD SKIN LESIONS, 2 TO 4 01/28/2024 N/A 80128-ZRQYCJR NAIL, 6 OR MORE 04/28/2024 N/A 24550-KDXP SKIN LESIONS, 2 TO 4 04/28/2024 N/A 79999-HKGQOYC NAIL, 6 OR MORE 07/24/2024 N/A 88798-IOET SKIN LESIONS, 2 TO 4 07/24/2024 N/A 20666-QPIQPDN NAIL, 6 OR MORE 10/23/2024 N/A 44924-YLFK SKIN LESIONS, 2 TO 4 10/23/2024 N/A Encounters Encounter Location Date Provider Diagnosis [facility] [place] [address] [place] [address] 01/28/2024 Shahzad Rosado Atherosclerosis of [place] artery of both lower extremities, with unspecified [...] foot M77.51 and Metatarsalgia, right foot M77.[address] [address] 04/28/2024 Shahzad Rosado Atherosclerosis of [place] artery of both lower extremities, with unspecified presence of clinical manifestation I70.203 ; Tinea unguium B35.1 ; Pain in right toe(s) M79.674 ; Pain in left toe(s) M79.675 and Skin ulcer of toe of right foot, limited to breakdown of skin L97.[address] [address] 07/24/2024 Shahzad Rosado Atherosclerosis of [place] artery of both lower extremities, with unspecified presence of clinical manifestation I70.203 ; Tinea unguium B35.1 ; Pain in right toe(s) M79.674 ; Pain in left toe(s) M79.675 and Xerosis of skin L85.[address] [address] 10/23/2024 Shahzad Rosado Type 2 diabetes mellitus with diabetic peripheral angiopathy without gangrene E11.51 ; Tinea unguium B35.1 ; Pain in right toe(s) M79.674 ; Pain in left toe(s) M79.675 and Xerosis of skin L85.[address] [address] 01/28/2024 Shahzad Rosado [address] [address] 07/24/2024 Shahzad Rosado Assessments Encounter Date Diagnosis (ICD Code) Assessment Notes Treatment Notes Treatment Clinical Notes Section Notes 01/28/2024 Tinea unguium (ICD-10 - B35.1) 01/28/2024 Atherosclerosis of [place] artery of both lower extremities, with unspecified presence of clinical manifestation (ICD-10 - I70.203) 04/28/2024 Tinea unguium (ICD-10 - B35.1) 04/28/2024 Atherosclerosis of [place] artery of both lower extremities, with unspecified presence of clinical manifestation (ICD-10 - I70.203) 07/24/2024 Tinea unguium (ICD-10 - B35.1) 07/24/2024 Atherosclerosis of [place] artery of both lower extremities, with unspecified [...] Treatment Pending Test Test Name Order Date 72580-HOROPRX NAIL, 6 OR MORE 11/19/2023 63326-KLAVOUW NAIL, 6 OR MORE 01/28/2024 51821-NKXXFXU NAIL, 6 OR MORE 04/28/2024 64262-VJNEZNH NAIL, 6 OR MORE 07/24/2024 76831-KHICJIG NAIL, 6 OR MORE 10/23/2024 25254- Debride <25 sq cm 01/28/2024 50607- Debride <25 sq cm 11/19/2023 35565-VGGE SKIN LESIONS, 2 TO 4 11/19/19 24 93241-NSOW SKIN LESIONS, 2 TO 4 01/28/20 24 22294-REMQ SKIN LESIONS, 2 TO 4 07/25/19 25 03553-MVCU SKIN LESIONS, 2 TO 4 04/28/20 24 32111-EZAN SKIN LESIONS, 2 TO 4 10/24/19 25 Next Appt Details Provider Name:Shahzad Rosado , 01/26/2025 03:15:00 PM, [address] [place], [address], Insurance Providers Payer Name Payer Address Payer Phone Subscriber Number Group Number Insured Name Patient Relationship to Insured Coverage Start Date Coverage End Date Medicare National [employer] [address] [place] [address] [id number] Valery Cano Self - patient is the insured [facility] [address] [place], [place] [address] [id number] Valery Cano Self - patient is the insured Medical (General) History Medical History History ICD Code Back,Hip,and Knee pain Broken bones Cataracts Fibromyalgia Headaches/Migraines Heart disease thyroid Measles Mumps Chicken pox Pacemaker CAD ( Coronary Artery Disease) Diabetes mellitus Surgical History Surgery Date(Month/Year) cardiac pacemeker 08/27/2023 basal cell removal 06/21/2023
--- OUTSIDE RECORDS SUMMARY | 2024-12-23 10:06 | XMS_ITS | Encounter Summary ---
Author Organization [facility] Address [address] [place] [address] Phone Care Team Providers Care Fill Manager Name Role Phone Candis Coronel MD Unavailable Noé Sigala MD Unavailable Benito Cope MD Unavailable [phone] Vera Serrano MD Unavailable [phone] Noé Sigala MD Primary Care Provider Encounter Details Date Type Department Care Team (Late st Contact Info) Description 11/03/2018 Ancillary Orders Virtual Department [address] [place] [address] Noé Sigala MD [address] [place] [address] [place] [address] Post-menopausal Social History Tobacco Use Types Packs/Day [...] the right hip was calculated at 0.875 gm/nk7wixi a T-score of -0.5 and Z-score of [...] (natural) documented in this encounter Care Teams Fill Manager Relationship Specialty Start Date End Date Noé Sigala MD [address] [place] [address] [place] [address] PCP - General Internal Medicine 03/29/17 Candis Coronel MD [address] [place] [address] Historical LMR Provider 03/06/17 2 Noé Sigala MD [address] [place] [address] [place] [address] Historical LMR Provider 03/06/17 Benito Cope MD [address] [place] [address] Historical LMR Provider 03/06/17 2 Vera Serrano MD [address] [place] [address] [email or web address] Historical LMR Provider 03/06/17 05/27/21 documented as of this encounter Additional Source Comments The information contained in this document represents components of the legal health record. It is not the complete legal health record.[facility]
== END 2024-12-23 10:19 | disposition home or self-care (01) ==
LOC: HO.HUSH 09:43
PROVIDERS: PCP Internal Medicine; Visit Provider Nurse Practitioner Family
DX: N20.0 Calculus of kidney (principal); N32.81 Overactive bladder; N39.46 Mixed incontinence; Z13.9 Encounter for screening, unspecified
CPT/HCPCS: 99213; G2211

== ENCOUNTER → 2024-12-23 09:42 | Outpatient (BNVA) | payer MEDICARE, OTHER, SELFPAY | PROVIDERS: PCP Internal Medicine; Visit Provider Nurse Practitioner Family | DX: N20.0 Calculus of kidney (principal); N32.81 Overactive bladder; N39.46 Mixed incontinence | CPT/HCPCS: 51798; 81003; 99212 ==

== ENCOUNTER → 2025-02-05 23:59 | Outpatient (BNV) | payer MEDICARE, OTHER, SELFPAY ==
--- NOTE | 2025-02-10 13:18 | MHC.OFFVIS ---
Intake Visit Reasons: Remote device check- medtronic Allergies No Known Allergies (No Known Allergies*) Allergy (Verified 12/23/24 10:35) PFSH Medical History Acute bronchitis Pacemaker at end of battery life Hypothyroidism Diabetes mellitus Degenerative joint disease Irritable bowel syndrome Diverticulosis Allergic rhinitis Cough SVT (supraventricular tachycardia) Complete heart block Cardiac pacemaker in situ Surgical History (Updated 12/15/24 @ 10:39 by Yadira Downey MD) History of permanent cardiac pacemaker placement COPD (chronic obstructive pulmonary disease) H/O colonoscopy History of appendectomy History of hysterectomy Hx of eye surgery Family History Father No problems noted. Mother CVD (cardiovascular disease) Pacemaker Social History Housing: House Patient Tobacco Use Status: Former Tobacco user e-Cigarette/Vaping Use: Former Use service: No Current occupational status: retired Cognitive needs: No Hearing needs: No Vision needs: Yes (reading glasses) Office Procedures Cardiac Device Check Cardiac Device Check Details: Remote pacemaker report generated 02/05/2025. Pacemaker function is adequate. Noted episodes of atrial fibrillation which appear to be artifact, overall burden in his low. Will follow in the clinic 49596-Jusjev Cardiac Device Interrogation, pacemaker Procedure code (CPT) selection complete Assessment & Plan Assessment & Plan (1) Cardiac pacemaker in situ: Comment: Medtronic dual-chamber. Did not tolerate asynchronous ventricular pacing Code(s): Z95.0 - Presence of cardiac pacemaker Category: Medical Plan: See above Coding Level of Care Code Procedure Only Diagnoses Cardiac pacemaker in situ Z95.0 CPT Codes Cardiac Device Check - Cardiac Device 12: 67825-Xkkctj Cardiac Device Interrogation, pacemaker ([id number])
== END ==
PROVIDERS: Visit Provider Internal Medicine Cardiovascular Disease
DX: I48.91 Unspecified atrial fibrillation (principal); Z95.0 Presence of cardiac pacemaker
CPT/HCPCS: 93294

== ENCOUNTER → 2025-03-02 09:42 | Outpatient (REF) | payer MEDICARE, OTHER, SELFPAY ==
--- NOTE | 2025-03-02 09:44 | CA_ITS ---
Transthoracic Echocardiogram Patient (Last, First, Middle): Valery Cano M Gender: F Date of : 1945 Age: 79 Procedure Date: 03/02/2025 Procedure Type: Transthoracic Echocardiogram Location: OP Height: 167.64 cm Weight: 83.46 kg BSA: 1.93 m2 Heart Rate: bpm BP: 135 / 60 mmHg Flame Annealing Machine Operator: DONALD Referring MD: Seferino Hampton MD Symptoms: Z95.0 - Presence of cardiac pacemaker Study Quality: Fair ECG Rhythm: Ventriculary paced rhythm Conclusions: - The left ventricular systolic function is normal. The calculated ejection fraction is 60% by biplane method. - No obvious valvular pathology seen on this study. Findings Left Ventricle Normal left ventricular cavity size. There is normal left ventricular wall thickness. The left ventricular systolic function is normal. The calculated ejection fraction is 60% by biplane method. There is no evidence of regional wall motion abnormalities. Diastolic function is normal for age. Right Ventricle Normal right ventricular cavity size and systolic function. Atria The left atrium is mildly dilated. The right atrium is normal in size. Aortic Valve There is a normal trileaflet aortic valve. There is mild calcification of the aortic valve. There is no aortic valve stenosis. There is no aortic valve regurgitation. Mitral Valve The mitral valve appears normal. There is trace mitral valve regurgitation. There is no mitral valve stenosis. Pulmonic Valve The pulmonic valve is likely normal. Tricuspid Valve There is mild tricuspid valve regurgitation. There is no evidence of pulmonary hypertension. Great Vessels The asc aorta is normal in size. Venous The inferior vena cava is normal in size and collapses greater than 50% with inspiration. Pericardium/Pleural There is no evidence of pericardial effusion. Prior Study Comparison No significant change compared to prior study dated: 01/18/2023. Recommendations, Care & Conclusions No obvious valvular pathology seen on this study. Measurements 2D Linear Measurements IVSd: 0.97 0.6-0.9/0.6-1.0 cm LVIDd: 4.91 3.9-5.3/4.2-5.9 cm LVIDd Index: 2.54 2.4-3.2/2.2-3.1 cm/m2 LVIDs: 2.83 2.0-3.6 cm LVPWd: 0.80 0.7-1.1 cm LA Diam: 3.80 2.7-3.8/3.0-4.0 cm LAIDs Index: 1.97 1.5-2.3 cm/m2 LV Mass: 185.92 67-162/88-224 g LV Mass Index: 96.33 43-95/49-115 g/m2 LVOT Diam: 2.00 3.0+(-)1.3 cm 2D Systolic Function EF 4C: 55.80 >55% EF 2C: 63.30 >55% EF BiP: 59.80 >55% Mitral Valve MV Pk E: 0.72 MV PK A: 0.77 MV Decel Time: 243.00 E/A: 0.90 E'Lateral: 9.25 E'Medial: 4.79 E/E' Med: 15.00 E/E' Lat: 7.80 PHT: 71.00 MVA PHT: 3.10 Decel Hamlin: 2.96 Aortic Valve AoV Pk Porfirio: 1.75 AoV Mn Porfirio: 1.32 AoV VTI: 0.45 AoV Pk Grad: 12.00 Aov Mn Grad: 7.00 MARILYN Cont.VTI: 2.04 LVOT LVOT Pk Porfirio: 1.15 LVOT Mn Porfirio: 0.82 LVOT VTI: 0.30 LVOT Pk Grad: 5.00 LVOT Mn Grad: 3.00 LVOT Diam: 2.00 LVOT Area: 3.14 Diastolic Function MV Pk E: 0.72 MV Pk A: 0.77 E/A: 0.90 E'Medial: 4.79 E/E' Med: 15.00 E' Laterial: 9.25 E/E' Lat: 7.80 Right Ventricle TAPSE (mm): 27.40 TVS' Porfirio: 12.20 Tricuspid Valve TR Pk Porfirio: 2.66 TR Pk Grad: 28.00 RA Press: 3.00 RVSP: 31.00 Great Vessels Aorta Sinus of Valsalva: 3.36 2.0-3.[address] [place]: 2.90 1.7-3.4 cm Ao Asc: 3.30 2.1-3.4 cm Updated in Other Vendor System with Status of Final Guanakito Bishop MD electronically signed on 03/03/2025 12:27:16 PM with status of Final
--- OUTSIDE RECORDS SUMMARY | 2025-03-02 10:48 | XMS_ITS | Patient Health Record ---
Author Organization [facility] Address [address] [place] [address] Care Team Providers Care Pony Trimmer Name Role Phone Zakiya (RETIRED) Noé BARRERA Primary Care Provide r Pelon Almazan Jr Unavailable [phone] Allergies No Known Allergies Reason For Referral No Information Medications Medication SIG (Take, Route, Frequency, Duration) Notes Start Date End Date Status Atorvastatin Calcium Active Aspirin 81 MG 1 tablet Orally Once a day; Duration: 30 day(s) Active Levothyroxine Sodium Active Levbid 0.375 MG 1 tablet Orally ever y 12 hrs; Duration: 30 Active Anusol-HC 25 MG 1 suppository Rectal Twice a day; Duration: 14 day(s) 04/19/2016 Active Colyte with Flavor Packs 240 GM As directed Orally Over the specified time.; Duration: 1 day(s) 04/19/2016 Active dilTIAZem HCl ER Coated Beads Active MiraLax (colon prep) 17 GM/SCOOP mixed with Gatorade or Crystal Light Orally begin at 5:00 p.m. the day before the procedure; Duration: 1 day 04/15/2023 Active Immunizations Vaccine Route Administration Date Status Comme nts Influenza Unknown 04/15/2023 Refused Problems Problem Type SNOMED Code ICD Code Onset Dates Problem Status W/U Status Risk Notes Problem Colon cancer screening (764819887) Colon cancer screening (Z12.11) Active confirmed Problem Rectal bleeding (91842400) Rectal bleeding (K62.5) Active confirmed Problem Long-term current use of antiplatelet drug (542403387553272) Long-term use of aspirin therapy (Z79.82) Active confirmed Problem Right upper quadrant pain (700236688) RUQ pain (R10.11) Active confirmed Problem Family history of malignant neoplasm of gastrointestinal tract (739734064) FH: colon cancer (Z80.0) Active confirmed Plan Of Treatment Future Test Test Name Order Date COLONOSCOPY 04/19/2016 COLONOSCOPY 04/15/2023 Insurance Providers Payer Name Payer Address Payer Phone Subscriber Number Group Number Insured Name Patient Relationship to Insured Coverage Start Date Coverage End Date MEDICARE OF [place] [address] [place] [address] [id number] NIALL BURKETT Self - patient is the insured [employer] [address] [place] [address] [id number] NIALL BURKETT Self - patient is the [...]
--- OUTSIDE RECORDS SUMMARY | 2025-03-02 10:48 | XMS_ITS | Encounter Summary ---
Author Organization [facility] Address [address] [place] [address] Phone Care Team Providers Care Mailroom Manager Name Role Phone Candis Coronel MD Unavailable Noé Sigala MD Unavailable Benito Cope MD Unavailable [phone] Vera Serrano MD Unavailable [phone] Noé Sigala MD Primary Care Provider Encounter Details Date Type Department Care Team (Late st Contact Info) Description 11/03/2018 Ancillary Orders Virtual Department [address] [place] [address] Noé Sigala MD [address] [place] [address] [place] [address] Post-menopausal Social History Tobacco Use Types Packs/Day [...] the right hip was calculated at 0.875 gm/im5ziyu a T-score of -0.5 and Z-score of [...] (natural) documented in this encounter Care Teams Mailroom Manager Relationship Specialty Start Date End Date Noé Sigala MD [address] [place] [address] [place] [address] PCP - General Internal Medicine 03/29/17 Candis Coronel MD [address] [place] [address] Historical LMR Provider 03/06/17 2 Noé Sigala MD [address] [place] [address] [place] [address] Historical LMR Provider 03/06/17 Benito Cope MD [address] [place] [address] Historical LMR Provider 03/06/17 2 Vera Serrano MD [address] [place] [address] [email or web address] Historical LMR Provider 03/06/17 05/27/21 documented as of this encounter Additional Source Comments The information contained in this document represents components of the legal health record. It is not the complete legal health record.[facility]
--- OUTSIDE RECORDS SUMMARY | 2025-03-02 10:48 | XMS_ITS | Encounter Summary ---
Author Organization [facility] Address [address] [place] [address] Phone Care Team Providers Care Engraver Copperplate Name Role Phone Candis Coronel MD Unavailable Noé Sigala MD Unavailable [phone] Benito Cope MD Unavailable [phone] Vera Serrano MD Unavailable [phone] Unknown, Unknown Primary Care Provider Noé Ramirez MD Primary Care Provider Encounter Details Date Type Department Care Team (Late st Contact Info) Description 03/09/2017 Ancillary Orders [facility], [address] [address] Noé Sigala MD [address] [place] [address] [place] [address] Visit for screening mammogram Social History Tobacco Use Types Packs/Day Years Used Date Smoking Tobacco: Never Assessed Comments Unknown Sex and Gender Information Value Date Recorded Sex Assigned at Female 05/27/2017 9:38 AM EST Legal Sex Female 10:09 PM EDT Gender Identity Female 05/27/2017 9:38 AM EST Sexual Orientation Straight 05/27/2017 9: 38 AM EST documented as of this encounter Plan of Treatment Not on file documented as of this encounter Results * BI MAMMOGRAM SCREENING WITH TOMOSYNTHESIS WITH CAD (BILATERAL) (01/07/2019 9:25 AM EDT) Anatomical Region Laterality Modality Breast Left, Breast Right, Breast Bilateral Bila teral Mammography 01/07/2019 10:5 2 AM EDT Impressions 01/07/2019 10:59 AM EDT BILATERAL BREASTS: Benign, no evidence of malignancy. Normal interval follow-up is recommended in 12 months. Bi-RADS: BI-RADS CATEGORY: 2 - Benign finding. DENSITY: There are scattered fibroglandular densities. POS - CDHMAMA Narrative 01/07/2019 10:59 AM EDT STUDY: Bilateral screening mammography with tomosynthesis and CAD TECHNIQUE: Bilateral full-field digital screening mammography is obtained and read in conjunction with computer-aided detection. Tomosynthesis as well as 2-D C view imaging were obtained. COMPARISON: Comparison made to multiple prior, most recent March 22, 2016, and most remote September 28, 2010. BREAST COMPOSITION: There are scattered areas of fibroglandular density RIGHT BREAST: No significant masses, calcifications or other abnormalities are seen. LEFT BREAST: Pacemaker battery obscures local evaluation. Micromarker from previous needle core biopsy in place. No significant masses, calcifications or other abnormalities are seen. Procedure Note Kiet López MD - 01/07/2019 STUDY: Bilateral screening mammography with tomosynthesis and CAD TECHNIQUE: Bilateral full-field digital screening mammography is obtainedand read in conjunction with computer-aided detection. Tomosynthesis aswell as 2-D C view imaging were obtained. COMPARISON: Comparison made to multiple prior, most recent March, and most remote September 28, 2010. BREAST COMPOSITION: There are scattered areas of fibroglandulardensity RIGHT BREAST: No significant masses, calcifications or otherabnormalities are seen. LEFT BREAST: Pacemaker battery obscures local evaluation. Micromarkerfrom previous needle core biopsy in place. No significant masses,calcifications or other abnormalities are seen. IMPRESSION: BILATERAL BREASTS: Benign, no evidence of malignancy. Normal intervalfollow-up is recommended in 12 months. Bi-RADS: BI-RADS CATEGORY: 2 - Benign finding. DENSITY: There are scattered fibroglandular densities. POS - CDHMAMA Noé Sigala MD IMG MG EXAMS Final R esult documented in this encounter Visit Diagnoses Diagnosis Visit for screening mammogram Visit for screening mammogram documented in this encounter Care Teams Engraver Copperplate Relationship Specialty Start Date End Date Unknown, Unknown, [address] [address] PCP - General 03/09/17 03/28/17 Noé Sigala MD [address] [place] [address] [place] [address] PCP - General Internal Medicine 03/29/17 Candis Coronel MD [address] [place] [address] Historical LMR Provider 03/06/17 2 Noé Sigala MD [address] [place] [address] [place] [address] Historical LMR Provider 03/06/17 Benito Cope MD [address] [place] [address] Historical LMR Provider 03/06/17 2 Vera Serrano MD [address] [address] [email or web address] Historical LMR Provider 03/06/17 05/27/21 documented as of this encounter Additional Source Comments The information contained in this document represents components of the legal health record. It is not the complete legal health record.[facility]
--- OUTSIDE RECORDS SUMMARY | 2025-03-02 10:48 | XMS_ITS | Clinical Summary ---
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 [employer] Spider Name Role Phone Noé Sigala MD Unavailable [phone] Noé Sigala MD Primary Care Provider Allergies No known active allergies Medications aspirin 81 mg chewable tablet 1 tablet Acti ve atorvastatin (LIPITOR) 10 MG tablet 1 tablet Active CALCIUM CARB/MAGNESIUM CARB (CALCIUM & MAGNESIUM CARBONATES ORAL) Act larisa dilTIAZem (CARDIZEM) 90 MG immediate release tablet Activ e levothyroxine (SYNTHROID, LEVOTHROID) 50 MCG tablet 1 tablet every morning on an empty stomach Active magnesium oxide-Mg AA chelate (MAGNESIUM, OXIDE/AA CHELATE,) 300 mg Cap Active omega 9-jru-nuf-fish oil 183.3 mg-75 mg -91.6 mg-306 mg Cap Active Lactobacillus acidophilus (PROBIOTIC) 10 billion cell Cap Act larisa MULTIVIT,THER.W- IRON,HEMATINIC (B COMPLEX VITAMINS PLUS ORAL) Active ascorbic acid, vitamin C, 100 mg Chew Active cholecalciferol, vitamin D3, 400 unit capsule Active Active Problems Problem Noted Date Diagnosed Date Hyperlipidemia 03/29/2017 Family History Medical History Relation Comments Cancer Father Cancer Paternal Grandfather Cancer Paternal Grandmother Cancer Sibling Breast cancer Sister Ovarian cancer Sister Relation Status Comments Father Paternal Grandfather Paternal Grandmother Sibling Sister Social History Tobacco Use Types Packs/Day Years Used Date Smoking Tobacco: Never Smokeless Tobacco: Never Alcohol Use Standard Drinks/Week Comments No 0 (1 standard drink = 0.6 oz pur e alcohol) Education Answer Date Recorded Are you interested in more education? Not on shruthi e 09/14/2022 Are you concerned about learning? Not on file 09/14/2022 No 09/14/2022 No 09/14/2022 Digital Access Answer Date Recorded No 10/13/2022 No 10/13/2022 Reliable internet access at home? Not on file 10/13/2022 Device with a working camera? 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 Not on file Not on file Not on file Last Filed Vital Signs Vital Sign Reading Time Taken Comments Blood Pressure 136/80 03/29/2017 10:09 AM EST Pulse - - Temperature - - Respiratory Rate - - Oxygen Saturation - - Inhaled Oxygen Concentration - - Weight 93.4 kg (206 lb) 03/29/2017 10:09 AM EST Height 166.4 cm (5' 5.5 ) 03/29/2017 10:09 AM ES T Body Mass Index 33.76 03/29/2017 10:09 AM EST Plan of Treatment Health Maintenance Due Date Last Done Comments Adult Td,Tdap Booster 1944 LIPID PANEL 1944 TSH LEVEL 1944 DEPRESSION SCREENING 1956 PNEUMOCOCCAL VACCINES (50+ years) (1 of 1 - PCV) 1994 ZOSTER VACCINES (1 of 2) 1994 RSV VACCINE (1 - 1-dose 75+ series) 2019 INFLUENZA VACCINE (#1) 2024 0, 02/20/2014 COVID-19 VACCINE ( - 2024-2 6 season) 2025 SMOKING STATUS SCREENING (On ce After 26 Yrs) Completed 03/29/2017 OSTEOPOROSIS SCREENING INITI AL (ONE-TIME) Completed 01/07/2019 HEPATITIS A VACCINES Aged Out No long er eligible based on patient's age to complete this topic HIB VACCINES Aged Out No longer eligi ble based on patient's age to complete this topic MENINGOCOCCAL VACCINES (ACWY) Aged Out No longer eligible based on patient's age to complete this topic MENINGOCOCCAL VACCINES (B) Aged Out N o longer eligible based on patient's age to complete this topic Medical Devices Not on file Procedures Procedure Name Priority Date/Time Associated Diagnosis Comments BD DXA AXIAL (SPINE) WITH HIP Routine 01/07/2019 9:44 AM EDT Post-menopausal from Last 3 Months or Most Recently Relevant to Health Maintenance Results * BD DXA AXIAL (SPINE) WITH [...] the right hip was calculated at 0.875 gm/zi4axjm a T-score of -0.5 and Z-score of 1.2 falling within the WHOclassification of normal. Total bone mineral density in the left hip wascalculated at 0.846 gm/cm2 with a T-score of -0.8 and Z-score of 1.0falling within the WHO classification of normal. IMPRESSION: Normal bone mineral density. POS - [id number] Noé Sigala MD Geremias BD BONE DENSITY DEX A Final Result from Last 3 Months or Most Recently Relevant to Health Maintenance Insurance MEDICARE PART A & B [facility] MEDICARE SUPPLEMENT MEDICARE PART A & B [facility] MEDICARE SUPPLEMENT MEDICARE PART A & B MEDICARE PART A & B Member Subscriber Plan / Payer (Ef fective 2018-Present) Name:Valery Cano Member ID:[id number] Relation to Subscriber:Self Name:Valery Cano Subscriber ID:[id number] Payer ID:[id number] Group ID:Not on file Type:Medicare Address: [facility] [employer] [facility] [address] [place] [address] MEDICARE PART A & B [employer] MEDICARE SUPPLEMENT MEDICARE PART A & B MEDICARE PART A & B [employer] EXTENSION MEDICARE SUPPLEMENT MEDICARE PART A & B [employer] MEDICARE SUPPLEMENT MEDICARE PART A & B [facility] MEDICARE SUPPLEMENT Care Teams Assembler [employer] Spider Relationship Specialty Start Date End Date Noé Sigala MD [address] [place] [address] [place] [id number] PCP - General Internal Medicine 03/29/17 Noé Sigala MD [address] [place] [address] [place] [id number] Historical LMR Provider 03/06/17 Additional Source Comments The information contained in this document represents components of the legal health record. It is not the complete legal health record.[facility]
--- OUTSIDE RECORDS SUMMARY | 2025-03-02 10:48 | XMS_ITS | Clinical Summary ---
Author Organization [facility] Address [address] [place] [address] Care Team Providers Care Supply Chain Logistics Manager Name Role Phone Unavailable Primary Care Provider [...] 75+ series) 2019 COVID-19 Vaccine ( - 2024-2 6 season) 2025 Influenza (#1) 2025 HPV Vaccine (No Doses [...]
--- OUTSIDE RECORDS SUMMARY | 2025-03-02 10:49 | XMS_ITS | Patient Health Record ---
Author Organization [facility] Address [address] [facility] [place] [address] Care Team Providers Care Director Meetings Name Role Phone Amaya Yañez Primary Care Provider Shahzad Fuller Unavailable [phone] Allergies Allergen (clinical drug ingredient) Drug/Non Drug Allergy documented on EMR Reaction Allergy Type Onset Date Status Adhesive Unknown Allergy Active Results Component Value Reference Range Notes HEMOGLOBIN A1C (GLYCOHEMOGLO BIN) Reviewed date:10/23/2024 11:09:11 AM Interpretation: Performing Lab: Notes/Report: HEMOGLOBIN A1C % (HH) 7.0 HEMOGLOBIN A1C (GLYCOHEMOGLO BIN) Reviewed date:01/26/2025 03:15:40 PM Interpretation: Performing Lab: Notes/Report: HEMOGLOBIN A1C % (HH) 7.0 Reason For Referral No Information Medications Medication SIG (Take, Route, Frequency, Duration) Notes Start Date End Date Status Extra Depth Orthopedic Shoes, (1) Pair With (3) Pair Custom Heat Molded Multidensity Innersoles Dx: NIDDM/PVD(E11.51), Hammertoe Foot Deformity(M20.41,M20.42) , Preulcerative Skin Lesion(s)(L85.1) Wear Daily; Duration: 365 days 01/26/2025 Active Atorvastatin Calcium 10 MG 1 tablet Orally Once a day; Duration: 30 day(s) Active Ammonium Lactate 12 % APPLY TOPICALLY TO AFFECTED AREAS OF DRY SKIN,AND TWICE DAILY IN BETWEEN TOES FOR 30 DAYS; Duration: 30 Active dilTIAZem HCl ER 240 MG 1 tablet Orally Once a day; Duration: 30 day(s) Active Levothyroxine Sodium 50 MCG 1 tablet in the morning on an empty stomach Orally Once a day; Duration: 30 day(s) Active Tolterodine Tartrate ER 4 MG 1 capsule Orally Once a day; Duration: 30 day(s) Active Symbicort 160-4.5 MCG/ACT 1 puff as needed Inhalation every 4 hrs Not-Takin g Aspirin Adult Low Dose 81 MG 1 tablet Orally Once a day; Duration: 30 day(s) Active Dulera Active Immunizations Vaccine Route Administration Date Status Comme nts Influenza Unknown 02/18/2024 Administered Influenza Unknown 02/18/2024 Administered Social History Tobacco Use: Social History Observation Description Date Details (start date - stop date) Never Smoker NA - NA Tobacco use other than smoking: Question Answer Notes Are you an other tobacco user? No Tobacco Control (Standard) Question Answer Notes Tobacco use: Nonsmoker Additional Findings: Tobacco non-user Current no nsmoker AUDIT-C (Standard) Question Answer Notes Did you have a drink containing alcohol in the p ast year? No Points 0 Interpretation Negative Problems Problem Type SNOMED Code ICD Code Onset Dates Problem Status W/U Status Risk Notes Problem Acquired hammer toe of right foot (2196636098900 105) Other hammer toe(s) (acquired), right foot (M20.41) Active confirmed Problem Type 2 diabetes mellitus with peripheral angiopathy (163164029) Type 2 diabetes mellitus with diabetic peripheral angiopathy without gangrene (E11.51) Active confirmed Q7(A), Q8(2B), Q9(1B,2C) Problem Acquired hammer toe of left foot (0671508133916 103) Other hammer toe(s) (acquired), left foot (M20.42) Active confirmed Vital Signs Blood pressure diastolic 68 mm Hg 01/26/2025 Height 5 ft 6 in in 01/26/2025 Blood pressure systolic 126 mm Hg 01/26/2025 Weight 182 lbs 01/26/2025 BMI 29.37 kg/m2 01/26/2025 Procedures Procedure Date Ordered Date Performed Result Body Sit e 20612-GGOZHEU NAIL, 6 OR MORE 04/28/2024 N/A 40837-OBLU SKIN LESIONS, 2 TO 4 04/28/2024 N/A 34137-DYXRHQI NAIL, 6 OR MORE 07/24/2024 N/A 30480-DWME SKIN LESIONS, 2 TO 4 07/24/2024 N/A 44015-USTMBPJ NAIL, 6 OR MORE 10/23/2024 N/A 88724-OMJQ SKIN LESIONS, 2 TO 4 10/23/2024 N/A 13219-PXGOMFF NAIL, 6 OR MORE 01/26/2025 N/A 72020-AEPE SKIN LESIONS, 2 TO 4 01/26/2025 N/A Encounters Encounter Location Date Provider Diagnosis [address] [address] 04/28/2024 Shahzad Rosado Atherosclerosis of [place] artery of both lower extremities, with unspecified presence of clinical manifestation I70.203 ; Tinea unguium B35.1 ; Pain in right toe(s) M79.674 ; Pain in left toe(s) M79.675 and Skin ulcer of toe of right foot, limited to breakdown of skin L97.[address] [address] 07/24/2024 Shahzad Rosado Atherosclerosis of [place] artery of both lower extremities, with unspecified presence of clinical manifestation I70.203 ; Tinea unguium B35.1 ; Pain in right toe(s) M79.674 ; Pain in left toe(s) M79.675 and Xerosis of skin L85.[address] [address] 10/23/2024 Shahzad Rosado Type 2 diabetes mellitus with diabetic peripheral angiopathy without gangrene E11.51 ; Tinea unguium B35.1 ; Pain in right toe(s) M79.674 ; Pain in left toe(s) M79.675 and Xerosis of skin L85.[address] [address] 01/26/2025 Shahzad Rosado Type 2 diabetes mellitus with diabetic peripheral angiopathy without gangrene E11.51 ; Tinea unguium B35.1 ; Pain in right toe(s) M79.674 ; Pain in left toe(s) M79.675 ; Other hammer toe(s) (acquired), right foot M20.41 and Other hammer toe(s) (acquired), left foot M20.42 [facility] [address] [place] [address] 07/24/2024 Shahzad Rosado Assessments Encounter Date Diagnosis (ICD Code) Assessment Notes Treatment Notes Treatment Clinical Notes Section Notes 04/28/2024 Tinea unguium (ICD-10 - B35.1) 04/28/2024 Atherosclerosis of [place] artery of both lower extremities, with unspecified presence of clinical manifestation (ICD-10 - I70.203) 07/24/2024 Tinea unguium (ICD-10 - B35.1) 07/24/2024 Atherosclerosis of [place] artery of both lower extremities, with unspecified presence of clinical manifestation (ICD-10 - I70.203) Q7(A), Q8(2B), Q9(1B,2C) 10/23/2024 Type 2 diabetes mellitus with diabetic peripheral angiopathy without gangrene (ICD-10 - E11.51) Q7(A), Q8(2B), Q9(1B,2C) 10/23/2024 Tinea unguium (ICD-10 - B35.1) 01/26/2025 Type 2 diabetes mellitus with diabetic peripheral angiopathy without gangrene (ICD-10 - E11.51) Q7(A), Q8(2B), Q9(1B,2C) 01/26/2025 Tinea unguium (ICD-10 - B35.1) 04/28/2024 Pain in right toe(s) (ICD-10 - M79.674) 01/26/2025 Pain in right toe(s) (ICD-10 - M79.674) 10/23/2024 Pain in right toe(s) (ICD-10 - M79.674) 07/24/2024 Pain in right toe(s) (ICD-10 - M79.674) 07/24/2024 Pain in left toe(s) (ICD-10 - M79.675) 04/28/2024 Pain in left toe(s) (ICD-10 - M79.675) 10/23/2024 Pain in left toe(s) (ICD-10 - M79.675) 01/26/2025 Pain in left toe(s) (ICD-10 - M79.675) 10/23/2024 Xerosis of skin (ICD-10 - L85.3) 04/28/2024 Skin ulcer of toe of right foot, limited to breakdown of skin (ICD-10 - L97.511) 07/24/2024 Xerosis of skin (ICD-10 - L85.3) 01/26/2025 Other hammer toe(s) (acquired), right foot (ICD-10 - M20.41) Patient Educated with: DIABETIC FOOT CARE INSTRUCTIONS. pdf (DIABETIC FOOT CARE INSTRUCTIONS. pdf) 01/26/2025 Other hammer toe(s) (acquired), left foot (ICD-10 - M20.42) 04/28/2024 Other Plan Of Treatment Pending Test Test Name Order Date 92187-NCLIEZX NAIL, 6 OR MORE 11/19/2023 89062-MXSLOAZ NAIL, 6 OR MORE 01/28/2024 33406-FSGHYLO NAIL, 6 OR MORE 04/28/2024 95386-YFINVPT NAIL, 6 OR MORE 07/24/2024 79000-UVXUKPI NAIL, 6 OR MORE 10/23/2024 70187-OOHNKYX NAIL, 6 OR MORE 01/26/2025 60071- Debride <25 sq cm 01/28/2024 51134- Debride <25 sq cm 11/19/2023 65146-MQEO SKIN LESIONS, 2 TO 4 11/19/19 24 27342-TGUC SKIN LESIONS, 2 TO 4 01/28/20 24 16457-RVMB SKIN LESIONS, 2 TO 4 07/25/19 25 46125-KZDW SKIN LESIONS, 2 TO 4 04/28/20 24 85611-QYQY SKIN LESIONS, 2 TO 4 01/27/20 25 18194-BBSZ SKIN LESIONS, 2 TO 4 10/24/19 25 Next Appt Details Provider Name:Shahzad Rosado , 05/25/2025 10:45:00 AM, [address] [facility], [place], [address], Insurance Providers Payer Name Payer Address Payer Phone Subscriber Number Group Number Insured Name Patient Relationship to Insured Coverage Start Date Coverage End Date Medicare National Govt Svcs Inc [address] [place] [address] [id number] Valery Cano Self - patient is the insured [employer]) [address] [place] [address] [id number] Valery Cano Self - patient is the insured Medical (General) History Medical History History ICD Code Back,Hip,and Knee pain Broken bones Cataracts Fibromyalgia Headaches/Migraines Heart disease thyroid Measles Mumps Chicken pox Pacemaker CAD ( Coronary Artery Disease) Diabetes mellitus Surgical History Surgery Date(Month/Year) cardiac pacemeker 08/27/2023 basal cell removal 06/21/2023
== END ==
LOC: HO.CARD 09:42
PROVIDERS: Visit Provider Internal Medicine Cardiovascular Disease
DX: Z95.0 Presence of cardiac pacemaker (principal)
CPT/HCPCS: 93306

== ENCOUNTER → 2025-03-02 09:44 | Outpatient (BNV) | payer MEDICARE, OTHER, SELFPAY | PROVIDERS: Visit Provider Internal Medicine | DX: I51.7 Cardiomegaly (principal); Z95.0 Presence of cardiac pacemaker | CPT/HCPCS: 93306 ==

== ENCOUNTER 2025-03-15 09:20 | Outpatient (AMB) | payer MEDICARE, OTHER, SELFPAY ==
--- NOTE | 2025-03-15 09:22 | A.OFFVIS_ITS ---
Vital Signs 03/15/25 09:23 Height 5 ft 6 in Weight 187 lb 6.287 oz BMI 30.2 BP 136/76 Blood Pressure Location Lt brachial Position Sitting Pulse 75 Intake Visit Reasons: 6 mth w/ medtronic ck w/ NS Intake Note: 6 month follow-up with ekg and Medtronic check Technology Education Teacher Required: No Allergies No Known Allergies (No Known Allergies*) Allergy (Verified 12/23/24 10:35) Medication List - Last Reconciled 03/15/25 by Seferino Hampton MD albuterol sulfate 90 mcg/actuation 2 puffs inhalation Q4-6H PRN aspirin (Ecotrin Low Strength) 81 mg PO DAILY atorvastatin 10 mg PO BEDTIME diltiazem HCl CD 240 mg PO DAILY inhalational spacing device (Aerochamber Mechanical Vent) As directed levothyroxine 50 mcg PO DAILY mirabegron ER (Myrbetriq) 25 mg PO DAILY 90 days pyridoxine (vitamin B6) 100 mg PO DAILY 90 days HPI Comments Details: Valery comes for a usual pacemaker follow-up. She has been doing well. She has not significant cardiac complaints. No prolonged palpitation irregular heartbeat. No lightheadedness, syncope. Her pacer telemetry is showing atrial lead noise and diagnose as of atrial fibrillation. Takes all her medications. [facility] Medical History Acute bronchitis Pacemaker at end of battery life Hypothyroidism Diabetes mellitus Degenerative joint disease Irritable bowel syndrome Diverticulosis Allergic rhinitis Cough SVT (supraventricular tachycardia) Complete heart block Cardiac pacemaker in situ Surgical History History of permanent cardiac pacemaker placement COPD (chronic obstructive pulmonary disease) H/O colonoscopy History of appendectomy History of hysterectomy Hx of eye surgery Family History Father No problems noted. Mother CVD (cardiovascular disease) Pacemaker Social History Housing: House Patient Tobacco Use Status: Former Tobacco user e-Cigarette/Vaping Use: Former Use service: No Current occupational status: retired Cognitive needs: No Hearing needs: No Vision needs: Yes (reading glasses) Review of Systems Const Denies chills, Denies fatigue, Denies fever(s), Denies frequent falls, Denies weakness, Denies weight gain and Denies weight loss ENT Denies dizziness Card Denies chest pain, Denies leg edema, Denies lightheadedness, Denies palpitations, Denies dyspnea, Denies dyspnea on exertion, Denies orthopnea and Denies other (loss of consciousness) Resp Denies cough, Denies dyspnea and Denies dyspnea on exertion GI Denies hematochezia and Denies change in stool character Musc Denies abnormal gait, Denies muscle weakness, Denies numbness, Denies radiating pain into limb and Denies tingling Neuro Denies abnormal gait, Denies dizziness, Denies frequent falls, Denies numbness, Denies tingling and Denies weakness Endo Denies fatigue and Denies palpitations Physical Exam Vital Signs: Last Vital Signs Pulse 75 03/15/25 09:23 BP 136/76 03/15/25 09:23 BMI result Body Mass Index 30.2 Const General: cooperative, comfortable, no acute distress, alert and awake Nutritional Appearance: obese Orientation/consciousness: patient oriented x3 Limitations: no limitations Neck Neck: Yes trachea midline, Yes supple and Yes no JVD Resp Effort & Inspection: normal respiratory effort Auscultation: diminished lung sounds on the left in the lower lung lowery and b ronchovesicular breath sounds Cardio Jugular venous distension: no JVD Palpation: normal PMI Rate: regular rate Rhythm: regular rhythm Heart sounds: S1 normal heart sound present and S2 normal heart sound present GI Inspection: Yes obesity Auscultation: normal bowel sounds Skin General skin exam: no rashes or lesions noted Neuro General: patient oriented x3 and no focal motor deficits Extrem General: Yes no clubbing, cyanosis or edema and Yes pedal edema Psych Appearance: grossly normal Office Procedures Cardiac Device Check Cardiac Device Check Details: Dual-chamber Medtronic pacemaker in place. Programmed in DDDR at 60 beats per minute. Ventricularly pacer dependent 100%. Atrial pacing 48.8% time. Atrial sensitivity is low at 0.1 mV causing mostly artifact. Atrial lead impedance is stable but on the lower side. Ventricular pacing lead impedance is stable. Ventricular sensing could not be checked. Atrial ventricular pacing thresholds are stable but on the higher side. Reprogrammed to enhance battery life on the ventricular threshold side. Battery life is adequate. Atrial fibrillation episodes listed on the pacer telemetry appear to be artifact due to lead noise 94981-MB Cardiac Device Check, pacemaker dual lead Procedure code (CPT) selection complete EKG Details: EKG shows atrially sensed, ventricularly paced rhythm. 55660-Zxvupanprokivwxzh, Complete Assessment & Plan Assessment & Plan (1) Cardiac pacemaker in situ: Comment: Medtronic dual-chamber. Did not tolerate asynchronous ventricular pacing Code(s): Z95.0 - Presence of cardiac pacemaker Category: Medical Plan: Cardiac pacemaker in-situ for complete heart block. Pacemaker is working well. Reprogrammed for adequate functioning. Will follow pacer telemetry. Does have atrial lead abnormality with noted increase noise on the atrial lead giving falls diagnose of atrial fibrillation. At this point time will continue monitor pacer telemetry although this pain. Difficult task. Will continue monitor in the clinic every 6 months. I would avoid pursuing atrial lead revision at this point time as overall pacemaker function appears to be adequate. (2) SVT (supraventricular tachycardia): Code(s): I47.1 - Supraventricular tachycardia Category: Medical Plan: Supraventricular tachycardia in the past which has remained suppressed on Cardizem therapy. Currently doing well on that. Continue the same. Avoidance of stimulants was discussed. Continue monitor by pacer telemetry. Continue current statin therapy with target goal LDL less than 100 mg/dL given her mitral annular calcification. Continue low-dose aspirin therapy. Will follow up in the clinic in 6 months time, sooner PRN. Thank you for allowing me to partake in her care Coding Level of Care Code Est Pt Level 4 (63934) Complex EM visit Add On G2211 Diagnoses Cardiac pacemaker in situ Z95.0 SVT (supraventricular tachycardia) I47.1 CPT Codes Cardiac Device Check - Cardiac Device 2: 94506-ZU Cardiac Device Check, pacemaker dual lead ([id number]) EKG - CPT: 44043-Pxgovxoihafybgiup, Complete ([id number])
[2025-03-15 09:23] VITALS: BP 136/76; PULSE 75; BMI 30.2
--- OUTSIDE RECORDS SUMMARY | 2025-03-15 10:19 | XMS_ITS | Patient Health Record ---
Author Organization [facility] Address [address] [facility] [place] [address] Care Team Providers Care Agriculture Laborer Name Role Phone Amaya Yañez Primary Care Provider Shahzad Fuller Unavailable [phone] Allergies Allergen (clinical drug ingredient) Drug/Non Drug [...] Problem Acquired hammer toe of right foot (5852821098690 105) Other hammer toe(s) (acquired), right foot (M20.41) Active confirmed Problem Type 2 diabetes mellitus with peripheral angiopathy (639774808) Type 2 diabetes mellitus with diabetic peripheral angiopathy without gangrene (E11.51) Active confirmed Q7(A), Q8(2B), Q9(1B,2C) Problem Acquired hammer toe of left foot (1770301261468 103) Other hammer toe(s) (acquired), left foot (M20.42) Active confirmed Vital Signs Blood pressure diastolic 68 mm Hg 01/26/2025 Height 5 ft 6 in in 01/26/2025 Blood pressure systolic 126 mm Hg 01/26/2025 Weight 182 lbs 01/26/2025 BMI 29.37 kg/m2 01/26/2025 Procedures Procedure Date Ordered Date Performed Result Body Sit e 98314-NUWOMUT NAIL, 6 OR MORE 04/28/2024 N/A 80130-VJOW SKIN LESIONS, 2 TO 4 04/28/2024 N/A 49941-TUMPDYM NAIL, 6 OR MORE 07/24/2024 N/A 05320-AHRQ SKIN LESIONS, 2 TO 4 07/24/2024 N/A 47926-IVZQBET NAIL, 6 OR MORE 10/23/2024 N/A 23026-BNTF SKIN LESIONS, 2 TO 4 10/23/2024 N/A 49907-VHVQKPW NAIL, 6 OR MORE 01/26/2025 N/A 50105-OYBU SKIN LESIONS, 2 TO 4 01/26/2025 N/A Encounters Encounter Location Date Provider Diagnosis [address] [address] 04/28/2024 Shahzad Rosado Atherosclerosis of [place] artery of both lower extremities, with unspecified presence of clinical manifestation I70.203 ; Tinea unguium B35.1 ; Pain in right toe(s) M79.674 ; Pain in left toe(s) M79.675 and Skin ulcer of toe of right foot, limited to breakdown of skin L97.[address] [address] 07/24/2024 Shahzad Rosado Atherosclerosis of [place] artery of both lower extremities, with unspecified presence of clinical manifestation I70.203 ; Tinea unguium B35.1 ; Pain in right toe(s) M79.674 ; Pain in left toe(s) M79.675 and Xerosis of skin L85.[address] [address] 10/23/2024 Shahzad Rosado Type 2 diabetes mellitus with diabetic peripheral angiopathy without gangrene E11.51 ; Tinea unguium B35.1 ; Pain in right toe(s) M79.674 ; Pain in left toe(s) M79.675 and Xerosis of skin L85.[address] [address] 01/26/2025 Shahzad Rosado Type 2 diabetes mellitus with diabetic peripheral angiopathy without gangrene E11.51 ; Tinea unguium B35.1 ; Pain in right toe(s) M79.674 ; Pain in left toe(s) M79.675 ; Other hammer toe(s) (acquired), right foot M20.41 and Other hammer toe(s) (acquired), left foot M20.42 [facility] [place] [address] [place] [address] 07/24/2024 Shahzad Rosado Assessments Encounter Date Diagnosis (ICD Code) Assessment Notes Treatment Notes Treatment Clinical Notes Section Notes 04/28/2024 Tinea unguium (ICD-10 - B35.1) 04/28/2024 Atherosclerosis of [place] artery of both lower extremities, with unspecified presence of clinical manifestation (ICD-10 - I70.203) 07/24/2024 Tinea unguium (ICD-10 - B35.1) 07/24/2024 Atherosclerosis of [place] artery of both lower extremities, with unspecified [...] Treatment Pending Test Test Name Order Date 86408-IDBXNPZ NAIL, 6 OR MORE 11/19/2023 49909-VSEBFTU NAIL, 6 OR MORE 01/28/2024 74220-BNPTEVK NAIL, 6 OR MORE 04/28/2024 89147-VDGLFDP NAIL, 6 OR MORE 07/24/2024 13090-AGARGXH NAIL, 6 OR MORE 10/23/2024 95098-XMZJZKV NAIL, 6 OR MORE 01/26/2025 91428- Debride <25 sq cm 01/28/2024 09625- Debride <25 sq cm 11/19/2023 52980-SSMV SKIN LESIONS, 2 TO 4 11/19/19 24 65134-DAMO SKIN LESIONS, 2 TO 4 01/28/20 24 59822-IIQQ SKIN LESIONS, 2 TO 4 07/25/19 25 71258-HBIG SKIN LESIONS, 2 TO 4 04/28/20 24 04744-NANG SKIN LESIONS, 2 TO 4 01/27/20 25 94851-BCKF SKIN LESIONS, 2 TO 4 10/24/19 25 Next Appt Details Provider Name:Shahzad Rosado , 05/25/2025 10:45:00 AM, [address] [facility], [place], [address], Insurance Providers Payer Name Payer Address Payer Phone Subscriber Number Group Number Insured Name Patient Relationship to Insured Coverage Start Date Coverage End Date Medicare National Govt Sv[employer] [address] [place] [address] [id number] Valery Cano Self - patient is the insured Bevy) [address] [place] [address] [id number] Valery Cano Self - patient is the insured Medical (General) History Medical History History ICD Code Back,Hip,and Knee pain Broken bones Cataracts Fibromyalgia Headaches/Migraines Heart disease thyroid Measles Mumps Chicken pox Pacemaker CAD ( Coronary Artery Disease) Diabetes mellitus Surgical History Surgery Date(Month/Year) cardiac pacemeker 08/27/2023 basal cell removal 06/21/2023
--- OUTSIDE RECORDS SUMMARY | 2025-03-15 10:19 | XMS_ITS | Encounter Summary ---
Author Organization [facility] Address [address] [place] [address] Phone Care Team Providers Care Well Services Operator Name Role Phone Candis Coronel MD Unavailable Noé Sigala MD Unavailable [phone] Benito Cope MD Unavailable [phone] Vera Serrano MD Unavailable [phone] Noé Sigala MD Primary Care Provider Encounter Details Date Type Department Care Team (Late st Contact Info) Description 11/03/2018 Ancillary Orders Virtual Department [address] [place] [address] Noé Sigala MD [address] [place] [address] [place] [address] Post-menopausal Social History Tobacco Use Types Packs/Day [...] the right hip was calculated at 0.875 gm/ln4juzc a T-score of -0.5 and Z-score of [...] (natural) documented in this encounter Care Teams Well Services Operator Relationship Specialty Start Date End Date Noé Sigala MD [address] [place] [address] [place] [address] PCP - General Internal Medicine 03/29/17 Candis Coronel MD [address] [place] [address] Historical LMR Provider 03/06/17 2 Néo Sigala MD [address] [place] [address] [place] [address] Historical LMR Provider 03/06/17 Benito Cope MD [address] [place] [address] Historical LMR Provider 03/06/17 2 Vera Serrano MD [address] [place] [address] [email or web address] Historical LMR Provider 03/06/17 05/27/21 documented as of this encounter Additional Source Comments The information contained in this document represents components of the legal health record. It is not the complete legal health record.[facility]
--- OUTSIDE RECORDS SUMMARY | 2025-03-15 10:19 | XMS_ITS | Clinical Summary ---
Author Organization [facility] Address [address] [place] [address] Care Team Providers Care Metalworker Name Role Phone Unavailable Primary Care Provider [...]
--- OUTSIDE RECORDS SUMMARY | 2025-03-15 10:19 | XMS_ITS | Clinical Summary ---
Author Organization [facility] Address [address] [place] [address] Phone Care Team Providers Care Certified Cytotechnologist Name Role Phone Noé Sigala MD Unavailable [phone] Noé Sigala MD Primary Care Provider Allergies [...] OXIDE/AA CHELATE,) 300 mg Cap Active omega 9-pis-jvs-fish oil 183.3 mg-75 mg -91.6 mg-306 mg [...] the right hip was calculated at 0.875 gm/pk3ijfc a T-score of -0.5 and Z-score of [...] Maintenance Insurance MEDICARE PART A & B [facility] MEDICARE SUPPLEMENT MEDICARE PART A & B [facility] MEDICARE SUPPLEMENT MEDICARE PART A & B MEDICARE PART A & B Member Subscriber Plan / Payer (Ef fective 2018-Present) Name:Valery Cano Member ID:[id number] Relation to Subscriber:Self Name:Valery Cano Subscriber ID:[id number] Payer ID:[id number] Group ID:Not on file Type:Medicare Address: [facility] [employer] [facility] [address] [place] [address] MEDICARE PART A & B [employer] MEDICARE SUPPLEMENT MEDICARE PART A & B MEDICARE PART A & B [email or web address] EXTENSION MEDICARE SUPPLEMENT MEDICARE PART A & B [employer] MEDICARE SUPPLEMENT MEDICARE PART A & B [facility] MEDICARE SUPPLEMENT Care Teams Certified Cytotechnologist Relationship Specialty Start Date End Date Noé Sigala MD [address] [place] [address] [place] [address] PCP - General Internal Medicine 03/29/17 Noé Sigala MD [address] [place] [address] [place] [address] Historical LMR Provider 03/06/17 Additional Source Comments The information contained in this document represents components of the legal health record. It is not the complete legal health record.[facility]
== END 2025-03-15 09:48 | disposition home or self-care (01) ==
LOC: HO.HCS 09:21
PROVIDERS: PCP Internal Medicine; Visit Provider Internal Medicine Cardiovascular Disease
DX: I47.10 Supraventricular tachycardia, unspecified (principal); Z95.0 Presence of cardiac pacemaker
CPT/HCPCS: 93010; 93280; 99214; G2211

== ENCOUNTER → 2025-03-15 09:20 | Outpatient (BNVA) | payer MEDICARE, OTHER, SELFPAY | PROVIDERS: PCP Internal Medicine; Visit Provider Internal Medicine Cardiovascular Disease | DX: I47.10 Supraventricular tachycardia, unspecified (principal); Z95.0 Presence of cardiac pacemaker; Z79.82 Long term (current) use of aspirin; Z87.891 Personal history of nicotine dependence | CPT/HCPCS: 93005; 93280; 99212 ==

== ENCOUNTER 2025-03-19 10:05 | Outpatient (AMB) | payer MEDICARE, OTHER, SELFPAY ==
--- NOTE | 2025-03-19 10:08 | MHC.PC.OV ---
Vital Signs 03/19/25 10:13 Height 5 ft 4.96 in Weight 84.822 kg BMI 31.2 BP 110/46 L Blood Pressure Location Lt brachial Position Sitting Respiration 20 Pulse 75 Pulse Source Pulse Oximeter Temp 98.0 F Pulse Oximetry (%) 96 Oxygen Delivery Method Room Air Intake Visit Reasons: 6 Month F/U Casting Coordinator Required: No Accompanied by: Self / Same As Patient Allergies No Known Allergies (No Known Allergies*) Allergy (Verified 03/19/25 10:09) Medication List - Last Reconciled 03/19/25 by COLETTE Monk albuterol sulfate 90 mcg/actuation 2 puffs inhalation Q4-6H PRN ammonium lactate 12% appl topical BID aspirin (Ecotrin Low Strength) 81 mg PO DAILY atorvastatin 10 mg PO BEDTIME [diabetic shoe Diabetic shoes; ] diltiazem HCl CD 240 mg PO DAILY inhalational spacing device (Aerochamber Mechanical Vent) As directed levothyroxine 50 mcg PO DAILY pyridoxine (vitamin B6) 100 mg PO DAILY 90 days Tobacco use date assessed: 08/28/24 Dental Screening Dental Screen Date: 08/28/24 HPI HPI Comments History of Present Illness Details 79-year-old female with history of SVT, complete heart block s/p pacemaker, IBS, type 2 diabetes, hypothyroidism, COPD presenting to the office today for management of chronic conditions. Last seen by Dr. Rothman and 08/2024. Urge incontinence/nephrolithiasis- Follows with Rojelio Kaplan in urology. No longer taking mirabegron due to cost Complete heart block/SVT- s/p pacermaker 2023. On diltiazem 240 mg daily. No palpitations, lightheadedness, dyspnea. Follows with Dr. Hampton Type 2 diabetes with peripheral neuropathy-last hemoglobin A1c 7.0%, due for updated A1c. Not checking glucose levels at home. Managed conservatively with diabetic diet. Does follow with Podiatry and requires prescription for diabetic shoes due to hammertoes. Finds neuropathy symptoms manageable at this time Hypothyroidism-due for TSH. Last TSH 0.02 with free T4 1.27. Patient does report that she is taking the medication by itself about 1 hour prior to any food or medication administration. She is unsure if she is taking any supplements including biotin taking COPD- no maintenance inhalers. Occ does need albuterol q4 hours. Remote history of cigarette smoking (quit [address] Downey Concerns: None Health maintenance: Last screening mammogram 05/2024 with 1 year follow-up advised, no evidence of malignancy. Last DEXA scan 05/2024 showing osteoporosis. She is taking calcium and vitamin-D Last colonoscopy 05/2023, PRN follow-up ROS: See HPI EXAM: Constitutional - Awake and Alert, No apparent distress Eyes - PERRL Cardiovascular - S1S2, RRR, No edema Respiratory - Normal lung expansion, Normal respiratory effort, No respiratory distress, CTA bilaterally Extremities - no calf tenderness bilaterally, no swelling Skin - Warm/Dry Neurological - Alert & oriented x3 Psychological - Appropriate affect [facility] Medical History (Updated 03/19/25 @ 12:41 by COLETTE Monk) Hammer toes of both feet Type 2 diabetes mellitus with peripheral neuropathy Acute bronchitis Pacemaker at end of battery life Hypothyroidism Diabetes mellitus Degenerative joint disease Irritable bowel syndrome Diverticulosis Allergic rhinitis Cough SVT (supraventricular tachycardia) Complete heart block Cardiac pacemaker in situ Surgical History History of permanent cardiac pacemaker placement COPD (chronic obstructive pulmonary disease) H/O colonoscopy (~05/28/23) History of appendectomy History of hysterectomy Hx of eye surgery Family History Father No problems noted. Mother CVD (cardiovascular disease) Pacemaker Social History Housing: House Patient Tobacco Use Status: Former Tobacco user e-Cigarette/Vaping Use: Former Use service: No Current occupational status: retired Cognitive needs: No Hearing needs: No Vision needs: Yes (reading glasses) Questionnaire Thrive Questionnaire Date Thrive assessed: 08/28/24 YUMIKO-7 AMB Questionnaire YUMIKO-7 Date YUMIKO - 7 assessed: 08/28/24 Source: Developed by Drs. Shaji Pinto, Luz Shields, Danny Haji and colleagues, with an educational danya from [employer]. Physical exam (Primary Care) Vital Signs: Last Vital Signs Temp 98.0 F 03/19/25 10:13 Pulse 75 03/19/25 10:13 Resp 20 03/19/25 10:13 BP 110/46 L 03/19/25 10:13 Pulse Ox 96 03/19/25 10:13 Oxygen Delivery Method Room Air 03/19/25 10:13 BMI result Body Mass Index 31.2 Tobacco/Smoking Status: Tobacco use Status Tobacco use date assessed 08/28/24 03/19/25 10:11 Patient Tobacco Use Status Former Tobacco user 03/19/25 10:11 e-Cigarette/Vaping Use Former Use 03/19/25 10:11 Thrive Assessment: Date of Thrive Assessment Date Thrive assessed 08/28/24 03/19/25 10:11 Coding Level of Care Code Est Pt Level 4 (25282) Complex EM visit Add On G2211 Diagnoses Hypothyroidism E03.9 Type 2 diabetes mellitus with peripheral neuropathy E11.42 Hammer toes of both feet M20.41; M20.42 Chronic obstructive pulmonary disease, unspecified COPD type J44.9 COPD type: unspecified COPD Assessment & Plan Assessment & Plan (1) Hypothyroidism: Code(s): E03.9 - Hypothyroidism, unspecified Category: Medical Plan: TSH with reflex free T4 ordered. Continue levothyroxine 50 mcg daily, dose to be adjusted pending results of studies (2) Type 2 diabetes mellitus with peripheral neuropathy: Code(s): E11.42 - Type 2 diabetes mellitus with diabetic polyneuropathy Category: Medical Plan: Hemoglobin A1c ordered, previously well-controlled for age. Continue diabetic diet. Diabetic shoes ordered given hammertoes. Peripheral neuropathy is stable and tolerable at this time. Continue with annual eye exams and foot exams. (3) Hammer toes of both feet: Code(s): M20.41 - Other hammer toe(s) (acquired), right foot; M20.42 - Other hammer toe(s) (acquired), left foot Category: Medical Plan: Diabetic shoes as above (4) COPD (chronic obstructive pulmonary disease): Comment: MILD TO MODERTAE DEGREE OF COPD. VERY STABLE , AND CONTROLLED HAS INCREASED COUGH WITH CONGESTED FEELING IN THE UPPER CHEST , SINCE LAST WEEK I THINK SHE HAS TRACHEOBRONCHITIS ON TOP OF HER CHRONIC OBSTRUCTIVE PULMONARY DISEASE. SHE WALKS WITH A CANE ANDSLOWLY, SO DOES NOT HAVE ANY SHORTNESS OF BREATH ON EXERTION. Code(s): J44.9 - Chronic obstructive pulmonary disease, unspecified Category: Surgical Qualifiers: COPD type: unspecified COPD Qualified Code(s): J44.9 - Chronic obstructive pulmonary disease, unspecified Plan: Stable. Continue following with pulmonology, albuterol p.r.n. Plan Follow-up in 4 months, labs to be completed today. Orders: Orders Basic Metabolic Panel Today E03.9 - Hypothyroidism, unspecified, E11.9 - Type 2 diabetes mellitus without complications, I47.1 - Supraventricular tachycardia Hemoglobin A1c Today E03.9 - Hypothyroidism, unspecified, E11.9 - Type 2 diabetes mellitus without complications, I47.1 - Supraventricular tachycardia Lipid Panel Today E03.9 - Hypothyroidism, unspecified, E11.9 - Type 2 diabetes mellitus without complications, I47.1 - Supraventricular tachycardia Microalbumin, Random (w Creat) Today E03.9 - Hypothyroidism, unspecified, E11.9 - Type 2 diabetes mellitus without complications, I47.1 - Supraventricular tachycardia TSH reflex Free T4 Today E03.9 - Hypothyroidism, unspecified Vitamin D 25-OH Total Today M81.0 - Age-related osteoporosis without current pathological fracture Prothrombin Time INR Today R23.3 - Spontaneous ecchymoses Partial Thromboplastin Time Today R23.3 - Spontaneous ecchymoses Complete Blood Count Auto Diff Today R23.3 - Spontaneous ecchymoses Medications: New [diabetic shoe] Diabetic shoes; 1 ea 0RF E11.42 - Type 2 diabetes mellitus with diabetic polyneuropathy, M20.41 - Other hammer toe(s) (acquired), right foot, M20.42 - Other hammer toe(s) (acquired), left foot
[2025-03-19 10:13] VITALS: BP 110/46; PULSE 75; RESP 20; TEMP 36.7; O2SAT 96; BMI 31.2
--- OUTSIDE RECORDS SUMMARY | 2025-03-19 11:24 | XMS_ITS | Data Portability ---
Author Organization [place] - [facility], Allergy Address [address] [place] [address] Care Team Providers Care Retail Service Technician Name Role Phone INOCENCIA SALINAS Primary Care Provider [phone] Assessment No assessment recorded. Plan of Treatment [...] Time Asymmetr ical sensorin eural hearing loss 652364725 Active 2014 Sensorin eural hearing loss asymmetr ic; Note: Date Diagnose d: 5 3:54 PM (389.16) Not Available [facility] 4 02:21:22 Benign paroxysm al position al vertigo 095794806 Active 2014 Benign paroxysm al position al vertigo; Note: Date Diagnose d: 5 3:54 PM (386.11) Not Available [facility] 4 02:20:42 Sensorin eural hearing loss of bilatera l ears 694000867 Active 2014 Sensorin eural hearing loss, bilatera l; Note: Date Diagnose d: 01/25/2015 10:47 AM (H90.3) Not Available [facility] 4 02:21:07 Bilatera l disorder of Eustachi an tubes 27339116981 26229 Active 2016 Other specifie d disorder s of Eustachi an tube, bilatera l; Note: Date Diagnose d: 10/24/2016 3:35 PM (H69.83) Not Available [facility] 4 02:21:33 Mixed conducti ve and sensorin eural hearing loss of right ear 52377154211 105 Active 2016 Mixed conducti ve and sensorin eural hearing loss, unilater al, right ear with restrict ed hearing on the contrala teral side; Note: Date Diagnose d: 10/24/2016 3:35 PM (H90.A31 ) Not Available [facility] 4 02:20:54 Sensorin eural hearing loss in left ear 49030175798 109 Active 2016 Sensorin eural hearing loss, unilater al, left ear, with restrict ed hearing on the contrala teral side; Note: Date Diagnose d: 7 10:10 AM (H90.A22 ) Not Available [facility] 4 02:20:40 Acute serous otitis media of right ear 97261893096 82125 Active 2016 Acute serous otitis media, right ear; Note: Date Diagnose d: 7 10:11 AM (H65.01) Not Available [facility] 4 02:21:21 Chronic serous otitis media 78585026 Active 2016 Serous otitis media Chronic; Note: Date Diagnose d: 7 12:22 PM (381.10) Not Available [facility] 4 02:20:51 Otorrhea of right ear 05746823743 18140 Completed 201612/20/2023 Otorrhea , right ear; Note: Date Diagnose d: 01/25/2017 12:25 PM (H92.11) Not Available [facility] 4 02:21:04 Chronic serous otitis media of left ear 660098108 Active 2016 Chronic serous otitis media, left ear; Note: Changed from H65.02 to H65.22 ( 017 8:45 AM) , Date Diagnose d: 7 10:44 AM (H65.02) Not Available [facility] 4 02:21:33 Allergic rhinitis 06046662 Active 2016 Allergic rhinitis : Due to other allergen ; Note: Date Diagnose d: 7 9:26 AM (477.8) Not Available [facility] 4 02:20:48 Cough 11508746 Active 2016 Cough; Note: Date Diagnose d: 04/16/20 17 8:53 AM (R05) Not Available [facility] 4 02:21:01 Nasal congesti on 01639054 Active 2016 Nasal congesti on; Note: Date Diagnose d: 04/16/20 17 8:50 AM (R09.81) Not Available [facility] 4 02:21:32 Disorder of right Eustachi an tube 49634267995 89897 Active 2017 Other specifie d disorder s of Eustachi an tube, right ear; Note: Date Diagnose d: 8 3:54 PM (H69.81) Not Available [facility] 4 02:21:07 Impacted cerumen of bilatera l ears 65890549696 46730 Active 2017 Impacted cerumen, bilatera l; Note: Date Diagnose d: 8 3:54 PM (H61.23) Not Available [facility] 4 02:21:10 Otalgia of right ear 1859051985 Active 2018 Otalgia, right ear; Note: Date Diagnose d: 9 11:10 AM (H92.01) Not Available [facility] 4 02:20:55 Pain of right temporom andibula r joint 83787003389 044910 Active 2018 Arthralg ia of right temporom andibula r joint; Note: Date Diagnose d: 9 11:10 AM (M26.621 ) Not Available [facility] 4 02:21:11 Chronic serous otitis media of right ear 254875378 Active 2018 Chronic serous otitis media, right ear; Note: Date Diagnose d: 9 11:07 AM (H65.21) Chroni c serous otitis media, right ear; Note: Changed from H65.22 to H65.21 (01/02/20 17 2:18 PM) , Date Diagnose d: 7 12:27 PM (H65.22) ; Start Date : 01/02/20 17 Not Available [facility] 4 02:20:48 Adhesive middle ear disease 5610192 Active 2018 Adhesive right middle ear disease; Note: Date Diagnose d: 9 9:16 AM (H74.11) Not Available [facility] 4 02:21:34 Problem Notes None recorded. Procedures Surgical History Date Name Laterality Status Provider Name and Address Organization Details Recorded Time 09/09/2024 Air & Speech Audio with Tymps - 63869, 20449 & 87355 completed JUSTICE PEREZ, [address], [address], [facility] 09/09/2024 12:53:18 Imaging Results None recorded. Procedure Notes None recorded. Medical Equipment None Reported. Medications Name Sig Start Date Stop Date Status Note LastModified by Organization Details LastModified Time amoxicill in 500 mg capsule TAKE 1 CAPSULE( S) BY MOUTH FOUR TIMES A DAY active Not Available Not Available No t Available Augmentin 875 mg-125 mg tablet 2016 active Medicati on ID: [id number] D uration Value: 10 Prescri bed By Name: LUCILLE Pierce nd Name: Augmenti n Send Method: E-Prescr ibed Sub s Allowed: subs OK Speci al Instruct ion: 1 po bid for 10 days Med icationG enericNa me: Augmenti n Not Available Not Available Not Available atorvasta tin 20 mg tablet 02/03 completed Medicati on ID: 54795 Du ration Value: 90 Reason: () Brand [...] mg tablet 11/01 completed Medicati on ID: 93581 Du ration Value: 90 Reason: () Brand [...] by mouth 2016 active Medicati on ID: 751155 D uration Value: 5 Prescri bed By Name: LUCILLE Pierce nd Name: predniso ne Send Method: E-Prescr ibed Sub s Allowed: subs OK Medic ationGen ericName : predniso ne Not Available Not Available Not Available Ciloxan 0.3 % eye drops active Medicati on ID: 513506 P rescribe d By Name: LUCILLE Pierce [...] layed release 12/30 completed Medicati on ID: 00078 Re ason: () Brand Name: Aspir-81 Send Method: E-Prescr ibed Sub s Allowed: subs OK Medic ationGen ericName : Aspir-81 Not Available Not Available Not Available fluticaso ne propionat e 50 mcg/actua tion nasal spray,corrie pension 2 puff into both nostrils 2016 active Medicati on ID: 241440 D uration Value: 30 Prescri bed By Name: LUCILLE Pierce nd Name: fluticas one Send Method: E-Prescr ibed Sub s Allowed: subs OK Medic ationGen ericName : fluticas one Not Available Not Available Not Available Ciprodex 0.3 %-0.1 % ear drops,corrie pension 4 drop 2016 active Medicati on ID: 552141 D uration Value: 14 Prescri bed By Name: LUCILLE Pierce nd Name: Ciprodex Send Method: E-Prescr ibed Sub s Allowed: subs OK Medic ationGen ericName : Ciprodex Not Available Not Available Not Available Symbicort 80 mcg-4.5 mcg/actua tion HFA aerosol inhaler 2018 active Medicati on ID: 471740 D uration Value: 90 Brand Name: Symbicor [...] Diagnosis SNOMED-CT Code Diagnosis ICD10 Code Diagnosis IMO Codes Diagnosis Note 81152 OLAMIDE RIOS [facility] - [facility] [address] [facility] [place] [address] 08/12/2024 09:55:35 08/17/2024 13:21:36 Sensorineural hearing loss of bilateral ears 279170093 H90.3 80447 OLAMIDE RIOS [place] [address] [facility] ite [address] [place] [address] 09/09/2024 11:11:45 09/09/2024 12:47:34 Sensorineural hearing loss of bilateral ears 135169986 H90.3 Right Ear:Normal hearing through 250 Hz [...] Member ID Guarantor Name 09/09/2024 1 MEDICARE [place]: [facility] Adaptive Planning SERVICES Valery Cano [id number] Valery Rodas Jerome 09/18/2024 2 [facility] INDEMNITY PLAN (MEDICARE SUPPLEMENT) [id number] Valery Rodas Jerome [id number] Valery Rodas Jerome Notes Date Note Type Note Provider Name and Address Organization Details Recorded Time 08/12/2024 text/html Came in yesterday for a BONILLA check. Her right aid has not been working for about a month. Cleaned checked both aids. The right aid actually had 2 cerushields in the tower climber- once they were removed, the aid was [...] new [employer] benefit. JUSTICE PEREZ, AUD [address] [facility],[address], [address], [facility] - [facility] 08/12/2024 09:59:29 09/09/2024 text/html Has been doing pretty well since out last visit. Turned up aids slightly per pt request.Also increased noise block. Audio is stable AU. Encouraged her to use the VC as needed.She will call if she needs additional adjs. JUSTICE PEREZ, AUD [address] [facility],[place] [address], [place], [address], [facility] - [facility] 09/09/2024 12:55:43 OBGyn Episode No OBEpisode recorded.
--- OUTSIDE RECORDS SUMMARY | 2025-03-19 11:24 | XMS_ITS | Patient Health Record ---
Author Organization [facility] Address [address] [place] [address] Care Team Providers Care Network Support Name Role Phone Zakiya (RETIRED) Noé BARRERA Primary Care Provide r Pelon Almazan Jr Unavailable [phone] Allergies No Known Allergies Reason For [...] Status Risk Notes Problem Colon cancer screening (101547587) Colon cancer screening (Z12.11) Active confirmed Problem Rectal bleeding (95078704) Rectal bleeding (K62.5) Active confirmed Problem Long-term current use of antiplatelet drug (781444322287099) Long-term use of aspirin therapy (Z79.82) Active confirmed Problem Right upper quadrant pain (535872881) RUQ pain (R10.11) Active confirmed Problem Family history of malignant neoplasm of gastrointestinal tract (925075541) FH: colon cancer (Z80.0) Active confirmed Plan Of Treatment Future Test Test Name Order Date COLONOSCOPY 04/19/2016 COLONOSCOPY 04/15/2023 Insurance Providers Payer Name Payer Address Payer Phone Subscriber Number Group Number Insured Name Patient Relationship to Insured Coverage Start Date Coverage End Date MEDICARE OF [place] [address] [place] [address] [id number] NIALL BURKETT Self - patient is the insured [facility] INDEMNITY [address] [place] [address] [id number] NIALL BURKETT Self - patient is the [...]
--- OUTSIDE RECORDS SUMMARY | 2025-03-19 11:24 | XMS_ITS | Encounter Summary ---
Author Organization [facility] Address [address] [place] [address] Phone Care Team Providers Care Adjunct Business Instructor Name Role Phone Candis Coronel MD Unavailable Noé Sigala MD Unavailable [phone] Benito Cope MD Unavailable [phone] Vera Serrano MD Unavailable [phone] Noé Sigala MD Primary Care Provider Encounter Details Date Type Department Care Team (Late st Contact Info) Description 11/03/2018 Ancillary Orders Virtual Department [address] [place] [address] Noé Sigala MD [address] [place] [address] [place] [address] Post-menopausal Social History Tobacco Use Types Packs/Day [...] the right hip was calculated at 0.875 gm/ts1wvxn a T-score of -0.5 and Z-score of [...] (natural) documented in this encounter Care Teams Adjunct Business Instructor Relationship Specialty Start Date End Date Noé Sigala MD [address] [place] [address] [place] [address] PCP - General Internal Medicine 03/29/17 Candis Coronel MD [address] [place] [address] Historical LMR Provider 03/06/17 2 Noé Sigala MD [address] [place] [address] [place] [address] Historical LMR Provider 03/06/17 Benito Cope MD [address] [place] [address] Historical LMR Provider 03/06/17 2 Vera Serrano MD [address] [place] [address] [email or web address] Historical LMR Provider 03/06/17 05/27/21 documented as of this encounter Additional Source Comments The information contained in this document represents components of the legal health record. It is not the complete legal health record.[facility]
--- OUTSIDE RECORDS SUMMARY | 2025-03-19 11:24 | XMS_ITS | Clinical Summary ---
Author Organization [facility] Address [address] [place] [address] Care Team Providers Care Message And Delivery Service Pricer Name Role Phone Unavailable Primary Care Provider [...]
--- OUTSIDE RECORDS SUMMARY | 2025-03-19 11:24 | XMS_ITS | Encounter Summary ---
Author Organization [facility] Address [address] [place] [address] Phone Care Team Providers Care Chief Marketing Officer Name Role Phone Candis Coronel MD Unavailable Noé Sigala MD Unavailable Benito Cope MD Unavailable Vera Serrano MD Unavailable [phone] Unknown, Unknown Primary Care Provider Noé Ramirez MD Primary Care Provider Encounter Details Date Type Department Care Team (Late st Contact Info) Description 03/09/2017 Ancillary Orders [facility], [address] [address] Noé Sigala MD [address] [place] [address] [place] [address] Visit for screening mammogram Social History Tobacco [...] mammogram documented in this encounter Care Teams Chief Marketing Officer Relationship Specialty Start Date End Date Unknown, Unknown, [address] [address] PCP - General 03/09/17 03/28/17 Noé Sigala MD [address] [place] [address] [place] [address] PCP - General Internal Medicine 03/29/17 Candis Coronel MD [address] [place] [address] Historical LMR Provider 03/06/17 2 Noé Sigala MD [address] [place] [address] [place] [address] Historical LMR Provider 03/06/17 Benito Cope MD [address] [place] [address] Historical LMR Provider 03/06/17 2 Vera Serrano MD [address] [address] [email or web address] Historical LMR Provider 03/06/17 05/27/21 documented as of this encounter Additional Source Comments The information contained in this document represents components of the legal health record. It is not the complete legal health record.[facility]
--- OUTSIDE RECORDS SUMMARY | 2025-03-19 11:24 | XMS_ITS | Clinical Summary ---
Author Organization [facility] Address [address] [place] [address] Phone Care Team Providers Care Elevator Service Technician Name Role Phone Noé Sigala MD Unavailable [phone] Noé Sigala MD Primary Care Provider Allergies [...] OXIDE/AA CHELATE,) 300 mg Cap Active omega 1-qyo-bie-fish oil 183.3 mg-75 mg -91.6 mg-306 mg [...] the right hip was calculated at 0.875 gm/uf0anbf a T-score of -0.5 and Z-score of [...] Maintenance Insurance MEDICARE PART A & B Member Subscriber Plan / Payer (Ef fective 2018-Present) Name:Valery Cano Member ID:[id number] Relation to Subscriber:Self Name:Valery Cano Subscriber ID:[id number] Payer ID:[id number] Group ID:Not on file Type:Medicare Address: [facility] [employer] [facility] [address] [facility] [place] [address] [facility] MEDICARE SUPPLEMENT MEDICARE PART A & B [facility] MEDICARE SUPPLEMENT MEDICARE PART A & B MEDICARE PART A & B Member Subscriber Plan / Payer (Ef fective 2018-Present) Name:Valery Cano Member ID:[id number] Relation to Subscriber:Self Name:Valery Cano Subscriber ID:[id number] Payer ID:[id number] Group ID:Not on file Type:Medicare Address: [facility] [employer] [facility] [address] [place] [address] MEDICARE PART A & B [employer] MEDICARE SUPPLEMENT MEDICARE PART A & B MEDICARE PART A & B [employer] MEDICARE SUPPLEMENT MEDICARE PART A & B [employer] MEDICARE SUPPLEMENT MEDICARE PART A & B Member Subscriber Plan / Payer ( fective 2018-Present) Name:Valery Cano Member ID:[id number] Relation to Subscriber:Self Name:Valery Cano Subscriber ID:[id number] Payer ID:[id number] Group ID:Not on file Type:Medicare Address: [facility] [employer] [facility] [address] [place] [phone] [facility] MEDICARE SUPPLEMENT Care Teams Elevator Service Technician Relationship Specialty Start Date End Date Noé Sigala MD [address] [place] [address] [place] [address] PCP - General Internal Medicine 03/29/17 Noé Sigala MD [address] [place] [address] [place] [address] Historical LMR Provider 03/06/17 Additional Source Comments The information contained in this document represents components of the legal health record. It is not the complete legal health record.[facility]
--- OUTSIDE RECORDS SUMMARY | 2025-03-19 11:24 | XMS_ITS | Patient Health Record ---
Author Organization [facility] Address [address] [facility] [place] [address] Care Team Providers Care Chorus Dancer Name Role Phone Amaya Yañez Primary Care Provider Shahzad Fuller Unavailable [phone] Allergies Allergen (clinical drug ingredient) Drug/Non Drug [...] Problem Acquired hammer toe of right foot (2461678198916 105) Other hammer toe(s) (acquired), right foot (M20.41) Active confirmed Problem Type 2 diabetes mellitus with peripheral angiopathy (416978462) Type 2 diabetes mellitus with diabetic peripheral angiopathy without gangrene (E11.51) Active confirmed Q7(A), Q8(2B), Q9(1B,2C) Problem Acquired hammer toe of left foot (6754170558986 103) Other hammer toe(s) (acquired), left foot (M20.42) Active confirmed Vital Signs Blood pressure diastolic 68 mm Hg 01/26/2025 Height 5 ft 6 in in 01/26/2025 Blood pressure systolic 126 mm Hg 01/26/2025 Weight 182 lbs 01/26/2025 BMI 29.37 kg/m2 01/26/2025 Procedures Procedure Date Ordered Date Performed Result Body Sit e 86856-WQINJUD NAIL, 6 OR MORE 04/28/2024 N/A 24509-QPFX SKIN LESIONS, 2 TO 4 04/28/2024 N/A 99327-UARMCSC NAIL, 6 OR MORE 07/24/2024 N/A 91152-WAPK SKIN LESIONS, 2 TO 4 07/24/2024 N/A 03327-NGFELWG NAIL, 6 OR MORE 10/23/2024 N/A 16731-LNHA SKIN LESIONS, 2 TO 4 10/23/2024 N/A 51425-QTAMUFJ NAIL, 6 OR MORE 01/26/2025 N/A 86893-KZKV SKIN LESIONS, 2 TO 4 01/26/2025 N/A Encounters Encounter Location Date Provider Diagnosis [address] [address] 04/28/2024 Shahzad Rosado 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, with unspecified presence of clinical manifestation I70.203 ; Tinea unguium B35.1 ; Pain in right toe(s) M79.674 ; Pain in left toe(s) M79.675 and Skin ulcer of toe of right foot, limited to breakdown of skin L97.[address] [address] 07/24/2024 Shahzad Rosado 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, with unspecified presence of clinical manifestation I70.203 ; Tinea unguium B35.1 ; Pain in right toe(s) M79.674 ; Pain in left toe(s) M79.675 and Xerosis of skin L85.[address] [address] 10/23/2024 Shahzad Rosado Type 2 diabetes mellitus with diabetic peripheral angiopathy without gangrene E11.51 ; Tinea unguium B35.1 ; Pain in right toe(s) M79.674 ; Pain in left toe(s) M79.675 and Xerosis of skin L85.[address] [address] 01/26/2025 Shahzad Rosado Type 2 diabetes mellitus with diabetic peripheral angiopathy without gangrene E11.51 ; Tinea unguium B35.1 ; Pain in right toe(s) M79.674 ; Pain in left toe(s) M79.675 ; Other hammer toe(s) (acquired), right foot M20.41 and Other hammer toe(s) (acquired), left foot M20.42 [facility] [address] [place] [address] 07/24/2024 Shahzad Rosado Assessments Encounter Date Diagnosis (ICD Code) Assessment Notes Treatment Notes Treatment Clinical Notes Section Notes 04/28/2024 Tinea unguium (ICD-10 - B35.1) 04/28/2024 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, with unspecified presence of clinical manifestation (ICD-10 - I70.203) 07/24/2024 Tinea unguium (ICD-10 - B35.1) 07/24/2024 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, with [...] Treatment Pending Test Test Name Order Date 19302-ZTKWRLK NAIL, 6 OR MORE 11/19/2023 06726-OVIRAKD NAIL, 6 OR MORE 01/28/2024 77182-FWKKCNR NAIL, 6 OR MORE 04/28/2024 68759-PMMRBYG NAIL, 6 OR MORE 07/24/2024 02845-KYTGRRC NAIL, 6 OR MORE 10/23/2024 90668-JWJAMDX NAIL, 6 OR MORE 01/26/2025 09559- Debride <25 sq cm 01/28/2024 18919- Debride <25 sq cm 11/19/2023 50681-KRPY SKIN LESIONS, 2 TO 4 11/19/19 24 11801-GAKN SKIN LESIONS, 2 TO 4 01/28/20 24 78978-ETUK SKIN LESIONS, 2 TO 4 07/25/19 25 21064-RKEV SKIN LESIONS, 2 TO 4 04/28/20 24 87628-HQRD SKIN LESIONS, 2 TO 4 01/27/20 25 82072-IWIX SKIN LESIONS, 2 TO 4 10/24/19 25 Next Appt Details Provider Name:Shahzad Rosado , 05/25/2025 10:45:00 AM, [address] [facility], [place], [address], Insurance Providers Payer Name Payer Address Payer Phone Subscriber Number Group Number Insured Name Patient Relationship to Insured Coverage Start Date Coverage End Date Medicare National [employer]t S[employer] [address] [place] [address] [id number] Valery Cano Self - patient is the insured [employer]) [address] [place] [address] [id number] Valery Cano Self - patient is the insured Medical (General) History Medical History History ICD Code Back,Hip,and Knee pain Broken bones Cataracts Fibromyalgia Headaches/Migraines Heart disease thyroid Measles Mumps Chicken pox Pacemaker CAD ( Coronary Artery Disease) Diabetes mellitus Surgical History Surgery Date(Month/Year) cardiac pacemeker 08/27/2023 basal cell removal 06/21/2023
== END 2025-03-19 10:48 | disposition home or self-care (01) ==
PROVIDERS: PCP Physician Assistant; Visit Provider Physician Assistant
DX: E03.9 Hypothyroidism, unspecified (principal); E11.42 Type 2 diabetes mellitus with diabetic polyneuropathy; M20.41 Other hammer toe(s) (acquired), right foot; M20.42 Other hammer toe(s) (acquired), left foot; J44.9 Chronic obstructive pulmonary disease, unspecified

== ENCOUNTER → 2025-03-19 10:05 | Outpatient (BNVA) | payer MEDICARE, OTHER, SELFPAY | PROVIDERS: PCP Internal Medicine; Visit Provider Physician Assistant | DX: E03.9 Hypothyroidism, unspecified (principal); E11.42 Type 2 diabetes mellitus with diabetic polyneuropathy; M20.41 Other hammer toe(s) (acquired), right foot; M20.42 Other hammer toe(s) (acquired), left foot; J44.9 Chronic obstructive pulmonary disease, unspecified; N39.41 Urge incontinence; N20.0 Calculus of kidney; M81.0 Age-related osteoporosis without current pathological fracture; Z79.899 Other long term (current) drug therapy; Z95.0 Presence of cardiac pacemaker | CPT/HCPCS: 99212 ==

== ENCOUNTER 2025-03-24 12:00 | Outpatient (REF) | payer MEDICARE, OTHER, SELFPAY ==
--- NOTE | ~2025-03-24 | CT_ITS ---
EXAMINATION: CT ABDOMEN PELVIS WITHOUT IV CONTRAST HISTORY: N20.0 - Calculus of kidney COMPARISON: Previous CT of the abdomen November 2013 and renal ultrasound September 2024 TECHNIQUE: CT scan of the abdomen and pelvis was performed without contrast using standard departmental protocol. Coronal and sagittal reformatted images were generated and reviewed. This CT exam was performed with one or more of the following dose reduction techniques: automated exposure control, adjustment of the mA and/or kV according to patient size, use of iterative reconstruction technique. DLP: 606 mGy-cm FINDINGS: LOWER CHEST: Subsegmental atelectasis of both lung bases. Small left posterior medial diaphragmatic hernia containing fat. There is no pleural effusion. CARDIOVASCULATURE: The heart is slightly enlarged. Partially visualized pacemaker lead in the right ventricle. There is a small pericardial effusion. LIVER: The liver is normal in size and contour. Multiple low-attenuation liver lesions. Largest measures 1.2 cm high in the dome segment 4/8 axial image 7 and 1.5 cm in the right lobe segment 6 axial image 34 series 3. Low Hounsfield units without contrast compatible with cysts. There are several smaller subcentimeter liver lesions difficult to accurately characterize due to small size and lack of IV contrast for example measuring 6 mm in the right lobe axial image 16 4 mm in the left lobe segment 3 axial image 24 and 4 mm in the right lobe segment 6 axial image 25 series 3. GALLBLADDER / BILE DUCTS: The gallbladder is unremarkable. There is no intra or extrahepatic biliary ductal dilatation. SPLEEN: The spleen is normal in size and has an unremarkable unenhanced appearance. PANCREAS: The pancreas has an unremarkable unenhanced appearance. ADRENAL GLANDS: Unremarkable. KIDNEYS/RETROPERITONEUM: Bilateral renal peripelvic cysts. 1 mm punctate stone in the lower pole of the right kidney. Multiple left renal stones, largest measures 5 mm in the upper pole of the left kidney. Additional smaller 3 mm left upper pole stone, 4 mm left mid pole stone and 4 mm left lower pole stone. No hydronephrosis, ureteral dilatation or ureteral stone. LYMPH NODES: No retroperitoneal lymphadenopathy is identified in the abdomen or pelvis. VASCULATURE: Mild atherosclerotic disease. No aneurysm. MESENTERY/PERITONEUM: No free fluid. No masses. There is no free intraperitoneal gas. STOMACH: There is a small esophageal hernia. Stomach otherwise unremarkable. SMALL BOWEL: The small bowel is normal in caliber. COLON: Mild diverticulosis.. APPENDIX: Not seen. No inflammatory changes in the right lower quadrant. URINARY BLADDER/PELVIC ORGANS: The urinary bladder is unremarkable. No pelvic mass. BONES / SOFT TISSUES: Degenerative changes of the spine and mild scoliosis. Diastases of the rectus muscles and small umbilical hernia containing fat. There is atrophy of the right gluteal muscles. CT/CT kidney stone IMPRESSION: Bilateral renal stones, left greater than right. Bilateral peripelvic cysts. No hydronephrosis, ureteral dilatation or ureteral stone. Several low-attenuation liver lesions, larger compatible with cysts. Smaller lesions difficult to accurately characterize but may represent cysts as well. This could be further evaluated with ultrasound or liver MRI if clinically warranted. Diverticulosis of the colon. Electronically signed by: Aga Melvin MD 03/24/2025 02:55 PM [facility]
[2025-03-24 14:13] LABS: MANUAL DIFF FLAG NO
--- OUTSIDE RECORDS SUMMARY | 2025-03-24 14:41 | XMS_ITS | Encounter Summary ---
Author Organization [facility] Address [address] [place] [address] Phone Care Team Providers Care Registered Nurse Surgical Services Name Role Phone Candis Coronel MD Unavailable Noé Sigala MD Unavailable Benito Cope MD Unavailable [phone] Vera Serrano MD Unavailable [phone] Noé Sigala MD Primary Care Provider Encounter Details Date Type Department Care Team (Late st Contact Info) Description 11/03/2018 Ancillary Orders Virtual Department [address] [place] [address] Noé Sigala MD [address] [place] [address] [place] [address] Post-menopausal Social History Tobacco Use Types Packs/Day [...] the right hip was calculated at 0.875 gm/ef9iyge a T-score of -0.5 and Z-score of [...] (natural) documented in this encounter Care Teams Registered Nurse Surgical Services Relationship Specialty Start Date End Date Noé Sigala MD [address] [place] [address] [place] [address] PCP - General Internal Medicine 03/29/17 Candis Coronel MD [address] [place] [address] Historical LMR Provider 03/06/17 2 Noé Sigala MD [address] [place] [address] [place] [address] Historical LMR Provider 03/06/17 Benito Cope MD [address] [place] [address] Historical LMR Provider 03/06/17 2 Vera Serrano MD [address] [place] [address] Historical LMR Provider 03/06/17 05/27/21 documented as of this encounter Additional Source Comments The information contained in this document represents components of the legal health record. It is not the complete legal health record.[facility]
--- OUTSIDE RECORDS SUMMARY | 2025-03-24 14:41 | XMS_ITS | Data Portability ---
Author Organization [place] - [facility], Allergy Address [address] [place] [address] Care Team Providers Care Insights Manager Name Role Phone INOCENCIA SALINAS Primary Care Provider [phone] Assessment No assessment recorded. Plan of Treatment [...] Time Asymmetr ical sensorin eural hearing loss 562437809 Active 2014 Sensorin eural hearing loss asymmetr ic; Note: Date Diagnose d: 5 3:54 PM (389.16) Not Available [facility] 4 02:21:22 Benign paroxysm al position al vertigo 012869833 Active 2014 Benign paroxysm al position al vertigo; Note: Date Diagnose d: 5 3:54 PM (386.11) Not Available [facility] 4 02:20:42 Sensorin eural hearing loss of bilatera l ears 593339066 Active 2014 Sensorin eural hearing loss, bilatera l; Note: Date Diagnose d: 01/25/2015 10:47 AM (H90.3) Not Available [facility] 4 02:21:07 Bilatera l disorder of Eustachi an tubes 82227192377 79919 Active 2016 Other specifie d disorder s of Eustachi an tube, bilatera l; Note: Date Diagnose d: 10/24/2016 3:35 PM (H69.83) Not Available [facility] 4 02:21:33 Mixed conducti ve and sensorin eural hearing loss of right ear 99085638191 105 Active 2016 Mixed conducti ve and sensorin eural hearing loss, unilater al, right ear with restrict ed hearing on the contrala teral side; Note: Date Diagnose d: 10/24/2016 3:35 PM (H90.A31 ) Not Available [facility] 4 02:20:54 Sensorin eural hearing loss in left ear 09930751304 109 Active 2016 Sensorin eural hearing loss, unilater al, left ear, with restrict ed hearing on the contrala teral side; Note: Date Diagnose d: 7 10:10 AM (H90.A22 ) Not Available [facility] 4 02:20:40 Acute serous otitis media of right ear 51784992467 74484 Active 2016 Acute serous otitis media, right ear; Note: Date Diagnose d: 7 10:11 AM (H65.01) Not Available [facility] 4 02:21:21 Chronic serous otitis media 16326766 Active 2016 Serous otitis media Chronic; Note: Date Diagnose d: 7 12:22 PM (381.10) Not Available [facility] 4 02:20:51 Otorrhea of right ear 14822679235 52458 Completed 201612/20/2023 Otorrhea , right ear; Note: Date Diagnose d: 01/25/2017 12:25 PM (H92.11) Not Available [facility] 4 02:21:04 Chronic serous otitis media of left ear 884413181 Active 2016 Chronic serous otitis media, left ear; Note: Changed from H65.02 to H65.22 ( 017 8:45 AM) , Date Diagnose d: 7 10:44 AM (H65.02) Not Available [facility] 4 02:21:33 Allergic rhinitis 87112713 Active 2016 Allergic rhinitis : Due to other allergen ; Note: Date Diagnose d: 7 9:26 AM (477.8) Not Available [facility] 4 02:20:48 Cough 80587958 Active 2016 Cough; Note: Date Diagnose d: 04/16/20 17 8:53 AM (R05) Not Available [facility] 4 02:21:01 Nasal congesti on 01741126 Active 2016 Nasal congesti on; Note: Date Diagnose d: 04/16/20 17 8:50 AM (R09.81) Not Available [facility] 4 02:21:32 Disorder of right Eustachi an tube 67866096206 58883 Active 2017 Other specifie d disorder s of Eustachi an tube, right ear; Note: Date Diagnose d: 8 3:54 PM (H69.81) Not Available [facility] 4 02:21:07 Impacted cerumen of bilatera l ears 82110618469 60059 Active 2017 Impacted cerumen, bilatera l; Note: Date Diagnose d: 8 3:54 PM (H61.23) Not Available [facility] 4 02:21:10 Otalgia of right ear 7237213835 Active 2018 Otalgia, right ear; Note: Date Diagnose d: 9 11:10 AM (H92.01) Not Available [facility] 4 02:20:55 Pain of right temporom andibula r joint 51581256056 462659 Active 2018 Arthralg ia of right temporom andibula r joint; Note: Date Diagnose d: 9 11:10 AM (M26.621 ) Not Available [facility] 4 02:21:11 Chronic serous otitis media of right ear 224351991 Active 2018 Chronic serous otitis media, right ear; Note: Date Diagnose d: 9 11:07 AM (H65.21) Chroni c serous otitis media, right ear; Note: Changed from H65.22 to H65.21 (01/02/20 17 2:18 PM) , Date Diagnose d: 7 12:27 PM (H65.22) ; Start Date : 01/02/20 17 Not Available [facility] 4 02:20:48 Adhesive middle ear disease 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 Procedures Surgical History Date Name Laterality Status Provider Name and Address Organization Details Recorded Time 09/09/2024 Air & Speech Audio with Tymps - 84907, 16540 & 01125 completed JUSTICE PEREZ, [address], [address], [facility] 09/09/2024 12:53:18 Imaging Results None recorded. Procedure Notes None recorded. Medical Equipment None Reported. Medications Name Sig Start Date Stop Date Status Note LastModified by Organization Details LastModified Time amoxicill in 500 mg capsule TAKE 1 CAPSULE( S) BY MOUTH FOUR TIMES A DAY active Not Available Not Available No t Available Augmentin 875 mg-125 mg tablet 2016 active Medicati on ID: [id number] D uration Value: 10 Prescri bed By Name: LUCILLE Pierce nd Name: Augmenti n Send Method: E-Prescr ibed Sub s Allowed: subs OK Speci al Instruct ion: 1 po bid for 10 days Med icationG enericNa me: Augmenti n Not Available Not Available Not Available atorvasta tin 20 mg tablet 02/03 completed Medicati on ID: 44744 Du ration Value: 90 Reason: () Brand [...] mg tablet 11/01 completed Medicati on ID: 94489 Du ration Value: 90 Reason: () Brand [...] by mouth 2016 active Medicati on ID: 775719 D uration Value: 5 Prescri bed By Name: LUCILLE Pierce nd Name: predniso ne Send Method: E-Prescr ibed Sub s Allowed: subs OK Medic ationGen ericName : predniso ne Not Available Not Available Not Available Ciloxan 0.3 % eye drops active Medicati on ID: [id number] P rescribe d By Name: LUCILLE Pierce [...] layed release 12/30 completed Medicati on ID: 16207 Re ason: () Brand Name: Aspir-81 Send Method: E-Prescr ibed Sub s Allowed: subs OK Medic ationGen ericName : Aspir-81 Not Available Not Available Not Available fluticaso ne propionat e 50 mcg/actua tion nasal spray,corrie pension 2 puff into both nostrils 2016 active Medicati on ID: 896611 D uration Value: 30 Prescri bed By Name: LUCILLE Pierce nd Name: fluticas one Send Method: E-Prescr ibed Sub s Allowed: subs OK Medic ationGen ericName : fluticas one Not Available Not Available Not Available Ciprodex 0.3 %-0.1 % ear drops,corrie pension 4 drop 2016 active Medicati on ID: 151299 D uration Value: 14 Prescri bed By Name: LUCILLE Pierce nd Name: Ciprodex Send Method: E-Prescr ibed Sub s Allowed: subs OK Medic ationGen ericName : Ciprodex Not Available Not Available Not Available Symbicort 80 mcg-4.5 mcg/actua tion HFA aerosol inhaler 2018 active Medicati on ID: 998528 D uration Value: 90 Brand Name: Symbicor [...] ICD10 Code Diagnosis IMO Codes Diagnosis Note [id number] OLAMIDE RIOS [facility] [address] [facility] [place] [address] 08/12/2024 09:55:35 08/17/2024 13:21:36 Sensorineural hearing loss of bilateral ears 101642763 H90.3 94161 OLAMIDE RIOS [place] [address] [facility] [address] [place] [address] 09/09/2024 11:11:45 09/09/2024 12:47:34 Sensorineural hearing loss of bilateral ears 961297289 H90.3 Right Ear:Normal hearing through 250 Hz [...] Member ID Guarantor Name 09/09/2024 1 MEDICARE B-OR: [facility] [employer] Valery Cano [id number] 2 Valery Rodas Jerome 09/18/2024 2 [facility] INDEMNITY PLAN (MEDICARE SUPPLEMENT) [id number] Valery Rodas Jerome [id number] Valery Rodas Jerome Notes Date Note Type Note Provider Name and Address Organization Details Recorded Time 08/12/2024 text/html Came in yesterday for a BONILLA check. Her right aid has not been working for about a month. Cleaned checked both aids. The right aid actually had 2 cerushields in the health and safety instructor- once they were removed, the aid was [...] new [employer] benefit. JUSTICE PEREZ, AUD [address] [facility],[address], [address], [facility] - [facility] 08/12/2024 09:59:29 09/09/2024 text/html Has been doing pretty well since out last visit. Turned up aids slightly per pt request.Also increased noise block. Audio is stable AU. Encouraged her to use the VC as needed.She will call if she needs additional adjs. JUSTICE PEREZ, AUD [address] [facility],[place] [address], [place], [address], [facility] - [facility] 09/09/2024 12:55:43 OBGyn Episode No OBEpisode recorded.
--- OUTSIDE RECORDS SUMMARY | 2025-03-24 14:41 | XMS_ITS | Encounter Summary ---
Author Organization [facility] Address [address] [place] [address] Phone Care Team Providers Care Drag Car Racer Name Role Phone Candis Coronel MD Unavailable Noé Sigala MD Unavailable Benito Cope MD Unavailable [phone] Vera Serrano MD Unavailable [phone] Unknown, Unknown Primary Care Provider Noé Ramirez MD Primary Care Provider Encounter Details Date Type Department Care Team (Late st Contact Info) Description 03/09/2017 Ancillary Orders [facility], [address] [address] Noé Sigala MD [address] [place] [address] [place] [address] Visit for screening mammogram Social History Tobacco [...] mammogram documented in this encounter Care Teams Drag Car Racer Relationship Specialty Start Date End Date Unknown, Unknown, [address] [address] PCP - General 03/09/17 03/28/17 Noé Sigala MD [address] [place] [address] [place] [address] PCP - General Internal Medicine 03/29/17 Candis Coronel MD [address] [place] [address] Historical LMR Provider 03/06/17 2 Noé Sigala MD [address] [place] [address] [place] [address] Historical LMR Provider 03/06/17 Benito Cope MD [address] [place] [address] Historical LMR Provider 03/06/17 2 Vera Serrano MD [address] [address] [email or web address] Historical LMR Provider 03/06/17 05/27/21 documented as of this encounter Additional Source Comments The information contained in this document represents components of the legal health record. It is not the complete legal health record.[facility]
--- OUTSIDE RECORDS SUMMARY | 2025-03-24 14:41 | XMS_ITS | Patient Health Record ---
Author Organization [facility] Address [address] [facility] [place] [address] Care Team Providers Care Business Strategy Manager Name Role Phone Amaya Yañez Primary Care Provider Shahzad Fuller Unavailable [phone] Allergies Allergen (clinical drug ingredient) Drug/Non Drug [...] Problem Acquired hammer toe of right foot (5370177192301 105) Other hammer toe(s) (acquired), right foot (M20.41) Active confirmed Problem Type 2 diabetes mellitus with peripheral angiopathy (662799675) Type 2 diabetes mellitus with diabetic peripheral angiopathy without gangrene (E11.51) Active confirmed Q7(A), Q8(2B), Q9(1B,2C) Problem Acquired hammer toe of left foot (4784294879581 103) Other hammer toe(s) (acquired), left foot (M20.42) Active confirmed Vital Signs Blood pressure diastolic 68 mm Hg 01/26/2025 Height 5 ft 6 in in 01/26/2025 Blood pressure systolic 126 mm Hg 01/26/2025 Weight 182 lbs 01/26/2025 BMI 29.37 kg/m2 01/26/2025 Procedures Procedure Date Ordered Date Performed Result Body Sit e 49555-LMZBFRP NAIL, 6 OR MORE 04/28/2024 N/A 64398-NJLP SKIN LESIONS, 2 TO 4 04/28/2024 N/A 52194-MSNKRWB NAIL, 6 OR MORE 07/24/2024 N/A 92133-GVHG SKIN LESIONS, 2 TO 4 07/24/2024 N/A 90387-ATFJTHE NAIL, 6 OR MORE 10/23/2024 N/A 45209-ALGM SKIN LESIONS, 2 TO 4 10/23/2024 N/A 36581-XAOTHIJ NAIL, 6 OR MORE 01/26/2025 N/A 44685-MTRC SKIN LESIONS, 2 TO 4 01/26/2025 N/A Encounters Encounter Location Date Provider Diagnosis [address] [address] 04/28/2024 Shahzad Rosado Atherosclerosis of koi artery of both lower extremities, with unspecified presence of clinical manifestation I70.203 ; Tinea unguium B35.1 ; Pain in right toe(s) M79.674 ; Pain in left toe(s) M79.675 and Skin ulcer of toe of right foot, limited to breakdown of skin L97.[address] [address] 07/24/2024 Shahzad Rosado Atherosclerosis of koi artery of both lower extremities, with unspecified presence of clinical manifestation I70.203 ; Tinea unguium B35.1 ; Pain in right toe(s) M79.674 ; Pain in left toe(s) M79.675 and Xerosis of skin L85.[address] [address] 10/23/2024 Shahzad Rosado Type 2 diabetes mellitus with diabetic peripheral angiopathy without gangrene E11.51 ; Tinea unguium B35.1 ; Pain in right toe(s) M79.674 ; Pain in left toe(s) M79.675 and Xerosis of skin L85.[address] [address] 01/26/2025 Shahzad Rosado Type 2 diabetes mellitus with diabetic peripheral angiopathy without gangrene E11.51 ; Tinea unguium B35.1 ; Pain in right toe(s) M79.674 ; Pain in left toe(s) M79.675 ; Other hammer toe(s) (acquired), right foot M20.41 and Other hammer toe(s) (acquired), left foot M20.42 [facility] [place] [address] [place] [address] 07/24/2024 Shahzad Rosado Assessments Encounter Date Diagnosis (ICD Code) Assessment Notes Treatment Notes Treatment Clinical Notes Section Notes 04/28/2024 Tinea unguium (ICD-10 - B35.1) 04/28/2024 Atherosclerosis of koi artery of both lower extremities, with unspecified presence of clinical manifestation (ICD-10 - I70.203) 07/24/2024 Tinea unguium (ICD-10 - B35.1) 07/24/2024 Atherosclerosis of koi artery of both lower extremities, with unspecified [...] Treatment Pending Test Test Name Order Date 37897-HZPOYKU NAIL, 6 OR MORE 11/19/2023 96134-JPZGVMQ NAIL, 6 OR MORE 01/28/2024 49364-VUGUIMS NAIL, 6 OR MORE 04/28/2024 70414-FFPAAWB NAIL, 6 OR MORE 07/24/2024 19733-SAJXRWI NAIL, 6 OR MORE 10/23/2024 07002-GMAJLYP NAIL, 6 OR MORE 01/26/2025 60808- Debride <25 sq cm 01/28/2024 10267- Debride <25 sq cm 11/19/2023 07352-LLXB SKIN LESIONS, 2 TO 4 11/19/19 24 53070-TQYJ SKIN LESIONS, 2 TO 4 01/28/20 24 93731-HCYH SKIN LESIONS, 2 TO 4 07/25/19 25 61535-EZRP SKIN LESIONS, 2 TO 4 04/28/20 24 16928-ZCUO SKIN LESIONS, 2 TO 4 01/27/20 25 87626-ASEF SKIN LESIONS, 2 TO 4 10/24/19 25 Next Appt Details Provider Name:Shahzad Rosado , 05/25/2025 10:45:00 AM, [address] [facility], [place], [address], Insurance Providers Payer Name Payer Address Payer Phone Subscriber Number Group Number Insured Name Patient Relationship to Insured Coverage Start Date Coverage End Date Medicare National [employer]t S[employer] [address] [place] [address] [id number] Valery Cano Self - patient is the insured [employer]) [address] [place] [address] [id number] Valery Cano Self - patient is the insured Medical (General) History Medical History History ICD Code Back,Hip,and Knee pain Broken bones Cataracts Fibromyalgia Headaches/Migraines Heart disease thyroid Measles Mumps Chicken pox Pacemaker CAD ( Coronary Artery Disease) Diabetes mellitus Surgical History Surgery Date(Month/Year) cardiac pacemeker 08/27/2023 basal cell removal 06/21/2023
--- OUTSIDE RECORDS SUMMARY | 2025-03-24 14:41 | XMS_ITS | Patient Health Record ---
Author Organization [facility] Address [address] [place] [address] Care Team Providers Care Psych Sales Specialist Name Role Phone Zakiya (RETIRED) Noé BARRERA [...] Status Risk Notes Problem Colon cancer screening (462213137) Colon cancer screening (Z12.11) Active confirmed Problem Rectal bleeding (60142931) Rectal bleeding (K62.5) Active confirmed Problem Long-term current use of antiplatelet drug (406728940501337) Long-term use of aspirin therapy (Z79.82) Active confirmed Problem Right upper quadrant pain (078749004) RUQ pain (R10.11) Active confirmed Problem Family history of malignant neoplasm of gastrointestinal tract (296839174) FH: colon cancer (Z80.0) Active confirmed Plan Of Treatment Future Test Test Name Order Date COLONOSCOPY 04/19/2016 COLONOSCOPY 04/15/2023 Insurance Providers Payer Name Payer Address Payer Phone Subscriber Number Group Number Insured Name Patient Relationship to Insured Coverage Start Date Coverage End Date MEDICARE OF [place] [address] [place] [address] [id number] NIALL BURKETT Self - patient is the insured [facility] INDEMNITY [address] [place] [address] [id number] NIALL BURKETT Self - patient is the [...]
--- OUTSIDE RECORDS SUMMARY | 2025-03-24 14:41 | XMS_ITS | Clinical Summary ---
Author Organization [facility] Address [address] [place] [address] Care Team Providers Care Table Games Manager Name Role Phone Unavailable Primary Care [...]
--- OUTSIDE RECORDS SUMMARY | 2025-03-24 14:41 | XMS_ITS | Clinical Summary ---
Author Organization [facility] Address [address] [place] [address] Phone Care Team Providers Care Regional Operations Director Name Role Phone Noé Sigala MD Unavailable [phone] Noé Sigala MD Primary Care Provider Allergies [...] OXIDE/AA CHELATE,) 300 mg Cap Active omega 6-ucx-sdi-fish oil 183.3 mg-75 mg -91.6 mg-306 mg [...] the right hip was calculated at 0.875 gm/dh0wbth a T-score of -0.5 and Z-score of [...] Maintenance Insurance MEDICARE PART A & B [facility] MEDICARE SUPPLEMENT MEDICARE PART A & B [facility] MEDICARE SUPPLEMENT MEDICARE PART A & B MEDICARE PART A & B Member Subscriber Plan / Payer (Ef fective 2018-Present) Name:Valery Cano Member ID:[id number] Relation to Subscriber:Self Name:Valery Cano Subscriber ID:[id number] Payer ID:[id number] Group ID:Not on file Type:Medicare Address: [facility] [employer] [facility] [address] [place] [address] MEDICARE PART A & B [employer] MEDICARE SUPPLEMENT MEDICARE PART A & B MEDICARE PART A & B [employer] EXT[employer] MEDICARE SUPPLEMENT MEDICARE PART A & B [employer] EXTENSION MEDICARE SUPPLEMENT MEDICARE PART A & B [facility] MEDICARE SUPPLEMENT Care Teams Regional Operations Director Relationship Specialty Start Date End Date Noé Sigala MD [address] [place] [address] [place] [address] PCP - General Internal Medicine 03/29/17 Noé Sigala MD [address] [place] [address] [place] [address] Historical LMR Provider 03/06/17 Additional Source Comments The information contained in this document represents components of the legal health record. It is not the complete legal health record.[facility]
[2025-03-24 14:57] LABS: Hematocrit 40.0 % (37.0-47.0); Hemoglobin 13.1 g/dl (12.0-16.0); Imm Gran Abs Auto 0.10 X10*3/uL (0.00-0.03); Imm Gran Pct Auto 1.0 % (0.0-0.4); Lymphocytes Absolute Auto 2.3 X10*3/uL (1.2-4.9); Mean Corpuscular HGB Conc 32.8 g/dl (31.0-35.0); Mean Corpuscular Hemoglobin 27.7 pg (27.0-33.0); Mean Corpuscular Volume 84.6 fL (80.0-98.0); NRBC Abs Auto 0.000 X10*3/uL (0.0-0.012); NRBC Pct Auto 0.0 /100WBC (0.0-0.2); Platelet Count 265 X10*3/uL (160-400); Red Blood Count 4.73 X10*6/uL (4.20-5.50); White Blood Count 9.9 X10*3/uL (4.8-10.8)
[2025-03-24 14:58] LABS: INTERNATIONAL NORM RATIO 1.0 (0.9-1.1); Prothrombin Time 11.7 SEC (11.2-13.5)
[2025-03-24 15:01] LABS: Hemoglobin A1C 178.6528 umol/L; Partial Thromboplastin Time 26.7 SEC (26.7-34.1); Total Hemoglobin (HGBA1C) 3434.3553 umol/L
[2025-03-24 15:59] LABS: Anion Gap 13 (12-20); Blood Urea Nitrogen 23 mg/dL (9-16); Calcium 9.1 mg/dL (8.4-10.2); Carbon Dioxide 26 mmol/L (22-29); Chloride 106 mmol/L (96-108); Cholesterol 173 mg/dL (<200); Estimated Glomerular Filt Rate > 60; HDL Cholesterol 77 mg/dL (>40); Potassium 4.0 mmol/L (3.3-5.1); Sodium 141 mmol/L (135-145); Triglycerides 64 mg/dL (<150)
[2025-03-24 16:34] LABS: Microalbum/Creatinine Ratio Ur 21.6 ug/mg cr (<30)
[2025-03-24 17:03] LABS: Free T4 (Free Thyroxine) 1.19 ng/dL (0.71-1.85)
== END 2025-03-24 12:01 | disposition home or self-care (01) ==
LOC: HO.CT 12:00
PROVIDERS: PCP Physician Assistant; Visit Provider Nurse Practitioner Family
DX: N20.0 Calculus of kidney (principal); E11.9 Type 2 diabetes mellitus without complications; E03.9 Hypothyroidism, unspecified; M81.0 Age-related osteoporosis without current pathological fracture; R23.3 Spontaneous ecchymoses; I47.10 Supraventricular tachycardia, unspecified
CPT/HCPCS: 36415; 74176; 80048; 80061; 82043; 82306; 82570; 83036; 84439; 84443; 85025; 85610; 85730

== ENCOUNTER → 2025-03-24 13:47 | Outpatient (BNV) | payer MEDICARE, OTHER, SELFPAY | PROVIDERS: PCP Physician Assistant; Visit Provider Radiology Diagnostic Radiology | DX: N20.0 Calculus of kidney (principal); N94.89 Other specified conditions associated with female genital organs and menstrual cycle; K76.89 Other specified diseases of liver | CPT/HCPCS: 74176 ==

== ENCOUNTER 2025-04-01 10:28 | Outpatient (AMB) | payer MEDICARE, OTHER, SELFPAY ==
--- NOTE | 2025-04-01 10:38 | MHC.OFFVIS ---
Intake Visit Reasons: 3m/CT/PVR Intake Note: Patient is present for 3M/F/U Urology Medication:VITAMIN B6,MIRABEGRON Antibiotic Allergy:NONE Blood Thinner:ASPIRIN Imagin03/24/25 TODAY'S PVR: 0ML'S Track Repairer Helper Required: No Accompanied by: Self / Same As Patient Allergies No Known Allergies (No Known Allergies*) Allergy (Verified 04/01/25 11:08) Medication List - Last Reconciled 04/01/25 by KENROY Ramírez albuterol sulfate 90 mcg/actuation 2 puffs inhalation Q4-6H PRN ammonium lactate 12% appl topical BID aspirin (Ecotrin Low Strength) 81 mg PO DAILY atorvastatin 10 mg PO BEDTIME [diabetic shoe Diabetic shoes; ] diltiazem HCl CD 240 mg PO DAILY inhalational spacing device (Aerochamber Mechanical Vent) As directed levothyroxine 25 mcg PO DAILY pyridoxine (vitamin B6) 100 mg PO DAILY 90 days HPI Comments Details: Valery is a very pleasant 79-year-old female patient of Dr. Sarah Bunn. She has a past medical history of nephrolithiasis, overactive bladder, hypothyroidism, diabetes, degenerative joint disease, irritable bowel syndrome, diverticulosis, allergic rhinitis, complete heart block status post dual-chamber pacemaker placement, and SVT. She presents to the office today for follow-up of her nephrolithiasis and overactive bladder. In discussion with the patient today she reports she has not been on any overactive bladder medications as Myrbetriq had an increase in co-pay of 75 dollars. We did discussed potential causes of overactive bladder as well as further treatment options and risks and benefits of these treatment options. Most recent CT KUB results reviewed with the patient today 04/13 bilateral renal peripelvic cysts. 1 mm punctate stone in the lower pole of the right kidney. Multiple left renal stones largest measuring 5 mm with additional smaller 3 mm stones no hydronephrosis or ureteral dilatation noted bilaterally. We did discuss variability in stones and stone sizing with ultrasound verses CT KUB. In office urinalysis results reviewed with the patient today. PVR 0 mL. She discusses her longstanding history of nephrolithiasis and previously following up with Dr. Salgado as well as [facility] Dr. Greenberg. We did discussed nephrolithiasis, overactive bladder, and mixed urinary incontinence. We discussed further interventions and risks and benefits of these interventions. We did discuss stone burden. She denies dysuria, foul smelling urine, changes to urinary stream, flank pain, fever, and or chills. She has previously trialed tolterodine without improvement in lower urinary tract symptoms. All questions were answered. She otherwise offers no other issues or concerns at this time. [facility] Medical History Hammer toes of both feet Type 2 diabetes mellitus with peripheral neuropathy Acute bronchitis Pacemaker at end of battery life Hypothyroidism Diabetes mellitus Degenerative joint disease Irritable bowel syndrome Diverticulosis Allergic rhinitis Cough SVT (supraventricular tachycardia) Complete heart block Cardiac pacemaker in situ Surgical History History of permanent cardiac pacemaker placement COPD (chronic obstructive pulmonary disease) H/O colonoscopy (~05/28/23) History of appendectomy History of hysterectomy Hx of eye surgery Family History Father No problems noted. Mother CVD (cardiovascular disease) Pacemaker Social History Housing: House Patient Tobacco Use Status: Former Tobacco user e-Cigarette/Vaping Use: Former Use service: No Current occupational status: retired Cognitive needs: No Hearing needs: No Vision needs: Yes (reading glasses) Review of Systems Const All systems reviewed & are unremarkable except as noted in HPI and below Physical Exam Const General: cooperative, healthy appearing, comfortable, no acute distress, well developed, alert and awake Orientation/consciousness: patient oriented x3 Limitations: ambulation with cane HEENT Head: Yes normal to inspection, Yes normocephalic and Yes atraumatic Ears: hearing grossly normal bilaterally Eyes General: appearance normal, both eyes and all related structures Neck Neck: Yes normal visual inspection and Yes trachea midline Chest Chest palpation & inspection: normal inspection of the chest Resp Effort & Inspection: normal respiratory effort and able to speak in complete sentences Cardio Rate: regular rate GI Inspection: Yes normal to inspection General: Yes no CVA tenderness Back/Spine/Pelvis Back: no CVA tenderness Skin General skin exam: no rashes or lesions noted Neuro General: patient oriented x3 Extrem General: Yes normal to inspection Psych Appearance: grossly normal and well kempt Mental Status: mental status grossly normal Speech and movement: Normal speech and movement present and Clear speech present Affect: normal affect Attitude: cooperative Thought process: Normal thought process present Thought content: Normal thought content present Insight: Fair insight present (Psych) Judgement: Fair judgement present (Psych) Office Procedures Post Void Residual Post Residual Void Post Void Residual (PVR): 0 88345-Yssc Void Residual by ultrasound Results AMB Urinalysis, Automated UA Leukoctes 0 Daisy/uL Last Edit by LISA Wills on 04/01/25 10:54 UA Nitrite Negative Last Edit by Мария Connolly [facility] on 04/01/25 10:54 UA Urobilinogen 0.2 mg/dL Last Edit by Мария Connolly [facility] on 04/01/25 10:54 UA Protein 15 mg/dL Last Edit by Мария Connolly [facility] on 04/01/25 10:54 UA pH 6.0 Last Edit by Мария Connolly [facility] on 04/01/25 10:54 UA Blood 0 Lloyd/uL Last Edit by Мария Connolly [facility] on 04/01/25 10:54 UA Specific [place] 1.015 Last Edit by Мария Connolly [facility] on 04/01/25 10:54 UA Ketone Negative Last Edit by Мария Connolly [facility] on 04/01/25 10:54 UA Bilirubin 0 mg/dL Last Edit by Мария Connolly [facility] on 04/01/25 10:54 UA Glucose 0 mg/dL Last Edit by Мария Connolly [facility] on 04/01/25 10:54 Results Reviewed Results Reviewed: Laboratory Last Values Urine pH (Auto) 6.0 04/01/25 10:53 Specific [place] (Auto) 1.015 04/01/25 10:53 Urine Protein (Auto) 15 mg/dL 04/01/25 10:53 Glucose (UA)(Auto) 0 mg/dL 04/01/25 10:53 Urine Ketones (Auto) Negative 04/01/25 10:53 Urine Blood (Auto) 0 Lloyd/uL 04/01/25 10:53 Urine Nitrite (Auto) Negative 04/01/25 10:53 Urine Bilirubin (Auto) 0 mg/dL 04/01/25 10:53 Urine Urobilinogen (Auto) 0.2 mg/dL 04/01/25 10:53 Leukocyte Esterase (Auto) 0 Daisy/uL 04/01/25 10:53 Date of Service: 03/24/25 Procedure(s): CT kidney stone FINDINGS: LOWER CHEST: Subsegmental atelectasis of both lung bases. Small left posterior medial diaphragmatic hernia containing fat. There is no pleural effusion. CARDIOVASCULATURE: The heart is slightly enlarged. Partially visualized pacemaker lead in the right ventricle. There is a small pericardial effusion. LIVER: The liver is normal in size and contour. Multiple low-attenuation liver lesions. Largest measures 1.2 cm high in the dome segment 4/8 axial image 7 and 1.5 cm in the right lobe segment 6 axial image 34 series 3. Low Hounsfield units without contrast compatible with cysts. There are several smaller subcentimeter liver lesions difficult to accurately characterize due to small size and lack of IV contrast for example measuring 6 mm in the right lobe axial image 16 4 mm in the left lobe segment 3 axial image 24 and 4 mm in the right lobe segment 6 axial image 25 series 3. GALLBLADDER / BILE DUCTS: The gallbladder is unremarkable. There is no intra or extrahepatic biliary ductal dilatation. SPLEEN: The spleen is normal in size and has an unremarkable unenhanced appearance. PANCREAS: The pancreas has an unremarkable unenhanced appearance. ADRENAL GLANDS: Unremarkable. KIDNEYS/RETROPERITONEUM: Bilateral renal peripelvic cysts. 1 mm punctate stone in the lower pole of the right kidney. Multiple left renal stones, largest measures 5 mm in the upper pole of the left kidney. Additional smaller 3 mm left upper pole stone, 4 mm left mid pole stone and 4 mm left lower pole stone. No hydronephrosis, ureteral dilatation or ureteral stone. LYMPH NODES: No retroperitoneal lymphadenopathy is identified in the abdomen or pelvis. VASCULATURE: Mild atherosclerotic disease. No aneurysm. MESENTERY/PERITONEUM: No free fluid. No masses. There is no free intraperitoneal gas. STOMACH: There is a small esophageal hernia. Stomach otherwise unremarkable. SMALL BOWEL: The small bowel is normal in caliber. COLON: Mild diverticulosis.. APPENDIX: Not seen. No inflammatory changes in the right lower quadrant. URINARY BLADDER/PELVIC ORGANS: The urinary bladder is unremarkable. No pelvic mass. BONES / SOFT TISSUES: Degenerative changes of the spine and mild scoliosis. Diastases of the rectus muscles and small umbilical hernia containing fat. There is atrophy of the right gluteal muscles. IMPRESSION: Bilateral renal stones, left greater than right. Bilateral peripelvic cysts. No hydronephrosis, ureteral dilatation or ureteral stone. Several low-attenuation liver lesions, larger compatible with cysts. Smaller lesions difficult to accurately characterize but may represent cysts as well. This could be further evaluated with ultrasound or liver MRI if clinically warranted. Diverticulosis of the colon. Assessment & Plan Assessment & Plan (1) Nephrolithiasis: Code(s): N20.0 - Calculus of kidney Category: Medical (2) Overactive bladder: Code(s): N32.81 - Overactive bladder Category: Medical (3) Urinary incontinence, mixed: Code(s): N39.46 - Mixed incontinence Category: Medical Plan In office urinalysis results reviewed with the patient today; as noted above. PVR 0 mL. Will stop Myrbetriq. Start fesoterodine as discussed and prescribed. Was recent CT KUB results reviewed with the patient today; as noted above. We did discussed at length overactive bladder, mixed incontinence, and nephrolithiasis. We did discussed further treatment options of these urological conditions and risks and benefits of these treatment options. Will obtain [facility] for further assessment evaluation. We did discussed the importance of adequate hydration relation to nephrolithiasis as well as overall health and well-being. We discussed adding 1 oz of lemon juice to water daily. Continue vitamin B6 as discussed and prescribed. All questions were answered. Follow-up in 3 months with [facility] and PVR; or sooner with any issues, concerns, and or questions. Orders: Orders URORISK Today N20.0 - Calculus of kidney AMB Urinalysis Automated Today Z13.9 - Encounter for screening, unspecified Medications: New fesoterodine ER 4 mg PO DAILY 30 tabs 3RF 30 days Patient Instructions: The patient had an opportunity to ask questions regarding the treatment plan. All questions were answered. Physical exam, labs, and imaging were discussed and reviewed in detail. As well as risks, benefits, and discussion of treatment choices. No major barriers to understanding were identified. The patient expressed understanding and agreement with the above treatment plan. The patient was made aware they should contact our office by phone for worsening of their current condition, the appearance of new symptoms, or with any questions or concerns. Compliance is encouraged with any medications and follow up testing that is ordered. It is a privilege to be allowed the opportunity to participate in? your urological care.? Again, if you have any questions or concerns If you have any questions or concerns please do not hesitate to contact me. The office is [phone]. This note is constructed using voice recognition software. While every effort has been made to ensure accuracy printed circuit boards contact printer errors may have been included. Yours sincerely, KENROY Ramírez Coding Level of Care Code Est Pt Level 4 (61890) Complex EM visit Add On G2211 Diagnoses Nephrolithiasis N20.0 Overactive bladder N32.81 Urinary incontinence, mixed N39.46 CPT Codes Post Residual Void - PVR CPT Code: 37503-Cgkt Void Residual by ultrasound ([id number])
--- OUTSIDE RECORDS SUMMARY | 2025-04-01 12:51 | XMS_ITS | Data Portability ---
Author Organization [place] - [facility], Allergy Address [address] [place] [address] Care Team Providers Care Occupational Rehabilitation Aide Name Role Phone INOCENCIA SALINAS Primary Care [...] Time Asymmetr ical sensorin eural hearing loss 523466197 Active 2014 Sensorin eural hearing loss asymmetr ic; Note: Date Diagnose d: 5 3:54 PM (389.16) Not Available [facility] 4 02:21:22 Benign paroxysm al position al vertigo 126270925 Active 2014 Benign paroxysm al position al vertigo; Note: Date Diagnose d: 5 3:54 PM (386.11) Not Available [facility] 4 02:20:42 Sensorin eural hearing loss of bilatera l ears 019852929 Active 2014 Sensorin eural hearing loss, bilatera l; Note: Date Diagnose d: 01/25/2015 10:47 AM (H90.3) Not Available [facility] 4 02:21:07 Bilatera l disorder of Eustachi an tubes 25635780598 38066 Active 2016 Other specifie d disorder s of Eustachi an tube, bilatera l; Note: Date Diagnose d: 10/24/2016 3:35 PM (H69.83) Not Available [facility] 4 02:21:33 Mixed conducti ve and sensorin eural hearing loss of right ear 46817536566 105 Active 2016 Mixed conducti ve and sensorin eural hearing loss, unilater al, right ear with restrict ed hearing on the contrala teral side; Note: Date Diagnose d: 10/24/2016 3:35 PM (H90.A31 ) Not Available [facility] 4 02:20:54 Sensorin eural hearing loss in left ear 56282009305 109 Active 2016 Sensorin eural hearing loss, unilater al, left ear, with restrict ed hearing on the contrala teral side; Note: Date Diagnose d: 7 10:10 AM (H90.A22 ) Not Available [facility] 4 02:20:40 Acute serous otitis media of right ear 79294454987 64507 Active 2016 Acute serous otitis media, right ear; Note: Date Diagnose d: 7 10:11 AM (H65.01) Not Available [facility] 4 02:21:21 Chronic serous otitis media 49158725 Active 2016 Serous otitis media Chronic; Note: Date Diagnose d: 7 12:22 PM (381.10) Not Available [facility] 4 02:20:51 Otorrhea of right ear 21227041506 38877 Completed 201612/20/2023 Otorrhea , right ear; Note: Date Diagnose d: 01/25/2017 12:25 PM (H92.11) Not Available [facility] 4 02:21:04 Chronic serous otitis media of left ear 224174836 Active 2016 Chronic serous otitis media, left ear; Note: Changed from H65.02 to H65.22 ( 017 8:45 AM) , Date Diagnose d: 7 10:44 AM (H65.02) Not Available [facility] 4 02:21:33 Allergic rhinitis 09075489 Active 2016 Allergic rhinitis : Due to other allergen ; Note: Date Diagnose d: 7 9:26 AM (477.8) Not Available [facility] 4 02:20:48 Cough 34474900 Active 2016 Cough; Note: Date Diagnose d: 04/16/20 17 8:53 AM (R05) Not Available [facility] 4 02:21:01 Nasal congesti on 17083027 Active 2016 Nasal congesti on; Note: Date Diagnose d: 04/16/20 17 8:50 AM (R09.81) Not Available [facility] 4 02:21:32 Disorder of right Eustachi an tube 20509307301 56328 Active 2017 Other specifie d disorder s of Eustachi an tube, right ear; Note: Date Diagnose d: 8 3:54 PM (H69.81) Not Available [facility] 4 02:21:07 Impacted cerumen of bilatera l ears 80871867933 70866 Active 2017 Impacted cerumen, bilatera l; Note: Date Diagnose d: 8 3:54 PM (H61.23) Not Available [facility] 4 02:21:10 Otalgia of right ear 5217986210 Active 2018 Otalgia, right ear; Note: Date Diagnose d: 9 11:10 AM (H92.01) Not Available [facility] 4 02:20:55 Pain of right temporom andibula r joint 94205737205 753106 Active 2018 Arthralg ia of right temporom andibula r joint; Note: Date Diagnose d: 9 11:10 AM (M26.621 ) Not Available [facility] 4 02:21:11 Chronic serous otitis media of right ear 669405596 Active 2018 Chronic serous otitis media, right ear; Note: Date Diagnose d: 9 11:07 AM (H65.21) Chroni c serous otitis media, right ear; Note: Changed from H65.22 to H65.21 (01/02/20 17 2:18 PM) , Date Diagnose d: 7 12:27 PM (H65.22) ; Start Date : 01/02/20 17 Not Available [facility] 4 02:20:48 Adhesive middle ear disease 9340625 Active 2018 Adhesive right middle ear disease; Note: Date Diagnose d: 9 9:16 AM (H74.11) Not Available [facility] 4 02:21:34 Problem Notes None recorded. Procedures Surgical History Date Name Laterality Status Provider Name and Address Organization Details Recorded Time 09/09/2024 Air & Speech Audio with Tymps - 59189, 71461 & 89825 completed JUSTICE PEREZ, [address], [address], [facility] 09/09/2024 12:53:18 Imaging Results None recorded. Procedure Notes None recorded. Medical Equipment None Reported. Medications Name Sig Start Date Stop Date Status Note LastModified by Organization Details LastModified Time amoxicill in 500 mg capsule TAKE 1 CAPSULE( S) BY MOUTH FOUR TIMES A DAY active Not Available Not Available No t Available Augmentin 875 mg-125 mg tablet 2016 active Medicati on ID: 986509 D uration Value: 10 Prescri bed By Name: LUCILLE Pierce nd Name: Augmenti n Send Method: E-Prescr ibed Sub s Allowed: subs OK Speci al Instruct ion: 1 po bid for 10 days Med icationG enericNa me: Augmenti n Not Available Not Available Not Available atorvasta tin 20 mg tablet 02/03 completed Medicati on ID: 52253 Du ration Value: 90 Reason: () Brand [...] mg tablet 11/01 completed Medicati on ID: 61506 Du ration Value: 90 Reason: () Brand [...] by mouth 2016 active Medicati on ID: 650577 D uration Value: 5 Prescri bed By Name: LUCILLE Pierce nd Name: predniso ne Send Method: E-Prescr ibed Sub s Allowed: subs OK Medic ationGen ericName : predniso ne Not Available Not Available Not Available Ciloxan 0.3 % eye drops active Medicati on ID: 046510 P rescribe d By Name: LUCILLE Pierce [...] layed release 12/30 completed Medicati on ID: 68819 Re ason: () Brand Name: Aspir-81 Send Method: E-Prescr ibed Sub s Allowed: subs OK Medic ationGen ericName : Aspir-81 Not Available Not Available Not Available fluticaso ne propionat e 50 mcg/actua tion nasal spray,corrie pension 2 puff into both nostrils 2016 active Medicati on ID: 574636 D uration Value: 30 Prescri bed By Name: LUCILLE Pierce nd Name: fluticas one Send Method: E-Prescr ibed Sub s Allowed: subs OK Medic ationGen ericName : fluticas one Not Available Not Available Not Available Ciprodex 0.3 %-0.1 % ear drops,corrie pension 4 drop 2016 active Medicati on ID: 093773 D uration Value: 14 Prescri bed By Name: LUCILLE Pierce nd Name: Ciprodex Send Method: E-Prescr ibed Sub s Allowed: subs OK Medic ationGen ericName : Ciprodex Not Available Not Available Not Available Symbicort 80 mcg-4.5 mcg/actua tion HFA aerosol inhaler 2018 active Medicati on ID: 855024 D uration Value: 90 Brand Name: Symbicor [...] ICD10 Code Diagnosis IMO Codes Diagnosis Note 01322 OLAMIDE RIOS [facility] [address] [facility] [place]S [phone] 08/12/2024 09:55:35 08/17/2024 13:21:36 Sensorineural hearing loss of bilateral ears 612861176 H90.3 [id number] OLAMIDE RIOS [place] [address] [facility] [address] [place] [address] 09/09/2024 11:11:45 09/09/2024 12:47:34 Sensorineural hearing loss of bilateral ears 331912528 H90.3 Right Ear:Normal hearing through 250 Hz [...] Member ID Guarantor Name 09/09/2024 1 MEDICARE B-[place]: [facility] [employer] Valery Cano [id number] Valery Rodas Jerome 09/18/2024 2 [facility] INDEMNITY PLAN (MEDICARE SUPPLEMENT) [id number] Valery Rodas Jerome [id number] Valery Rodas Jerome Notes Date Note Type Note Provider Name and Address Organization Details Recorded Time 08/12/2024 text/html Came in yesterday for a BONILLA check. Her right aid has not been working for about a month. Cleaned checked both aids. The right aid actually had 2 cerushields in the pigs feet finisher- once they were removed, the aid was [...] new [employer] benefit. JUSTICE PEREZ, AUD [address] [facility],[address], [address], [facility] - [facility] 08/12/2024 09:59:29 09/09/2024 text/html Has been doing pretty well since out last visit. Turned up aids slightly per pt request.Also increased noise block. Audio is stable AU. Encouraged her to use the VC as needed.She will call if she needs additional adjs. JUSTICE PEREZ, AUD [address] [facility],[place] [address], [place], [address], [facility] - [facility] 09/09/2024 12:55:43 OBGyn Episode No OBEpisode recorded.
--- OUTSIDE RECORDS SUMMARY | 2025-04-01 12:51 | XMS_ITS | Patient Health Record ---
Author Organization [facility] Address [address] [place] [address] Care Team Providers Care Disabilities Services Officer Name Role Phone Zakiya (RETIRED) Noé BARRERA Primary Care Provide r Pelon Almazan Jr Unavailable [phone] Allergies No Known Allergies Reason For Referral [...] Status Risk Notes Problem Colon cancer screening (458849249) Colon cancer screening (Z12.11) Active confirmed Problem Rectal bleeding (84093081) Rectal bleeding (K62.5) Active confirmed Problem Long-term current use of antiplatelet drug (197038807172740) Long-term use of aspirin therapy (Z79.82) Active confirmed Problem Right upper quadrant pain (174725370) RUQ pain (R10.11) Active confirmed Problem Family history of malignant neoplasm of gastrointestinal tract (907329712) FH: colon cancer (Z80.0) Active confirmed Plan Of Treatment Future Test Test Name Order Date COLONOSCOPY 04/19/2016 COLONOSCOPY 04/15/2023 Insurance Providers Payer Name Payer Address Payer Phone Subscriber Number Group Number Insured Name Patient Relationship to Insured Coverage Start Date Coverage End Date MEDICARE OF [place] [address] [place] [address] [id number] NIALL BURKETT Self - patient is the insured [facility] INDEMNITY [address] [place] [address] [id number] NIALL BURKETT Self - patient is the [...]
--- OUTSIDE RECORDS SUMMARY | 2025-04-01 12:51 | XMS_ITS | Encounter Summary ---
Author Organization [facility] Address [address] [place] [address] Phone Care Team Providers Care Mechanical Fitter Name Role Phone Candis Coronel MD Unavailable Noé Sigala MD Unavailable [phone] Benito Cope MD Unavailable [phone] Vera Serrano MD Unavailable [phone] Unknown, Unknown Primary Care Provider Noé Ramirez MD Primary Care Provider Encounter Details Date Type Department Care Team (Late st Contact Info) Description 03/09/2017 Ancillary Orders [facility], [address] [address] Noé Sigala MD [address] [place] [address] [place] [id number] Visit for screening mammogram Social History Tobacco [...] mammogram documented in this encounter Care Teams Mechanical Fitter Relationship Specialty Start Date End Date Unknown, Unknown, [address] [address] PCP - General 03/09/17 03/28/17 Noé Sigala MD [address] [place] [address] [place] [address] PCP - General Internal Medicine 03/29/17 Candis Coronel MD [address] [place] [address] Historical LMR Provider 03/06/17 2 Noé Sigala MD [address] [place] [address] [place] [address] Historical LMR Provider 03/06/17 Benito Cope MD [address] [place] [address] Historical LMR Provider 03/06/17 2 Vera Serrano MD [address] [address] [email or web address] Historical LMR Provider 03/06/17 05/27/21 documented as of this encounter Additional Source Comments The information contained in this document represents components of the legal health record. It is not the complete legal health record.[facility]
--- OUTSIDE RECORDS SUMMARY | 2025-04-01 12:51 | XMS_ITS | Patient Health Record ---
Author Organization [facility] Address [address] [facility] [place] [address] Care Team Providers Care Police And Fire Dispatcher Name Role Phone Amaya Yañez Primary Care Provider Shahzad Fuller Unavailable [phone] Allergies Allergen (clinical drug ingredient) Drug/Non Drug [...] Problem Acquired hammer toe of right foot (6480122953682 105) Other hammer toe(s) (acquired), right foot (M20.41) Active confirmed Problem Type 2 diabetes mellitus with peripheral angiopathy (668143467) Type 2 diabetes mellitus with diabetic peripheral angiopathy without gangrene (E11.51) Active confirmed Q7(A), Q8(2B), Q9(1B,2C) Problem Acquired hammer toe of left foot (9314901005290 103) Other hammer toe(s) (acquired), left foot (M20.42) Active confirmed Vital Signs Blood pressure diastolic 68 mm Hg 01/26/2025 Height 5 ft 6 in in 01/26/2025 Blood pressure systolic 126 mm Hg 01/26/2025 Weight 182 lbs 01/26/2025 BMI 29.37 kg/m2 01/26/2025 Procedures Procedure Date Ordered Date Performed Result Body Sit e 94391-TCZIMKX NAIL, 6 OR MORE 04/28/2024 N/A 49238-CGRU SKIN LESIONS, 2 TO 4 04/28/2024 N/A 35889-DOJKLWS NAIL, 6 OR MORE 07/24/2024 N/A 06722-PPWA SKIN LESIONS, 2 TO 4 07/24/2024 N/A 87679-GKJSZFT NAIL, 6 OR MORE 10/23/2024 N/A 03930-GMTK SKIN LESIONS, 2 TO 4 10/23/2024 N/A 59657-IRBXWSX NAIL, 6 OR MORE 01/26/2025 N/A 99028-QVHM SKIN LESIONS, 2 TO 4 01/26/2025 N/A Encounters Encounter Location Date Provider Diagnosis [address] [address] 04/28/2024 Shahzad Rosado Atherosclerosis of [place] artery of both lower extremities, with unspecified presence of clinical manifestation I70.203 ; Tinea unguium B35.1 ; Pain in right toe(s) M79.674 ; Pain in left toe(s) M79.675 and Skin ulcer of toe of right foot, limited to breakdown of skin L97.[address] [address] 07/24/2024 Shahzad Rosado Atherosclerosis of [place] artery of both lower extremities, with unspecified presence of clinical manifestation I70.203 ; Tinea unguium B35.1 ; Pain in right toe(s) M79.674 ; Pain in left toe(s) M79.675 and Xerosis of skin L85.[address] [address] 10/23/2024 Shahzad Rosado Type 2 diabetes mellitus with diabetic peripheral angiopathy without gangrene E11.51 ; Tinea unguium B35.1 ; Pain in right toe(s) M79.674 ; Pain in left toe(s) M79.675 and Xerosis of skin L85.[address] [address] 01/26/2025 Shahzad Rosado Type 2 diabetes mellitus with diabetic peripheral angiopathy without gangrene E11.51 ; Tinea unguium B35.1 ; Pain in right toe(s) M79.674 ; Pain in left toe(s) M79.675 ; Other hammer toe(s) (acquired), right foot M20.41 and Other hammer toe(s) (acquired), left foot M20.42 [facility] [address] [place] [address] 07/24/2024 Shahzad Rosado Assessments Encounter Date Diagnosis (ICD Code) Assessment Notes Treatment Notes Treatment Clinical Notes Section Notes 04/28/2024 Tinea unguium (ICD-10 - B35.1) 04/28/2024 Atherosclerosis of [place] artery of both lower extremities, with unspecified presence of clinical manifestation (ICD-10 - I70.203) 07/24/2024 Tinea unguium (ICD-10 - B35.1) 07/24/2024 Atherosclerosis of [place] artery of both lower extremities, with unspecified [...] Treatment Pending Test Test Name Order Date 37834-FOGPPFK NAIL, 6 OR MORE 11/19/2023 03463-JWAXLNC NAIL, 6 OR MORE 01/28/2024 42533-YTFRKSW NAIL, 6 OR MORE 04/28/2024 50470-WUIVNRN NAIL, 6 OR MORE 07/24/2024 46135-LGVXBJD NAIL, 6 OR MORE 10/23/2024 09599-VHNQYMU NAIL, 6 OR MORE 01/26/2025 98064- Debride <25 sq cm 01/28/2024 27383- Debride <25 sq cm 11/19/2023 31740-AJLD SKIN LESIONS, 2 TO 4 11/19/19 24 11515-JKGC SKIN LESIONS, 2 TO 4 01/28/20 24 37374-BKAM SKIN LESIONS, 2 TO 4 07/25/19 25 55697-ESTB SKIN LESIONS, 2 TO 4 04/28/20 24 58484-KSFS SKIN LESIONS, 2 TO 4 01/27/20 25 45807-CUGU SKIN LESIONS, 2 TO 4 10/24/19 25 Next Appt Details Provider Name:Shahzad Rosado , 05/25/2025 10:45:00 AM, [address] [facility], [place], [address], Insurance Providers Payer Name Payer Address Payer Phone Subscriber Number Group Number Insured Name Patient Relationship to Insured Coverage Start Date Coverage End Date Medicare National Govt Svcs Inc [address] [place] [address] [id number] Valery Cano Self - patient is the insured [employer]) [address] [place] [address] [phone] [id number] Valery Cano Self - patient is the insured Medical (General) History Medical History History ICD Code Back,Hip,and Knee pain Broken bones Cataracts Fibromyalgia Headaches/Migraines Heart disease thyroid Measles Mumps Chicken pox Pacemaker CAD ( Coronary Artery Disease) Diabetes mellitus Surgical History Surgery Date(Month/Year) cardiac pacemeker 08/27/2023 basal cell removal 06/21/2023
--- OUTSIDE RECORDS SUMMARY | 2025-04-01 12:51 | XMS_ITS | Clinical Summary ---
Author Organization [facility] Address [address] [place] [address] Care Team Providers Care Child Abuse Worker Name Role Phone Unavailable Primary Care Provider [...]
--- OUTSIDE RECORDS SUMMARY | 2025-04-01 12:51 | XMS_ITS | Clinical Summary ---
Author Organization [facility] Address [address] [place] [address] Phone Care Team Providers Care Leather Toggler Name Role Phone Noé Sigala MD Unavailable [phone] Noé Sigala MD Primary Care Provider Allergies [...] OXIDE/AA CHELATE,) 300 mg Cap Active omega 4-ofp-zmb-fish oil 183.3 mg-75 mg -91.6 mg-306 mg [...] on patient's age to complete this topic IPV VACCINES Aged Out No longer eligi ble [...] the right hip was calculated at 0.875 gm/bk3odjl a T-score of -0.5 and Z-score of [...] Maintenance Insurance MEDICARE PART A & B [facility] EXTENSION MEDICARE SUPPLEMENT MEDICARE PART A & [place] [address] [place] [address] MEDICARE SUPPLEMENT MEDICARE PART A & B MEDICARE PART A & B MEDICARE PART A & B [employer] MEDICARE SUPPLEMENT MEDICARE PART A & B MEDICARE PART A & B MEDICARE SUPPLEMENT MEDIC[facility] & [facility] MEDICARE SUPPLEMENT MEDICARE PART A & B [facility] EXTENSION MEDICARE SUPPLEMENT Care Teams Leather Toggler Relationship Specialty Start Date End Date Noé Sigala MD [address] [place] [address] [place] [address] PCP - General Internal Medicine 03/29/17 Noé Sigala MD [address] [place] [address] [place] [address] Historical LMR Provider 03/06/17 Additional Source Comments The information contained in this document represents components of the legal health record. It is not the complete legal health record.[facility]
== END 2025-04-01 11:17 | disposition home or self-care (01) ==
LOC: HO.HUSH 10:29
PROVIDERS: PCP Internal Medicine; Visit Provider Nurse Practitioner Family
DX: N20.0 Calculus of kidney (principal); N32.81 Overactive bladder; N39.46 Mixed incontinence; Z13.9 Encounter for screening, unspecified
CPT/HCPCS: 99214; G2211

== ENCOUNTER → 2025-04-01 10:28 | Outpatient (BNVA) | payer MEDICARE, OTHER, SELFPAY | PROVIDERS: PCP Internal Medicine; Visit Provider Nurse Practitioner Family | DX: N20.0 Calculus of kidney (principal); N32.81 Overactive bladder; N39.46 Mixed incontinence; Z79.82 Long term (current) use of aspirin; Z95.0 Presence of cardiac pacemaker; Z87.891 Personal history of nicotine dependence | CPT/HCPCS: 51798; 81003; 99212 ==

== ENCOUNTER 2025-05-17 13:09 | Outpatient (REF) | payer MEDICARE, OTHER, SELFPAY ==
--- OUTSIDE RECORDS SUMMARY | 2025-05-17 15:09 | XMS_ITS | Patient Health Record ---
Author Organization [facility] Address [address] [place] [address] Care Team Providers Care Machine Shop Apprentice Name Role Phone Zakiya (RETIRED) Noé BARRERA Primary Care Provide r Pelon Almazan Jr Unavailable Allergies No Known Allergies Reason For Referral No Information Medications Medication SIG (Take, Route, Frequency, Duration) Notes Start Date End Date Status Atorvastatin Calcium Active Aspirin 81 MG Tablet Chewable 1 tablet Orally Once a day; Duration: 30 day(s) Active Levothyroxine Sodium Active Levbid 0.375 MG Tablet Extended Release 12 Hour 1 tablet Orally every 12 hrs; Duration: 30 Active Anusol-HC 25 MG Suppository 1 suppositor y Rectal Twice a day; Duration: 14 day(s) 04/19/2016 Active Colyte with Flavor Packs 240 GM Solution Reconstituted As directed Orally Over the specified time.; Duration: 1 day(s) 04/19/2016 Active dilTIAZem HCl ER Coated Beads Active MiraLax (colon prep) 17 GM/SCOOP Powder mixed with Gatorade or Crystal Light Orally begin at 5:00 p.m. the day before the procedure; Duration: 1 day 04/15/2023 Active Immunizations Vaccine Route Administration Date Status Comme nts Influenza Unknown 04/15/2023 Refused Social History Social History Additional Details Category Social Info Options Details Miscellaneous: Marital status: on e year Occupation: works Problems Problem Type SNOMED Code ICD Code Onset Dates Problem Status W/U Status Risk Notes Problem Colon cancer screening (358973093) Colon cancer screening (Z12.11) Active confirmed Problem Rectal bleeding (41881468) Rectal bleeding (K62.5) Active confirmed Problem Long-term current use of antiplatelet drug (077521572744982) Long-term use of aspirin therapy (Z79.82) Active confirmed Problem Right upper quadrant pain (836800536) RUQ pain (R10.11) Active confirmed Problem Family history of malignant neoplasm of gastrointestinal tract (294096693) FH: colon cancer (Z80.0) Active confirmed Plan Of Treatment Future Test Test Name Order Date COLONOSCOPY 04/19/2016 COLONOSCOPY 04/15/2023 Insurance Providers Payer Name Payer Address Payer Phone Subscriber Number Group Number Insured Name Patient Relationship to Insured Coverage Start Date Coverage End Date MEDICARE OF [place] [address] [place] [address] [id number] NIALL BURKETT Self - patient is the insured [facility] [employer] [address] [place] [address] [id number] NIALL BURKETT Self - patient is the [...]
--- OUTSIDE RECORDS SUMMARY | 2025-05-17 15:09 | XMS_ITS | Patient Health Record ---
Author Organization [facility] Address [address] [facility] [place] [address] Care Team Providers Care Broach Trouble Shooter Name Role Phone Amaya Yañez Primary Care Provider Shahzad Fuller Unavailable [phone] Allergies Allergen (clinical drug ingredient) Drug/Non Drug [...] Problem Acquired hammer toe of right foot (5521105071531 105) Other hammer toe(s) (acquired), right foot (M20.41) Active confirmed Problem Type 2 diabetes mellitus with peripheral angiopathy (552311891) Type 2 diabetes mellitus with diabetic peripheral angiopathy without gangrene (E11.51) Active confirmed Q7(A), Q8(2B), Q9(1B,2C) Problem Acquired hammer toe of left foot (8771643589640 103) Other hammer toe(s) (acquired), left foot (M20.42) Active confirmed Vital Signs Blood pressure diastolic 68 mm Hg 01/26/2025 Height 5 ft 6 in in 01/26/2025 Blood pressure systolic 126 mm Hg 01/26/2025 Weight 182 lbs 01/26/2025 BMI 29.37 kg/m2 01/26/2025 Procedures Procedure Date Ordered Date Performed Result Body Sit e 62038-TEGQZKP NAIL, 6 OR MORE 07/24/2024 N/A 02314-HMHA SKIN LESIONS, 2 TO 4 07/24/2024 N/A 30948-BXEDIQF NAIL, 6 OR MORE 10/23/2024 N/A 86435-BPFS SKIN LESIONS, 2 TO 4 10/23/2024 N/A 13376-NYOSCEX NAIL, 6 OR MORE 01/26/2025 N/A 92043-EXLO SKIN LESIONS, 2 TO 4 01/26/2025 N/A Encounters Encounter Location Date Provider Diagnosis [address] [address] 07/24/2024 Shahzad Rosado Atherosclerosis of [place] artery of both lower extremities, with unspecified presence of clinical manifestation I70.203 ; Tinea unguium B35.1 ; Pain in right toe(s) M79.674 ; Pain in left toe(s) M79.675 and Xerosis of skin L85.[address] [address] 10/23/2024 Shahzad Rosado Type 2 diabetes mellitus with diabetic peripheral angiopathy without gangrene E11.51 ; Tinea unguium B35.1 ; Pain in right toe(s) M79.674 ; Pain in left toe(s) M79.675 and Xerosis of skin L85.[address] [address] 01/26/2025 Shahzad Rosado Type 2 diabetes mellitus with diabetic peripheral angiopathy without gangrene E11.51 ; Tinea unguium B35.1 ; Pain in right toe(s) M79.674 ; Pain in left toe(s) M79.675 ; Other hammer toe(s) (acquired), right foot M20.41 and Other hammer toe(s) (acquired), left foot M20.[address] [address] 07/24/2024 Shahzad Rosado Assessments Encounter Date Diagnosis (ICD Code) Assessment Notes Treatment Notes Treatment Clinical Notes Section Notes 07/24/2024 Tinea unguium (ICD-10 - B35.1) 07/24/2024 Atherosclerosis of [place] artery of both lower extremities, with unspecified presence of clinical manifestation (ICD-10 - I70.203) Q7(A), Q8(2B), Q9(1B,2C) 10/23/2024 Type 2 diabetes mellitus with diabetic peripheral angiopathy without gangrene (ICD-10 - E11.51) Q7(A), Q8(2B), Q9(1B,2C) 10/23/2024 Tinea unguium (ICD-10 - B35.1) 01/26/2025 Type 2 diabetes mellitus with diabetic peripheral angiopathy without gangrene (ICD-10 - E11.51) Q7(A), Q8(2B), Q9(1B,2C) 01/26/2025 Tinea unguium (ICD-10 - B35.1) 01/26/2025 Pain in right toe(s) (ICD-10 - M79.674) 10/23/2024 Pain in right toe(s) (ICD-10 - M79.674) 07/24/2024 Pain in right toe(s) (ICD-10 - M79.674) 07/24/2024 Pain in left toe(s) (ICD-10 - M79.675) 10/23/2024 Pain in left toe(s) (ICD-10 - M79.675) 01/26/2025 Pain in left toe(s) (ICD-10 - M79.675) 10/23/2024 Xerosis of skin (ICD-10 - L85.3) 07/24/2024 Xerosis of skin (ICD-10 - L85.3) 01/26/2025 Other hammer toe(s) (acquired), right foot (ICD-10 - M20.41) Patient Educated with: DIABETIC FOOT CARE INSTRUCTIONS. pdf (DIABETIC FOOT CARE INSTRUCTIONS. pdf) 01/26/2025 Other hammer toe(s) (acquired), left foot (ICD-10 - M20.42) Plan Of Treatment Pending Test Test Name Order Date 04918-FKFVMYX NAIL, 6 OR MORE 11/19/2023 93292-WXVKBUT NAIL, 6 OR MORE 01/28/2024 78012-YITLDQN NAIL, 6 OR MORE 04/28/2024 23923-IHIRXQJ NAIL, 6 OR MORE 07/24/2024 44035-AWICMZA NAIL, 6 OR MORE 10/23/2024 52038-RIDKUXG NAIL, 6 OR MORE 01/26/2025 68237- Debride <25 sq cm 01/28/2024 00785- Debride <25 sq cm 11/19/2023 45901-FTTW SKIN LESIONS, 2 TO 4 11/19/19 24 35098-QAMQ SKIN LESIONS, 2 TO 4 01/28/20 24 87610-XJPZ SKIN LESIONS, 2 TO 4 07/25/19 25 83028-YCER SKIN LESIONS, 2 TO 4 04/28/20 24 64093-JWQZ SKIN LESIONS, 2 TO 4 01/27/20 25 22819-GROJ SKIN LESIONS, 2 TO 4 10/24/19 Next Appt Details Provider Name:Shahzad Rosado , 05/25/2025 10:45:00 AM, [address] [place], [address], Insurance Providers Payer Name Payer Address Payer Phone Subscriber Number Group Number Insured Name Patient Relationship to Insured Coverage Start Date Coverage End Date Medicare National Govt Svcs Inc [address] [place] [address] [id number] Valery Cano Self - patient is the insured [facility] [address] [place] [address] [phone] [id number] Valery Cano Self - patient is the insured Medical (General) History Medical History History ICD Code Back,Hip,and Knee pain Broken bones Cataracts Fibromyalgia Headaches/Migraines Heart disease thyroid Measles Mumps Chicken pox Pacemaker CAD ( Coronary Artery Disease) Diabetes mellitus Surgical History Surgery Date(Month/Year) cardiac pacemeker 08/27/2023 basal cell removal 06/21/2023
--- OUTSIDE RECORDS SUMMARY | 2025-05-17 15:09 | XMS_ITS | Clinical Summary ---
Author Organization [facility] Address [address] [place] [address] Care Team Providers Care Photo Offset Printer Name Role Phone Unavailable Primary Care Provider [...]
--- OUTSIDE RECORDS SUMMARY | 2025-05-17 15:09 | XMS_ITS | Encounter Summary ---
Author Organization [facility] Address [address] [place] [address] Phone Care Team Providers Care Tank Systems Maintainer Name Role Phone Candis Coronel MD Unavailable Noé Sigala MD Unavailable Benito Cope MD Unavailable [phone] Vera Serrano MD Unavailable [phone] Noé Sigala MD Primary Care Provider Encounter Details Date Type Department Care Team (Late st Contact Info) Description 11/03/2018 Ancillary Orders Virtual Department [address] [place] [address] Noé Sigala MD [address] [place] [address] [place] [address] Post-menopausal Social History Tobacco Use Types Packs/Day [...] the right hip was calculated at 0.875 gm/oh5nhns a T-score of -0.5 and Z-score of [...] (natural) documented in this encounter Care Teams Tank Systems Maintainer Relationship Specialty Start Date End Date Noé Sigala MD [address] [place] [address] [place] [address] PCP - General Internal Medicine 03/29/17 Candis Coronel MD [address] [place] [address] Historical LMR Provider 03/06/17 2 Noé Sigala MD [address] [place] [address] [place] [address] Historical LMR Provider 03/06/17 Benito Cope MD [address] [place] [address] Historical LMR Provider 03/06/17 2 Vera Serrano MD [address] [place] [address] [email or web address] Historical LMR Provider 03/06/17 05/27/21 documented as of this encounter Additional Source Comments The information contained in this document represents components of the legal health record. It is not the complete legal health record.[facility]
--- OUTSIDE RECORDS SUMMARY | 2025-05-17 15:09 | XMS_ITS | Encounter Summary ---
Author Organization [facility] Address [address] [place] [address] Phone Care Team Providers Care Liquor Runner Name Role Phone Candis Coronel MD Unavailable Noé Sigala MD Unavailable [phone] Benito Cope MD Unavailable [phone] Vera Serrano MD Unavailable [phone] Unknown, Unknown Primary Care Provider Noé Ramirez MD Primary Care Provider Encounter Details Date Type Department Care Team (Late st Contact Info) Description 03/09/2017 Ancillary Orders [facility], [address] [address] Noé Sigala MD [address] [place] [address] [place] [address] Visit for screening mammogram Social History Tobacco [...] mammogram documented in this encounter Care Teams Liquor Runner Relationship Specialty Start Date End Date Unknown, Unknown, [address] [address] PCP - General 03/09/17 03/28/17 Noé Sigala MD [address] [place] [address] [place] [address] PCP - General Internal Medicine 03/29/17 Candis Coronel MD [address] [place] [address] Historical LMR Provider 03/06/17 2 Noé Sigala MD [address] [place] [address] [place] [address] Historical LMR Provider 03/06/17 Benito Cope MD [address] [place] [address] Historical LMR Provider 03/06/17 2 Vera Serrano MD [address] [address] [email or web address] Historical LMR Provider 03/06/17 05/27/21 documented as of this encounter Additional Source Comments The information contained in this document represents components of the legal health record. It is not the complete legal health record.[facility]
--- OUTSIDE RECORDS SUMMARY | 2025-05-17 15:09 | XMS_ITS | Clinical Summary ---
Author Organization [facility] Address [address] [place] [address] Phone Care Team Providers Care Psych Specialist Name Role Phone Noé Sigala MD Unavailable [phone] Noé Sigala MD Primary Care Provider Allergies [...] OXIDE/AA CHELATE,) 300 mg Cap Active omega 6-rbo-svd-fish oil 183.3 mg-75 mg -91.6 mg-306 mg [...] the right hip was calculated at 0.875 gm/rj0rerr a T-score of -0.5 and Z-score of [...] Maintenance Insurance MEDICARE PART A & B [facility] MEDICARE SUPPLEMENT MEDICARE PART A & B [facility] MEDICARE SUPPLEMENT MEDICARE PART A & B MEDICARE PART A & B Member Subscriber Plan / Payer (Ef fective 2018-Present) Name:Valery Cano Member ID:[id number] Relation to Subscriber:Self Name:Valery Cano Subscriber ID:[id number] Payer ID:[id number] Group ID:Not on file Type:Medicare Address: [facility] [facility] [address] [place] [address] MEDICARE PART A & B [employer] MEDICARE SUPPLEMENT MEDICARE PART A & B MEDICARE PART A & B [employer] EXTENSION MEDICARE SUPPLEMENT MEDICARE PART A & B [facility] EXTENS[employer] MEDICARE SUPPLEMENT MEDICARE PART A & B [facility] MEDICARE SUPPLEMENT Care Teams Psych Specialist Relationship Specialty Start Date End Date Noé Sigala MD [address] [place] [address] [place] [address] PCP - General Internal Medicine 03/29/17 Noé Sigala MD [address] [place] [address] [place] [address] Historical LMR Provider 03/06/17 Additional Source Comments The information contained in this document represents components of the legal health record. It is not the complete legal health record.[facility]
[2025-05-17 15:17] LABS: Free T4 (Free Thyroxine) 1.37 ng/dL (0.71-1.85)
== END 2025-05-17 13:10 ==
LOC: HO.LAB 13:09
PROVIDERS: PCP Physician Assistant; Visit Provider Physician Assistant
DX: E03.9 Hypothyroidism, unspecified (principal)
CPT/HCPCS: 36415; 84439; 84443

== ENCOUNTER → 2025-05-18 13:54 | Outpatient (BNV) | payer MEDICARE, OTHER, SELFPAY | PROVIDERS: PCP Physician Assistant; Visit Provider Internal Medicine Cardiovascular Disease | DX: I48.91 Unspecified atrial fibrillation (principal); Z45.018 Encounter for adjustment and management of other part of cardiac pacemaker | CPT/HCPCS: 93294 ==